=== PATIENT | male | born 1950 | race Caucasian/White ===

== ENCOUNTER 2019-04-13 06:04 | Inpatient (IN) ==
--- NOTE | 2019-04-12 18:59 | Anesthesia Evaluation PreOp ---
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: Other (depression, PTSD) Other Medical History: Other (RA) Anesthesia History: No Prior Anesthetic Complications, Past Anesthesia (nose surgery, stents in legs, cardiac stent) Alcohol Use: none Drug use: none Medications and Allergies Albuterol Sulfate [Proventil] 2 mg PO DAILY 04/08/19 [History] Allopurinol [Zyloprim 100 MG] 100 mg PO DAILY 04/08/19 [History] Aspirin [Ecotrin] 325 mg PO DAILY 04/08/19 [History] Budesonide/Formoterol 80/4.5 [Symbicort 80/4.5] 2 puff IH BID 04/08/19 [History] Cholecalciferol (D-3) [Vitamin D] 1,000 unit PO 2XW 04/08/19 [History] Docusate [Colace] 100 mg PO DAILY 04/08/19 [History] Ranitidine HCl [Acid [employer]] 150 mg PO DAILY 04/08/19 [History] Tiotropium [Spiriva] 18 mcg IH DAILY 04/08/19 [History] dilTIAZem HCl [Diltiazem HCl] 120 mg PO DAILY 04/08/19 [History] Allergy/AdvReac Type Severity Reaction Status Date / Time Sulfa (Sulfonamide Allergy Itching Verified 04/08/19 06:47 Antibiotics) - Meds/Allergy Pre-op Review Medications Reviewed: Yes Allergies Reviewed: Yes Beta Blockers on Current Med List: No (metoprolol ordered in pre op ) Anesthesia Results - Labs Laboratory Tests 04/02/19 04/02/19 04/02/19 14:34 14:34 14:34 WBC 8.3 Hgb 13.8 Hct 42.5 Plt Count 210 PT 11.8 INR 1.0 Sodium 143 Potassium 5.0 Chloride 106 Carbon Dioxide 26 BUN 27 H Creatinine 1.82 H Est GFR (Non-Af Amer) 37 L - Imaging EKG: report reviewed Additional studies: 04/08/2019 Transradial LEFT HEART CATH Indications: Pre-operative Evaluation Impressions: There is severe multivessel disease including mid distal left main Recommendations: Optimal medical therapy of patient's disease. Aggressive risk factor modification. Suggest patient have Elective coronary artery bypass surgery. Coronary Dominance: Left Lesion Findings/Interventions * Left Main Coronary Artery There is a 50% stenosis in the Mid LMCA. There is a 50% stenosis in the Distal LMCA. * Left Anterior Descending There is a 30% stenosis in the Proximal LAD. There is a 80% stenosis in the 1st Diagonal. * Circumflex There is a 70% stenosis in the Proximal Circumflex. There is a 60% stenosis in the Mid Circumflex. There is a 90% stenosis in the Left PDA. * Right Coronary Artery The RCA is small nondominant with severe disease 04/08/2019 echocardiogram Impressions: LVEF 60%. LV wall thickness measurements not optimally obtained. Grossly, there is mild to moderate concentric LVH. Mild left ventricular diastolic dysfunction. Normal right ventricular structure and function. Mild-moderate mitral regurgitation. Mild tricuspid regurgitation. Mild pulmonary hypertension. Left Ventricular Wall Motion: Rest Echo Findings All wall segments showed normal motion. Findings: Study Quality * Technically adequate exam. ECG Findings * Normal sinus rhythm. Left Ventricle * LVEF 60%. * LV wall thickness measurements not optimally obtained. Grossly, there is mild to moderate concentric LVH. * Mild left ventricular diastolic dysfunction. Right Ventricle * Normal right ventricular structure and function. Left Atrium * Mildly dilated left atrium. Right Atrium * Normal right atrial size. Aortic Valve * No aortic regurgitation. * No aortic stenosis. * Trileaflet aortic valve. Mitral Valve * Normal mitral valve structure. * No mitral stenosis. * Mild-moderate mitral regurgitation. Tricuspid Valve * Normal tricuspid valve structure. * Mild tricuspid regurgitation. * Estimated RA pressure is 3 mmHg. * Estimated RVSP is 42 mmHg. * Mild pulmonary hypertension. Pulmonic Valve * Pulmonic valve is not well visualized. * No pulmonic stenosis. * Trace pulmonic regurgitation. Pulmonary Artery * Pulmonary artery not well visualized. Aorta * Normally sized aortic root. Pericardium * There is no pericardial effusion present. Interatrial Septum * No evidence of PFO by color Doppler. IVC * Normal IVC dimensions and inspiratory collapse. Anesthesia Exam Vital Signs/O2 Sat/Glucose, Most Recent Temp Pulse Resp BP Pulse Ox 98.1 F 75 18 189/82 97 04/13/19 06:46 04/13/19 06:46 04/13/19 06:46 04/13/19 06:46 04/13/19 06:46 Blood Glucose* 88 Weight: 81 kg NPO (# of Hours): > 8 hr - HEENT Pupil (Motor): Pupils equal Mallampati: II Teeth: Edentulous Oral Opening: Greater than 3 - PROJECT DEVELOPMENT COORDINATOR LOC: Oriented PROJECT DEVELOPMENT COORDINATOR Motor: Normal RUE, Normal LUE, Normal RLE, Normal LLE, Normal Face PROJECT DEVELOPMENT COORDINATOR Sensory: Normal: RUE, LUE, RLE, LLE, Face - Cardiac Rhythm: Regular Murmur: None - Pulmonary Breath Sounds: bilateral Clear Respiratory Effort: Symmetrical Anesthesia Assess/Plan ASA Score: 4 Level of consciousness: Cooperative, Oriented Anesthetic Plan: General Monitoring Plan: Standard Monitors, A-Line, CVC, PAC, TRACEE Recovery Plan: ICU
[~2019-04-13 06:04] MED LIST: Aspirin 81 MG TAB.CHEW PO ONE
[2019-04-13] MEDS ORDERED: CeFAZolin Syr 2,000MG/20 ML 2,000 MG/20 ML SYRINGE IVPB ONE (06:50)
[2019-04-13] MEDS ORDERED: Albuterol 2.5 MG/3 ML NEBULIZER IH ONE (06:55)
[2019-04-13] MEDS ORDERED: Nitroglycerin 25 MG/250 ML INFUS..BTL IVC ONE (06:57)
[2019-04-13] MEDS ORDERED: *HR* FentaNYL (PF) 1,000 MCG/20 ML VIAL ONE (07:01)
[2019-04-13] MEDS ORDERED: *HR* Midazolam HCl 5 MG/5 ML VIAL IVP ONE (07:01)
[2019-04-13] MEDS ORDERED: *HR* Propofol 200 MG/20 ML VIAL IVP ONE (07:02)
[2019-04-13] MEDS ORDERED: Albuterol 2.5 MG/3 ML NEBULIZER ONE (07:02)
[2019-04-13] MEDS ORDERED: *HR* PHENYLEPHRINE 1,000 MCG/10 ML SYRINGE IVP ONE (07:03)
[2019-04-13] MEDS ORDERED: Dexamethasone 4 MG/ML VIAL ONE (07:03)
[2019-04-13] MEDS ORDERED: *HR* Rocuronium Bromide 50 MG/5 ML VIAL ONE ×2 (07:03→09:42)
[2019-04-13] MEDS ORDERED: Lidocaine 2% Syringe 100 MG/5 ML ONE (07:04)
[2019-04-13] MEDS ORDERED: *HR* Magnesium Sulfate 1 GM/2 ML VIAL ONE (07:04)
[2019-04-13] MEDS ORDERED: Famotidine 20 MG/2 ML VIAL ONE (07:04)
[2019-04-13] MEDS ORDERED: Verapamil 5 MG/2 ML VIAL ONE (07:17)
[2019-04-13] MEDS ORDERED: Tranexamic Acid 1,000 MG/10 ML VIAL ONE (07:31)
[2019-04-13] MEDS ORDERED: Heparin 15,000 UNIT in 0.9 % Sodium Chloride 500 ML IV ONE (07:45)
[2019-04-13] MEDS ORDERED: Dextrose 50 % in Water (Vial) 30 ML, Sodium Bicarbonate 20 MEQ, Potassium Chloride 15 M... TH ONE (07:45)
[2019-04-13] MEDS ORDERED: Insulin Human Regular 100 UNIT in 0.9 % Sodium Chloride 100 ML IV PRN (07:45)
[2019-04-13] MEDS ORDERED: Norepinephrine 4 MG in D5% in Water 250 ML IVC PRN (07:45)
[2019-04-13] MEDS ORDERED: Dextrose 50 % in Water (Vial) 30 ML, Sodium Bicarbonate 20 MEQ, Lidocaine 1% 5 ML, Insu... TH ONE ×3 (07:45)
--- NOTE | 2019-04-13 07:47 | History & Physical Report ---
Date of Encounter: 04/13/19 Time of Encounter: 07:46 24 Hour HP Update - Instructions Instructions: If the History and Physical is less than 30 days old and was completed prior to A.M. admission and or procedure and has NOT been updated on calendar day of procedure please complete this update prior to performing procedure. - Update Patient reports changes in Medical Condition: Yes Changes in examination, assessment, or condition: No Changes in Medication: No Preop tests/diagnostics Reviewed: Yes Pre-Op MRSA Screen: Negative Surgery Remains Indicated: Yes Consent for Planned Operative Procedure(s) Verified: Yes Review of Patient reveals the following changes:: The patient states that he had left precordial and chest pain at rest often during the weekend. - Pre-Operative Checklist Preoperative Checklist Indicated: Yes Prophylactic Antibiotic Ordered: Yes Home Medications Include Beta Aakash: Yes Beta Aakash Taken Today (Day of Surgery): Yes Beta Aakash Taken Yesterday (Day Prior to Surgery): Yes Is VTE Prophylaxis Indicated?: Yes
[2019-04-13 08:25] LABS: ABG Base Excess -6 mEq/L (-2 to 3); ABG Chloride 111 mEq/L (98-107); ABG Glucose 94 mg/dL (60-95); ABG HCO3 21 mEq/L (21-27); ABG Ionized Calcium 1.18 mmol/L (1.15-1.35); ABG Oxygen Saturation 100 % (95-98); ABG PCO2 45 mmHg (35-45); ABG PH 7.27 pH Units (7.32-7.45); ABG PO2 288 mmHg (85-104); ABG TCO2 22 mEq/L (20-26)
[2019-04-13] MEDS ORDERED: Chlorhexidine Rinse 15 ML MOUTHWASH MM SCH (09:00)
[2019-04-13] MEDS ORDERED: *HR* Phenylephrine 10 MG/ML VIAL IVC ONE (09:08)
[2019-04-13] MEDS ORDERED: Sodium Bicarbonate 50 MEQ/50 ML VIAL IVC ONE (09:08)
[2019-04-13] MEDS ORDERED: Mannitol 25% vial 12.5 GM/50 ML VIAL IVP ONE (09:08)
[2019-04-13] MEDS ORDERED: *HR* Magnesium Sulfate 2 GM/50 ML PIGGYBACK IVPB ONE (09:08)
[2019-04-13] MEDS ORDERED: *HR* Heparin 10,000 UNIT/10 ML VIAL IV ONE (09:08)
[2019-04-13] MEDS ORDERED: Lidocaine 2% Syringe 100 MG/5 ML IV ONE (09:08)
[2019-04-13] MEDS ORDERED: Albumin Human 25% 25 GM/100 ML IV.SOLN IV ONE (09:08)
[2019-04-13] MEDS ORDERED: Tranexamic Acid 1,000 MG/10 ML VIAL IVPB ONE (09:08)
[2019-04-13 09:41] LABS: ABG Base Excess -6 mEq/L (-2 to 3); ABG Chloride 112 mEq/L (98-107); ABG Glucose 94 mg/dL (60-95); ABG HCO3 21 mEq/L (21-27); ABG Ionized Calcium 1.18 mmol/L (1.15-1.35); ABG Oxygen Saturation 100 % (95-98); ABG PCO2 43 mmHg (35-45); ABG PH 7.29 pH Units (7.32-7.45); ABG PO2 261 mmHg (85-104); ABG TCO2 22 mEq/L (20-26)
[2019-04-13] MEDS ORDERED: Protamine Sulfate 250 MG/25 ML VIAL IVP ONE (09:41)
[2019-04-13] MEDS ORDERED: Calcium Gluconate 1,000 MG/10 ML VIAL ONE (09:41)
[2019-04-13 10:21] LABS: ABG Base Excess -4 mEq/L (-2 to 3); ABG Chloride 107 mEq/L (98-107); ABG Glucose 208 mg/dL (60-95); ABG HCO3 21 mEq/L (21-27); ABG Ionized Calcium 1.01 mmol/L (1.15-1.35); ABG PCO2 37 mmHg (35-45); ABG PH 7.37 pH Units (7.32-7.45); ABG PO2 > 630 mmHg (85-104); ABG TCO2 22 mEq/L (20-26)
--- NOTE | 2019-04-13 10:39 | Anesthesia Procedures ---
Date of Encounter: 04/13/19 Time of Encounter: 10:36 Procedures: Anesthesia - Arterial Line Consent obtained: written consent Time out performed: Yes Sedation: Versed (mg): 3 Sedation: Fentanyl (mcg): 100 Local Anesthetic: Lidocaine 1% Size (Gauge): 20 Length (inches): 1 3/4 Technique Used: direct puncture technique, other Post-Procedure: line taped into place, dry sterile dressing placed Patient tolerated procedure: well, no complications Complications: none Site: Radial R Vitals: see anesthesia record Comments: 2 attempts. Left side pressure dressing applied after hematoma formation. - Central Line Placement Right IJ Consent obtained: written consent Time out performed: Yes Patient placed on monitor/pulse ox: Yes MD prep: mask, gown, gloves Central line prep: Povidone-Iodine 1%, Chlorhexidine scrub Ultrasound used for placement: Yes Technique: Seldinger Lumen Inserted: single Size / Length: 9 Fr / 10 cm Post procedure: sutured in place, good blood return Patient tolerated procedure: well, no complications Complications: none Vitals: see anesthesia record Comments: PAC inserted using pressure waveform analysis secured at 49 cm
[2019-04-13 10:55] LABS: ABG Base Excess -1 mEq/L (-2 to 3); ABG Chloride 105 mEq/L (98-107); ABG Glucose 173 mg/dL (60-95); ABG HCO3 23 mEq/L (21-27); ABG Ionized Calcium 1.01 mmol/L (1.15-1.35); ABG Oxygen Saturation 100 % (95-98); ABG PCO2 33 mmHg (35-45); ABG PH 7.45 pH Units (7.32-7.45); ABG PO2 594 mmHg (85-104); ABG TCO2 24 mEq/L (20-26)
[2019-04-13 10:59] LABS: ABG Base Excess 1 mEq/L (-2 to 3); ABG Chloride 105 mEq/L (98-107); ABG Glucose 153 mg/dL (60-95); ABG HCO3 25 mEq/L (21-27); ABG Ionized Calcium 1.04 mmol/L (1.15-1.35); ABG Oxygen Saturation 100 % (95-98); ABG PCO2 38 mmHg (35-45); ABG PH 7.44 pH Units (7.32-7.45); ABG PO2 604 mmHg (85-104); ABG TCO2 26 mEq/L (20-26)
[2019-04-13 11:31] LABS: ABG Base Excess -4 mEq/L (-2 to 3); ABG Chloride 107 mEq/L (98-107); ABG Glucose 112 mg/dL (60-95); ABG HCO3 22 mEq/L (21-27); ABG Ionized Calcium 1.24 mmol/L (1.15-1.35); ABG Oxygen Saturation 100 % (95-98); ABG PCO2 42 mmHg (35-45); ABG PH 7.33 pH Units (7.32-7.45); ABG PO2 300 mmHg (85-104); ABG TCO2 23 mEq/L (20-26)
[2019-04-13] MEDS ORDERED: Potassium Chloride 40 MEQ/200 ML BAG IVPB PRN (12:00)
[2019-04-13] MEDS ORDERED: *HR* Promethazine 25 MG/ML VIAL IVP PRN (12:00)
[2019-04-13] MEDS ORDERED: Naloxone 0.4 MG/ML INJ IVP PRN (12:00)
[2019-04-13] MEDS ORDERED: Ondansetron 4 MG/2 ML VIAL IVP PRN (12:00)
[2019-04-13] MEDS ORDERED: Acetaminophen 325 MG TABLET PO PRN (12:00)
[2019-04-13] MEDS ORDERED: Insulin Regular, Human 100 UNIT/ML IV PRN (12:00)
[2019-04-13 12:37] LABS: ABG Base Excess -5 mEq/L (-2 to 3); ABG HCO3 22 mEq/L (21-27); ABG Oxygen Saturation 95 % (95-98); ABG PCO2 49 mmHg (35-45); ABG PH 7.27 pH Units (7.32-7.45); ABG PO2 89 mmHg (85-104); ABG TCO2 24 mEq/L (20-26); Blood Gas Modality VC; Blood Gas PEEP 5 cm H2O; Blood Gas VT 600 cc
--- NOTE | 2019-04-13 12:44 | Operative Note ---
Date of procedure: 04/13/19 Pre-op diagnosis: Coronary artery disease Post-op diagnosis: same Procedure: Coronary artery bypass grafting 2 with a left internal mammary artery to the LAD and a saphenous vein graft to the obtuse marginal branch #2 of the circumflex. Anesthesia: GETA Surgeon: Erasto Bright Was there an assignment desk assistant present: Yes Roll Filler: Dandy Vanessa Estimated blood loss (cc): 500 Specimen: none Condition: critical Disposition: ICU Procedure in Detail: The patient is a 68-year-old gentleman who continues to smoke 2-3 packs of cigarettes per day. He has significant COPD and uses oxygen at night. His preoperative creatinine was 1.8. He underwent preoperative cardiac clearance for a vascular procedure. He was found to have a significant, 70% left main lesion. He was referred for surgery. We did obtain a preoperative echocardi ogram and carotid duplex. He came in this morning and stated that he had chest pain at rest this weekend several times. He was brought to the operating room where he was prepped and draped in standard fashion. The left greater saphenous vein was harvested from the left knee to the left groin using 2 small incisions and a scope. These incisions were subsequently closed using a deep layer of 2-0 Vicryl and a 3-0 Vicryl subcuticular stitch. Standard median sternotomy was performed. The left internal mammary artery was harvested in standard fashion using the Bovie electrocoagulation. The standard sternal proprietary trader was inserted. Pericardium was opened in the midline and suspended with 2-0 silk stay sutures. A double pursestring of 200 Surg[place] was placed in the aorta for the aortic cannulation site. A pursestring of 20 Surgilon was placed in the right atrial appendage for the venous uptake. The patient was heparinized. The aorta was cannulated without difficulty. 2 stage venous uptake cannula was inserted through the right atrial appendage. A pursestring of 3-0 silk was placed in the aorta and the cardioplegia needle was inserted through here. This was also uses an active and passive aortic vent. The patient was placed on cardiopulmonary bypass and cooled to 34.5 degrees. The aorta was crossclamped and a liter of antegrade cardioplegia was given. Topical cooling with iced saline slush was also used. Attention was turned to the circumflex. Obtuse marginal branch #1 was dissected free with the [place] blade and opened with the [place] blade and the Irvin scissors. It had subacute clot and was 100% thrombosed. The clot was removed using coronary dilators. The artery was loosely closed using a 5-0 Prolene suture. Attention was next turned to the obtuse marginal branch #2. This was the distal circumflex. It was dissected free with the [place] blade and opened with the [place] blade and the Irvin scissors. This had a lumen of 1 mm and was relatively free of disease. A standard end-to-side anastomosis was constructed using the saphenous vein and a 7-0 Prolene. When this is completed, the patient received a last dose of antegrade cardioplegia. Attention was turned to the LAD. The LAD was opened with the [place] blade and the Irvin scissors. It had a lumen of 1-1/2 mm with moderate diffuse disease throughout. A standard end-to-side anastomosis was constructed using the mammary artery and a 7-0 Prolene. When this is completed, the previously placed old dog clamp was removed and the hemostasis was good. Pedicle was tacked to the surface of the heart using 2 interrupted 5-0 silk sutures. Cross-clamp was removed and rewarming was begun. A side-biting clamp was placed on the aorta. The cardioplegia needle was removed. A hole was made in the aorta using the [place] blade and the 4.4 mm aortic punch. There was some plaquing of the aorta at this site and this was debrided. A standard end-to-side anastomosis was constructed using the saphenous vein and a 5-0 Prolene. When this was completed, the side- biting clamp was removed. The graft was de-aired using a #25-gauge needle and the previously placed bulldog clamp was removed. Distal anastomoses were inspected and found to be hemostatic. The proximal anastomosis was marked with a marker from [email or web address]. A pair of atrial and ventricular pacing wires were left. A total of 4 chest tubes were left. A 32 angle chest tube to the left pleural space. A 32 right angle chest tube to the pericardial well. A 42 mediastinal chest tube. A 32 right angle chest tube to the right pleural space. The patient was weaned from bypass and decannulated. Protamine was given. Hemostasis was good and the hemodynamics were good. The cardiac index was improved from preoperatively. The TRACEE probe revealed improved ventricular function which appeared normal. The patient was paced AV sequentially. We did use fibrillar and hemoblast to the right atrial appendage and distal anastom oses. Pericardium was left open. We did use platelet rich and platelet poor plasma to the sternum and tissues above the sternum. Sternum was closed with #7 sternal wires in simple and [id number] fashion. Fascia was run with a #1 Vicryl. Subcutaneous tased tissues with a 2-0 Vicryl. Skin was closed with a 3-0 Vicryl subcuticular stitch. The patient tolerated the procedure well and was returned intensive care unit in satisfactory and stable condition. Total bypass time was 67 minutes. Total cross-clamp time was 40 minutes. He been cooled to 34.5 degrees.
[2019-04-13 12:45] LABS: Basophils % 0.1 %; Eosinophils # 0.1 K/mcL (0.0-0.6); Eosinophils % 0.9 %; Hematocrit 33.9 % (37.5-50.1); Hemoglobin 11.1 g/dL (12.9-16.9); Immature Granulocytes % 0.7 % (0-4); Lymphocytes # 0.9 K/mcL (0.6-4.6); Lymphocytes % 6.3 %; Mean Corpuscular HGB Conc 32.7 g/dL (31.6-35.5); Mean Corpuscular Hemoglobin 32.3 pg (28.0-33.3); Mean Corpuscular Volume 98.5 fL (83.0-100.0); Mean Platelet Volume 9.7 fL (9.4-12.4); Monocytes # 1.4 K/mcL (0.0-1.3); Monocytes % 9.6 %; Neutrophils # 11.6 K/mcL (1.6-8.9); Platelet Count 152 K/mcL (140-400); Red Blood Count 3.44 M/mcL (4.19-5.50); Red Cell Distribution Width 14.9 % (11.5-14.5); Segmented Neutrophils % 82.4 %
[2019-04-13 12:58] LABS: Activated Partial Thrombo Time 34.4 Seconds (26.0-36.0)
[2019-04-13 13:01] LABS: Prothrombin Time 11.9 Seconds (9.4-12.1)
[2019-04-13 13:18] LABS: Calcium 8.4 mg/dL (8.6-10.3); Magnesium 3.6 mg/dL (1.6-2.6); Potassium 4.4 mEq/L (3.5-5.1)
--- NOTE | 2019-04-13 13:28 | Anesthesia Evaluation Post Op ---
Date of Encounter: 04/13/19 Time of Encounter: 13:26 - Vital Signs Vital Signs: Vital Signs/O2 Sat/Glucose, Most Recent Temp Pulse Resp BP Pulse Ox 98.1 F 75 10 132/73 98 04/13/19 06:46 04/13/19 06:46 04/13/19 12:15 04/13/19 12:15 04/13/19 12:15 Blood Glucose* 88 - Lungs Lungs: Clear Ascult./Percussion - Airway Airway: Intubated - Cardiovascular New Rhythm (paced) - Mental Status Mental Status: Alert & Oriented, Answers Appropriately - Pain Pain Scale used: Unable to assess - Nausea Vomiting Nausea Vomiting: Not Present - Hydration Hydration: NPO - Discharge Attestation: Patient doing well POD#0 from CABG. Continue post op cardiac care
[2019-04-13] MEDS: Nitroglycerin 25 MG/250 ML INFUS..BTL IVC SCH ×2 (13:45→22:01)
--- NOTE | 2019-04-13 13:54 | Internal Med History&Physical ---
Date of Encounter: 04/13/19 Internal Medicine - H&P: HPI History of present illness: Mr. Lee is a 68 year old male Past Med Surg Social Fam HX - Past Medical History Medical history: arthritis, asthma, CHF, COPD, coronary artery disease, hyperlipidemia, hypertension, kidney stones, myocardial infarction, RA, renal disease Additional medical history: home o2 2l n/c qhs Psychiatric history: depression, PTSD - Past Surgical History Additional surgical history: nose surgery, stents in heart, stents in legs - Social History Smoking Status: Current every day smoker Smokeless Tobacco Status: No Alcohol use: none Drug use: none Internal Medicine - H&P: Meds Albuterol Sulfate [Proventil Hfa] 2 puff IH Q4-6H PRN 04/13/19 [History] Allopurinol [Zyloprim] 150 mg PO DAILY 04/13/19 [History] Aspirin 325 mg PO HS 04/13/19 [History] Budesonide/Formoterol 160/4.5 [Symbicort 160/4.5] 1 puff IH BIDR 04/13/19 [Hi story] Cholecalciferol (Vitamin D3) [Vitamin D] 50,000 unit PO MOLINA 04/13/19 [History] Cyanocobalamin (Vitamin B-12) [Vitamin B-12] 1,000 mcg PO DAILY 04/13/19 [History] Diltiazem CD (24hr) [Cardizem CD] 240 mg PO DAILY 04/13/19 [History] Lisinopril [Zestril] 40 mg PO DAILY 04/13/19 [History] Montelukast [Singulair] 10 mg PO HS 04/13/19 [History] raNITIdine HCl [Zantac] 150 mg PO BID 04/13/19 [History] Allergy/AdvReac Type Severity Reaction Status Date / Time Sulfa (Sulfonamide Allergy Itching Verified 04/08/19 06:47 Antibiotics) All Systems PM: A 10-system review of systems was performed and is negative for pertinent findings except as documented above in the HPI. - Constitutional Vitals: Temp Pulse Resp BP Pulse Ox 98.1 F 75 10 132/73 98 04/13/19 06:46 04/13/19 06:46 04/13/19 12:15 04/13/19 12:15 04/13/19 12:15 Exam: Gen.: Eyes: Almost maximumally constricted. Some possible very minor constriction to pen light bilaterally Skin: Good turgor of forehead. Extremities: Capillary refill less than 2 seconds upper extremities bilaterally. No bilateral lower extremity edema Cardiac: Regular rate and rhythm. No murmurs gallops rubs. No carotid bruit on the left. Doubt carotid bruit on the right but complicated by sterile film. Respiratory: Inspiratory grunts and expiratory wheezing. On the ventilator Abdomen: Soft. Obese. Normoactive bowel sounds : Brenner in place. MSK: [address] Sternotomy wrap in place. Neuro: [place] 6 Internal Med - H&P Results - Labs CBC & Chem 7: 04/13/19 12:32 04/13/19 12:32 Labs: Short CBC 04/13/19 Range/Units 12:32 WBC 14.0 H (4.3-11.1) K/mcL Hgb 11.1 L (12.9-16.9) g/dL Hct 33.9 L (37.5-50.1) % Plt Count 152 (140-400) K/mcL Neutrophils # 11.6 H (1.6-8.9) K/mcL BMP 04/13/19 12:32 Sodium 138 Potassium 4.4 Chloride 109 H Carbon Dioxide 25 BUN 18 Creatinine 1.70 H Glucose 83 Calcium 8.4 L - ABG Interpretation ABG results: 04/13/19 04/13/19 04/13/19 08:19 09:35 10:11 ABG pH 7.27 L 7.29 L 7.37 ABG pCO2 45 43 37 ABG pO2 288 H 261 H > 630 H D ABG HCO3 21 21 21 ABG Total CO2 22 22 22 ABG O2 Saturation 100 H 100 H TNP ABG Base Excess -6 L -6 L -4 L 04/13/19 04/13/19 04/13/19 10:37 10:55 11:26 ABG pH 7.45 7.44 7.33 ABG pCO2 33 L 38 42 ABG pO2 594 H 604 H 300 H D ABG HCO3 23 25 22 ABG Total CO2 24 26 23 ABG O2 Saturation 100 H 100 H 100 H ABG Base Excess -1 1 -4 L 04/13/19 12:34 ABG pH 7.27 L ABG pCO2 49 H ABG pO2 89 D ABG HCO3 22 ABG Total CO2 24 ABG O2 Saturation 95 ABG Base Excess -5 L - Impressions ITS Impressions Chest X-Ray 04/13/19 12:00 IMPRESSION: 1. Postsurgical changes from open heart surgery with lines and tubes as above. 2. Enteric tube tip within the stomach and the side port just distal to the GE junction. 3. Mild interstitial edema with bibasilar atelectasis with probable small left pleural effusion. D/ / Millie Calle MD / Millie Calle MD Interpreting Provider: Millie Calle MD X-Ray 04/13/19 12:00 IMPRESSION: 1. Postsurgical changes from open heart surgery with lines and tubes as above. 2. Enteric tube tip within the stomach and the side port just distal to the GE junction. 3. Mild interstitial edema with bibasilar atelectasis with probable small left pleural effusion. D/ / Millie Calle MD / Millie Calle MD Interpreting Provider: Millie Calle MD - Time Spent With Patient Total time spent is greater than 50% in coordination of care (as documented) at patient's floor/unit and/or counseling patient:
[2019-04-13] MEDS: 0.9 % Sodium Chloride 1,000 ML IVC SCH (14:17)
[2019-04-13] MEDS: Insulin Human Regular 100 UNIT in 0.9 % Sodium Chloride 100 ML IVC SCH (14:46)
[2019-04-13 15:02] LABS: ABG Base Excess -4 mEq/L (-2 to 3); ABG HCO3 22 mEq/L (21-27); ABG Oxygen Saturation 99 % (95-98); ABG PCO2 43 mmHg (35-45); ABG PH 7.32 pH Units (7.32-7.45); ABG PO2 125 mmHg (85-104); ABG TCO2 24 mEq/L (20-26); Blood Gas Modality VC; Blood Gas PEEP 5 cm H2O; Blood Gas VT 500 cc
--- NOTE | 2019-04-13 15:12 | Pulmonology History & Physical ---
<Shailesh Quinteros W - Last Filed: 04/13/19 17:00> Date of Encounter: 04/13/19 History of Present Illness HPI: Mr. Lee is a 68 year old male Medications and Allergies Albuterol Sulfate [Proventil Hfa] 2 puff IH Q4-6H PRN 04/13/19 [History] Allopurinol [Zyloprim] 150 mg PO DAILY 04/13/19 [History] Aspirin 325 mg PO HS 04/13/19 [History] Budesonide/Formoterol 160/4.5 [Symbicort 160/4.5] 1 puff IH BIDR 04/13/19 [History] Cholecalciferol (Vitamin D3) [Vitamin D] 50,000 unit PO MOLINA 04/13/19 [History] Cyanocobalamin (Vitamin B-12) [Vitamin B-12] 1,000 mcg PO DAILY 04/13/19 [History] Diltiazem CD (24hr) [Cardizem CD] 240 mg PO DAILY 04/13/19 [History] Lisinopril [Zestril] 40 mg PO DAILY 04/13/19 [History] Montelukast [Singulair] 10 mg PO HS 04/13/19 [History] raNITIdine HCl [Zantac] 150 mg PO BID 04/13/19 [History] Allergy/AdvReac Type Severity Reaction Status Date / Time Sulfa (Sulfonamide Allergy Itching Verified 04/08/19 06:47 Antibiotics) All Systems: The remainder of the systems were reviewed and are negative Physical Examination Vital Signs: Vital Signs, Last 4 Hours Resp BP Pulse Ox 04/13/19 15:10 16 130/66 97 Results - Laboratory Findings CBC and BMP: 04/13/19 12:32 04/13/19 12:32 ABG ABG pH 7.33 pH Units (7.32-7.45) 04/13/19 16:18 ABG pCO2 44 mmHg (35-45) 04/13/19 16:18 ABG pO2 91 mmHg (85-104) 04/13/19 16:18 ABG O2 Saturation 96 % (95-98) 04/13/19 16:18 PT/INR, D-dimer PT 11.9 Seconds (9.4-12.1) 04/13/19 12:32 Abnormal lab findings: Abnormal lab results WBC 14.0 K/mcL (4.3-11.1) H 04/13/19 12:32 RBC 3.44 M/mcL (4.19-5.50) L 04/13/19 12:32 Hgb 11.1 g/dL (12.9-16.9) L 04/13/19 12:32 Hct 33.9 % (37.5-50.1) L 04/13/19 12:32 RDW 14.9 % (11.5-14.5) H 04/13/19 12:32 Neutrophils # 11.6 K/mcL (1.6-8.9) H 04/13/19 12:32 Monocytes # 1.4 K/mcL (0.0-1.3) H 04/13/19 12:32 ABG pH 7.27 pH Units (7.32-7.45) L 04/13/19 12:34 ABG pCO2 49 mmHg (35-45) H 04/13/19 12:34 ABG pO2 125 mmHg (85-104) H 04/13/19 14:58 ABG O2 Saturation 99 % (95-98) H 04/13/19 14:58 ABG Base Excess -3 mEq/L (-2 to 3) L 04/13/19 16:18 ABG Hematocrit 27.0 % (37.5-50.1) L 04/13/19 11:26 ABG Chloride 112 mEq/L (98-107) H 04/13/19 09:35 Glucose 112 mg/dL (60-95) H 04/13/19 11:26 Chloride 109 mEq/L (98-107) H 04/13/19 12:32 Creatinine 1.70 mg/dL (0.70-1.30) H 04/13/19 12:32 Est GFR ( Amer) 49 (> 60) L 04/13/19 12:32 Est GFR (Non-Af Amer) 40 (> 60) L 04/13/19 12:32 Calcium 8.4 mg/dL (8.6-10.3) L 04/13/19 12:32 Magnesium 3.6 mg/dL (1.6-2.6) H 04/13/19 12:32 Arterial Blood Ionized Calcium 1.04 mmol/L (1.15-1.35) L 04/13/19 10:55 Crossmatch See Detail 04/08/19 16:04 - Attending Attestation I examined this patient and my medical decision-making was reviewed with the Resident Physician. I agree with the documented findings, disposition and treatment plan as described except to the extent set forth below. We independently had [id number] contact with the patient Patient seen and examined at bedside Labs, radiology, chart personally reviewed. Management was reviewed during multidisciplinary critical care rounds. 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 postoperative anesthesia will hold sedation for now likely will remain intubated overnight will need narcotic infusion for pain and Precedex for agitation Pulm: Acute hypoxic hypercapnic respiratory failure secondary to COPD exacerbation coupled with the postoperative anesthesia ABG is reassuring after vent management including decreasing tidal volume but increasing respiratory rate he now has a proper ID ratio and a peak and plateau pressures are acceptable we will treat for COPD exacerbation with IV steroids and scheduled bronchodilators Cards: He is postop day 0 status post CABG appreciate cardiothoracic surgery managing this and will be up to their discretion for removal of drains GI: GI prophylaxis given while on vent Nutrition: Nothing by mouth for now Renal: Chronic kidney disease noted UOP Monitored, Cont to Trend sCr and monitor Electrolytes. ID: Leukocytosis without evidence of infection continue to monitor Heme/Onc: Mechanical DVT prophylaxis he has mild postoperative anemia which we will continue to monitor Endo: Glucose Monitored her insulin infusion per protocol Integ/MSK: Skin Care per routine ICU Nursing Protocol to prevent ulcers. Lines: All lines examined without evidence of infection : Dispo: Monitor in ICU CODE:Full <Aaron West G - Last Filed: 04/13/19 19:28> Date of Encounter: 04/13/19 Time of Encounter: 15:20 Assessment and Plan (1) Acute on chronic respiratory failure with hypoxia and hypercapnia Current visit: Yes Status: Acute Background -Consider secondary to intraoperative sedation. -Patient currently on the ventilator. Rate 16, FiO2 50, PEEP 5, TV 500. Labs -ABG shows improvement of respiratory acidosis. Reports -Follow up chest x-ray read as mild interstitial edema with bibasilar atelectasis and probable small left pleural effusion. Plan: Ventilator bundle. Fentanyl and Precedex to be titrated to [place] 2. Follow ABGs. Morning CXR (2) COPD exacerbation Current visit: Yes Status: Acute -Likely secondary to intraoperative stress -2-3 pack per day active smoker. -ABG initially showing respiratory acidosis has improved. -CXR as above Plan: 60 mg IV Solu-Medrol every 8 hours scheduled. Duo nebs every 4 hours scheduled. Symbicort 160/4.52 puffs twice a day scheduled. Albuterol sulfate every 4 scheduled. Follow ABG's. Morning CXR. (3) S/P coronary artery bypass graft x 2 Current visit: Yes Status: Acute -Operation performed by Dr. Bright 04/13/19. Estimated blood loss 0.5 L. -Patient's initial presenting symptoms included unstable angina. -Left internal mammary artery was connected to the LAD and the left great s aphenous vein was connected to the obtuse marginal branch #2 of circumflex. 04/08/19 studies: -carotid Doppler ultrasound that showed nonstenotic plaque bilaterally. -Echo showed left ventricular ejection fraction of 60% with mild to moderate concentric left ventricular hypertrophy as well as left ventricular diastolic dysfunction, vjxf-jz-vswggevy mitral regurgitation, mild tricuspid regurgitat ion, mild pulmonary hypertension. -Nuclear stress test showed moderate anterior lateral ischemia on perfusion study. -Cardiac catheterization revealed severe multi-vessel disease in the LCA, LAD, circumflex, and RCA. -Vitals have been stable. -Cefazolin 2 g given. Plan: Postop day 0. Pain control with fentanyl and Precedex as needed. Percocet also available. Albumin per cardiology. Strict glucose management with insulin infusion. Remove chest tubes at cardiology's discretion. Cefazoli n per cardiology. Monitor for postop complications (4) Heart failure with preserved ejection fraction Current visit: Yes Status: Acute -Likely secondary to chronic hypertension and atherosclerosis as well as valvular disease and ischemia -Blood pressure has been adequate postop. -04/08/19 Echo showed left ventricular ejection fraction of 60% with mild to moderate concentric left ventricular hypertrophy as well as left ventricular diastolic dysfunction, xwco-[id number]-ftxpuyfs mitral regurgitation, mild tricuspid regurgitation, mild pulmonary hypertension. -CABG as above Plan: Holding aspirin secondary to risk of bleed. Statin, Monitor for postoperative complications. Qualifiers: Qualified Code(s): I50.32 - Chronic diastolic (congestive) heart failure (5) Coronary artery disease Current visit: No Status: Acute -Likely secondary to history of smoking and Western diet -Catheterization results as above Plan: Atorvastatin 80. Nitroglycerin. Calcium channel taryn Qualifiers: Coronary Disease-Associated Artery/Lesion type: telida artery [place] vs. transplanted heart: telida heart Associated angina: with stable angina Qu alified Code(s): I25.118 - Atherosclerotic heart disease of telida coronary artery with other forms of angina pectoris (6) CKD (chronic kidney disease) stage 3, GFR 30-59 ml/min Current visit: Yes Status: Acute -Chronic, stable -Presurgical creatinine 1.8. Postsurgical creatinine 1.7 Plan: Renal dosing of medications. Avoid nephrotoxins. Monitor urine output. (7) Leukocytosis Current visit: Yes Status: Acute -Likely stress reaction to operation Plan: Continue to monitor for signs of infection Qualifiers: Qualified Code(s): D72.829 - Elevated white blood cell count, unspecified (8) Postoperative anemia due to acute blood loss Current visit: Yes Status: Acute -Normocytic, stable -11.1-10.8 Plan: Continue to monitor for signs of bleed. Serial CBCs. (9) DVT prophylaxis Current visit: Yes Status: Acute scd History of Present Illness HPI: Mr. Lee is a 68 year old male with past medical history of chronic kidney dis ease stage III, 2-3 pack per day smoker, coronary artery disease status post stent placement in cardiac vessel and 2 stents in the lower extremities, heart failure with preserved ejection fraction, COPD, hypertension, hyperlipidemia, gout, peripheral artery disease, who presented to [facility] for coronary artery bypass graft performed by Dr. Bright. Patient is followed by the [facility] and reported symptoms of jaw, arm, chest, leg pain at rest per his partner. On 04/08/19 he received a carotid Doppler ultrasound that showed nonstenotic plaque bilaterally. Echo showed left ventricular ejection fraction of 60% with mild to moderate concentric left ventricular hypertrophy as well as left ventricular diastolic dysfunction, [id number]-[id number] mitral regurgitation, mild tricuspid regurgitation, mild pulmonary hypertension. Nuclear stress test showed moderate anterior lateral ischemia on perfusion study. Cardiac catheterization revealed severe multivessel disease in the LCA, LAD, circumflex, and RCA. Dr. Bright performed CABG on 04/13/19. Preoperative creatinine was 1.8. The left internal mammary artery was connected to the LAD and the left great saphenous vein was connected to the obtuse marginal branch #2 of circumflex. Blood loss estimated 0.5 L. Follow-up x-ray read as significant for mild interstitial edema with bibasilar atelectasis with probable small left pleural effusion. This showed the enteric tube tip within the stomach and distal to the GE junction. The patient has received 150 milligrams fentanyl, 2 milligrams midazolam and 11 mcg/kg/*couldn't read writing* of norepinephrine intraoperatively. He is now on normal saline maintenance fluids. He has received 1 dose of 2 g Ancef. He is also receiving insulin and albumin drips. Past Med Surg Social Fam HX - Past Medical History Medical history: arthritis, asthma, CHF, COPD, coronary artery disease, hyperlipidemia, hypertension, kidney stones, myocardial infarction, RA, renal disease Additional medical history: home o2 2l n/c qhs Psychiatric history: depression, PTSD - Past Surgical History Additional surgical history: nose surgery, stents in heart, stents in legs - Social History Smoking Status: Current every day smoker Smokeless Tobacco Status: No Alcohol use: none Drug use: none ROS unobtainable: due to endotracheal tube, due to mental status All Systems: The remainder of the systems were reviewed and are negative Physical Examination Vital Signs: Vital Signs, Last 4 Hours Resp BP Pulse Ox 04/13/19 12:15 10 132/73 98 Gen.: Elderly male. Sedated. Eyes: Almost maximally constricted. Some possible very minor constriction to pen light bilaterally Skin: Good turgor of forehead. Neck:No carotid bruit on the left. Doubt carotid bruit on the right but complicated by sterile film. [place] in right IJV. Extremities: Capillary refill less than 2 seconds upper extremities bilaterally. No bilateral lower extremity edema Cardiac: Regular rate and rhythm. No murmurs gallops rubs. Respiratory: Inspiratory grunts and expiratory wheezing. On the ventilator Abdomen: Soft. Obese. Normoactive bowel sounds. OG tube in place. : Brenner in place. MSK: [address] Sternotomy dressing in place. Neuro: Sohail 6 Lines: A line in radial artery and peripheral line of right upper extremity. [place]. Results - Laboratory Findings CBC and BMP: 04/13/19 16:15 04/13/19 16:15 ABG ABG pH 7.32 pH Units (7.32-7.45) 04/13/19 14:58 ABG pCO2 43 mmHg (35-45) 04/13/19 14:58 ABG pO2 125 mmHg (85-104) H 04/13/19 14:58 ABG O2 Saturation 99 % (95-98) H 04/13/19 14:58 PT/INR, D-dimer PT 11.9 Seconds (9.4-12.1) 04/13/19 12:32 Abnormal lab findings: Abnormal lab results WBC 14.0 K/mcL (4.3-11.1) H 04/13/19 12:32 RBC 3.44 M/mcL (4.19-5.50) L 04/13/19 12:32 Hgb 11.1 g/dL (12.9-16.9) L 04/13/19 12:32 Hct 33.9 % (37.5-50.1) L 04/13/19 12:32 RDW 14.9 % (11.5-14.5) H 04/13/19 12:32 Neutrophils # 11.6 K/mcL (1.6-8.9) H 04/13/19 12:32 Monocytes # 1.4 K/mcL (0.0-1.3) H 04/13/19 12:32 ABG pH 7.27 pH Units (7.32-7.45) L 04/13/19 12:34 ABG pCO2 49 mmHg (35-45) H 04/13/19 12:34 ABG pO2 125 mmHg (85-104) H 04/13/19 14:58 ABG O2 Saturation 99 % (95-98) H 04/13/19 14:58 ABG Base Excess -4 mEq/L (-2 to 3) L 04/13/19 14:58 ABG Hematocrit 27.0 % (37.5-50.1) L 04/13/19 11:26 ABG Chloride 112 mEq/L (98-107) H 04/13/19 09:35 Glucose 112 mg/dL (60-95) H 04/13/19 11:26 Chloride 109 mEq/L (98-107) H 04/13/19 12:32 Creatinine 1.70 mg/dL (0.70-1.30) H 04/13/19 12:32 Est GFR ( Amer) 49 (> 60) L 04/13/19 12:32 Est GFR (Non-Af Amer) 40 (> 60) L 04/13/19 12:32 Calcium 8.4 mg/dL (8.6-10.3) L 04/13/19 12:32 Magnesium 3.6 mg/dL (1.6-2.6) H 04/13/19 12:32 Arterial Blood Ionized Calcium 1.04 mmol/L (1.15-1.35) L 04/13/19 10:55 Crossmatch See Detail 04/08/19 16:04
--- NOTE | 2019-04-13 15:34 | Electrocardiograph Report ---
[address] [address] Test Date: 2019-04-13 Pat Name: Dandy Lee Department: 109 Room: [facility] Gender: M Incident Response Manager: : [id number] Requested By: Erasto Bright Order Number: [id number] Reading MD: Malinda Navas Measurements Intervals [place] Rate: 80 P: 209 NV: 167 QRS: 4 QRSD: 126 T: 95 QT: 447 QTc: 482 Interpretive Statements ELECTRONIC ATRIAL PACEMAKER ELECTRONIC VENTRICULAR PACEMAKER ABNORMAL RHYTHM ECG Electronically Signed On 04-13-2019 15:32:25 EDT by Malinda Navas
[2019-04-13] MEDS: methylPREDNISolone 125 MG/2 ML VIAL IVP SCH ×2 (15:45→23:17)
[2019-04-13 16:22] LABS: ABG Base Excess -3 mEq/L (-2 to 3); ABG HCO3 23 mEq/L (21-27); ABG Oxygen Saturation 96 % (95-98); ABG PCO2 44 mmHg (35-45); ABG PH 7.33 pH Units (7.32-7.45); ABG PO2 91 mmHg (85-104); ABG TCO2 24 mEq/L (20-26); Blood Gas Modality VC; Blood Gas PEEP 5 cm H2O; Blood Gas VT 500 cc
[2019-04-13] MEDS ORDERED: Artificial Tears SOLN 15 ML BOTTLE BOTH EYES PRN (16:51)
[2019-04-13] MEDS ORDERED: D5% in Water 1,000 ML IVC PRN (17:03)
[2019-04-13] MEDS ORDERED: Dextrose Gel 15 GM/37.5 ML TUBE PO PRN ×2 (17:03)
[2019-04-13] MEDS ORDERED: *HR* Dextrose 50 % in Water (Syg) 50 ML SYRINGE IVP PRN (17:03)
[2019-04-13 17:08] LABS: Basophils % 0.1 %; Eosinophils % 0.2 %; Hematocrit 32.9 % (37.5-50.1); Hemoglobin 10.8 g/dL (12.9-16.9); Immature Granulocytes % 0.5 % (0-4); Lymphocytes # 0.6 K/mcL (0.6-4.6); Lymphocytes % 5.7 %; Mean Corpuscular HGB Conc 32.8 g/dL (31.6-35.5); Mean Corpuscular Hemoglobin 32.6 pg (28.0-33.3); Mean Corpuscular Volume 99.4 fL (83.0-100.0); Mean Platelet Volume 10.1 fL (9.4-12.4); Monocytes # 0.8 K/mcL (0.0-1.3); Neutrophils # 9.5 K/mcL (1.6-8.9); Platelet Count 145 K/mcL (140-400); Red Blood Count 3.31 M/mcL (4.19-5.50); Red Cell Distribution Width 14.9 % (11.5-14.5); Segmented Neutrophils % 86.5 %; White Blood Count 10.9 K/mcL (4.3-11.1)
[2019-04-13 17:19] LABS: Calcium 8.4 mg/dL (8.6-10.3); Potassium 5.1 mEq/L (3.5-5.1)
[2019-04-13] MEDS: *HR* OxyCODONE/APAP 5/325 TABLET PO PRN (17:59)
[2019-04-13] MEDS ORDERED: Insulin LISPRO 300 UNITS/3 ML VIAL SQ SCH (18:00)
[2019-04-13] MEDS ORDERED: Ipratropium/Albuterol Neb 3 ML IH SCH (18:00)
[2019-04-13] MEDS: niCARdipine 20 MG/200 ML MLS IVC SCH ×4 (18:19→23:26)
[2019-04-13] MEDS: Ringers Solution, Lactated 1,000 ML IVC SCH (18:58)
[2019-04-13] MEDS ORDERED: Budesonide/Formoterol 160/4.5 1 PUFF INH IH ONE (19:34)
[2019-04-13] MEDS: Norepinephrine 4 MG in D5% in Water 250 ML IVC SCH (19:43)
[2019-04-13] MEDS: FentaNYL (PF) 1,000 MCG in 0.9 % Sodium Chloride 80 ML IVC SCH (19:44)
[2019-04-13] MEDS: Dexmedetomidine HCl 400 MCG/100 ML MLS IVC SCH (19:44)
[2019-04-13] MEDS: Budesonide/Formoterol 160/4.5 1 PUFF INH IH SCH (19:45)
[2019-04-13] MEDS: Ipratropium/Albuterol Neb 3 ML IH SCH ×2 (19:45→23:17)
[2019-04-13] MEDS: Artificial Tears SOLN 15 ML BOTTLE BOTH EYES SCH ×3 (19:46→23:19)
[2019-04-13] MEDS: Pantoprazole 40 MG VIAL IVP SCH (19:47)
[2019-04-13] MEDS: *HR* FentaNYL (PF) 100 MCG/2 ML VIAL IVP PRN ×3 (19:53→23:17)
[2019-04-13] MEDS: Chlorhexidine Rinse 15 ML MOUTHWASH MM SCH (19:53)
--- NOTE | 2019-04-13 19:55 | Internal Med History&Physical ---
Date of Encounter: 04/14/19 Internal Medicine - H&P: HPI History of present illness: Neuro (1) Encephalopathy Current Visit: Yes Status: Suspected -Consider secondary to uremia -CKD IV not on dialysis -Patient on sedation medications -BUN and creatinine continued to rise Plan: Will likely need dialysis. Await nephrology recommendations Pulmonology (2) Acute and chronic respiratory failure with hypoxia Current Visit: Yes Status: Acute -likely due to infectious pneumonia vs. heart failure with preserved ejection fraction -Will defer CTA at this point as disease process more likely explained by other etiology and risk/benefit correlation in the setting of YOLANDA on CKD. -Failed BiPAP therapy. Intubated 04/11/19. -ABG 04/13/19: Continued respiratory acidosis and metabolic alkalosis with concomitant metabolic acidosis. Plan: Sedation with Dexmedetomidine, fentanyl, propofol . Vent: Rate 24, FiO2 80, PEEP 15, TV 500. DuoNeb's. Symbicort. Solu-Medrol every 8 hours. Goal to decrease FiO2 as PaO2 markedly elevated on blood gas. (3) Respiratory acidosis Current Visit: Yes Status: Acute -ABG as above Plan: Continue optimization of ventilation settings. (4) Pleural effusion Current Visit: No Status: Suspected -Suspected bilateral -Somewhat blunted costophrenic angles on CXR 04/12/19 -Continue to stabilize patient's respiratory status (5) Hospital-acquired pneumonia Current Visit: Yes Status: Suspected Plan as below (6) COPD (chronic obstructive pulmonary disease) Current Visit: Yes Status: Acute -Medications for acute respiratory failure as above. Do not suspect over COPD exacerbation at this point as clinical picture points more towards heart failure. -Continue to monitor Qualifiers: COPD type: unspecified COPD Qualified Code(s): J44.9 - Chronic obstructive pulmonary disease, unspecified Cardiology (7) Acute on chronic diastolic (congestive) heart failure Current Visit: No Status: Suspected -Consider 2/2 infectious process -Patient admits baseline orthopnea, PND, leg swelling. Recent increased dyspnea -Troponin negative -BNP 611 -TSH WNL; A1c 05/25/18 7.6 -CXR 04/09/19 shows stable cardiomegaly -Echo 02/19/19: Suboptimal. LVEF 55%. Indeterminant diastolic function. Grossly mildly dilated right ventricle with normal function. Mild aortic stenosis. Mild pulmonary hypertension -Echo 7/29/19: Left ventricular ejection fraction 60%. Indeterminant diastolic function. Mild to moderate aortic stenosis, mild mitral regurg, mild tricuspid regurg. Borderline pulmonary hypertension. Plan: Metoprolol succinate, aspirin, isosorbide mononitrate, atorvastatin. No DESTINEY inhibitor secondary to CKD. increase diuresis with 2 mg Bumex IV. Hold home furosemide. (8) Atrial fibrillation Current Visit: No Status: Chronic -Chronic -Metoprolol rate control has been adequate (9) Hypertension Current Visit: No Status: Chronic -Chronic, stable -Continue to monitor GI Ppx given Nutrition Tube feeding Renal (10) High anion gap metabolic acidosis Current Visit: Yes Status: Acute Background -Consider 2/2 uremia -Lactic acid within normal limits. Lab -ABG: As above Plan: Repeat ABG. Nephrology following. (11) Metabolic alkalosis Current Visit: Yes Status: Acute Background -Consider due to initiation: diuresis, post-resp. acidosis // maintenance: Volume depletion. Also chronic compensation for COPD S/Sx -Good skin turgor over sternum, lower extremity edema as above Lab -ABG: As above Plan: Consider Urine Cl level. Continue to monitor (12) Hyponatremia Current Visit: No Status: Acute -Acute on chronic -Searching for cause. Consider secondary to fluid overload state from heart failure with preserved ejection fraction. - 112 at the lowest. Recently in the 120s. -Urine sodium 16.1, urine creatinine 33, urine osmolality low at 189. Will likely need repeat of these values after saline therapy. Consider some component of SIADH or glucocorticoid deficiency. -Nephrology is favoring component of polydipsia. Appreciate their recommendations Plan: PICC placed if needed. Improving. Salt tablets 1 g twice a day. (13) Hyperkalemia Current Visit: Yes Status: Resolved -Consider secondary to YOLANDA on CKD versus hypoaldosteronism -EKG 04/09/19: showed no peaked T waves. sinus rhythm. HR 70. no ST or T waves changes indicating ischemia. -Resolved after Kayexalate therapy. plan: Nephrology consulted. Continue to monitor (14) Acute kidney injury superimposed on CKD Current Visit: Yes Status: Acute -CKD stage IV -Consider secondary to cardiorenal syndrome -BUN/creatinine continued to worsen. Will likely need dialysis therapy. Plan: No DESTINEY inhibitor. Bumex as above. Nephrology consulted. ID (15) Sepsis Current Visit: No Status: Acute -Possibly secondary to hospital-acquired pneumonia versus chronic wound of right lower extremity -SIRS 2 out of 4: temp stable, pulse 105 on arrival, rr 20 on arrival, WBC within normal limits -lactic acid within normal limits -blood cultures 04/08/19 x2 NTD and pending. -Pro calcitonin within normal limits. Legionella and Streptococcus pneumonia antigens negative. -CXR 04/08/19: Read as likely multifocal pneumonia versus pulmonary edema -CXR 04/12/19: Read as showing worsening diffuse airspace disease. -Repeat pro calcitonin elevated. Plan: Continue vancomycin day 3, cefepime day 2. Await final results of blood culture. sputum culture pending. (16) Abscess of right foot Current Visit: No Status: Acute -Continue to monitor as concern for sepsis Heme/onc Subcutaneous heparin Endo (17) Diabetes mellitus Current Visit: No Status: Chronic -Recent glucose levels elevated Plan: Short acting insulin changed to every 6 hours. continue to monitor. Disposition: Critically ill Code: Full Neuro: Fentanyl and Precedex Pulmonology (1) Acute on chronic respiratory failure with hypoxia and hypercapnia Current visit: Yes Status: Acute Background -Consider secondary to intraoperative sedation. -Patient currently on the ventilator. Rate 16, FiO2 50, PEEP 5, TV 500. Labs -ABG shows improvement of respiratory acidosis. Reports -Follow up chest x-ray read as mild interstitial edema with bibasilar atelectasis and probable small left pleural effusion. Plan: Ventilator bundle. Fentanyl and Precedex to be titrated to [place] 2. Follow ABGs. Morning CXR (2) COPD exacerbation Current visit: Yes Status: Acute -Likely secondary to intraoperative stress -2-3 pack per day active smoker. -ABG initially showing respiratory acidosis has improved. -CXR as above Plan: 60 mg IV Solu-Medrol every 8 hours scheduled. Duo nebs every 4 hours scheduled. Symbicort 160/4.52 puffs twice a day scheduled. Albuterol sulfate every 4 scheduled. Follow ABG's. Morning CXR. Cardiology (3) S/P coronary artery bypass graft x 2 Current visit: Yes Status: Acute -Operation performed by Dr. Bright 04/13/19. Estimated blood loss 0.5 L. -Patient's initial presenting symptoms included unstable angina. -Left internal mammary artery was connected to the LAD and the left great saphenous vein was connected to the obtuse marginal branch #2 of circumflex. 04/08/19 studies: -carotid Doppler ultrasound that showed nonstenotic plaque bilaterally. -Echo showed left ventricular ejection fraction of 60% with mild to moderate concentric left ventricular hypertrophy as well as left ventricular diastolic dysfunction, [id number] mitral regurgitation, mild tricuspid regurgitation, mild pulmonary hypertension. -Nuclear stress test showed moderate anterior lateral ischemia on perfusion study. -Cardiac catheterization revealed severe multi-vessel disease in the LCA, LAD, circumflex, and RCA. -Vitals have been stable. -Cefazolin 2 g given. Plan: Postop day 0. Pain control with fentanyl and Precedex as needed. Percocet also available. Albumin per cardiology. Strict glucose management with insulin infusion. Remove chest tubes at cardiology's discretion. Cefazolin per cardiology. Monitor for postop complications (4) Heart failure with preserved ejection fraction Current visit: Yes Status: Acute -Likely secondary to chronic hypertension and atherosclerosis as well as mary vular disease and ischemia -Blood pressure has been adequate postop. -04/08/19 Echo showed left ventricular ejection fraction of 60% with mild to moderate concentric left ventricular hypertrophy as well as left ventricular diastolic dysfunction, [id number] mitral regurgitation, mild tricuspid r egurgitation, mild pulmonary hypertension. -CABG as above Plan: Holding aspirin secondary to risk of bleed. Statin, Monitor for postoperative complications. (5) Coronary artery disease Current visit: No Status: Acute -Likely secondary to history of smoking and Western diet -Catheterization results as above Plan: Atorvastatin 80. Nitroglycerin. Calcium channel taryn GI: Prophylaxis given Renal (6) CKD (chronic kidney disease) stage 3, GFR 30-59 ml/min Current visit: Yes Status: Acute -Chronic, stable -Presurgical creatinine 1.8. Postsurgical creatinine 1.7 Plan: Renal dosing of medications. Avoid nephrotoxins. Monitor urine output. ID (7) Leukocytosis Current visit: Yes Status: Acute -Likely stress reaction to operation Plan: Continue to monitor for signs of infection Hematology (8) Postoperative anemia due to acute blood loss Current visit: Yes Status: Acute -Normocytic, stable -11.1-10.8 Plan: Continue to monitor for signs of bleed. Serial CBCs. Endocrine Insulin drip (9) DVT prophylaxis Current visit: Yes Status: Acute scd Disposition: Monitor ICU Code: Full Past Med Surg Social Fam HX - Past Medical History Medical history: arthritis, asthma, CHF, COPD, coronary artery disease, hyperlipidemia, hypertension, kidney stones, myocardial infarction, RA, renal disease Additional medical history: home o2 2l n/c qhs Psychiatric history: depression, PTSD - Past Surgical History Additional surgical history: nose surgery, stents in heart, stents in legs - Social History Smoking Status: Current every day smoker Smokeless Tobacco Status: No Alcohol use: none Drug use: none Internal Medicine - H&P: Meds Albuterol Sulfate [Proventil Hfa] 2 puff IH Q4-6H PRN 04/13/19 [History] Allopurinol [Zyloprim] 150 mg PO DAILY 04/13/19 [History] Aspirin 325 mg PO HS 04/13/19 [History] Budesonide/Formoterol 160/4.5 [Symbicort 160/4.5] 1 puff IH BIDR 04/13/19 [History] Cholecalciferol (Vitamin D3) [Vitamin D] 50,000 unit PO MOLINA 04/13/19 [History] Cyanocobalamin (Vitamin B-12) [Vitamin B-12] 1,000 mcg PO DAILY 04/13/19 [History] Diltiazem CD (24hr) [Cardizem CD] 240 mg PO DAILY 04/13/19 [History] Lisinopril [Zestril] 40 mg PO DAILY 04/13/19 [History] Montelukast [Singulair] 10 mg PO HS 04/13/19 [History] raNITIdine HCl [Zantac] 150 mg PO BID 04/13/19 [History] Allergy/AdvReac Type Severity Reaction Status Date / Time Sulfa (Sulfonamide Allergy Itching Verified 04/08/19 06:47 Antibiotics) All Systems PM: A 10-system review of systems was performed and is negative for pertinent findings except as documented above in the HPI. - Constitutional Vitals: Temp Pulse Resp BP Pulse Ox 98.1 F 75 17 118/57 95 04/13/19 06:46 04/13/19 06:46 04/13/19 19:46 04/13/19 19:46 04/13/19 19:46 Internal Med - H&P Results - Labs CBC & Chem 7: 04/14/19 04:02 04/14/19 04:02 Labs: Short CBC 04/13/19 04/13/19 Range/Units 12:32 16:15 WBC 14.0 H 10.9 (4.3-11.1) K/mcL Hgb 11.1 L 10.8 L (12.9-16.9) g/dL Hct 33.9 L 32.9 L (37.5-50.1) % Plt Count 152 145 (140-400) K/mcL Neutrophils # 11.6 H 9.5 H (1.6-8.9) K/mcL BMP 04/13/19 04/13/19 12:32 16:15 Sodium 138 138 Potassium 4.4 5.1 Chloride 109 H 109 H Carbon Dioxide 25 25 BUN 18 21 Creatinine 1.70 H 1.82 H Glucose 83 138 H Calcium 8.4 L 8.4 L - ABG Interpretation ABG results: 04/13/19 04/13/19 04/13/19 08:19 09:35 10:11 ABG pH 7.27 L 7.29 L 7.37 ABG pCO2 45 43 37 ABG pO2 288 H 261 H > 630 H D ABG HCO3 21 21 21 ABG Total CO2 22 22 22 ABG O2 Saturation 100 H 100 H TNP ABG Base Excess -6 L -6 L -4 L 04/13/19 04/13/19 04/13/19 10:37 10:55 11:26 ABG pH 7.45 7.44 7.33 ABG pCO2 33 L 38 42 ABG pO2 594 H 604 H 300 H D ABG HCO3 23 25 22 ABG Total CO2 24 26 23 ABG O2 Saturation 100 H 100 H 100 H ABG Base Excess -1 1 -4 L 04/13/19 04/13/19 04/13/19 12:34 14:58 16:18 ABG pH 7.27 L 7.32 7.33 ABG pCO2 49 H 43 44 ABG pO2 89 D 125 H 91 ABG HCO3 22 22 23 ABG Total CO2 24 24 24 ABG O2 Saturation 95 99 H 96 ABG Base Excess -5 L -4 L -3 L - Impressions ITS Impressions Chest X-Ray 04/13/19 12:00 IMPRESSION: 1. Postsurgical changes from open heart surgery with lines and tubes as above. 2. Enteric tube tip within the stomach and the side port just distal to the GE junction. 3. Mild interstitial edema with bibasilar atelectasis with probable small left pleural effusion. D/ / Millie Calle MD / Millie Calle MD Interpreting Provider: Millie Calle MD X-Ray 04/13/19 12:00 IMPRESSION: 1. Postsurgical changes from open heart surgery with lines and tubes as above. 2. Enteric tube tip within the stomach and the side port just distal to the GE junction. 3. Mild interstitial edema with bibasilar atelectasis with probable small left pleural effusion. D/ / Millie Calle MD / Millie Calle MD Interpreting Provider: Millie Calle MD - Assessment and Plan (1) Acute on chronic respiratory failure with hypoxia and hypercapnia Current Visit: Yes Status: Acute (2) COPD exacerbation Current Visit: Yes Status: Acute (3) S/P coronary artery bypass graft x 2 Current Visit: Yes Status: Acute (4) Heart failure with preserved ejection fraction Current Visit: Yes Status: Acute Qualifiers: Qualified Code(s): I50.32 - Chronic diastolic (congestive) heart failure (5) Coronary artery disease Current Visit: No Status: Acute Qualifiers: Coronary Disease-Associated Artery/Lesion type: [place] artery [place] vs. transplanted heart: [place] heart Associated angina: with stable angina Qualified Code(s): I25.118 - Atherosclerotic heart disease of [place] coronary artery with other forms of angina pectoris (6) CKD (chronic kidney disease) stage 3, GFR 30-59 ml/min Current Visit: Yes Status: Acute (7) Leukocytosis Current Visit: Yes Status: Acute Qualifiers: Qualified Code(s): D72.829 - Elevated white blood cell count, unspecified (8) Postoperative anemia due to acute blood loss Current Visit: Yes Status: Acute (9) DVT prophylaxis Current Visit: Yes Status: Acute - Time Spent With Patient Total time spent is greater than 50% in coordination of care (as documented) at patient's floor/unit and/or counseling patient: - VTE Documentation of Mechanical Device: Graduated compression elastic hosiery
[2019-04-13 20:23] LABS: ABG Base Excess -4 mEq/L (-2 to 3); ABG HCO3 23 mEq/L (21-27); ABG Oxygen Saturation 94 % (95-98); ABG PCO2 48 mmHg (35-45); ABG PH 7.29 pH Units (7.32-7.45); ABG PO2 77 mmHg (85-104); ABG TCO2 25 mEq/L (20-26); Blood Gas Modality ASSIST CONTROL; Blood Gas PEEP 5 cm H2O; Blood Gas VT 500 cc
[2019-04-14 00:06] LABS: ABG Base Excess -4 mEq/L (-2 to 3); ABG HCO3 23 mEq/L (21-27); ABG Oxygen Saturation 94 % (95-98); ABG PCO2 47 mmHg (35-45); ABG PO2 77 mmHg (85-104); ABG TCO2 24 mEq/L (20-26); Blood Gas Modality ASSIST CONTROL; Blood Gas PEEP 5 cm H2O; Blood Gas VT 500 cc
[2019-04-14] MEDS: *HR* OxyCODONE/APAP 5/325 TABLET PO PRN (00:22)
[2019-04-14] MEDS: Nitroglycerin 25 MG/250 ML INFUS..BTL IVC SCH ×2 (00:22→18:34)
[2019-04-14] MEDS: *HR* FentaNYL (PF) 100 MCG/2 ML VIAL IVP PRN ×3 (03:20→09:15)
[2019-04-14] MEDS: Ipratropium/Albuterol Neb 3 ML IH SCH ×6 (03:27→23:52)
[2019-04-14] MEDS: 0.9 % Sodium Chloride 1,000 ML IVC SCH ×3 (03:44→17:00)
[2019-04-14 04:06] LABS: ABG Base Excess -6 mEq/L (-2 to 3); ABG HCO3 21 mEq/L (21-27); ABG Oxygen Saturation 89 % (95-98); ABG PCO2 44 mmHg (35-45); ABG PH 7.29 pH Units (7.32-7.45); ABG PO2 62 mmHg (85-104); ABG TCO2 22 mEq/L (20-26); Blood Gas Modality ASSIST CONTROL; Blood Gas PEEP 5 cm H2O; Blood Gas VT 500 cc
[2019-04-14 04:18] LABS: Basophils % 0.1 %; Hematocrit 34.2 % (37.5-50.1); Hemoglobin 11.1 g/dL (12.9-16.9); Immature Granulocytes % 0.5 % (0-4); Lymphocytes # 0.5 K/mcL (0.6-4.6); Lymphocytes % 2.9 %; Mean Corpuscular HGB Conc 32.5 g/dL (31.6-35.5); Mean Corpuscular Hemoglobin 32.3 pg (28.0-33.3); Mean Corpuscular Volume 99.4 fL (83.0-100.0); Mean Platelet Volume 10.2 fL (9.4-12.4); Monocytes # 1.1 K/mcL (0.0-1.3); Monocytes % 7.4 %; Neutrophils # 13.7 K/mcL (1.6-8.9); Platelet Count 148 K/mcL (140-400); Red Blood Count 3.44 M/mcL (4.19-5.50); Red Cell Distribution Width 15.4 % (11.5-14.5); Segmented Neutrophils % 89.1 %; White Blood Count 15.3 K/mcL (4.3-11.1)
[2019-04-14] MEDS: niCARdipine 20 MG/200 ML MLS IVC SCH ×6 (04:23→23:40)
[2019-04-14] MEDS: Ringers Solution, Lactated 1,000 ML IVC SCH (04:24)
[2019-04-14 04:37] LABS: Calcium 8.7 mg/dL (8.6-10.3); Potassium 5.4 mEq/L (3.5-5.1)
[2019-04-14] MEDS ORDERED: Amiodarone Premix 150 MG/100 ML BAG IVPB ONE (06:12)
[2019-04-14] MEDS ORDERED: Amiodarone Premix 360 MG/200 ML BAG IVC ONE (06:30)
--- NOTE | 2019-04-14 07:16 | Cardiothoracic Progress Note ---
Date of Encounter: 04/14/19 Time of Encounter: 07:13 - Assessment and plan (1) Coronary artery disease Current Visit: No Status: Acute The assessment and plan as outlined above was discussed with the patient and/or family members who expressed understanding and agreement. All questions were answered. The patient's creatinine has increased to 2.5. A renal is already consulted. Pulmonary is consulted to help with extubation and COPD. I will consult n eurology to assess the CT scan in neuro status. The patient is back in normal sinus rhythm on an amiodarone drip. TRACEE done in the OR after coming off bypass revealed normal ventricular function that was improved from preoperatively. Qualifiers: Coronary Disease-Associated Artery/Lesion type: [place] artery [place] vs. transplanted heart: [place] heart Associated angina: with stable angina Qualified Code(s): I25.118 - Atherosclerotic heart disease of [place] coronary artery with other forms of angina pectoris - Subjective Interval history: The patient is intubated and sedated. Earlier in the night he appeared to move all extremities well. He did have some blank stares and a CT scan of the head revealed a possible early small subarachnoid hemorrhage. Vital Signs, Last 4 Hours Temp Pulse Resp BP Pulse Ox 04/14/19 07:00 97.7 F 94 20 124/59 93 04/14/19 06:00 97.6 F 124 19 109/54 91 04/14/19 05:18 19 93 04/14/19 05:00 83 20 118/57 92 04/14/19 04:00 97 F L 80 22 131/62 96 04/14/19 03:28 18 112/49 92 Oxgyen Flow Rate Oxygen Flow Rate (LPM) 15 Clinical Data, last 8 Hours Output, Chest Tube Drainage 0 Amount [Mediastinal #4] Output, Chest Tube Drainage 5 Amount [Mediastinal #4] Output, Chest Tube Drainage 0 Amount [Mediastinal #4] Output, Chest Tube Drainage 5 Amount [Mediastinal #4] Output, Chest Tube Drainage 0 Amount [Mediastinal #4] Output, Chest Tube Drainage 5 Amount [Mediastinal #4] Output, Chest Tube Drainage 3 Amount [Mediastinal #4] Output, Chest Tube Drainage 0 Amount [Mediastinal #3] Output, Chest Tube Drainage 2 Amount [Mediastinal #3] Output, Chest Tube Drainage 3 Amount [Mediastinal #3] Output, Chest Tube Drainage 8 Amount [Mediastinal #3] Output, Chest Tube Drainage 2 Amount [Mediastinal #3] Output, Chest Tube Drainage 12 Amount [Mediastinal #3] Output, Chest Tube Drainage 5 Amount [Mediastinal #3] Output, Chest Tube Drainage 8 Amount [Mediastinal #2] Output, Chest Tube Drainage 10 Amount [Mediastinal #2] Output, Chest Tube Drainage 10 Amount [Mediastinal #2] Output, Chest Tube Drainage 26 Amount [Mediastinal #2] Output, Chest Tube Drainage 5 Amount [Mediastinal #2] Output, Chest Tube Drainage 5 Amount [Mediastinal #2] Output, Chest Tube Drainage 5 Amount [Mediastinal #2] Output, Chest Tube Drainage 0 Amount [Mediastinal #1] Output, Chest Tube Drainage 0 Amount [Mediastinal #1] Output, Chest Tube Drainage 5 Amount [Mediastinal #1] Output, Chest Tube Drainage 2 Amount [Mediastinal #1] Output, Chest Tube Drainage 0 Amount [Mediastinal #1] Output, Chest Tube Drainage 0 Amount [Mediastinal #1] Output, Chest Tube Drainage 3 Amount [Mediastinal #1] Weight 04/12/19 04/13/19 04/14/19 23:59 23:59 23:59 Weight 81.647 kg 82 kg Lungs are clear to percussion and auscultation. The patient went into atrial fibrillation early this morning and presently is paced on an amiodarone drip. With the pacemaker turned off, he is in normal sinus rhythm with a rate of 67. All incisions are healing well without signs of infection and the sternum is stable. Chest tube drainage is minimal and there is no air leak. - Labs 04/14/19 04:02 04/14/19 04:02 Lab Results, Last 24 hours 04/13/19 04/13/19 04/13/19 12:32 12:32 12:32 WBC 14.0 H Hgb 11.1 L Hct 33.9 L Plt Count 152 INR 1.0 APTT 34.4 Sodium 138 Potassium 4.4 Chloride 109 H Carbon Dioxide 25 BUN 18 Creatinine 1.70 H Glucose 83 Calcium 8.4 L Magnesium 3.6 H 04/13/19 04/13/19 04/14/19 16:15 16:15 04:02 WBC 10.9 15.3 H Hgb 10.8 L 11.1 L Hct 32.9 L 34.2 L Plt Count 145 148 INR APTT Sodium 138 Potassium 5.1 Chloride 109 H Carbon Dioxide 25 BUN 21 Creatinine 1.82 H Glucose 138 H Calcium 8.4 L Magnesium 04/14/19 04:02 WBC Hgb Hct Plt Count INR APTT Sodium 139 Potassium 5.4 H Chloride 108 H Carbon Dioxide 21 L BUN 29 H Creatinine 2.48 H Glucose 160 H Calcium 8.7 Magnesium - VTE Documentation of Mechanical Device: Graduated compression elastic hosiery Consult Discharge Plan - Plan Referrals: [facility] [Primary Care Provider[facility] -
[2019-04-14] MEDS: Budesonide/Formoterol 160/4.5 1 PUFF INH IH SCH ×2 (07:35→19:42)
[2019-04-14] MEDS: Chlorhexidine Rinse 15 ML MOUTHWASH MM SCH ×2 (07:58→20:21)
[2019-04-14] MEDS: Nicotine 21 MG PATCH.TD24 TD SCH (07:59)
[2019-04-14] MEDS: Pantoprazole 40 MG VIAL IVP SCH (07:59)
[2019-04-14] MEDS: methylPREDNISolone 125 MG/2 ML VIAL IVP SCH ×3 (07:59→23:48)
[2019-04-14] MEDS: Artificial Tears SOLN 15 ML BOTTLE BOTH EYES SCH ×5 (08:10→23:48)
--- NOTE | 2019-04-14 08:44 | Pulmonology Progress Note ---
<ClarencelindyShailesh W - Last Filed: 04/14/19 10:10> Date of Encounter: 04/14/19 Objective PUL Vital signs: Last Vital Signs Temp 97.7 F 04/14/19 07:49 Pulse 94 04/14/19 09:00 Resp 20 04/14/19 09:00 BP 124/58 04/14/19 09:00 Pulse Ox 93 04/14/19 09:00 Ventilator Settings Ventilator Settings: Ventilator Settings, Last 8 Hours Ventilator Tidal Volume 500 Setting Ventilator Tidal Volume 500 Setting Ventilator Tidal Volume 500 Setting Ventilator Tidal Volume 500 Setting Ventilator Tidal Volume 500 Setting Ventilator Tidal Volume 500 Setting Ventilator Tidal Volume 500 Setting Ventilator Tidal Volume 500 Setting Ventilator Tidal Volume 500 Setting Ventilator Tidal Volume 500 Setting Ventilator Respiratory Rate 16 Setting Ventilator Respiratory Rate 16 Setting Ventilator Respiratory Rate 16 Setting Ventilator Respiratory Rate 16 Setting Ventilator Respiratory Rate 16 Setting Ventilator Respiratory Rate 16 Setting Ventilator Respiratory Rate 16 Setting Ventilator Respiratory Rate 16 Setting Ventilator Respiratory Rate 16 Setting Ventilator Respiratory Rate 16 Setting Actual Respiratory Rate 20 Actual Respiratory Rate 20 Actual Respiratory Rate 20 Actual Respiratory Rate 19 Actual Respiratory Rate 18 Actual Respiratory Rate 20 Actual Respiratory Rate 22 Actual Respiratory Rate 18 Actual Respiratory Rate 20 Positive End Expiratory 5 Pressure Positive End Expiratory 5 Pressure Positive End Expiratory 5 Pressure Positive End Expiratory 5 Pressure Positive End Expiratory 5 Pressure Positive End Expiratory 5 Pressure Positive End Expiratory 5 Pressure Positive End Expiratory 5 Pressure Positive End Expiratory 5 Pressure Positive End Expiratory 5 Pressure Peak Inspiratory Airway 19 Pressure Peak Inspiratory Airway 18 Pressure Peak Inspiratory Airway 13 Pressure Peak Inspiratory Airway 7 Pressure Peak Inspiratory Airway 15 Pressure Peak Inspiratory Airway 20 Pressure Peak Inspiratory Airway 17 Pressure Peak Inspiratory Airway 21 Pressure Peak Inspiratory Airway 19 Pressure Results - Laboratory Findings CBC and BMP: 04/14/19 04:02 04/14/19 04:02 ABG ABG pH 7.29 pH Units (7.32-7.45) L 04/14/19 04:01 ABG pCO2 44 mmHg (35-45) 04/14/19 04:01 ABG pO2 62 mmHg (85-104) L 04/14/19 04:01 ABG O2 Saturation 89 % (95-98) L 04/14/19 04:01 PT/INR, D-dimer PT 11.9 Seconds (9.4-12.1) 04/13/19 12:32 Abnormal lab findings: Abnormal lab results WBC 15.3 K/mcL (4.3-11.1) H 04/14/19 04:02 RBC 3.44 M/mcL (4.19-5.50) L 04/14/19 04:02 Hgb 11.1 g/dL (12.9-16.9) L 04/14/19 04:02 Hct 34.2 % (37.5-50.1) L 04/14/19 04:02 RDW 15.4 % (11.5-14.5) H 04/14/19 04:02 Neutrophils # 13.7 K/mcL (1.6-8.9) H 04/14/19 04:02 Lymphocytes # 0.5 K/mcL (0.6-4.6) L 04/14/19 04:02 Monocytes # 1.4 K/mcL (0.0-1.3) H 04/13/19 12:32 ABG pH 7.29 pH Units (7.32-7.45) L 04/14/19 04:01 ABG pCO2 47 mmHg (35-45) H 04/14/19 00:03 ABG pO2 62 mmHg (85-104) L 04/14/19 04:01 ABG O2 Saturation 89 % (95-98) L 04/14/19 04:01 ABG Base Excess -6 mEq/L (-2 to 3) L 04/14/19 04:01 ABG Hematocrit 27.0 % (37.5-50.1) L 04/13/19 11:26 ABG Chloride 112 mEq/L (98-107) H 04/13/19 09:35 Glucose 112 mg/dL (60-95) H 04/13/19 11:26 Potassium 5.4 mEq/L (3.5-5.1) H 04/14/19 04:02 Chloride 108 mEq/L (98-107) H 04/14/19 04:02 Carbon Dioxide 21 mEq/L (23-29) L 04/14/19 04:02 BUN 29 mg/dL (8-23) H 04/14/19 04:02 Creatinine 2.48 mg/dL (0.70-1.30) H 04/14/19 04:02 Est GFR ( Amer) 31 (> 60) L 04/14/19 04:02 Est GFR (Non-Af Amer) 26 (> 60) L 04/14/19 04:02 Glucose 160 mg/dL (70-105) H 04/14/19 04:02 POC Glucose 131 mg/dL (70-99) H 04/14/19 00:03 Calcium 8.4 mg/dL (8.6-10.3) L 04/13/19 16:15 Magnesium 3.6 mg/dL (1.6-2.6) H 04/13/19 12:32 Arterial Blood Ionized Calcium 1.04 mmol/L (1.15-1.35) L 04/13/19 10:55 Crossmatch See Detail 04/08/19 16:04 - Clinical Findings Intake & Output: Intake & Output 04/13/19 04/14/19 04/14/19 23:59 07:59 15:59 Intake Total 364.5 / 636.6 1679.0 / 1679.0 Output Total 645 / 1326 321 / 486 165 / 486 Balance -280.5 / -689.4 1358.0 / 1193.0 -165 / 1193.0 Weight 82 kg Consult Discharge Plan - Plan Referrals: [facility] [Primary Care Provider[facility] - - Attending Attestation I examined this patient and my medical decision-making was reviewed with the Resident Physician. I agree with the documented findings, disposition and treatment plan as described except to the extent set forth below. We independ ently had [id number] contact with the patient I spent 40min of Critical Care time with this patient. It involved decision making of high complexity to assess, manipulate, and support vital organ system failure and/or to prevent further life threatening deterioration of the patient's condition. The time involved in the performance of separately reportable procedures was not counted toward critical care time. Patient seen and examined at bedside Labs, radiology, chart personally reviewed. Management was reviewed during multidisciplinary critical care rounds. TREE CUTTER: agitation on vent likely pain /mild delirium on sedatives precedex and fentanyl. Possible Sub arach hemorrage vs much more likely artifact. Neuro ocntulsted repeat Head Ordered. MRI when safe. Pulm: Acute hypoxic hypercapnic respiratory failure on vent. acceptable gas exchange today mild acidosis cont Tx for COPD exacerabation Cards: POD #1 s/p CABG CTS following. Afib with rvr on amio GI: PPI given Nutrition:NPO for now Renal: YOLANDA/CKD. UOP Monitored, Cont to Trend sCr and monitor Electrolytes. ID: WBC wlevated likely stress cont to monitor Heme/Onc: H/H/ plts stable. Endo: Glucose Monitored on insulin gtt Integ/MSK: Skin Care per routine ICU Nursing Protocol to prevent ulcers. Lines: All lines examined without evidence of infection : Dispo: monitor in ICU CODE: Full <Aaron West - Last Filed: 04/14/19 15:13> Date of Encounter: 04/14/19 Time of Encounter: 10:20 Assessment and Plan (1) Encephalopathy Current Visit: Yes Status: Acute -consider secondary to embolic stroke in setting of CABG 2 post op day 1 with significant vascular atherosclerosis vs. infectious vs. delerium vs. uremia vs. medication effect -afebrile -lactic acid WNL. -blood cultures X2 04/14/19 pending -EEG 04/14/19 : abnormal awake drowsy with nonspecific generalized slowing that could correlate with metabolic toxic encephalopathy - 04/14/19: 1st CT head showed possible subarachnoid hemorrhage versus artifact. A repeat head CT read as no definite acute intracranial hemorrhage and likely hyperdensity representing artifact. Plan: permissive HTN 220/120 would be favorable but will correlate to recent surgery. Neurology consulted and considering MRI once pacer wire removed. Appreciate their recs. Monitor blood cultures. (2) Acute on chronic respiratory failure with hypoxia and hypercapnia Current Visit: Yes Status: Acute Background -Consider secondary to intraoperative sedation. -Patient currently on the ventilator. Rate 16, FiO2 40, PEEP 5, TV 500. Labs -ABG shows hypercapnia improving. possible mixed acidosis. Reports -Morning CXR shows possible worsening of right-sided atelectasis with overall improvement of scattered opacities. Official read showing left base probable atelectasis and pleural effusion with trace right pleural effusion. Plan: Fentanyl and Precedex to be titrated to Laura 2. Follow ABGs while on vent. Morning CXR (3) COPD exacerbation Current Visit: Yes Status: Acute -Likely secondary to intraoperative stress -2-3 pack per day active smoker. -ABG as above -CXR as above Plan: 60 mg IV Solu-Medrol every 8 hours scheduled. Duo nebs every 4 hours scheduled. Symbicort 160/4.52 puffs twice a day scheduled. Albuterol sulfate every 4 scheduled. Follow ABG's. Morning CXR. (4) S/P coronary artery bypass graft x 2 Current Visit: Yes Status: Acute -Operation performed by Dr. Bright 04/13/19. Estimated blood loss 0.5 L. -Patient's initial presenting symptoms included unstable angina. -Left internal mammary artery was connected to the LAD and the left great saphenous vein was connected to the obtuse marginal branch #2 of circumflex. 04/08/19 studies: -carotid Doppler ultrasound that showed nonstenotic plaque bilaterally. -Echo showed left ventricular ejection fraction of 60% with mild to moderate concentric left ventricular hypertrophy as well as left ventricular diastolic dysfunction, [id number] mitral regurgitation, mild tricuspid regurgitation, mild pulmonary hypertension. -Nuclear stress test showed moderate anterior lateral ischemia on perfusion study. -Cardiac catheterization revealed severe multi-vessel disease in the LCA, LAD, circumflex, and RCA. -Cefazolin 2 g given. -Norman-Earlene to be removed. -albumin 12.5 grams given per cardiology. Plan: Postop day 1. Pain control with fentanyl and Precedex as needed. Percocet also available. Strict glucose management with insulin infusion. Remove chest tubes at cardiology's discretion. Cefazolin day 2 per cardiology. Monitor for postop complications. (5) Atrial fibrillation Current Visit: Yes Status: Acute Background -with rapid ventricular rate -consider 2/2 ischemia, structural changes of the heart, pulmonary disease, hypoxia, CVA -Search of records and interview with patient's significant other has not shown prior history although patient was on home calcium channel taryn. -[id number] 4.8% stroke risk per year. HAS-BLED shows moderate risk of major bleeding with aspirin use and age greater than 65. No recent INR on record. Lab -A1c 5.8; potassium 5.4; magnesium 3.6 -Echo and CXR as above -TSH, free T3/T4 unremarkable Plan: Rate control with nicardipine drip. rhythm control with amiodarone. Qualifiers: Qualified Code(s): I48.91 - Unspecified atrial fibrillation (6) Heart failure with preserved ejection fraction Current Visit: Yes Status: Acute -Likely secondary to chronic hypertension and atherosclerosis as well as valvular disease and ischemia. -04/08/19 Echo showed left ventricular ejection fraction of 60% with mild to moderate concentric left ventricular hypertrophy as well as left ventricular diastolic dysfunction, [id number] mitral regurgitation, mild tricuspid regurgitation, mild pulmonary hypertension. -CABG as above. -recent blood pressures adequate Plan: ASA. Statin. Would consider future beta taryn therapy for cardioprotection pending hospital course. Monitor for postoperative compli cations. Qualifiers: Qualified Code(s): I50.32 - Chronic diastolic (congestive) heart failure (7) Coronary artery disease Current Visit: No Status: Acute -Likely secondary to history of smoking and Western diet -Catheterization results as above Plan: Atorvastatin 80. Nitroglycerin. Calcium channel taryn Qualifiers: Coronary Disease-Associated Artery/Lesion type: [place] artery [place] vs. transplanted heart: [place] heart Associated angina: with stable angina Qualified Code(s): I25.118 - Atherosclerotic heart disease of [place] coronary artery with other forms of angina pectoris (8) Acute kidney injury Current Visit: Yes Status: Acute Background -Consider secondary to poor perfusion in the setting of post-CABG and soft blood pressures. -on CKD IV -KDIGO: Cr 2.48 from 1.82. S/Sx -Relatively euvolemic on exam Lab -calculated osmolality WNL -BUN/Cr ratio not elevated Plan: Albumin bolus. Will consider urine studies pending results of albumin bolus. Monitor urine output. (9) CKD (chronic kidney disease) stage 3, GFR 30-59 ml/min Current Visit: Yes Status: Acute -Chronic -Presurgical creatinine 1.8. Plan: YOLANDA as above. Renal dosing of medications. Avoid nephrotoxins. Monitor urine output. (10) Hyperkalemia Current Visit: Yes Status: Acute -consider 2/2 acute kidney injury in setting of CKD IV vs. LR therapy vs. acidosis Plan: Correct YOLANDA - currently attempting albumin bolus to increase perfusion. Stop LR. Telemetry. (11) Leukocytosis Current Visit: Yes Status: Acute -Likely stress reaction to operation as well as steroid therapy -afebrile Plan: Continue to monitor for signs of infection Qualifiers: Qualified Code(s): D72.829 - Elevated white blood cell count, unspecified (12) Postoperative anemia due to acute blood loss Current Visit: Yes Status: Acute -Normocytic, stable -11.1>10.8>11.1 Plan: Continue to monitor for signs of bleed. Serial CBCs. (13) DVT prophylaxis Current Visit: Yes Status: Acute compression stockings Subjective Interval history: Overnight and this morning the patient was found to have altered mental status while not on sedation. CT head was ordered and showed possible subarachnoid hemorrhage versus artifact. A repeat head CT read as no definite acute intracranial hemorrhage and likely hyperdensity representing artifact. However neurology is consulted and there is some suspicion for embolic stroke versus seizure activity versus metabolic encephalopathy. Objective PUL Vital signs: Last Vital Signs Temp 97.7 F 04/14/19 07:49 Pulse 90 04/14/19 07:49 Resp 20 04/14/19 07:49 BP 115/56 04/14/19 07:49 Pulse Ox 95 04/14/19 07:49 PHYSICAL EXAM Gen.: Elderly male. Sedated Skin: Good turgor. Bilateral subdermal ecchymosis of forearms. Eyes: Moist. Anicteric. Cannot elicit pupillary constriction as pupils are nearly maximally constricted upon opening eyes. Neck: No carotid bruit on the left. Exam on the right complicated by Norman-Earlene dressing. Cardiac: Irregular rate and rhythm. No murmurs gallops rubs Respiratory: Base of right lung crackles. Some scattered expiratory grunting throughout. GI: Obese. Somewhat distended. Extremities: Capillary refill less than 2 seconds T 20s bilaterally. No bilateral lower extremity edema. Neuro: Sohail 6. No blink response. Will open eyes spontaneously and mostly coincidentally. Babinski's positive bilaterally. #TREE CUTTER# (1) Encephalopathy Current Visit: Yes Status: Acute -consider secondary to embolic stroke in setting of CABG 2 post op day 1 with significant vascular atherosclerosis vs. infectious vs. delerium vs. uremia vs. medication effect -afebrile -lactic acid WNL. -blood cultures X2 04/14/19 pending -EEG 04/14/19 : abnormal awake drowsy with nonspecific generalized slowing that could correlate with metabolic toxic encephalopathy - 04/14/19: 1st CT head showed possible subarachnoid hemorrhage versus artifact. A repeat head CT read as no definite acute intracranial hemorrhage and likely hyperdensity representing artifact. Plan: permissive HTN 220/120 would be favorable but will correlate to recent surgery. Neurology consulted and considering MRI once pacer wire removed. Appreciate their recs. Monitor blood cultures. #RESP# (2) Acute on chronic respiratory failure with hypoxia and hypercapnia Current Visit: Yes Status: Acute Background -Consider secondary to intraoperative sedation. -Patient currently on the ventilator. Rate 16, FiO2 40, PEEP 5, TV 500. Labs -ABG shows hypercapnia improving. possible mixed acidosis. Reports -Morning CXR shows possible worsening of right-sided atelectasis with overall improvement of scattered opacities. Official read showing left base probable atelectasis and pleural effusion with trace right pleural effusion. Plan: Fentanyl and Precedex to be titrated to Sohail 2. Follow ABGs while on vent. Morning CXR (3) COPD exacerbation Current Visit: Yes Status: Acute -Likely secondary to intraoperative stress -2-3 pack per day active smoker. -ABG as above -CXR as above Plan: 60 mg IV Solu-Medrol every 8 hours scheduled. Duo nebs every 4 hours scheduled. Symbicort 160/4.52 puffs twice a day scheduled. Albuterol sulfate every 4 scheduled. Follow ABG's. Morning CXR. #CARDS# (4) S/P coronary artery bypass graft x 2 Current Visit: Yes Status: Acute -Operation performed by Dr. Bright 04/13/19. Estimated blood loss 0.5 L. -Patient's initial presenting symptoms included unstable angina. -Left internal mammary artery was connected to the LAD and the left great saphenous vein was connected to the obtuse marginal branch #2 of circumflex. 04/08/19 studies: -carotid Doppler ultrasound that showed nonstenotic plaque bilaterally. -Echo showed left ventricular ejection fraction of 60% with mild to moderate concentric left ventricular hypertrophy as well as left ventricular diastolic dysfunction, [id number] mitral regurgitation, mild tricuspid regurgitation, mild pulmonary hypertension. -Nuclear stress test showed moderate anterior lateral ischemia on perfusion study. -Cardiac catheterization revealed severe multi-vessel disease in the LCA, LAD, circumflex, and RCA. -Cefazolin 2 g given. -Norman-Earlene to be removed. -albumin 12.5 grams given per cardiology. Plan: Postop day 1. Pain control with fentanyl and Precedex as needed. Percocet also available. Strict glucose management with insulin infusion. Remove chest tubes at cardiology's discretion. Cefazolin day 2 per cardiology. Monitor for postop complications. (5) Atrial fibrillation Current Visit: Yes Status: Acute Background -with rapid ventricular rate -consider 2/2 ischemia, structural changes of the heart, pulmonary disease, hypoxia, CVA -Search of records and interview with patient's significant other has not shown prior history although patient was on home calcium channel taryn. -[id number] 4.8% stroke risk per year. HAS-BLED shows moderate risk of major bleeding with aspirin use and age greater than 65. No recent INR on record. Lab -A1c 5.8; potassium 5.4; magnesium 3.6 -Echo and CXR as above -TSH, free T3/T4 unremarkable Plan: Rate control with nicardipine drip. rhythm control with amiodarone. (6) Heart failure with preserved ejection fraction Current Visit: Yes Status: Acute -Likely secondary to chronic hypertension and atherosclerosis as well as valvular disease and ischemia. -04/08/19 Echo showed left ventricular ejection fraction of 60% with mild to moderate concentric left ventricular hypertrophy as well as left ventricular diastolic dysfunction, [id number] mitral regurgitation, mild tricuspid regurgitation, mild pulmonary hypertension. -CABG as above. -recent blood pressures adequate Plan: ASA. Statin. Would consider future beta taryn therapy for cardioprotection pending hospital course. Monitor for postoperative complications. Qualifiers: Qualified Code(s): I50.32 - Chronic diastolic (congestive) heart failure (7) Coronary artery disease Current Visit: No Status: Acute -Likely secondary to history of smoking and Western diet -Catheterization results as above Plan: Atorvastatin 80. Nitroglycerin. Calcium channel taryn #GI# -Pantoprazole #RENAL# (8) Acute kidney injury Current Visit: Yes Status: Acute Background -Consider secondary to poor perfusion in the setting of post-CABG and soft blood pressures. -on CKD IV -KDIGO: Cr 2.48 from 1.82. S/Sx -Relatively euvolemic on exam Lab -calculated osmolality WNL -BUN/Cr ratio not elevated Plan: Albumin bolus. Will consider urine studies pending results of albumin bolus. Monitor urine output. (9) CKD (chronic kidney disease) stage 3, GFR 30-59 ml/min Current Visit: Yes Status: Acute -Chronic -Presurgical creatinine 1.8. Plan: YOLANDA as above. Renal dosing of medications. Avoid nephrotoxins. Monitor urine output. (10) Hyperkalemia Current Visit: Yes Status: Acute -consider 2/2 acute kidney injury in setting of CKD IV vs. LR therapy vs. acidosis Plan: Correct YOLANDA - currently attempting albumin bolus to increase perfusion. Stop LR. Telemetry. #ID# (11) Leukocytosis Current Visit: Yes Status: Acute -Likely stress reaction to operation as well as steroid therapy -afebrile #HEME/ONC (12) Postoperative anemia due to acute blood loss Current Visit: Yes Status: Acute -Normocytic, stable -11.1>10.8>11.1 Plan: Continue to monitor for signs of bleed. Serial CBCs. #ENDO# -insulin drip #DISPO# monitor in ICU #CODE# Full (13) DVT prophylaxis Current Visit: Yes Status: Acute compression stockings Ventilator Settings Ventilator Settings: Ventilator Settings, Last 8 Hours Ventilator Tidal Volume 500 Setting Ventilator Tidal Volume 500 Setting Ventilator Tidal Volume 500 Setting Ventilator Tidal Volume 500 Setting Ventilator Tidal Volume 500 Setting Ventilator Tidal Volume 500 Setting Ventilator Tidal Volume 500 Setting Ventilator Tidal Volume 500 Setting Ventilator Tidal Volume 500 Setting Ventilator Tidal Volume 500 Setting Ventilator Tidal Volume 500 Setting Ventilator Respiratory Rate 16 Setting Ventilator Respiratory Rate 16 Setting Ventilator Respiratory Rate 16 Setting Ventilator Respiratory Rate 16 Setting Ventilator Respiratory Rate 16 Setting Ventilator Respiratory Rate 16 Setting Ventilator Respiratory Rate 16 Setting Ventilator Respiratory Rate 16 Setting Ventilator Respiratory Rate 16 Setting Ventilator Respiratory Rate 16 Setting Ventilator Respiratory Rate 16 Setting Actual Respiratory Rate 20 Actual Respiratory Rate 20 Actual Respiratory Rate 19 Actual Respiratory Rate 18 Actual Respiratory Rate 20 Actual Respiratory Rate 22 Actual Respiratory Rate 18 Actual Respiratory Rate 20 Actual Respiratory Rate 17 Actual Respiratory Rate 18 Positive End Expiratory 5 Pressure Positive End Expiratory 5 Pressure Positive End Expiratory 5 Pressure Positive End Expiratory 5 Pressure Positive End Expiratory 5 Pressure Positive End Expiratory 5 Pressure Positive End Expiratory 5 Pressure Positive End Expiratory 5 Pressure Positive End Expiratory 5 Pressure Positive End Expiratory 5 Pressure Positive End Expiratory 5 Pressure Peak Inspiratory Airway 18 Pressure Peak Inspiratory Airway 13 Pressure Peak Inspiratory Airway 7 Pressure Peak Inspiratory Airway 15 Pressure Peak Inspiratory Airway 20 Pressure Peak Inspiratory Airway 17 Pressure Peak Inspiratory Airway 21 Pressure Peak Inspiratory Airway 19 Pressure Peak Inspiratory Airway 20 Pressure Peak Inspiratory Airway 15 Pressure Results - Laboratory Findings CBC and BMP: 04/14/19 12:15 04/14/19 12:15 ABG ABG pH 7.29 pH Units (7.32-7.45) L 04/14/19 04:01 ABG pCO2 44 mmHg (35-45) 04/14/19 04:01 ABG pO2 62 mmHg (85-104) L 04/14/19 04:01 ABG O2 Saturation 89 % (95-98) L 04/14/19 04:01 PT/INR, D-dimer PT 11.9 Seconds (9.4-12.1) 04/13/19 12:32 Abnormal lab findings: Abnormal lab results WBC 15.3 K/mcL (4.3-11.1) H 04/14/19 04:02 RBC 3.44 M/mcL (4.19-5.50) L 04/14/19 04:02 Hgb 11.1 g/dL (12.9-16.9) L 04/14/19 04:02 Hct 34.2 % (37.5-50.1) L 04/14/19 04:02 RDW 15.4 % (11.5-14.5) H 04/14/19 04:02 Neutrophils # 13.7 K/mcL (1.6-8.9) H 04/14/19 04:02 Lymphocytes # 0.5 K/mcL (0.6-4.6) L 04/14/19 04:02 Monocytes # 1.4 K/mcL (0.0-1.3) H 04/13/19 12:32 ABG pH 7.29 pH Units (7.32-7.45) L 04/14/19 04:01 ABG pCO2 47 mmHg (35-45) H 04/14/19 00:03 ABG pO2 62 mmHg (85-104) L 04/14/19 04:01 ABG O2 Saturation 89 % (95-98) L 04/14/19 04:01 ABG Base Excess -6 mEq/L (-2 to 3) L 04/14/19 04:01 ABG Hematocrit 27.0 % (37.5-50.1) L 04/13/19 11:26 ABG Chloride 112 mEq/L (98-107) H 04/13/19 09:35 Glucose 112 mg/dL (60-95) H 04/13/19 11:26 Potassium 5.4 mEq/L (3.5-5.1) H 04/14/19 04:02 Chloride 108 mEq/L (98-107) H 04/14/19 04:02 Carbon Dioxide 21 mEq/L (23-29) L 04/14/19 04:02 BUN 29 mg/dL (8-23) H 04/14/19 04:02 Creatinine 2.48 mg/dL (0.70-1.30) H 04/14/19 04:02 Est GFR ( Amer) 31 (> 60) L 04/14/19 04:02 Est GFR (Non-Af Amer) 26 (> 60) L 04/14/19 04:02 Glucose 160 mg/dL (70-105) H 04/14/19 04:02 POC Glucose 131 mg/dL (70-99) H 04/14/19 00:03 Calcium 8.4 mg/dL (8.6-10.3) L 04/13/19 16:15 Magnesium 3.6 mg/dL (1.6-2.6) H 04/13/19 12:32 Arterial Blood Ionized Calcium 1.04 mmol/L (1.15-1.35) L 04/13/19 10:55 Crossmatch See Detail 04/08/19 16:04 - Clinical Findings Intake & Output: Intake & Output 04/13/19 04/14/19 04/14/19 23:59 07:59 15:59 Intake Total 364.5 / 636.6 1679.0 / 1679.0 Output Total 645 / 1326 321 / 321 Balance -280.5 / -689.4 1358.0 / 1358.0 Weight 82 kg - VTE Documentation of Mechanical Device: Graduated compression elastic hosiery
[2019-04-14] MEDS ORDERED: Pantoprazole 40 MG VIAL IVP SCH (09:00)
[2019-04-14] MEDS: FentaNYL (PF) 1,000 MCG in 0.9 % Sodium Chloride 80 ML IVC SCH ×2 (09:31→23:47)
[2019-04-14] MEDS: Dexmedetomidine HCl 400 MCG/100 ML MLS IVC SCH (09:36)
--- NOTE | 2019-04-14 10:05 | Neurology - Consult Note ---
<Jasson Boudreaux - Last Filed: 04/14/19 10:01> Date of Encounter: 04/14/19 Time of Encounter: 09:45 Assessment and Plan (1) CKD (chronic kidney disease) stage 3, GFR 30-59 ml/min Current Visit: Yes Status: Acute Stat EEG ordered to rule out seizure activity causing minimally responsive state. Continue metabolic workup to rule out encephalopathy. CT scan showed no evidence of infarct or hemorrhage at this time. MRI a consideration once pacing wires have been removed. Continue Aspirin. Will discuss case with Dr. Aguilar for further recommendations. History of Present Illness HPI: Mr. Lee is a 68 year old minimally responsive male with past medical history of CKD stage 3, CHF, CABGx2, and COPD who was seen in ICU s/p CABG. Patient appears to be only minimally responsive to external stimuli. CT scan performed this AM was read as having "Subtle area of hyperattenuation in the right frontal lobe subarachnoid spaces may represent small subarachnoid hemorrhage," but repeat CT this afternoon did not show this hyperattenuation, making artifact a likely explanation. Patient was unable to follow commands. Past Med Surg Social Fam HX - Past Medical History Medical history: arthritis, asthma, CHF, COPD, coronary artery disease, hyperlipidemia, hypertension, kidney stones, myocardial infarction, RA, renal disease Additional medical history: home o2 2l n/c qhs Psychiatric history: depression, PTSD - Past Surgical History Additional surgical history: nose surgery, stents in heart, stents in legs - Social History Smoking Status: Current every day smoker Smokeless Tobacco Status: No Alcohol use: none Drug use: none Medications and Allergies Albuterol Sulfate [Proventil Hfa] 2 puff IH Q4-6H PRN 04/13/19 [History] Allopurinol [Zyloprim] 150 mg PO DAILY 04/13/19 [History] Aspirin 325 mg PO HS 04/13/19 [History] Budesonide/Formoterol 160/4.5 [Symbicort 160/4.5] 1 puff IH BIDR 04/13/19 [History] Cholecalciferol (Vitamin D3) [Vitamin D] 50,000 unit PO MOLINA 04/13/19 [History] Cyanocobalamin (Vitamin B-12) [Vitamin B-12] 1,000 mcg PO DAILY 04/13/19 [History] Diltiazem CD (24hr) [Cardizem CD] 240 mg PO DAILY 04/13/19 [History] Lisinopril [Zestril] 40 mg PO DAILY 04/13/19 [History] Montelukast [Singulair] 10 mg PO HS 04/13/19 [History] raNITIdine HCl [Zantac] 150 mg PO BID 04/13/19 [History] Allergy/AdvReac Type Severity Reaction Status Date / Time Sulfa (Sulfonamide Allergy Itching Verified 04/08/19 06:47 Antibiotics) ROS unobtainable: due to endotracheal tube All Systems: The remainder of the systems were reviewed and are negative Physical Examination - Vital Signs Vital Signs: Initial Vital Signs Temp Pulse Resp BP Pulse Ox 98.1 F 75 18 189/82 97 04/13/19 06:46 04/13/19 06:46 04/13/19 06:46 04/13/19 06:46 04/13/19 06:46 - Exam Exam: Patient is sedated and intubated at time of evaluation. He was seen this morning with Dr. Aguilar while not under sedation and was minimally responsive at that t [place]. His pupillary response was sluggish with a left surgical pupil noted. He was unable to follow commands. Unable to assess Motor reflexes due to sedation at time of exam. Positive Babinskis - Neurologic Detailed sensory examination: pain (grimacing to painful stimuli but does not withdrawal from pain) Mental Status Examination: does not follow commands, opens eyes to noxious stimulation, grimmacing Results - Laboratory Findings CBC and BMP: 04/14/19 04:02 04/14/19 04:02 Abnormal lab findings: Abnormal lab results WBC 15.3 K/mcL (4.3-11.1) H 04/14/19 04:02 RBC 3.44 M/mcL (4.19-5.50) L 04/14/19 04:02 Hgb 11.1 g/dL (12.9-16.9) L 04/14/19 04:02 Hct 34.2 % (37.5-50.1) L 04/14/19 04:02 RDW 15.4 % (11.5-14.5) H 04/14/19 04:02 Neutrophils # 13.7 K/mcL (1.6-8.9) H 04/14/19 04:02 Lymphocytes # 0.5 K/mcL (0.6-4.6) L 04/14/19 04:02 Monocytes # 1.4 K/mcL (0.0-1.3) H 04/13/19 12:32 ABG pH 7.29 pH Units (7.32-7.45) L 04/14/19 04:01 ABG pCO2 47 mmHg (35-45) H 04/14/19 00:03 ABG pO2 62 mmHg (85-104) L 04/14/19 04:01 ABG O2 Saturation 89 % (95-98) L 04/14/19 04:01 ABG Base Excess -6 mEq/L (-2 to 3) L 04/14/19 04:01 ABG Hematocrit 27.0 % (37.5-50.1) L 04/13/19 11:26 ABG Chloride 112 mEq/L (98-107) H 04/13/19 09:35 Glucose 112 mg/dL (60-95) H 04/13/19 11:26 Potassium 5.4 mEq/L (3.5-5.1) H 04/14/19 04:02 Chloride 108 mEq/L (98-107) H 04/14/19 04:02 Carbon Dioxide 21 mEq/L (23-29) L 04/14/19 04:02 BUN 29 mg/dL (8-23) H 04/14/19 04:02 Creatinine 2.48 mg/dL (0.70-1.30) H 04/14/19 04:02 Est GFR ( Amer) 31 (> 60) L 04/14/19 04:02 Est GFR (Non-Af Amer) 26 (> 60) L 04/14/19 04:02 Glucose 160 mg/dL (70-105) H 04/14/19 04:02 POC Glucose 131 mg/dL (70-99) H 04/14/19 00:03 Calcium 8.4 mg/dL (8.6-10.3) L 04/13/19 16:15 Magnesium 3.6 mg/dL (1.6-2.6) H 04/13/19 12:32 Arterial Blood Ionized Calcium 1.04 mmol/L (1.15-1.35) L 04/13/19 10:55 Crossmatch See Detail 04/08/19 16:04 Consult Discharge Plan - Plan [facility]errals: [facility] Care Provider[facility] - <Lakshmi Aguilar I - Last Filed: 04/14/19 15:35> Date of Encounter: 04/14/19 Assessment and Plan (1) Encephalopathy Current Visit: Yes Status: Acute This patient who apparently has multiple other medical conditions and had CABG yesterday remain intubated earlier CT scan shows a concern off subarachnoid hemorrhage, he was also noted to have some staring spells as per history but no apparently seizure activity. Limited neurological examination patient has received some sedation earlier and at the same time he is intubated now Considering overall with limited examination certainly that is a possibility off CVA, especially in the context of CABG could have any embolic phenomena. CT scan did not show any evidence of acute ischemia but certainly it may be limited as to take several hours to see any changes on CT scan. As far as concern off subarachnoid I suspect that was likely of a artifact as be very unusual to have a spontaneous subarachnoid hemorrhage though technically is possible but seems to be less likely. Other possibility be off for complex partial seizures that quite possible and for that reason we will get a stat EEG to exclude that possibility. His considering overall I suspect it is mostly metabolic toxic encephalopathy likely the reason for this patient condition now but certainly we need to exclude other etiologies as well We will repeat CT scan of the head today Would need MRI of the brain when he is more stable We will reevaluate the patient when he is off sedation to get a better idea about any significant focal neurological deficit on examination in the meantime continue current treatment Discussed with the ICU team We will follow the patient with you History of Present Illness HPI: Mr. Lee is a 68 year old male All Systems: The remainder of the systems were reviewed and are negative Physical Examination - Vital Signs Vital Signs: Initial Vital Signs Temp Pulse Resp BP Pulse Ox 98.1 F 75 18 189/82 97 04/13/19 06:46 04/13/19 06:46 04/13/19 06:46 04/13/19 06:46 04/13/19 06:46 - Exam Exam: On neurological examination GENERAL: Intubated HEENT: Normal LUNGS: CTA HEART: RRR, S1 S2 Audible, no murmur EXTREMITIES: Pedal edema. DETAILED NEUROLOGICAL EXAMINATION: MENTAL STATUS: Unable to assess due to intubation and sedation Cranial Nerve Examination: CN - II: Pupils are sluggish but reactive Does not respond to visual threat No spontaneous blinking of the eyes No obvious facial asymmetry noted Motor examination: No spontaneous movement noted but he does grimace to the deep pain, bilaterally Not able to do any since the evaluation though patient does seem to grimace to the deep pain Deep tendon reflexes. Symmetrical bilateral, No evidence of Babinski. Results - Laboratory Findings CBC and BMP: 04/14/19 12:15 04/14/19 12:15 Abnormal lab findings: Abnormal lab results WBC 12.4 K/mcL (4.3-11.1) H 04/14/19 12:15 RBC 3.26 M/mcL (4.19-5.50) L 04/14/19 12:15 Hgb 10.6 g/dL (12.9-16.9) L 04/14/19 12:15 Hct 32.7 % (37.5-50.1) L 04/14/19 12:15 MCV 100.3 fL (83.0-100.0) H 04/14/19 12:15 RDW 15.5 % (11.5-14.5) H 04/14/19 12:15 Plt Count 110 K/mcL (140-400) L 04/14/19 12:15 Neutrophils # 11.1 K/mcL (1.6-8.9) H 04/14/19 12:15 Lymphocytes # 0.4 K/mcL (0.6-4.6) L 04/14/19 12:15 Monocytes # 1.4 K/mcL (0.0-1.3) H 04/13/19 12:32 ABG pH 7.28 pH Units (7.32-7.45) L 04/14/19 10:51 ABG pCO2 47 mmHg (35-45) H 04/14/19 00:03 ABG pO2 75 mmHg (85-104) L 04/14/19 10:51 ABG O2 Saturation 93 % (95-98) L 04/14/19 10:51 ABG Base Excess -6 mEq/L (-2 to 3) L 04/14/19 10:51 ABG Hematocrit 27.0 % (37.5-50.1) L 04/13/19 11:26 ABG Chloride 112 mEq/L (98-107) H 04/13/19 09:35 Glucose 112 mg/dL (60-95) H 04/13/19 11:26 Potassium 5.3 mEq/L (3.5-5.1) H 04/14/19 12:15 Chloride 111 mEq/L (98-107) H 04/14/19 12:15 Carbon Dioxide 20 mEq/L (23-29) L 04/14/19 12:15 BUN 33 mg/dL (8-23) H 04/14/19 12:15 Creatinine 2.55 mg/dL (0.70-1.30) H 04/14/19 12:15 Est GFR ( Amer) 30 (> 60) L 04/14/19 12:15 Est GFR (Non-Af Amer) 25 (> 60) L 04/14/19 12:15 Glucose 166 mg/dL (70-105) H 04/14/19 12:15 POC Glucose 131 mg/dL (70-99) H 04/14/19 00:03 Calcium 8.1 mg/dL (8.6-10.3) L 04/14/19 12:15 Magnesium 3.6 mg/dL (1.6-2.6) H 04/13/19 12:32 Free T3 1.98 pg/mL (2.50-3.90) L 04/14/19 04:02 Arterial Blood Ionized Calcium 1.04 mmol/L (1.15-1.35) L 04/13/19 10:55 Crossmatch See Detail 04/08/19 16:04
--- NOTE | 2019-04-14 10:38 | EEG/EMG/Oth Biometrics Report ---
EEG Procedure Report EEG Procedure: Routine EEG Procedure Note: EEG This is a routine 21 channel digital EEG performed utilizing 10- 20 international electrode placement system. FINDINGS: Patient has a predominant waking background frequency that is low voltage 4-6 Hertz Delta activity in the posterior region, low amplitude symmetrical over the both hemispheres reactive to eyes opening and closing record continued to show delta activity intermixed with some theta off and on, no abnormal activity recorded, predominantly no evidence of any spike wave discharges or any lateralizing abnormalities, Photic stimulation did not produce any convulsive response. Stage II sleep was not achieved. Impression: AbNormal awake drowsy electroencephalogram. Generalized slowing is a nonspecific pattern mostly seen in patient with metabolic toxic encephalopathy, consistent with diffuse cerebral dysfunction, the same time could be due to the medication side effects in particular with high doses of benzodiazepines and barbiturates, No epileptiform discharges or any other paroxysmal activities noted. Clinical correlation is suggested
[2019-04-14 10:54] LABS: ABG Base Excess -6 mEq/L (-2 to 3); ABG HCO3 21 mEq/L (21-27); ABG Oxygen Saturation 93 % (95-98); ABG PCO2 44 mmHg (35-45); ABG PH 7.28 pH Units (7.32-7.45); ABG PO2 75 mmHg (85-104); ABG TCO2 22 mEq/L (20-26); Blood Gas Modality VC; Blood Gas PEEP 5 cm H2O; Blood Gas VT 500 cc
[2019-04-14] MEDS: Aspirin 81 MG TAB.CHEW PO SCH (11:58)
[2019-04-14] MEDS ORDERED: Amiodarone Premix 360 MG/200 ML BAG IVC SCH (12:00)
[2019-04-14 12:12] LABS: Thyroid Stimulating Hormone 4.053 mcIU/mL (0.340-5.600)
[2019-04-14 12:14] LABS: Triiodothyronine (T3) Free 1.98 pg/mL (2.50-3.90)
[2019-04-14] MEDS: Amiodarone Premix 360 MG/200 ML BAG IVC SCH ×2 (12:17→23:48)
[2019-04-14 12:38] LABS: Hematocrit 32.7 % (37.5-50.1); Hemoglobin 10.6 g/dL (12.9-16.9); Immature Granulocytes % 0.4 % (0-4); Lymphocytes # 0.4 K/mcL (0.6-4.6); Lymphocytes % 2.8 %; Mean Corpuscular HGB Conc 32.4 g/dL (31.6-35.5); Mean Corpuscular Hemoglobin 32.5 pg (28.0-33.3); Mean Corpuscular Volume 100.3 fL (83.0-100.0); Mean Platelet Volume 10.6 fL (9.4-12.4); Monocytes # 0.9 K/mcL (0.0-1.3); Monocytes % 6.9 %; Neutrophils # 11.1 K/mcL (1.6-8.9); Platelet Count 110 K/mcL (140-400); Red Blood Count 3.26 M/mcL (4.19-5.50); Red Cell Distribution Width 15.5 % (11.5-14.5); Segmented Neutrophils % 89.9 %; White Blood Count 12.4 K/mcL (4.3-11.1)
[2019-04-14 12:49] LABS: Calcium 8.1 mg/dL (8.6-10.3); Potassium 5.3 mEq/L (3.5-5.1)
[2019-04-14] MEDS: Norepinephrine 4 MG in D5% in Water 250 ML IVC SCH (13:42)
[2019-04-14] MEDS: Insulin Human Regular 100 UNIT in 0.9 % Sodium Chloride 100 ML IVC SCH (15:22)
--- NOTE | 2019-04-14 17:29 | Nephrology Consult Note ---
Date of Encounter: 04/14/19 Time of Encounter: 12:00 Assessment and Plan (1) Acute kidney injury Current Visit: Yes Status: Acute Elevated SCr in the setting of postop CABG day #1 Agree with IVF; NS at 75cc/hr Will monitor hemodynamics Avoid nephrotoxins if possible No acute indication for F[employer] (2) Acute on chronic respiratory failure with hypoxia and hypercapnia Current Visit: Yes Status: Acute Per pulm (3) CKD (chronic kidney disease) stage 3, GFR 30-59 ml/min Current Visit: Yes Status: Acute Baseline SCr around 1.8 (4) Coronary artery disease of bypass graft of [place] heart with stable angina pectoris Current Visit: Yes Status: Acute POD #1, per CT surgery History of Present Illness - Reason for Consult Consult date: 04/14/19 Acute Kidney Injury, Chronic Kidney Disease Requesting physician: Erasto Bright - History of Present Illness 68 year old male with past medical history of CKD stage 3, CAD s/p stent and PVD with 2 stents LE, CHF with preserved ejection fraction, COPD, hypertension, hyperlipidemia and gout who [facility] [place] [facility] by [facility] Bright [facility]/13/19. Renal consulted for management of renal fxn post CABG with baseline SCr noted at 1.8. Pt seen and examined still inutbated and sedated with 4 chest tubes noted on IVF, NS at 75cc/hr. Neurology also following for possible CVA Past Med Surg Social Fam HX - Past Medical History Medical history: arthritis, asthma, CHF, COPD, coronary artery disease, hype rlipidemia, hypertension, kidney stones, myocardial infarction, RA, renal disease Additional medical history: home o2 2l n/c qhs Psychiatric history: depression, PTSD - Past Surgical History Additional surgical history: nose surgery, stents in heart, stents in legs - Social History Smoking Status: Current every day smoker Smokeless Tobacco Status: No Alcohol use: none Drug use: none Medications and Allergies Albuterol Sulfate [Proventil Hfa] 2 puff IH Q4-6H PRN 04/13/19 [History] Allopurinol [Zyloprim] 150 mg PO DAILY 04/13/19 [History] Aspirin 325 mg PO HS 04/13/19 [History] Budesonide/Formoterol 160/4.5 [Symbicort 160/4.5] 1 puff IH BIDR 04/13/19 [History] Cholecalciferol (Vitamin D3) [Vitamin D] 50,000 unit PO MOLINA 04/13/19 [History] Cyanocobalamin (Vitamin B-12) [Vitamin B-12] 1,000 mcg PO DAILY 04/13/19 [History] Diltiazem CD (24hr) [Cardizem CD] 240 mg PO DAILY 04/13/19 [History] Lisinopril [Zestril] 40 mg PO DAILY 04/13/19 [History] Montelukast [Singulair] 10 mg PO HS 04/13/19 [History] raNITIdine HCl [Zantac] 150 mg PO BID 04/13/19 [History] Allergy/AdvReac Type Severity Reaction Status Date / Time Sulfa (Sulfonamide Allergy Itching Verified 04/08/19 06:47 Antibiotics) Review of Systems ROS unobtainable: due to endotracheal tube Exam - Vital Signs Vital signs: Initial Vital Signs Temp Pulse Resp BP Pulse Ox 98.1 F 75 18 189/82 97 04/13/19 06:46 04/13/19 06:46 04/13/19 06:46 04/13/19 06:46 04/13/19 06:46 Vital Signs - Last 8 Hours Temp Pulse Resp BP Pulse Ox 04/14/19 17:00 80 20 130/57 98 04/14/19 16:00 94 20 138/57 97 04/14/19 15:00 99 F 89 19 139/58 98 04/14/19 14:00 96 20 123/53 96 04/14/19 13:35 19 125/51 96 04/14/19 13:00 86 16 133/54 94 04/14/19 12:00 84 20 127/54 96 04/14/19 11:04 18 123/58 96 04/14/19 11:00 98 F 92 18 114/56 96 04/14/19 10:00 97.9 F 89 20 123/58 94 04/14/19 09:55 21 130/58 96 Intake and Output 04/14/19 04/14/19 04/14/19 07:59 15:59 23:59 Intake Total 1679.0 / 2919.7 235.4 / 2919.7 1005.3 / 2919.7 Output Total 321 / 631 310 / 631 Balance 1358.0 / 2288.7 -74.6 / 2288.7 1005.3 / 2288.7 Intake: IV Fluids 1679.0 / 2919.7 235.4 / 2919.7 1005.3 / 2919.7 0.9 % Sodium Chloride 1,000 ML 1000 / 2000 1000 / 2000 @ 75 mls/hr IVC .[id number] [facility] Rx #:[id number] Amiodarone Drip Premix 360mg/ 200 / 200 200mL 360 mg In 200 ml @ 1 MG/ MIN 33.333 mls/hr IVC ONCE ONE Rx#:[id number] FentaNYL (PF) 1,000 MCG In 0.9 10 / 10 % Sodium Chloride 80 ML @ 50 MCG/HR 5 mls/hr IVC CONT [facility] Rx #:[id number] HumuLIN R 100 UNIT In 0.9 % 25.8 / 56.5 25.4 / 56.5 5.3 / 56.5 Sodium Chloride 100 ML @ As Directed IVC CONT [facility] Rx#: [id number] Nitroglycerin Premix 25 MG/250 233 / 233 ML 25 mg In 250 ml @ 0.5 MCG/KG /MIN 24.494 mls/hr IVC .[id number] [facility] Rx#:[id number] Cardene Premix 20mg/200ml 20 mg 220.2 / 220.2 In 200 ml @ 5 MG/HR 50 mls/hr IVC .Q4H [facility] Rx#:[id number] Amiodarone Premix 150mg/100mL 100 / 100 150 mg In 100 ml @ 300 mls/hr IVPB ONCE ONE Rx#:[id number] Ancef 2,000 MG In 0.9 % Sodium 100 / 100 Chloride 100 ML @ 200 mls/hr IVPB Q8HR [facility] Rx#:[id number] Output: Catheter 187 / 407 220 / 407 Chest Tube Drainage 134 / 224 90 / 224 Mediastinal #1 35 / 45 Mediastinal #2 74 / 114 40 / 114 Mediastinal #3 32 Mediastinal #4 Other: Weight 82 kg Blood Glucose* 127 155 143 Patient Weight 04/14/19 23:59 Weight 82 kg - General Appearance General appearance: sedated on ventilator, intubated EENT: ATNC, mucous membranes moist Neck: no JVD, supple Additional Comments: good areation ant bilat, midlind surgical dressing in place and chest tubes Cardiology: no edema, normal S1, normal S2 Gastrointestinal: no tenderness, no guarding Integumentary: warm and dry Additional Comments: sedated Musculoskeletal: no deformities Additional Comments: sedated Results - Lab Results 04/16/19 03:47 04/16/19 03:47 Most recent lab results 04/14/19 04/14/19 04/14/19 04:02 10:51 12:15 ABG pH 7.28 L ABG pCO2 44 ABG pO2 75 L ABG HCO3 21 ABG O2 Saturation 93 L Calcium 8.7 8.1 L Consult Discharge Plan - Plan [facility]errals: [facility] [Primary Care Provider[facility] -
[2019-04-14] MEDS ORDERED: D5% in Water 1,000 ML IVC PRN (22:22)
[2019-04-14] MEDS: Insulin LISPRO 300 UNITS/3 ML VIAL SQ SCH (23:50)
[2019-04-15] MEDS: Ipratropium/Albuterol Neb 3 ML IH SCH ×6 (03:33→23:07)
[2019-04-15] MEDS: Dexmedetomidine HCl 400 MCG/100 ML MLS IVC SCH ×3 (03:52→22:02)
[2019-04-15] MEDS: niCARdipine 20 MG/200 ML MLS IVC SCH ×6 (03:53→23:37)
[2019-04-15] MEDS: Nitroglycerin 25 MG/250 ML INFUS..BTL IVC SCH ×3 (03:53→13:56)
[2019-04-15] MEDS: Artificial Tears SOLN 15 ML BOTTLE BOTH EYES SCH ×6 (03:57→23:46)
[2019-04-15] MEDS: Insulin LISPRO 300 UNITS/3 ML VIAL SQ SCH ×6 (03:59→23:46)
[2019-04-15 04:15] LABS: Basophils % 0.1 %; Hematocrit 32.3 % (37.5-50.1); Mean Platelet Volume 10.7 fL (9.4-12.4); Segmented Neutrophils % 89.8 %
[2019-04-15 04:17] LABS: Hemoglobin 10.3 g/dL (12.9-16.9); Immature Granulocytes % 0.9 % (0-4); Immature Platelets 5.1 % (1.1-6.1); Lymphocytes # 0.3 K/mcL (0.6-4.6); Lymphocytes % 2.8 %; Mean Corpuscular HGB Conc 31.9 g/dL (31.6-35.5); Mean Corpuscular Hemoglobin 32.4 pg (28.0-33.3); Mean Corpuscular Volume 101.6 fL (83.0-100.0); Monocytes % 6.4 %; Platelet Count 102 K/mcL (140-400); Red Blood Count 3.18 M/mcL (4.19-5.50); Red Cell Distribution Width 15.7 % (11.5-14.5); White Blood Count 11.6 K/mcL (4.3-11.1)
[2019-04-15 04:18] LABS: Monocytes # 0.7 K/mcL (0.0-1.3); Neutrophils # 10.4 K/mcL (1.6-8.9)
[2019-04-15 04:25] LABS: Calcium 8.3 mg/dL (8.6-10.3)
[2019-04-15 04:48] LABS: ABG Base Excess -7 mEq/L (-2 to 3); ABG HCO3 20 mEq/L (21-27); ABG Oxygen Saturation 97 % (95-98); ABG PCO2 45 mmHg (35-45); ABG PH 7.25 pH Units (7.32-7.45); ABG PO2 107 mmHg (85-104); ABG TCO2 21 mEq/L (20-26); Blood Gas Modality ASSIST CONTROL; Blood Gas PEEP 5 cm H2O; Blood Gas VT 500 cc
[2019-04-15] MEDS: 0.9 % Sodium Chloride 1,000 ML IVC SCH ×2 (06:17→20:47)
--- NOTE | 2019-04-15 06:57 | Pulmonology Progress Note ---
<AngelinemoiseShailesh simms W - Last Filed: 04/15/19 09:26> Date of Encounter: 04/15/19 Objective PUL Vital signs: Last Vital Signs Temp 97.4 F L 04/15/19 07:51 Pulse 92 04/15/19 06:00 Resp 18 04/15/19 07:24 BP 102/73 04/15/19 07:24 Pulse Ox 100 04/15/19 07:24 Ventilator Settings Ventilator Settings: Ventilator Settings, Last 8 Hours Ventilator Tidal Volume 500 Setting Ventilator Tidal Volume 500 Setting Ventilator Tidal Volume 500 Setting Ventilator Tidal Volume 500 Setting Ventilator Tidal Volume 500 Setting Ventilator Tidal Volume 500 Setting Ventilator Tidal Volume 500 Setting Ventilator Tidal Volume 500 Setting Ventilator Tidal Volume 500 Setting Ventilator Tidal Volume 500 Setting Ventilator Respiratory Rate 16 Setting Ventilator Respiratory Rate 16 Setting Ventilator Respiratory Rate 16 Setting Ventilator Respiratory Rate 16 Setting Ventilator Respiratory Rate 16 Setting Ventilator Respiratory Rate 16 Setting Ventilator Respiratory Rate 16 Setting Ventilator Respiratory Rate 16 Setting Ventilator Respiratory Rate 16 Setting Ventilator Respiratory Rate 16 Setting Actual Respiratory Rate 18 Actual Respiratory Rate 20 Actual Respiratory Rate 16 Actual Respiratory Rate 16 Actual Respiratory Rate 16 Actual Respiratory Rate 20 Actual Respiratory Rate 20 Actual Respiratory Rate 22 Actual Respiratory Rate 19 Positive End Expiratory 5 Pressure Positive End Expiratory 5 Pressure Positive End Expiratory 5 Pressure Positive End Expiratory 5 Pressure Positive End Expiratory 5 Pressure Positive End Expiratory 5 Pressure Positive End Expiratory 5 Pressure Positive End Expiratory 5 Pressure Positive End Expiratory 5 Pressure Positive End Expiratory 5 Pressure Peak Inspiratory Airway 18 Pressure Peak Inspiratory Airway 7.9 Pressure Peak Inspiratory Airway 20 Pressure Peak Inspiratory Airway 20 Pressure Peak Inspiratory Airway 20 Pressure Peak Inspiratory Airway 20 Pressure Peak Inspiratory Airway 19 Pressure Peak Inspiratory Airway 13 Pressure Peak Inspiratory Airway 22 Pressure Results - Laboratory Findings CBC and BMP: 04/15/19 03:56 04/15/19 03:56 ABG ABG pH 7.25 pH Units (7.32-7.45) L 04/15/19 04:44 ABG pCO2 45 mmHg (35-45) 04/15/19 04:44 ABG pO2 107 mmHg (85-104) H 04/15/19 04:44 ABG O2 Saturation 97 % (95-98) 04/15/19 04:44 PT/INR, D-dimer PT 11.9 Seconds (9.4-12.1) 04/13/19 12:32 Abnormal lab findings: Abnormal lab results WBC 11.6 K/mcL (4.3-11.1) H 04/15/19 03:56 RBC 3.18 M/mcL (4.19-5.50) L 04/15/19 03:56 Hgb 10.3 g/dL (12.9-16.9) L 04/15/19 03:56 Hct 32.3 % (37.5-50.1) L 04/15/19 03:56 MCV 101.6 fL (83.0-100.0) H 04/15/19 03:56 RDW 15.7 % (11.5-14.5) H 04/15/19 03:56 Plt Count 102 K/mcL (140-400) L 04/15/19 03:56 Neutrophils # 10.4 K/mcL (1.6-8.9) H 04/15/19 03:56 Lymphocytes # 0.3 K/mcL (0.6-4.6) L 04/15/19 03:56 Monocytes # 1.4 K/mcL (0.0-1.3) H 04/13/19 12:32 ABG pH 7.25 pH Units (7.32-7.45) L 04/15/19 04:44 ABG pCO2 47 mmHg (35-45) H 04/14/19 00:03 ABG pO2 107 mmHg (85-104) H 04/15/19 04:44 ABG HCO3 20 mEq/L (21-27) L 04/15/19 04:44 ABG O2 Saturation 93 % (95-98) L 04/14/19 10:51 ABG Base Excess -7 mEq/L (-2 to 3) L 04/15/19 04:44 ABG Hematocrit 27.0 % (37.5-50.1) L 04/13/19 11:26 ABG Chloride 112 mEq/L (98-107) H 04/13/19 09:35 Glucose 112 mg/dL (60-95) H 04/13/19 11:26 Potassium 5.3 mEq/L (3.5-5.1) H 04/14/19 12:15 Chloride 112 mEq/L (98-107) H 04/15/19 03:56 Carbon Dioxide 18 mEq/L (23-29) L 04/15/19 03:56 BUN 40 mg/dL (8-23) H 04/15/19 03:56 Creatinine 2.63 mg/dL (0.70-1.30) H 04/15/19 03:56 Est GFR ( Amer) 29 (> 60) L 04/15/19 03:56 Est GFR (Non-Af Amer) 24 (> 60) L 04/15/19 03:56 Glucose 213 mg/dL (70-105) H 04/15/19 03:56 POC Glucose 134 mg/dL (70-99) H 04/14/19 23:49 Calculated Osmolality 302 (280-300) H 04/15/19 03:56 Calcium 8.3 mg/dL (8.6-10.3) L 04/15/19 03:56 Magnesium 2.8 mg/dL (1.6-2.6) H 04/15/19 03:56 Free T3 1.98 pg/mL (2.50-3.90) L 04/14/19 04:02 Arterial Blood Ionized Calcium 1.04 mmol/L (1.15-1.35) L 04/13/19 10:55 Crossmatch See Detail 04/08/19 16:04 - Microbiology Findings Microbiology Findings: Microbiology, Last 48 Hours 04/14/19 13:20 Urine Culture - Preliminary Urine,[place] Culture is incubating. 04/14/19 13:20 Sputum Culture - Preliminary Sputum 04/14/19 10:57 Blood Culture - Preliminary Peripheral Venipuncture Culture is incubating and being continuously monitored for growth. Final report to follow. 04/14/19 10:57 Blood Culture - Preliminary Peripheral Venipuncture Culture is incubating and being continuously monitored for growth. Final report to follow. - Clinical Findings Intake & Output: Intake & Output 04/14/19 04/15/19 04/15/19 23:59 07:59 15:59 Intake Total 1861.3 / 3775.7 1100 / 1100 Output Total 160 / 1225 668 / 668 Balance 1701.3 / 2550.7 432 / 432 Weight 86.9 kg Consult Discharge Plan - Plan Referrals: [facility] [Primary Care Provider[facility] - - Attending Attestation I examined this patient and my medical decision-making was reviewed with the Resident Physician. I agree with the documented findings, disposition and treat ment plan as described except to the extent set forth below. We independently had [id number] contact with the patient I spent 38 min of Critical Care time with this patient. It involved decision m aking of high complexity to assess, manipulate, and support vital organ system failure and/or to prevent further life threatening deterioration of the patient's condition. The time involved in the performance of separately reportable procedures was not counted toward critical care time. Patient seen and examined at bedside Labs, radiology, chart personally reviewed. Management was reviewed during multidisciplinary critical care rounds. 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 We will allow for higher blood pressure during this time for concern of stroke balancing the needs of postoperative CABG management Pulm: Acute hypoxic hypercapnic respiratory failure complicated by pneumonia and COPD exacerbation respiratory mechanics remain acceptable he has acidosis from metabolic process given underlying COPD with exacerbation will not push too hard on his minute ventilation to accommodate for this recognizes could have deleterious consequences will continue steroids and bronchodilators Cards: Postop day 2 status post CABG postoperative management of this per CT surgery. Remains in A. fib and on amiodarone rate is controlled he has an internal pacing wires placed as well and periodically has atrial paced. GI: GI prophylaxis given while on vent Nutrition: Start enteral nutrition per dietary recommendations Renal: Acute on chronic kidney injury likely a combination of factors including fluid shifts and potential hypotension perioperatively with kidney Center at risk for failure. Urine output remains acceptable he is getting a small infusion of crystalloid would have avoid any aggressive diuresis now because of concern for acute stroke UOP Monitored, Cont to Trend sCr and monitor Electrolytes. ID: Suspected acute pneumonia radiographically has opacity with persistent leukocytosis although cultures negative recommend empiric antimicrobial coverage now can de-escalate/stop over the next 24-48 hours if cultures remain negative clinical course improved Heme/Onc: Mechanical DVT prophylaxis at this time blood counts are stable Endo: Glucose Monitored - we will augment basal bolus dosing of insulin today Integ/MSK: Skin Care per routine ICU Nursing Protocol to prevent ulcers. Lines: All lines examined without evidence of infection : Dispo: Monitor in ICU for critical illness CODE: Full <Monk,Aaron G - Last Filed: 04/15/19 16:22> Date of Encounter: 04/15/19 Time of Encounter: 08:00 Assessment and Plan (1) Encephalopathy Current Visit: Yes Status: Acute -consider secondary to embolic stroke in setting of CABG 2 post op day 1 with significant vascular atherosclerosis vs. infectious vs. delerium vs. uremia vs. medication effect -afebrile -lactic acid WNL. -blood cultures X2 04/14/19 pending -EEG 04/14/19 : abnormal awake drowsy with nonspecific generalized slowing that could correlate with metabolic toxic encephalopathy - 04/14/19: 1st CT head showed possible subarachnoid hemorrhage versus artifact. A repeat head CT read as no definite acute intracranial hemorrhage and likely hyperdensity representing artifact. Plan: permissive HTN 220/120 would be favorable but will correlate to recent surgery. Neurology consulted and considering MRI once pacer wire removed. Appreciate their recs. Monitor blood cultures. (2) Acute on chronic respiratory failure with hypoxia and hypercapnia Current Visit: Yes Status: Acute Background -Consider secondary to intraoperative sedation. -Patient currently on the ventilator. Rate 16, FiO2 40, PEEP 5, TV 500. Labs -ABG shows hypercapnia improving. possible mixed acidosis. Reports -Morning CXR shows possible worsening of right-sided atelectasis with overall improvement of scattered opacities. Official read showing left base probable atelectasis and pleural effusion with trace right pleural effusion. Plan: Fentanyl and Precedex to be titrated to [place] 2. Follow ABGs while on vent. Morning CXR (3) COPD exacerbation Current Visit: Yes Status: Acute -Likely secondary to intraoperative stress -2-3 pack per day active smoker. -ABG as above -CXR as above Plan: 60 mg IV Solu-Medrol every 8 hours scheduled. Duo nebs every 4 hours scheduled. Symbicort 160/4.52 puffs twice a day scheduled. Albuterol sulfate every 4 scheduled. Follow ABG's. Morning CXR. (4) S/P coronary artery bypass graft x 2 Current Visit: Yes Status: Acute -Operation performed by Dr. Bright 04/13/19. Estimated blood loss 0.5 L. -Patient's initial presenting symptoms included unstable angina. -Left internal mammary artery was connected to the LAD and the left great saphenous vein was connected to the obtuse marginal branch #2 of circumflex. 04/08/19 studies: -carotid Doppler ultrasound that showed nonstenotic plaque bilaterally. -Echo showed left ventricular ejection fraction of 60% with mild to moderate concentric left ventricular hypertrophy as well as left ventricular diastolic dysfunction, [id number] mitral regurgitation, mild tricuspid regurgitation, mild pulmonary hypertension. -Nuclear stress test showed moderate anterior lateral ischemia on perfusion study. -Cardiac catheterization revealed severe multi-vessel disease in the LCA, LAD, circumflex, and RCA. -Cefazolin 2 g given. -Benson-Earlene to be removed. -albumin 12.5 grams given per cardiology. Plan: Postop day 1. Pain control with fentanyl and Precedex as needed. Percocet also available. Strict glucose management with insulin infusion. Remove chest tubes at cardiology's discretion. Cefazolin day 2 per cardiology. Monitor for postop complications. (5) Atrial fibrillation Current Visit: Yes Status: Acute Background -with rapid ventricular rate -consider 2/2 ischemia, structural changes of the heart, pulmonary disease, hypoxia, CVA -Search of records and interview with patient's significant other has not shown prior history although patient was on home calcium channel taryn. -[id number] 4.8% stroke risk per year. HAS-BLED shows moderate risk of major bleeding with aspirin use and age greater than 65. No recent INR on record. Lab -A1c 5.8; potassium 5.4; magnesium 3.6 -Echo and CXR as above -TSH, free T3/T4 unremarkable Plan: Rate control with nicardipine drip. rhythm control with amiodarone. Qualifiers: Qualified Code(s): I48.91 - Unspecified atrial fibrillation (6) Heart failure with preserved ejection fraction Current Visit: Yes Status: Acute -Likely secondary to chronic hypertension and atherosclerosis as well as valvular disease and ischemia. -04/08/19 Echo showed left ventricular ejection fraction of 60% with mild to moderate concentric left ventricular hypertrophy as well as left ventricular diastolic dysfunction, [id number] mitral regurgitation, mild tricuspid regurgitation, mild pulmonary hypertension. -CABG as above. -recent blood pressures adequate Plan: ASA. Statin. Would consider future beta taryn therapy for cardioprotection pending hospital course. Monitor for postoperative complications. Qualifiers: Qualified Code(s): I50.32 - Chronic diastolic (congestive) heart failure (7) Coronary artery disease Current Visit: No Status: Acute -Likely secondary to history of smoking and Western diet -Catheterization results as above Plan: Atorvastatin 80. Nitroglycerin. Calcium channel taryn Qualifiers: Coronary Disease-Associated Artery/Lesion type: [place] artery [place] vs. transplanted heart: [place] heart Associated angina: with stable angina Qualified Code(s): I25.118 - Atherosclerotic heart disease of [place] coronary artery with other forms of angina pectoris (8) Acute kidney injury Current Visit: Yes Status: Acute Background -Consider secondary to poor perfusion in the setting of post-CABG and soft blood pressures. -on CKD IV -KDIGO: Cr 2.48 from 1.82. S/Sx -Relatively euvolemic on exam Lab -calculated osmolality WNL -BUN/Cr ratio not elevated Plan: Albumin bolus. Will consider urine studies pending results of albumin bolus. Monitor urine output. (9) CKD (chronic kidney disease) stage 3, GFR 30-59 ml/min Current Visit: Yes Status: Acute -Chronic -Presurgical creatinine 1.8. Plan: YOLANDA as above. Renal dosing of medications. Avoid nephrotoxins. Monitor urine output. (10) Hyperkalemia Current Visit: Yes Status: Acute -consider 2/2 acute kidney injury in setting of CKD IV vs. LR therapy vs. acidosis Plan: Correct YOLANDA - currently attempting albumin bolus to increase perfusion. Stop LR. Telemetry. (11) Leukocytosis Current Visit: Yes Status: Acute -Likely stress reaction to operation as well as steroid therapy -afebrile Plan: Continue to monitor for signs of infection Qualifiers: Qualified Code(s): D72.829 - Elevated white blood cell count, unspecified (12) Postoperative anemia due to acute blood loss Current Visit: Yes Status: Acute -Normocytic, stable -11.1>10.8>11.1 Plan: Continue to monitor for signs of bleed. Serial CBCs. (13) DVT prophylaxis Current Visit: Yes Status: Acute compression stockings Subjective Interval history: Nursing reports no acute events overnight. Patient intubated and sedated Objective PUL Vital signs: Last Vital Signs Temp 97.5 F L 04/15/19 04:00 Pulse 92 04/15/19 06:00 Resp 20 04/15/19 06:00 BP 119/62 04/15/19 06:00 Pulse Ox 99 04/15/19 06:00 Neck: No carotid bruits or JVD. Skin: Poor turgor of the forehead. Bilateral ecchymosis of the forearms. Eyes: Moist. Nonicteric. Reactive to light. Cardiac: Irregular rhythm. Likely nontachycardic. No murmurs gallops rubs but complicated by gurgling likely from OG tube. Respiratory: Distant lung sounds at bases anteriorly with some slight rhonchorous sounds mostly on the right. Upper anterior airways without significant rhonchi. Abdomen: Chest tubes overlying. Obese Neuro: Babinskis elicited on the right once but not on repeated tries. No Babinski on the left. Opens eyes slightly to voice initially and could point when asked initially. He was not consistent with this. [place] 5-6 A/P #ELECTRICAL CONTINUITY TESTER# Encephalopathy -consider secondary to embolic stroke in setting of CABG 2 post op day 1 with significant vascular atherosclerosis vs. infectious vs. delerium vs. uremia vs. medication effect -afebrile -lactic acid WNL. -blood cultures X2 04/14/19 pending -EEG 04/14/19 : abnormal awake drowsy with nonspecific generalized slowing that could correlate with metabolic toxic encephalopathy - 04/14/19: 1st CT head showed possible subarachnoid hemorrhage versus artifact. A repeat head CT read as no definite acute intracranial hemorrhage and likely hyperdensity representing artifact. Plan: Permissive HTN 220/120 would be favorable but will correlate to recent surgery. Neurology consulted and plan to MRI once stable. Appreciate their recs. Start enteral feeds per cardiology. Monitor blood cultures. #RESP# Acute on chronic respiratory failure with hypoxia and hypercapnia Background -Consider secondary to intraoperative sedation vs. possible pneumonia -Patient currently on the ventilator. Labs -ABG shows hypercapnia improving. Possible mixed acidosis. Reports -Morning CXR shows possible worsening of right-sided opacities. Official read showing increasing opacity of the right lung base possibly pneumonia. Plan: Fentanyl and Precedex to be titrated to [place] 2. Follow ABGs while on vent. Morning CXR. Cefepime day 1 renal dosed -to be continued pending MRSA swab and sputum and blood cultures. Hospital-acquired pneumonia -As seen on CXR 04/15/19 Plan: Sputum culture pending. Cefepime day 1 of 10 renally dosed. We will escalate pending cultures. Pro-calcitonin pending. COPD exacerbation -Likely secondary to intraoperative stress -2-3 pack per day active smoker. -ABG as above -CXR as above Plan: 40 mg IV Solu-Medrol every 12 hours scheduled. Duo nebs every 4 hours scheduled. Symbicort 160/4.52 puffs twice a day scheduled. Albuterol sulfate every 4 scheduled. Follow ABG's. Morning CXR. #CARDS# S/P coronary artery bypass graft x 2 -Operation performed by Dr. Bright 04/13/19. Estimated blood loss 0.5 L. -Patient's initial presenting symptoms included unstable angina. -Left internal mammary artery was connected to the LAD and the left great saphenous vein was connected to the obtuse marginal branch #2 of circumflex. 04/08/19 studies: -carotid Doppler ultrasound that showed nonstenotic plaque bilaterally. -Echo showed left ventricular ejection fraction of 60% with mild to moderate con centric left ventricular hypertrophy as well as left ventricular diastolic dysfunction, [id number] mitral regurgitation, mild tricuspid regurgitation, mild pulmonary hypertension. -Nuclear stress test showed moderate anterior lateral ischemia on perfusion study. -Cardiac catheterization revealed severe multi-vessel disease in the LCA, LAD, circumflex, and RCA. -Cefazolin 6g given -albumin 37.5 g given. Plan: Postop day 2. Pain control with fentanyl and Precedex as needed. Percocet also available. Strict glucose management on sliding scale. Remove chest tubes at cardiology's discretion. Monitor for postop complications. Atrial fibrillation Background -with rapid ventricular rate -consider 2/2 ischemia, structural changes of the heart, pulmonary disease, hypoxia, CVA -Search of records and interview with patient's significant other has not shown prior history although patient was on home calcium channel taryn. -[id number] 4.8% stroke risk per year. HAS-BLED shows moderate risk of major bleeding with aspirin use and age greater than 65. No recent INR on record. Lab -A1c 5.8 -Echo and CXR as above -TSH, free T3/T4 unremarkable Plan: Continue to monitor potassium and magnesium. rhythm control with amiodarone drip. Pacer wire in place Heart failure with preserved ejection fraction -Likely secondary to chronic hypertension and atherosclerosis as well as valvular disease and ischemia. -04/08/19 Echo showed left ventricular ejection fraction of 60% with mild to moderate concentric left ventricular hypertrophy as well as left ventricular diastolic dysfunction, [id number] mitral regurgitation, mild tricuspid regurgitation, mild pulmonary hypertension. -CABG as above. -recent blood pressures adequate Plan: ASA. Statin. Would consider future beta taryn therapy for cardioprotection pending hospital course. Monitor for postoperative complications. Coronary artery disease -Likely secondary to history of smoking and Western diet -Catheterization results as above Plan: Atorvastatin 80. Nitroglycerin. Calcium channel taryn #GI# -Pantoprazole -Enteral feeds to begin 04/15/19 #RENAL# Acute kidney injury Background -Consider secondary to poor perfusion in the setting of post-CABG and soft blood pressures. -on CKD IV -KDIGO: 04/14/19 Cr 2.48 from 1.82. Lab -calculated osmolality WNL -BUN/Cr ratio not elevated Plan: Albumin given. Will consider urine studies pending clinical course. Monitor urine output. CKD (chronic kidney disease) stage 3, GFR 30-59 ml/min -Chronic -Presurgical creatinine 1.8. Plan: YOLANDA as above. Renal dosing of medications. Avoid nephrotoxins. Monitor urine output. Hyperkalemia -Resolved -consider 2/2 acute kidney injury in setting of CKD IV vs. LR therapy vs. acidosis Plan: Correct YOLANDA. Telemetry. #ID# Leukocytosis -Likely stress reaction to operation as well as steroid therapy -afebrile #HEME/ONC Postoperative anemia due to acute blood loss -Normocytic, stable Plan: Continue to monitor for signs of bleed. Serial CBCs. DVT prophylaxis with stockings. #ENDO# -insulin drip #DISPO# monitor in ICU for critical illness #CODE# Full Ventilator Settings Ventilator Settings: Ventilator Settings, Last 8 Hours Ventilator Tidal Volume 500 Setting Ventilator Tidal Volume 500 Setting Ventilator Tidal Volume 500 Setting Ventilator Tidal Volume 500 Setting Ventilator Tidal Volume 500 Setting Ventilator Tidal Volume 500 Setting Ventilator Tidal Volume 500 Setting Ventilator Tidal Volume 500 Setting Ventilator Tidal Volume 500 Setting Ventilator Tidal Volume 500 Setting Ventilator Tidal Volume 500 Setting Ventilator Tidal Volume 500 Setting Ventilator Tidal Volume 500 Setting Ventilator Respiratory Rate 16 Setting Ventilator Respiratory Rate 16 Setting Ventilator Respiratory Rate 16 Setting Ventilator Respiratory Rate 16 Setting Ventilator Respiratory Rate 16 Setting Ventilator Respiratory Rate 16 Setting Ventilator Respiratory Rate 16 Setting Ventilator Respiratory Rate 16 Setting Ventilator Respiratory Rate 16 Setting Ventilator Respiratory Rate 16 Setting Ventilator Respiratory Rate 16 Setting Ventilator Respiratory Rate 16 Setting Ventilator Respiratory Rate 16 Setting Actual Respiratory Rate 20 Actual Respiratory Rate 16 Actual Respiratory Rate 16 Actual Respiratory Rate 16 Actual Respiratory Rate 20 Actual Respiratory Rate 20 Actual Respiratory Rate 22 Actual Respiratory Rate 19 Actual Respiratory Rate 18 Actual Respiratory Rate 18 Actual Respiratory Rate 17 Actual Respiratory Rate 17 Positive End Expiratory 5 Pressure Positive End Expiratory 5 Pressure Positive End Expiratory 5 Pressure Positive End Expiratory 5 Pressure Positive End Expiratory 5 Pressure Positive End Expiratory 5 Pressure Positive End Expiratory 5 Pressure Positive End Expiratory 5 Pressure Positive End Expiratory 5 Pressure Positive End Expiratory 5 Pressure Positive End Expiratory 5 Pressure Positive End Expiratory 5 Pressure Positive End Expiratory 5 Pressure Peak Inspiratory Airway 7.9 Pressure Peak Inspiratory Airway 20 Pressure Peak Inspiratory Airway 20 Pressure Peak Inspiratory Airway 20 Pressure Peak Inspiratory Airway 20 Pressure Peak Inspiratory Airway 19 Pressure Peak Inspiratory Airway 13 Pressure Peak Inspiratory Airway 22 Pressure Peak Inspiratory Airway 22 Pressure Peak Inspiratory Airway 22 Pressure Peak Inspiratory Airway 20 Pressure Peak Inspiratory Airway 20 Pressure Results - Laboratory Findings CBC and BMP: 04/15/19 03:56 04/15/19 03:56 ABG ABG pH 7.25 pH Units (7.32-7.45) L 04/15/19 04:44 ABG pCO2 45 mmHg (35-45) 04/15/19 04:44 ABG pO2 107 mmHg (85-104) H 04/15/19 04:44 ABG O2 Saturation 97 % (95-98) 04/15/19 04:44 PT/INR, D-dimer PT 11.9 Seconds (9.4-12.1) 04/13/19 12:32 Abnormal lab findings: Abnormal lab results WBC 11.6 K/mcL (4.3-11.1) H 04/15/19 03:56 RBC 3.18 M/mcL (4.19-5.50) L 04/15/19 03:56 Hgb 10.3 g/dL (12.9-16.9) L 04/15/19 03:56 Hct 32.3 % (37.5-50.1) L 04/15/19 03:56 MCV 101.6 fL (83.0-100.0) H 04/15/19 03:56 RDW 15.7 % (11.5-14.5) H 04/15/19 03:56 Plt Count 102 K/mcL (140-400) L 04/15/19 03:56 Neutrophils # 10.4 K/mcL (1.6-8.9) H 04/15/19 03:56 Lymphocytes # 0.3 K/mcL (0.6-4.6) L 04/15/19 03:56 Monocytes # 1.4 K/mcL (0.0-1.3) H 04/13/19 12:32 ABG pH 7.25 pH Units (7.32-7.45) L 04/15/19 04:44 ABG pCO2 47 mmHg (35-45) H 04/14/19 00:03 ABG pO2 107 mmHg (85-104) H 04/15/19 04:44 ABG HCO3 20 mEq/L (21-27) L 04/15/19 04:44 ABG O2 Saturation 93 % (95-98) L 04/14/19 10:51 ABG Base Excess -7 mEq/L (-2 to 3) L 04/15/19 04:44 ABG Hematocrit 27.0 % (37.5-50.1) L 04/13/19 11:26 ABG Chloride 112 mEq/L (98-107) H 04/13/19 09:35 Glucose 112 mg/dL (60-95) H 04/13/19 11:26 Potassium 5.3 mEq/L (3.5-5.1) H 04/14/19 12:15 Chloride 112 mEq/L (98-107) H 04/15/19 03:56 Carbon Dioxide 18 mEq/L (23-29) L 04/15/19 03:56 BUN 40 mg/dL (8-23) H 04/15/19 03:56 Creatinine 2.63 mg/dL (0.70-1.30) H 04/15/19 03:56 Est GFR ( Amer) 29 (> 60) L 04/15/19 03:56 Est GFR (Non-Af Amer) 24 (> 60) L 04/15/19 03:56 Glucose 213 mg/dL (70-105) H 04/15/19 03:56 POC Glucose 134 mg/dL (70-99) H 04/14/19 23:49 Calculated Osmolality 302 (280-300) H 04/15/19 03:56 Calcium 8.3 mg/dL (8.6-10.3) L 04/15/19 03:56 Magnesium 3.6 mg/dL (1.6-2.6) H 04/13/19 12:32 Free T3 1.98 pg/mL (2.50-3.90) L 04/14/19 04:02 Arterial Blood Ionized Calcium 1.04 mmol/L (1.15-1.35) L 04/13/19 10:55 Crossmatch See Detail 04/08/19 16:04 - Microbiology Findings Microbiology Findings: Microbiology, Last 48 Hours 04/14/19 13:20 Urine Culture - Preliminary Urine,[place] Culture is incubating. 04/14/19 13:20 Sputum Culture - Preliminary Sputum 04/14/19 10:57 Blood Culture - Preliminary Peripheral Venipuncture Culture is incubating and being continuously monitored for growth. Final report to follow. 04/14/19 10:57 Blood Culture - Preliminary Peripheral Venipuncture Culture is incubating and being continuously monitored for growth. Final report to follow. - Clinical Findings Intake & Output: Intake & Output 04/14/19 04/14/19 04/15/19 15:59 23:59 07:59 Intake Total 235.4 / 3775.7 1861.3 / 3775.7 1100 / 1100 Output Total 310 / 1225 160 / 1225 568 / 568 Balance -74.6 / 2550.7 1701.3 / 2550.7 532 / 532 Weight 86.9 kg - VTE Documentation of Mechanical Device: Graduated compression elastic hosiery
[2019-04-15 07:20] LABS: Magnesium 2.8 mg/dL (1.6-2.6)
[2019-04-15] MEDS: Budesonide/Formoterol 160/4.5 1 PUFF INH IH SCH ×2 (07:23→19:53)
--- NOTE | 2019-04-15 07:37 | Cardiothoracic Progress Note ---
Date of Encounter: 04/15/19 Time of Encounter: 07:35 - Assessment and plan (1) Coronary artery disease Current Visit: No Status: Acute The patient remained hemodynamic stable overnight, although he remains intubated and unresponsive. Neurology is evaluating the patient and head CT shows no acute injury at this point. An EEG was performed and we are awaiting neurology evaluation and input. The patient should be started on enteral nutrition today. The assessment and plan as outlined above was discussed with the patient and/or family members who expressed understanding and agreement. All questions were answered. Qualifiers: Coronary Disease-Associated Artery/Lesion type: [place] artery [place] vs. transplanted heart: [place] heart Associated angina: with stable angina Qualified Code(s): I25.118 - Atherosclerotic heart disease of [place] coronary artery with other forms of angina pectoris - Subjective Procedure(s) Performed: POD#2 S/P CABG2 Interval history: The patient remained hemodynamically stable last night. He remains intubated and unresponsive. Vital Signs, Last 4 Hours Temp Pulse Resp BP Pulse Ox 04/15/19 07:24 18 102/73 100 04/15/19 06:00 92 20 119/62 99 04/15/19 05:24 16 100 04/15/19 05:00 99 19 122/61 100 04/15/19 04:00 97.5 F L 99 16 112/57 99 Oxgyen Flow Rate Oxygen Flow Rate (LPM) 15 Clinical Data, last 8 Hours Output, Chest Tube Drainage 0 Amount [Mediastinal #4] Output, Chest Tube Drainage 10 Amount [Mediastinal #4] Output, Chest Tube Drainage 8 Amount [Mediastinal #3] Output, Chest Tube Drainage 10 Amount [Mediastinal #3] Output, Chest Tube Drainage 20 Amount [Mediastinal #2] Output, Chest Tube Drainage 30 Amount [Mediastinal #2] Output, Chest Tube Drainage 6 Amount [Mediastinal #1] Output, Chest Tube Drainage 84 Amount [Mediastinal #1] Weight 04/13/19 04/14/19 04/15/19 23:59 23:59 23:59 Weight 81.647 kg 82 kg 86.9 kg - Physical Examination General: Other (Intubated and unresponsive) Neck: No JVD, Normal carotid pulses Cardiac: Normal S1 and S2, No Murmur, Other (Irregular rate and rhythm (atrial fibrillation)) Incision: No signs of infection, Dry/intact dressing Sternum: Stable Chest tubes: Minimal drainage, Other (No air leak) Lungs: Normal Breath Sounds, No Wheeze, Rales, Rhonchi Neuro: Other (No purposeful movement or response to verbal stimuli) Vascular: Normal capillary refill Extremities: No Clubbing, No Cyanosis, No Edema - Labs 04/15/19 03:56 04/15/19 03:56 Lab Results, Last 24 hours 04/14/19 04/14/19 04/14/19 04:02 12:15 12:15 WBC 12.4 H Hgb 10.6 L Hct 32.7 L Plt Count 110 L Sodium 139 139 Potassium 5.4 H 5.3 H Chloride 108 H 111 H Carbon Dioxide 21 L 20 L BUN 29 H 33 H Creatinine 2.48 H 2.55 H Glucose 160 H 166 H Calcium 8.7 8.1 L Magnesium TSH 4.053 04/15/19 04/15/19 03:56 03:56 WBC 11.6 H Hgb 10.3 L Hct 32.3 L Plt Count 102 L Sodium 138 Potassium 5.0 Chloride 112 H Carbon Dioxide 18 L BUN 40 H Creatinine 2.63 H Glucose 213 H Calcium 8.3 L Magnesium 2.8 H TSH - Imaging Chest Xray: image reviewed (No pneumothorax. Left basilar atelectasis.) - VTE Documentation of Mechanical Device: Graduated compression elastic hosiery Consult Discharge Plan - Plan [facility]errals: [facility] [Primary Care Provider] -
[2019-04-15] MEDS: methylPREDNISolone 125 MG/2 ML VIAL IVP SCH (08:54)
[2019-04-15] MEDS: Chlorhexidine Rinse 15 ML MOUTHWASH MM SCH ×2 (08:54→20:46)
[2019-04-15] MEDS: Pantoprazole 40 MG VIAL IVP SCH (08:54)
[2019-04-15] MEDS: Aspirin 81 MG TAB.CHEW PO SCH (08:55)
[2019-04-15] MEDS: Nicotine 21 MG PATCH.TD24 TD SCH (08:55)
[2019-04-15] MEDS ORDERED: Insulin LISPRO 300 UNITS/3 ML VIAL SQ SCH (09:18)
--- NOTE | 2019-04-15 09:26 | Neurology Progress Note ---
<Houston Cross J - Last Filed: 04/15/19 09:21> Date of Encounter: 04/15/19 Time of Encounter: 09:21 Assessment and Plan (1) Encephalopathy Current Visit: Yes Status: Acute He is s/p CABG and has been unresponsive since No improvement in condition overnight, neuro exam is limited d/t unresponsive state EEG showed slowing but did not find any epileptiform activity CT and repeat CT did not reveal an evidence of infarct however this is still a possibility We are recommending an MRI of the brain when the patient is able to tolerate We will reevaluate in the a.m. Continue medical and supportive care otherwise Subjective Principal diagnosis: Seen in f/u for unresponsive state s/p CABG; r/o CVA Interval history: The patient was seen in f/u today for an unresponsive state s/p CABG. Today on exam he continues to be unresponsive to external stimulus and he does not displa y any purposeful movements. EEG completed yesterday shows slowing which can be seen with TME, and diffuse cerebral dysfunction as well as medication side effects. Repeat CT head yesterday shows no acute intracranial abnormality and the area of hyperattenuation seen in initial CT was not seen on repeat. Given his ongoing unresponsive state I am concerned about the possibility of an infarct. No family present at the bedside today to discuss findings or POC. Objective - Constitutional Vitals: Temp Pulse Resp BP Pulse Ox 97.4 F L 92 18 102/73 100 04/15/19 07:51 04/15/19 06:00 04/15/19 07:24 04/15/19 07:24 04/15/19 07:24 Exam: Examination: The neurological exam is limited by the patients unresponsive state General Examination: *CONSTITUTIONAL: unresponsive *GENERAL APPEARANCE OF PATIENT ill appearing elderly male *EYES: pupils equal, round, reactive to light and accommodation *CARDIOVASCULAR: no peripheral edema, distal temperature normal, dorsalis pedis pulses normal. Refer to vital signs * MUSCULOSKELETAL: *CN III,IV, PERRLA, no dolls eyes *SENSORY EXAMINATION no response to painful stimulus *REFLEXES: positive babinski's reflex - Neurological Exam Sensation intact: Present: pain (grimacing to painful stimuli but does not withdrawal from pain) Mental Status Examination: Present: does not follow commands, opens eyes to noxious stimulation, grimmacing - VTE Documentation of Mechanical Device: Graduated compression elastic hosiery Results - Laboratory Findings CBC and BMP: 04/15/19 03:56 04/15/19 03:56 Abnormal lab findings: Abnormal lab results WBC 11.6 K/mcL (4.3-11.1) H 04/15/19 03:56 RBC 3.18 M/mcL (4.19-5.50) L 04/15/19 03:56 Hgb 10.3 g/dL (12.9-16.9) L 04/15/19 03:56 Hct 32.3 % (37.5-50.1) L 04/15/19 03:56 MCV 101.6 fL (83.0-100.0) H 04/15/19 03:56 RDW 15.7 % (11.5-14.5) H 04/15/19 03:56 Plt Count 102 K/mcL (140-400) L 04/15/19 03:56 Neutrophils # 10.4 K/mcL (1.6-8.9) H 04/15/19 03:56 Lymphocytes # 0.3 K/mcL (0.6-4.6) L 04/15/19 03:56 Monocytes # 1.4 K/mcL (0.0-1.3) H 04/13/19 12:32 ABG pH 7.25 pH Units (7.32-7.45) L 04/15/19 04:44 ABG pCO2 47 mmHg (35-45) H 04/14/19 00:03 ABG pO2 107 mmHg (85-104) H 04/15/19 04:44 ABG HCO3 20 mEq/L (21-27) L 04/15/19 04:44 ABG O2 Saturation 93 % (95-98) L 04/14/19 10:51 ABG Base Excess -7 mEq/L (-2 to 3) L 04/15/19 04:44 ABG Hematocrit 27.0 % (37.5-50.1) L 04/13/19 11:26 ABG Chloride 112 mEq/L (98-107) H 04/13/19 09:35 Glucose 112 mg/dL (60-95) H 04/13/19 11:26 Potassium 5.3 mEq/L (3.5-5.1) H 04/14/19 12:15 Chloride 112 mEq/L (98-107) H 04/15/19 03:56 Carbon Dioxide 18 mEq/L (23-29) L 04/15/19 03:56 BUN 40 mg/dL (8-23) H 04/15/19 03:56 Creatinine 2.63 mg/dL (0.70-1.30) H 04/15/19 03:56 Est GFR ( Amer) 29 (> 60) L 04/15/19 03:56 Est GFR (Non-Af Amer) 24 (> 60) L 04/15/19 03:56 Glucose 213 mg/dL (70-105) H 04/15/19 03:56 POC Glucose 134 mg/dL (70-99) H 04/14/19 23:49 Calculated Osmolality 302 (280-300) H 04/15/19 03:56 Calcium 8.3 mg/dL (8.6-10.3) L 04/15/19 03:56 Magnesium 2.8 mg/dL (1.6-2.6) H 04/15/19 03:56 Free T3 1.98 pg/mL (2.50-3.90) L 04/14/19 04:02 Arterial Blood Ionized Calcium 1.04 mmol/L (1.15-1.35) L 04/13/19 10:55 Crossmatch See Detail 04/08/19 16:04 Consult Discharge Plan - Plan Referrals: [facility] [Primary Care Provider] - <Lakshmi Aguilar I - Last Filed: 04/15/19 12:09> Date of Encounter: 04/15/19 Assessment and Plan (1) Encephalopathy Current Visit: Yes Status: Acute I have personally performed a face to face diagnostic evaluation, including HPI, EXAM, which is included in the Assesment and plan, which was discussed with Houston Cross CNP, I agree with the above outlined documentation. Patient remain unresponsive He did have brainstem reflexes but at the same time no significant response to any painful stimuli Repeat CT did not show any evidence of bleed EEG did not show any nonconvulsive seizures consistent with encephalopathy At this time I recommend continue to treat underlying conditions Suggest MRI of the brain when he is more stable Prognosis remains guarded Lakshmi Aguilar MD. Neurology Objective - Constitutional Vitals: Temp Pulse Resp BP Pulse Ox 97.5 F L 110 25 120/95 100 04/15/19 11:31 04/15/19 10:00 04/15/19 11:15 04/15/19 11:15 04/15/19 11:15 Results - Laboratory Findings CBC and BMP: 04/15/19 03:56 04/15/19 03:56 Abnormal lab findings: Abnormal lab results WBC 11.6 K/mcL (4.3-11.1) H 04/15/19 03:56 RBC 3.18 M/mcL (4.19-5.50) L 04/15/19 03:56 Hgb 10.3 g/dL (12.9-16.9) L 04/15/19 03:56 Hct 32.3 % (37.5-50.1) L 04/15/19 03:56 MCV 101.6 fL (83.0-100.0) H 04/15/19 03:56 RDW 15.7 % (11.5-14.5) H 04/15/19 03:56 Plt Count 102 K/mcL (140-400) L 04/15/19 03:56 Neutrophils # 10.4 K/mcL (1.6-8.9) H 04/15/19 03:56 Lymphocytes # 0.3 K/mcL (0.6-4.6) L 04/15/19 03:56 Monocytes # 1.4 K/mcL (0.0-1.3) H 04/13/19 12:32 ABG pH 7.25 pH Units (7.32-7.45) L 04/15/19 04:44 ABG pCO2 47 mmHg (35-45) H 04/14/19 00:03 ABG pO2 107 mmHg (85-104) H 04/15/19 04:44 ABG HCO3 20 mEq/L (21-27) L 04/15/19 04:44 ABG O2 Saturation 93 % (95-98) L 04/14/19 10:51 ABG Base Excess -7 mEq/L (-2 to 3) L 04/15/19 04:44 ABG Hematocrit 27.0 % (37.5-50.1) L 04/13/19 11:26 ABG Chloride 112 mEq/L (98-107) H 04/13/19 09:35 Glucose 112 mg/dL (60-95) H 04/13/19 11:26 Potassium 5.3 mEq/L (3.5-5.1) H 04/14/19 12:15 Chloride 112 mEq/L (98-107) H 04/15/19 03:56 Carbon Dioxide 18 mEq/L (23-29) L 04/15/19 03:56 BUN 40 mg/dL (8-23) H 04/15/19 03:56 Creatinine 2.63 mg/dL (0.70-1.30) H 04/15/19 03:56 Est GFR ( Amer) 29 (> 60) L 04/15/19 03:56 Est GFR (Non-Af Amer) 24 (> 60) L 04/15/19 03:56 Glucose 213 mg/dL (70-105) H 04/15/19 03:56 POC Glucose 134 mg/dL (70-99) H 04/14/19 23:49 Calculated Osmolality 302 (280-300) H 04/15/19 03:56 Calcium 8.3 mg/dL (8.6-10.3) L 04/15/19 03:56 Magnesium 2.8 mg/dL (1.6-2.6) H 04/15/19 03:56 Creatine Kinase 1048 Units/L (30-223) H 04/15/19 03:56 Free T3 1.98 pg/mL (2.50-3.90) L 04/14/19 04:02 Arterial Blood Ionized Calcium 1.04 mmol/L (1.15-1.35) L 04/13/19 10:55 Crossmatch See Detail 04/08/19 16:04
[2019-04-15 10:24] LABS: Uric Acid 5.4 mg/dL (2.3-7.6)
[2019-04-15] MEDS: Norepinephrine 4 MG in D5% in Water 250 ML IVC SCH (11:59)
[2019-04-15] MEDS: Amiodarone Premix 360 MG/200 ML BAG IVC SCH (12:00)
[2019-04-15 12:53] LABS: Bilirubin,Urine Negative (Negative); Blood,Urine Large (Negative); Clarity,Urine Cloudy (Clear); Color,Urine Yellow (Yellow); Glucose,Urine (UA) Normal (Normal); Ketones,Urine Negative (Negative); Leukocyte Esterase,Urine Negative (Negative); Nitrite,Urine Negative (Negative); Protein,Urine 100 mg/dL (Neg-Trace); Specific Gravity,Urine 1.023 (1.010-1.025); Urobilinogen,Urine Normal (Normal)
[2019-04-15 12:55] LABS: Bacteria,Urine None Seen per hpf (None-Few); Squamous Epithelial Cell,Urine Many per lpf (None-Few); WBC,Urine 30-50 per hpf (0-3)
[2019-04-15 13:03] LABS: Sodium, Urine 27.9 mEq/L
[2019-04-15 13:26] LABS: Mucus,Urine Few (Few)
[2019-04-15 13:27] LABS: Hyaline Casts,Urine Few per lpf (None-Few)
[2019-04-15 13:28] LABS: Granular Casts,Urine Few per lpf (None Seen)
[2019-04-15] MEDS: FentaNYL (PF) 1,000 MCG in 0.9 % Sodium Chloride 80 ML IVC SCH (17:06)
--- NOTE | 2019-04-15 18:14 | Electrocardiograph Report ---
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
[2019-04-15] MEDS: Cefepime HCl 2,000 MG in Water for inj. (sterile) 20 ML IVP SCH (18:33)
[2019-04-15] MEDS: MethylPREDNISolone 40 MG/ML VIAL IVP SCH (18:34)
[2019-04-16] MEDS: Amiodarone Premix 360 MG/200 ML BAG IVC SCH ×2 (01:27→15:04)
[2019-04-16] MEDS: Ipratropium/Albuterol Neb 3 ML IH SCH ×6 (03:27→23:23)
[2019-04-16] MEDS: niCARdipine 20 MG/200 ML MLS IVC SCH ×5 (03:41→20:10)
[2019-04-16] MEDS: Insulin LISPRO 300 UNITS/3 ML VIAL SQ SCH ×5 (03:53→20:09)
[2019-04-16] MEDS: Artificial Tears SOLN 15 ML BOTTLE BOTH EYES SCH ×5 (03:53→20:09)
[2019-04-16 04:04] LABS: Basophils % 0.1 %; Hematocrit 30.2 % (37.5-50.1); Hemoglobin 9.8 g/dL (12.9-16.9); Immature Granulocytes % 1.2 % (0-4); Lymphocytes # 0.3 K/mcL (0.6-4.6); Lymphocytes % 2.7 %; Mean Corpuscular HGB Conc 32.5 g/dL (31.6-35.5); Mean Corpuscular Hemoglobin 32.7 pg (28.0-33.3); Mean Corpuscular Volume 100.7 fL (83.0-100.0); Mean Platelet Volume 10.5 fL (9.4-12.4); Monocytes # 0.6 K/mcL (0.0-1.3); Monocytes % 6.3 %; Neutrophils # 8.8 K/mcL (1.6-8.9); Platelet Count 100 K/mcL (140-400); Red Cell Distribution Width 15.4 % (11.5-14.5); Segmented Neutrophils % 89.7 %; White Blood Count 9.8 K/mcL (4.3-11.1)
[2019-04-16 04:22] LABS: Calcium 8.2 mg/dL (8.6-10.3); Potassium 4.2 mEq/L (3.5-5.1)
[2019-04-16 05:00] LABS: ABG Base Excess -7 mEq/L (-2 to 3); ABG HCO3 19 mEq/L (21-27); ABG Oxygen Saturation 98 % (95-98); ABG PCO2 42 mmHg (35-45); ABG PH 7.28 pH Units (7.32-7.45); ABG PO2 117 mmHg (85-104); ABG TCO2 21 mEq/L (20-26); Blood Gas Modality ASSIST CONTROL; Blood Gas PEEP 5 cm H2O; Blood Gas VT 500 cc
[2019-04-16] MEDS: Nitroglycerin 25 MG/250 ML INFUS..BTL IVC SCH ×2 (05:14→22:17)
[2019-04-16] MEDS: MethylPREDNISolone 40 MG/ML VIAL IVP SCH ×2 (05:14→18:25)
[2019-04-16] MEDS: Cefepime HCl 2,000 MG in Water for inj. (sterile) 20 ML IVP SCH ×2 (05:16→18:25)
[2019-04-16] MEDS: FentaNYL (PF) 1,000 MCG in 0.9 % Sodium Chloride 80 ML IVC SCH (06:08)
[2019-04-16] MEDS: Dexmedetomidine HCl 400 MCG/100 ML MLS IVC SCH ×3 (06:09→20:08)
--- NOTE | 2019-04-16 06:40 | Cardiothoracic Progress Note ---
Date of Encounter: 04/16/19 Time of Encounter: 06:38 - Assessment and plan (1) Coronary artery disease Current Visit: No Status: Acute The patient remained hemodynamically stable overnight, although he remains intubated and relatively unresponsive. No significant change in his neuro status. The assessment and plan as outlined above was discussed with the patient and/or family members who expressed understanding and agreement. All questions were answered. Qualifiers: Coronary Disease-Associated Artery/Lesion type: [place] artery [place] vs. transplanted heart: [place] heart Associated angina: with stable angina Qualified Code(s): I25.118 - Atherosclerotic heart disease of [place] coronary artery with other forms of angina pectoris - Subjective Procedure(s) Performed: POD#3 S/P CABG2 Interval history: The patient remained hemodynamically stable last night. He remains intubated. This morning his eyes were open and he would close them if he a hand was moved towards his face. Otherwise he was unresponsive without purposeful movement. Vital Signs, Last 4 Hours Temp Pulse Resp BP Pulse Ox 04/16/19 06:00 94 16 145/65 100 04/16/19 05:14 19 152/64 100 04/16/19 05:00 97 16 144/68 100 04/16/19 04:00 97.8 F 108 16 159/74 100 04/16/19 03:27 17 144/63 100 04/16/19 03:00 95 16 160/72 100 Oxgyen Flow Rate Oxygen Flow Rate (LPM) 15 Clinical Data, last 8 Hours Output, Chest Tube Drainage 0 Amount [Mediastinal #4] Output, Chest Tube Drainage 3 Amount [Mediastinal #4] Output, Chest Tube Drainage 8 Amount [Mediastinal #3] Output, Chest Tube Drainage 0 Amount [Mediastinal #3] Output, Chest Tube Drainage 0 Amount [Mediastinal #2] Output, Chest Tube Drainage 30 Amount [Mediastinal #2] Output, Chest Tube Drainage 0 Amount [Mediastinal #1] Output, Chest Tube Drainage 10 Amount [Mediastinal #1] Weight 04/14/19 04/15/19 04/16/19 23:59 23:59 23:59 Weight 82 kg 86.9 kg 91.2 kg - Physical Examination General: Other (Unresponsive except eye-opening area did) Neck: No JVD, Normal carotid pulses Cardiac: Normal S1 and S2, No Murmur, Other (Irregular rate and rhythm (atrial fibrillation)) Incision: No signs of infection, Dry/intact dressing Sternum: Stable Chest tubes: Minimal drainage, Other (No air leak) Lungs: Normal Breath Sounds, No Wheeze, Rales, Rhonchi Neuro: Other (Unresponsive other than spontaneous eye-opening. He does not respond to verbal commands. No purposeful movement.) Vascular: Normal capillary refill Extremities: No Clubbing, No Cyanosis, No Edema - Labs 04/16/19 03:47 04/16/19 03:47 Lab Results, Last 24 hours 04/15/19 04/16/19 04/16/19 03:56 03:47 03:47 WBC 9.8 Hgb 9.8 L Hct 30.2 L Plt Count 100 L Sodium 138 138 Potassium 5.0 4.2 Chloride 112 H 112 H Carbon Dioxide 18 L 20 L BUN 40 H 44 H Creatinine 2.63 H 2.22 H Glucose 213 H 179 H Calcium 8.3 L 8.2 L Magnesium 2.8 H - Imaging Chest Xray: image reviewed (No pneumothorax. Increased bibasilar atelectasis.) - VTE Documentation of Mechanical Device: Graduated compression elastic hosiery Consult Discharge Plan - Plan [facility]errals: [facility] [Primary Care Provider] -
--- NOTE | 2019-04-16 07:30 | Pulmonology Progress Note ---
<ClarencelindyShailesh W - Last Filed: 04/16/19 09:24> Date of Encounter: 04/16/19 Objective PUL Vital signs: Last Vital Signs Temp 97.3 F L 04/16/19 07:19 Pulse 94 04/16/19 06:00 Resp 16 04/16/19 07:40 BP 135/64 04/16/19 07:40 Pulse Ox 100 04/16/19 07:40 Ventilator Settings Ventilator Settings: Ventilator Settings, Last 8 Hours Ventilator Tidal Volume 500 Setting Ventilator Tidal Volume 500 Setting Ventilator Tidal Volume 500 Setting Ventilator Tidal Volume 500 Setting Ventilator Tidal Volume 500 Setting Ventilator Tidal Volume 500 Setting Ventilator Tidal Volume 500 Setting Ventilator Tidal Volume 500 Setting Ventilator Tidal Volume 500 Setting Ventilator Respiratory Rate 16 Setting Ventilator Respiratory Rate 16 Setting Ventilator Respiratory Rate 16 Setting Ventilator Respiratory Rate 16 Setting Ventilator Respiratory Rate 16 Setting Ventilator Respiratory Rate 16 Setting Ventilator Respiratory Rate 16 Setting Ventilator Respiratory Rate 16 Setting Ventilator Respiratory Rate 16 Setting Actual Respiratory Rate 18 Actual Respiratory Rate 16 Actual Respiratory Rate 16 Actual Respiratory Rate 16 Actual Respiratory Rate 16 Actual Respiratory Rate 16 Actual Respiratory Rate 16 Actual Respiratory Rate 18 Positive End Expiratory 5 Pressure Positive End Expiratory 5 Pressure Positive End Expiratory 5 Pressure Positive End Expiratory 5 Pressure Positive End Expiratory 5 Pressure Positive End Expiratory 5 Pressure Positive End Expiratory 5 Pressure Positive End Expiratory 5 Pressure Positive End Expiratory 5 Pressure Peak Inspiratory Airway 20 Pressure Peak Inspiratory Airway 20 Pressure Peak Inspiratory Airway 22 Pressure Peak Inspiratory Airway 21 Pressure Peak Inspiratory Airway 21 Pressure Peak Inspiratory Airway 22 Pressure Peak Inspiratory Airway 21 Pressure Peak Inspiratory Airway 23 Pressure Results - Laboratory Findings CBC and BMP: 04/16/19 03:47 04/16/19 03:47 ABG ABG pH 7.28 pH Units (7.32-7.45) L 04/16/19 04:57 ABG pCO2 42 mmHg (35-45) 04/16/19 04:57 ABG pO2 117 mmHg (85-104) H 04/16/19 04:57 ABG O2 Saturation 98 % (95-98) 04/16/19 04:57 PT/INR, D-dimer PT 11.9 Seconds (9.4-12.1) 04/13/19 12:32 Abnormal lab findings: Abnormal lab results WBC 11.6 K/mcL (4.3-11.1) H 04/15/19 03:56 RBC 3.00 M/mcL (4.19-5.50) L 04/16/19 03:47 Hgb 9.8 g/dL (12.9-16.9) L 04/16/19 03:47 Hct 30.2 % (37.5-50.1) L 04/16/19 03:47 MCV 100.7 fL (83.0-100.0) H 04/16/19 03:47 RDW 15.4 % (11.5-14.5) H 04/16/19 03:47 Plt Count 100 K/mcL (140-400) L 04/16/19 03:47 Neutrophils # 10.4 K/mcL (1.6-8.9) H 04/15/19 03:56 Lymphocytes # 0.3 K/mcL (0.6-4.6) L 04/16/19 03:47 Monocytes # 1.4 K/mcL (0.0-1.3) H 04/13/19 12:32 ABG pH 7.28 pH Units (7.32-7.45) L 04/16/19 04:57 ABG pCO2 47 mmHg (35-45) H 04/14/19 00:03 ABG pO2 117 mmHg (85-104) H 04/16/19 04:57 ABG HCO3 19 mEq/L (21-27) L 04/16/19 04:57 ABG O2 Saturation 93 % (95-98) L 04/14/19 10:51 ABG Base Excess -7 mEq/L (-2 to 3) L 04/16/19 04:57 ABG Hematocrit 27.0 % (37.5-50.1) L 04/13/19 11:26 ABG Chloride 112 mEq/L (98-107) H 04/13/19 09:35 Glucose 112 mg/dL (60-95) H 04/13/19 11:26 Potassium 5.3 mEq/L (3.5-5.1) H 04/14/19 12:15 Chloride 112 mEq/L (98-107) H 04/16/19 03:47 Carbon Dioxide 20 mEq/L (23-29) L 04/16/19 03:47 BUN 44 mg/dL (8-23) H 04/16/19 03:47 Creatinine 2.22 mg/dL (0.70-1.30) H 04/16/19 03:47 Est GFR ( Amer) 36 (> 60) L 04/16/19 03:47 Est GFR (Non-Af Amer) 29 (> 60) L 04/16/19 03:47 Glucose 179 mg/dL (70-105) H 04/16/19 03:47 POC Glucose 173 mg/dL (70-99) H 04/15/19 23:34 Calculated Osmolality 302 (280-300) H 04/16/19 03:47 Calcium 8.2 mg/dL (8.6-10.3) L 04/16/19 03:47 Magnesium 2.8 mg/dL (1.6-2.6) H 04/15/19 03:56 Creatine Kinase 1048 Units/L (30-223) H 04/15/19 03:56 Procalcitonin 0.90 ng/mL (0.00-0.15) H 04/15/19 16:30 Free T3 1.98 pg/mL (2.50-3.90) L 04/14/19 04:02 Arterial Blood Ionized Calcium 1.04 mmol/L (1.15-1.35) L 04/13/19 10:55 Urine Clarity Cloudy (Clear) A 04/15/19 10:04 Urine Protein 100 mg/dL (Neg-Trace) H 04/15/19 10:04 Urine Blood Large (Negative) H 04/15/19 10:04 Urine Microscopic RBC 3-5 per hpf (0-3) H 04/15/19 10:04 Urine Microscopic WBC 30-50 per hpf (0-3) H 04/15/19 10:04 Ur Squamous Epith Cells Many per lpf (None-Few) H 04/15/19 10:04 Granular Casts Few per lpf (None Seen) H 04/15/19 10:04 Ur Culture Indicated? YES (NO) A 04/15/19 10:04 Crossmatch See Detail 04/08/19 16:04 - Microbiology Findings Microbiology Findings: Microbiology, Last 48 Hours 04/15/19 10:04 Urine Culture - Preliminary Urine,Clean Catch Culture is incubating. 04/14/19 13:20 Urine Culture - Final Urine,[place] No growth. 04/14/19 13:20 Sputum Culture - Preliminary Sputum 04/14/19 10:57 Blood Culture - Preliminary Peripheral Venipuncture Culture is incubating and being continuously monitored for growth. Final report to follow. 04/14/19 10:57 Blood Culture - Preliminary Peripheral Venipuncture Culture is incubating and being continuously monitored for growth. Final report to follow. - Clinical Findings Intake & Output: Intake & Output 04/15/19 04/16/19 04/16/19 23:59 07:59 15:59 Intake Total 1972 / 3523 1299.3 / 1299.3 Output Total 374 / 1323 361 / 361 Balance 1598 / 2200 938.3 / 938.3 Weight 91.2 kg Consult Discharge Plan - Plan Referrals: [facility] [Primary Care Provider[facility] - - Attending Attestation I examined this patient and my medical decision-making was reviewed with the Resident Physician. I agree with the documented findings, disposition and treatment plan as described except to the extent set forth below. We independently had [id number] contact with the patient I spent 36min of Critical Care time with this patient. It involved decision making of high complexity to assess, manipulate, and support vital organ system failure and/or to prevent further life threatening deterioration of the patient's condition. The time involved in the performance of separately reportable procedures was not counted toward critical care time. Patient seen and examined at bedside Labs, radiology, chart personally reviewed. Management was reviewed during multidisciplinary critical care rounds. [employer]: Remains encephalopathic unable to follow commands or really move his extremities to any remarkable degree. This concern for preoperative cerebrovascular accident I will continue to discuss the case with neurology. Recommend a repeat CT scan to evaluate for evolving subacute stroke. He is not a candidate for MRI because of temp indwelling hardware Pulm: Acute hypoxic respiratory failure secondary to hydrostatic edema in COPD exacerbation acceptable gas exchange today on vent not a candidate for spontaneous breathing trial because of her neuro status but we will continue to monitor this daily he will benefit from diuresis once he is able to follow the weight this from a hemodynamic/renal standpoint Cards: Postop day 3 status post CABG cardiothoracic surgery following remains in A. fib but rate is controlled. Would pressure is not optimally controlled but in the context of likely acute CVA will need to balance the risk of bleeding postoperatively from CABG as well as cerebral perfusion. GI: GI prophylaxis given continue bowel regimen Nutrition: Continue enteral nutrition per dietary recommendations Renal: Acute kidney injury with metabolic acidosis urine output is improving as well as his BUN/creatinine ratio which is encouraging I suspect he will benefit from some diuresis over the next 12-24 hours we will discuss with nephrology who is also been consulted on the case. UOP Monitored, Cont to Trend sCr and monitor Electrolytes. ID: He is on broad-spectrum antibiotics for pneumonia white count is normalized today we will plan to de-escalate based upon cultures and clinical course Heme/Onc: Mechanical DVT prophylaxis. Blood counts are relatively stable Endo: Glucose Monitored continue basal bolus insulin dosing Integ/MSK: Skin Care per routine ICU Nursing Protocol to prevent ulcers. Lines: All lines examined without evidence of infection : Dispo: Monitor in ICU for critical illness CODE: Full code <Aaron West - Last Filed: 04/16/19 15:45> Date of Encounter: 04/16/19 Time of Encounter: 06:45 Assessment and Plan (1) Encephalopathy Current Visit: Yes Status: Acute (2) Acute on chronic respiratory failure with hypoxia and hypercapnia Current Visit: Yes Status: Acute (3) COPD exacerbation Current Visit: Yes Status: Acute (4) S/P coronary artery bypass graft x 2 Current Visit: Yes Status: Acute (5) Atrial fibrillation Current Visit: Yes Status: Acute Qualifiers: Qualified Code(s): I48.91 - Unspecified atrial fibrillation (6) Heart failure with preserved ejection fraction Current Visit: Yes Status: Acute Qualifiers: Qualified Code(s): I50.32 - Chronic diastolic (congestive) heart failure (7) Coronary artery disease Current Visit: No Status: Acute Qualifiers: Coronary Disease-Associated Artery/Lesion type: [place] artery [place] vs. transplanted heart: [place] heart Associated angina: with stable angina Qualified Code(s): I25.118 - Atherosclerotic heart disease of [place] coronary artery with other forms of angina pectoris (8) Acute kidney injury Current Visit: Yes Status: Acute (9) CKD (chronic kidney disease) stage 3, GFR 30-59 ml/min Current Visit: Yes Status: Acute (10) Hyperkalemia Current Visit: Yes Status: Acute (11) Leukocytosis Current Visit: Yes Status: Acute Qualifiers: Qualified Code(s): D72.829 - Elevated white blood cell count, unspecified (12) Postoperative anemia due to acute blood loss Current Visit: Yes Status: Acute (13) DVT prophylaxis Current Visit: Yes Status: Acute (14) Hospital acquired PNA Current Visit: Yes Status: Acute Subjective Principal diagnosis: Seen in f/u for unresponsive state s/p CABG; r/o CVA Interval history: Nursing reports no acute events overnight. Patient intubated and sedated Objective PUL Vital signs: Last Vital Signs Temp 97.8 F 04/16/19 04:00 Pulse 94 04/16/19 06:00 Resp 16 04/16/19 06:00 BP 145/65 04/16/19 06:00 Pulse Ox 100 04/16/19 06:00 Gen.: Elderly male. Intubated and sedated Skin: Good turgor. Scattered ecchymosis of the forearms. Eyes: Some decreased response to light of left pupil compared to the right. Moist. Nonicteric. Neck: No appreciable JVD or carotid bruits Cardiac: Irregular rhythm. No murmurs gallops rubs appreciated Respiratory: Crackles in the middle elizondo and lower lung bases. Low grunting with inspiration. GI: Somewhat distended. Obese. Chest tubes overlying Extremities: Capillary refill less than 2 seconds bilaterally upper extremities. Trace pitting edema to mid shine worse on the right Neuro: Will open eyes to voice. Blink response intact. Cannot follow commands. Babinski sign negative bilaterally. Sohail 5. A/P #[employer]# Encephalopathy -consider secondary to embolic stroke in setting of CABG 2 post op day 1 with significant vascular atherosclerosis vs. infectious vs. delerium vs. uremia vs. medication effect -afebrile -lactic acid WNL. -blood cultures X2 04/14/19 pending -EEG 04/14/19 : abnormal awake drowsy with nonspecific generalized slowing that could correlate with metabolic toxic encephalopathy - 04/14/19: 1st CT head showed possible subarachnoid hemorrhage versus artifact. A repeat head CT read as no definite acute intracranial hemorrhage and likely hyperdensity representing artifact. -Enteral feeds. Plan: Neurology consulted and plan to MRI once stable. Appreciate their recs. Monitor blood and urine cultures. Repeat CT head for subacute stroke. #RESP# Acute on chronic respiratory failure with hypoxia and hypercapnia Background -Consider secondary to intraoperative sedation vs. possible pneumonia vs. pulmonary edema -Patient currently on the ventilator. Labs -ABG shows hypercapnia improving. Non-anion gap Metabolic acidosis related to poor kidney function. Concomitant respiratory acidosis. Reports -Morning CXR shows continued worsening of right-sided opacities. Radiology reading correlates this. Official read 8/1/19 says increasing opacity of the right lung base possibly pneumonia. -MRSA swab negative Plan: Fentanyl and Precedex to be titrated to [place] 2 pending course of encephalopathy. Follow ABGs while on vent. Morning CXR. Cefepime day 2 renal dosed -to be continued pending sputum and blood cultures. Hospital-acquired pneumonia -As seen on CXR 04/15/19 -Pro-calcitonin elevated. Plan: Sputum culture pending and preliminary shows gram-negative rods. Cefepime day 2 of 10 renally dosed. We will de-escalate pending cultures. COPD exacerbation -Likely secondary to intraoperative stress -2-3 pack per day active smoker. -ABG as above -CXR as above Plan: 40 mg IV Solu-Medrol every 12 hours scheduled. Duo nebs every 4 hours scheduled. Symbicort 160/4.52 puffs twice a day scheduled. Albuterol sulfate every 4 scheduled. Follow ABG's. Morning CXR. #CARDS# S/P coronary artery bypass graft x 2 -Operation performed by Dr. Bright 04/13/19. Estimated blood loss 0.5 L. -Patient's initial presenting symptoms included unstable angina. -Left internal mammary artery was connected to the LAD and the left great saphenous vein was connected to the obtuse marginal branch #2 of circumflex. 04/08/19 studies: -carotid Doppler ultrasound that showed nonstenotic plaque bilaterally. -Echo showed left ventricular ejection fraction of 60% with mild to moderate concentric left ventricular hypertrophy as well as left ventricular diastolic dysfunction, [id number] mitral regurgitation, mild tricuspid regurgitation, mild pulmonary hypertension. -Nuclear stress test showed moderate anterior lateral ischemia on perfusion study. -Cardiac catheterization revealed severe multi-vessel disease in the LCA, LAD, circumflex, and RCA. -Cefazolin 6g given -albumin 37.5 g given. Plan: Postop day 3. Pain control with fentanyl and Precedex as needed. Pe rcocet also available. Strict glucose management on high-dose sliding scale. Remove chest tubes at cardiology's discretion. Monitor for postop complications. Continue some degree of permissive hypertension. Atrial fibrillation Background -with rapid ventricular rate -consider 2/2 ischemia, structural changes of the heart, pulmonary disease, hypoxia, CVA -Search of records and interview with patient's significant other has not shown prior history although patient was on home calcium channel taryn. -[id number] 4.8% stroke risk per year. HAS-BLED shows moderate risk of major bleeding with aspirin use and age greater than 65. No recent INR on record. Lab -A1c 5.8 -Echo and CXR as above -TSH, free T3/T4 unremarkable Plan: Continue to monitor potassium and magnesium. rhythm control with amiodarone drip. Pacer wire in place Heart failure with preserved ejection fraction -Likely secondary to chronic hypertension and atherosclerosis as well as valvular disease and ischemia. -04/08/19 Echo showed left ventricular ejection fraction of 60% with mild to moderate concentric left ventricular hypertrophy as well as left ventricular di astolic dysfunction, [id number] mitral regurgitation, mild tricuspid regurgitation, mild pulmonary hypertension. -CABG as above. -recent blood pressures adequate Plan: ASA. Statin. Would consider future beta taryn therapy for cardioprotection pending hospital course. Monitor for postoperative complications. increase blood pressure control. Coronary artery disease -Likely secondary to history of smoking and Western diet -Catheterization results as above Plan: Atorvastatin 80. Nitroglycerin drip. Calcium channel taryn #GI# -Pantoprazole -Enteral feeds began 04/15/19 #RENAL# Acute kidney injury Background -Consider secondary to poor perfusion in the setting of post-CABG and soft blood pressures. -on CKD IV -KDIGO: 04/14/19 Cr 2.48 from 1.82. Lab -calculated osmolality slightly elevated -BUN/Cr ratio not elevated Plan: Albumin given. Will consider urine studies pending clinical course. Monitor urine output. Discontinue maintenance fluids. Nephrology consulted and suspects return to baseline and recommends outpatient follow-up. CKD (chronic kidney disease) stage 3, GFR 30-59 ml/min -Chronic -Presurgical creatinine 1.8. Plan: YOLANDA as above. Renal dosing of medications. Avoid nephrotoxins. Monitor urine output. Follow-up with nephrology outpatient. Hyperkalemia -Resolved -consider 2/2 acute kidney injury in setting of CKD IV vs. LR therapy vs. acidosis Plan: Correct YOLANDA. Telemetry. #ID# Leukocytosis -Likely stress reaction to operation as well as steroid therapy -afebrile #HEME/ONC Postoperative anemia due to acute blood loss -Normocytic, stable Plan: Continue to monitor for signs of bleed. Serial CBCs. DVT prophylaxis with stockings. #ENDO# -insulin high-dose sliding scale and added 10 units basal at night. #DISPO# monitor in ICU for critical illness #CODE# Full Ventilator Settings Ventilator Settings: Ventilator Settings, Last 8 Hours Ventilator Tidal Volume 500 Setting Ventilator Tidal Volume 500 Setting Ventilator Tidal Volume 500 Setting Ventilator Tidal Volume 500 Setting Ventilator Tidal Volume 500 Setting Ventilator Tidal Volume 500 Setting Ventilator Tidal Volume 500 Setting Ventilator Tidal Volume 500 Setting Ventilator Tidal Volume 500 Setting Ventilator Tidal Volume 500 Setting Ventilator Tidal Volume 500 Setting Ventilator Respiratory Rate 16 Setting Ventilator Respiratory Rate 16 Setting Ventilator Respiratory Rate 16 Setting Ventilator Respiratory Rate 16 Setting Ventilator Respiratory Rate 16 Setting Ventilator Respiratory Rate 16 Setting Ventilator Respiratory Rate 16 Setting Ventilator Respiratory Rate 16 Setting Ventilator Respiratory Rate 16 Setting Ventilator Respiratory Rate 16 Setting Ventilator Respiratory Rate 16 Setting Actual Respiratory Rate 16 Actual Respiratory Rate 16 Actual Respiratory Rate 16 Actual Respiratory Rate 16 Actual Respiratory Rate 16 Actual Respiratory Rate 16 Actual Respiratory Rate 18 Actual Respiratory Rate 16 Actual Respiratory Rate 16 Actual Respiratory Rate 19 Positive End Expiratory 5 Pressure Positive End Expiratory 5 Pressure Positive End Expiratory 5 Pressure Positive End Expiratory 5 Pressure Positive End Expiratory 5 Pressure Positive End Expiratory 5 Pressure Positive End Expiratory 5 Pressure Positive End Expiratory 5 Pressure Positive End Expiratory 5 Pressure Positive End Expiratory 5 Pressure Positive End Expiratory 5 Pressure Peak Inspiratory Airway 20 Pressure Peak Inspiratory Airway 22 Pressure Peak Inspiratory Airway 21 Pressure Peak Inspiratory Airway 21 Pressure Peak Inspiratory Airway 22 Pressure Peak Inspiratory Airway 21 Pressure Peak Inspiratory Airway 23 Pressure Peak Inspiratory Airway 22 Pressure Peak Inspiratory Airway 22 Pressure Peak Inspiratory Airway 21 Pressure Results - Laboratory Findings CBC and BMP: 04/16/19 03:47 04/16/19 03:47 ABG ABG pH 7.28 pH Units (7.32-7.45) L 04/16/19 04:57 ABG pCO2 42 mmHg (35-45) 04/16/19 04:57 ABG pO2 117 mmHg (85-104) H 04/16/19 04:57 ABG O2 Saturation 98 % (95-98) 04/16/19 04:57 PT/INR, D-dimer PT 11.9 Seconds (9.4-12.1) 04/13/19 12:32 Abnormal lab findings: Abnormal lab results WBC 11.6 K/mcL (4.3-11.1) H 04/15/19 03:56 RBC 3.00 M/mcL (4.19-5.50) L 04/16/19 03:47 Hgb 9.8 g/dL (12.9-16.9) L 04/16/19 03:47 Hct 30.2 % (37.5-50.1) L 04/16/19 03:47 MCV 100.7 fL (83.0-100.0) H 04/16/19 03:47 RDW 15.4 % (11.5-14.5) H 04/16/19 03:47 Plt Count 100 K/mcL (140-400) L 04/16/19 03:47 Neutrophils # 10.4 K/mcL (1.6-8.9) H 04/15/19 03:56 Lymphocytes # 0.3 K/mcL (0.6-4.6) L 04/16/19 03:47 Monocytes # 1.4 K/mcL (0.0-1.3) H 04/13/19 12:32 ABG pH 7.28 pH Units (7.32-7.45) L 04/16/19 04:57 ABG pCO2 47 mmHg (35-45) H 04/14/19 00:03 ABG pO2 117 mmHg (85-104) H 04/16/19 04:57 ABG HCO3 19 mEq/L (21-27) L 04/16/19 04:57 ABG O2 Saturation 93 % (95-98) L 04/14/19 10:51 ABG Base Excess -7 mEq/L (-2 to 3) L 04/16/19 04:57 ABG Hematocrit 27.0 % (37.5-50.1) L 04/13/19 11:26 ABG Chloride 112 mEq/L (98-107) H 04/13/19 09:35 Glucose 112 mg/dL (60-95) H 04/13/19 11:26 Potassium 5.3 mEq/L (3.5-5.1) H 04/14/19 12:15 Chloride 112 mEq/L (98-107) H 04/16/19 03:47 Carbon Dioxide 20 mEq/L (23-29) L 04/16/19 03:47 BUN 44 mg/dL (8-23) H 04/16/19 03:47 Creatinine 2.22 mg/dL (0.70-1.30) H 04/16/19 03:47 Est GFR ( Amer) 36 (> 60) L 04/16/19 03:47 Est GFR (Non-Af Amer) 29 (> 60) L 04/16/19 03:47 Glucose 179 mg/dL (70-105) H 04/16/19 03:47 POC Glucose 173 mg/dL (70-99) H 04/15/19 23:34 Calculated Osmolality 302 (280-300) H 04/16/19 03:47 Calcium 8.2 mg/dL (8.6-10.3) L 04/16/19 03:47 Magnesium 2.8 mg/dL (1.6-2.6) H 04/15/19 03:56 Creatine Kinase 1048 Units/L (30-223) H 04/15/19 03:56 Procalcitonin 0.90 ng/mL (0.00-0.15) H 04/15/19 16:30 Free T3 1.98 pg/mL (2.50-3.90) L 04/14/19 04:02 Arterial Blood Ionized Calcium 1.04 mmol/L (1.15-1.35) L 04/13/19 10:55 Urine Clarity Cloudy (Clear) A 04/15/19 10:04 Urine Protein 100 mg/dL (Neg-Trace) H 04/15/19 10:04 Urine Blood Large (Negative) H 04/15/19 10:04 Urine Microscopic RBC 3-5 per hpf (0-3) H 04/15/19 10:04 Urine Microscopic WBC 30-50 per hpf (0-3) H 04/15/19 10:04 Ur Squamous Epith Cells Many per lpf (None-Few) H 04/15/19 10:04 Granular Casts Few per lpf (None Seen) H 04/15/19 10:04 Ur Culture Indicated? YES (NO) A 04/15/19 10:04 Crossmatch See Detail 04/08/19 16:04 - Microbiology Findings Microbiology Findings: Microbiology, Last 48 Hours 04/15/19 10:04 Urine Culture - Preliminary Urine,Clean Catch Culture is incubating. 04/14/19 13:20 Urine Culture - Final Urine,[place] No growth. 04/14/19 13:20 Sputum Culture - Preliminary Sputum 04/14/19 10:57 Blood Culture - Preliminary Peripheral Venipuncture Culture is incubating and being continuously monitored for growth. Final report to follow. 04/14/19 10:57 Blood Culture - Preliminary Peripheral Venipuncture Culture is incubating and being continuously monitored for growth. Final report to follow. - Clinical Findings Intake & Output: Intake & Output 04/15/19 04/15/19 04/16/19 15:59 23:59 07:59 Intake Total 396 / 3523 1972 / 3523 1299.3 / 1299.3 Output Total 138 / 1323 374 / 1323 301 / 301 Balance 258 / 2200 1598 / 2200 998.3 / 998.3 Weight 91.2 kg - VTE Documentation of Mechanical Device: Graduated compression elastic hosiery
[2019-04-16] MEDS: Budesonide/Formoterol 160/4.5 1 PUFF INH IH SCH ×2 (07:37→19:35)
[2019-04-16] MEDS: Chlorhexidine Rinse 15 ML MOUTHWASH MM SCH ×2 (07:53→20:07)
[2019-04-16] MEDS: amLODIPine 5 MG TABLET GTUBE SCH (07:53)
[2019-04-16] MEDS: Aspirin 81 MG TAB.CHEW PO SCH (07:53)
[2019-04-16] MEDS: Nicotine 21 MG PATCH.TD24 TD SCH (07:53)
[2019-04-16] MEDS: Pantoprazole 40 MG VIAL IVP SCH (07:54)
--- NOTE | 2019-04-16 07:56 | Nephrology Progress Note ---
Date of Encounter: 04/15/19 Time of Encounter: 12:00 - Assessment and Plan (1) Acute kidney injury Current Visit: Yes Status: Acute SCr worse today at 2.63 postop CABG day #2 likely due to hemodynamics instability periop Continue IVF; NS at 75cc/hr, albumin bolus as well today as was gievn yesterday as well Will continue to monitor hemodynamics, amlodipine added to stabilze BP readings with gaol of staying under 150s systolic for CABG while keeping not too low for the possibility of CVA Continue to avoid nephrotoxins if possible No acute indication for [employer] (2) Acute on chronic respiratory failure with hypoxia and hypercapnia Current Visit: Yes Status: Acute Per pulm (3) CKD (chronic kidney disease) stage 3, GFR 30-59 ml/min Current Visit: Yes Status: Acute Baseline SCr around 1.8 (4) Coronary artery disease of bypass graft of [place] heart with stable angina pectoris Current Visit: Yes Status: Acute POD #2, per CT surgery (5) Encephalopathy Current Visit: Yes Status: Acute Per neurology Subjective Principal diagnosis: Seen in f/u for unresponsive state s/p CABG; r/o CVA Interval history: Pt seen and examined remains intubated and sedated. Nurse concerned about elevated BP readings post CABG though CVA also a concern. s/p EEG, neurology following Objective - Vital Signs Vital signs: Vital Signs Temp Pulse Resp BP Pulse Ox 04/16/19 07:40 16 135/64 100 04/16/19 07:19 97.3 F L 04/16/19 06:00 94 16 145/65 100 04/16/19 05:14 19 152/64 100 04/16/19 05:00 97 16 144/68 100 04/16/19 04:00 97.8 F 108 16 159/74 100 04/16/19 03:27 17 144/63 100 04/16/19 03:00 95 16 160/72 100 04/16/19 02:00 101 18 156/73 100 04/16/19 01:08 16 100 04/16/19 01:00 104 16 137/69 100 04/16/19 00:00 97.4 F L 115 19 159/82 100 04/15/19 23:08 17 136/67 100 04/15/19 23:00 103 17 141/71 100 04/15/19 22:00 100 16 132/64 100 04/15/19 21:07 20 132/70 100 04/15/19 21:00 109 19 146/72 100 04/15/19 20:00 97.5 F L 129 19 188/97 100 04/15/19 19:41 19 180/87 100 04/15/19 19:00 111 19 129/72 99 04/15/19 18:00 126 16 181/88 100 04/15/19 17:20 16 158/84 100 04/15/19 17:00 113 18 147/80 100 04/15/19 16:00 97.5 F L 106 19 147/68 99 04/15/19 15:26 21 140/71 99 04/15/19 15:00 105 17 139/64 99 04/15/19 14:00 96 19 181/89 100 04/15/19 13:40 20 140/71 100 04/15/19 13:00 108 20 162/70 100 04/15/19 12:00 93 19 164/72 100 04/15/19 11:31 97.5 F L 04/15/19 11:15 25 120/95 100 04/15/19 11:00 113 20 144/69 100 04/15/19 10:00 110 21 151/70 100 04/15/19 09:25 19 114/81 100 04/15/19 09:00 106 17 131/67 100 04/15/19 08:00 112 18 149/75 100 Intake and Output 04/15/19 04/15/19 04/16/19 15:59 23:59 07:59 Intake Total 396 / 3523 1972 / 3523 1299.3 / 1299.3 Output Total 138 / 1323 374 / 1323 361 / 361 Balance 258 / 2200 1598 / 2200 938.3 / 938.3 Intake: IV Fluids 396 / 3190 1694 / 3190 1164.3 / 1164.3 0.9 % Sodium Chloride 1,000 ML 1000 / 2000 522 / 522 @ 75 mls/hr IVC .[id number] [facility] Rx #:[id number] ALBURX 5% 12.5 gm In 250 ml @ 500 / 500 60 mls/hr IVC .Q4H10M [facility] Rx#: [id number] Amiodarone Drip Premix 360mg/ 200 / 200 242.3 / 242.3 200mL 360 mg In 200 ml @ 0.5 MG /MIN 16.667 mls/hr IVC [facility] Rx#:[id number] Precedex Premix 400 mcg In 100 100 / 300 100 / 300 100.0 / 100.0 ml @ 0.2 MCG/KG/HR 4.082 mls/hr IVC .Q24H [facility] Rx#:[id number] FentaNYL (PF) 1,000 MCG In 0.9 76 / 100 24 / 100 100 / 100 % Sodium Chloride 80 ML @ 50 MCG/HR 5 mls/hr IVC CONT [facility] Rx #:[id number] Nitroglycerin Premix 25 MG/250 20 / 70 50 / 70 180 / 180 ML 25 mg In 250 ml @ 0.5 MCG/KG /MIN 24.494 mls/hr IVC .[id number] [facility] Rx#:[id number] Cardene Premix 20mg/200ml 20 mg 0 / 0 In 200 ml @ 5 MG/HR 50 mls/hr IVC .Q4H [facility] Rx#:[id number] Maxipime 2,000 MG In Water for 20 / 20 20 / 20 inj. (sterile) 20 ML @ 300 mls/ hr IVP Q12HR [facility] Rx#:[id number] Tube Feeding 48 / 103 135 / 135 Free Water 230 / 230 Output: Catheter 50 / 725 175 / 725 310 / 310 Gastric Drainage 100 / 200 0 / 0 Chest Tube Drainage 88 / 398 99 / 398 51 / 51 Mediastinal #1 30 / 170 40 / 170 10 / 10 Mediastinal #2 18 / 138 40 / 138 30 / 30 Mediastinal #3 35 / 65 12 / 65 8 / 8 Mediastinal #4 3 / Other: Weight 91.2 kg Blood Glucose* 191 151 178 Patient Weight 04/16/19 23:59 Weight 91.2 kg - General Appearance General appearance: Present: sedated on ventilator, intubated EENT: Present: ATNC, mucous membranes moist Neck: Present: no JVD, supple Additional Comments: good areation ant bilat, chest tubes in place Cardiology: Present: no edema, normal S1, normal S2 Gastrointestinal: Present: no tenderness, no guarding Integumentary: Present: warm and dry Additional Comments: nonresponsive Musculoskeletal: Present: no deformities Additional Comments: sedated - Lab 04/16/19 03:47 04/16/19 03:47 Most recent lab results 04/16/19 04/16/19 03:47 04:57 ABG pH 7.28 L ABG pCO2 42 ABG pO2 117 H ABG HCO3 19 L ABG O2 Saturation 98 Calcium 8.2 L - VTE Documentation of Mechanical Device: Graduated compression elastic hosiery Consult Discharge Plan - Plan [facility]: [facility] [Primary Care Provider] -
--- NOTE | 2019-04-16 11:05 | Nephrology Progress Note ---
Date of Encounter: 04/16/19 Time of Encounter: 11:03 - Assessment and Plan (1) Coronary artery disease of bypass graft of [place] heart with stable angina pectoris Current Visit: Yes Status: Acute (2) CKD (chronic kidney disease) stage 3, GFR 30-59 ml/min Current Visit: Yes Status: Acute (3) Acute on chronic respiratory failure with hypoxia and hypercapnia Current Visit: Yes Status: Acute (4) Acute kidney injury Current Visit: Yes Status: Acute The patient with acute kidney injury on chronic kidney disease. His renal function is improving with good urine output that is rising. His electrolytes are stable. I anticipate that he will return to his baseline creatinine which is around 1.7. At this time we will sign off. Please call with any questions or concerns. The patient should follow-up with nephrology 810 weeks after discharge with renal function panel obtained one week prior to the clinic visit. I recommend adjusting medications for renal function and avoiding unnecessary nephrotoxic agents. Thank you for this interesting consult. (5) Encephalopathy Current Visit: Yes Status: Acute Subjective Principal diagnosis: Seen in f/u for unresponsive state s/p CABG; r/o CVA Interval history: Patient seen and evaluated. He remains intubated and sedated. His review of systems is unobtainable. Objective - Vital Signs Vital signs: Vital Signs Temp Pulse Resp BP Pulse Ox 04/16/19 10:00 90 18 128/63 100 04/16/19 09:42 17 125/64 100 04/16/19 09:00 90 16 122/63 100 04/16/19 08:00 108 17 143/69 100 04/16/19 07:40 16 135/64 100 04/16/19 07:19 97.3 F L 04/16/19 07:00 90 16 137/62 100 04/16/19 06:00 94 16 145/65 100 04/16/19 05:14 19 152/64 100 04/16/19 05:00 97 16 144/68 100 04/16/19 04:00 97.8 F 108 16 159/74 100 04/16/19 03:27 17 144/63 100 04/16/19 03:00 95 16 160/72 100 04/16/19 02:00 101 18 156/73 100 04/16/19 01:08 16 100 04/16/19 01:00 104 16 137/69 100 04/16/19 00:00 97.4 F L 115 19 159/82 100 04/15/19 23:08 17 136/67 100 04/15/19 23:00 103 17 141/71 100 04/15/19 22:00 100 16 132/64 100 04/15/19 21:07 20 132/70 100 04/15/19 21:00 109 19 146/72 100 04/15/19 20:00 97.5 F L 129 19 188/97 100 04/15/19 19:41 19 180/87 100 04/15/19 19:00 111 19 129/72 99 04/15/19 18:00 126 16 181/88 100 04/15/19 17:20 16 158/84 100 04/15/19 17:00 113 18 147/80 100 04/15/19 16:00 97.5 F L 106 19 147/68 99 04/15/19 15:26 21 140/71 99 04/15/19 15:00 105 17 139/64 99 04/15/19 14:00 96 19 181/89 100 04/15/19 13:40 20 140/71 100 04/15/19 13:00 108 20 162/70 100 04/15/19 12:00 93 19 164/72 100 04/15/19 11:31 97.5 F L 04/15/19 11:15 25 120/95 100 Intake and Output 04/15/19 04/16/19 04/16/19 23:59 07:59 15:59 Intake Total 1972 / 3523 1627.3 / 1627.3 Output Total 374 / 1323 361 / 361 Balance 1598 / 2200 1266.3 / 1266.3 Intake: IV Fluids 1694 / 3190 1492.3 / 1492.3 0.9 % Sodium Chloride 1,000 ML 1000 / 2000 850 / 850 @ 75 mls/hr IVC .[id number] [facility] Rx #:[id number] ALBURX 5% 12.5 gm In 250 ml @ 500 / 500 60 mls/hr IVC .Q4H10M [facility] Rx#: [id number] Amiodarone Drip Premix 360mg/ 242.3 / 242.3 200mL 360 mg In 200 ml @ 0.5 MG /MIN 16.667 mls/hr IVC [facility] Rx#:[id number] Precedex Premix 400 mcg In 100 100 / 300 100.0 / 100.0 ml @ 0.2 MCG/KG/HR 4.082 mls/hr IVC .Q24H [facility] Rx#:[id number] FentaNYL (PF) 1,000 MCG In 0.9 24 / 100 100 / 100 % Sodium Chloride 80 ML @ 50 MCG/HR 5 mls/hr IVC [facility] Rx #:[id number] Nitroglycerin Premix 25 MG/250 50 / 70 180 / 180 ML 25 mg In 250 ml @ 0.5 MCG/KG /MIN 24.494 mls/hr IVC .[id number] [facility] Rx#:[id number] Maxipime 2,000 MG In Water for 20 / 20 20 / 20 inj. (sterile) 20 ML @ 300 mls/ hr IVP Q12HR [facility] Rx#:[id number] Tube Feeding 48 / 103 135 / 135 Free Water 230 / 230 Output: Catheter 175 / 725 310 / 310 Gastric Drainage 100 / 200 0 / 0 Chest Tube Drainage 99 / 398 51 / 51 Mediastinal #1 40 / 170 10 / 10 Mediastinal #2 40 / 138 30 / 30 Mediastinal #3 8 / 8 Mediastinal #4 3 Other: Weight 91.2 kg Blood Glucose* 151 178 Patient Weight 04/16/19 23:59 Weight 91.2 kg - General Appearance General appearance: Present: well-developed, well-nourished, obese, sedated on ventilator, intubated EENT: Present: ATNC Neck: Present: supple Respiratory: Present: course breath sounds Cardiology: Present: no edema Additional Comments: Tachycardic Gastrointestinal: Present: no tenderness, obese Integumentary: Present: warm and dry Additional Comments: Patient intubated this is unobtainable. Musculoskeletal: Present: no cyanosis Additional Comments: Patient is intubated this is unobtainable. - Lab 04/16/19 03:47 04/16/19 03:47 Most recent lab results 04/16/19 04/16/19 03:47 04:57 ABG pH 7.28 L ABG pCO2 42 ABG pO2 117 H ABG HCO3 19 L ABG O2 Saturation 98 Calcium 8.2 L - VTE Documentation of Mechanical Device: Graduated compression elastic hosiery Consult Discharge Plan - Plan [facility]errals: [facility] [Primary Care Provider] -
--- NOTE | 2019-04-16 11:29 | Neurology - Consult Note ---
Date of Encounter: 04/16/19 Time of Encounter: 09:00 Assessment and Plan (1) CKD (chronic kidney disease) stage 3, GFR 30-59 ml/min Current Visit: Yes Status: Acute History of Present Illness Chief complaint: unresponsive to interview HPI: Mr. Lee is a 68 year old male nonresponsive patient. During evaluation yesterday he did open his eyes when addressed and seemed to respond minimally to painful stimuli. Today on examination patient fails to respond to painful stimuli. Nursing report indicates patient minimally responded to being repositioned earlier by raising his arm which appeared to be purposeful. Past Med Surg Social Fam HX - Past Medical History Medical history: arthritis, asthma, CHF, COPD, coronary artery disease, hyperlipidemia, hypertension, kidney stones, myocardial infarction, RA, renal disease Additional medical history: home o2 2l n/c qhs Psychiatric history: depression, PTSD - Past Surgical History Additional surgical history: nose surgery, stents in heart, stents in legs - Social History Smoking Status: Current every day smoker Smokeless Tobacco Status: No Alcohol use: none Drug use: none Medications and Allergies Albuterol Sulfate [Proventil Hfa] 2 puff IH Q4-6H PRN 04/13/19 [History] Allopurinol [Zyloprim] 150 mg PO DAILY 04/13/19 [History] Aspirin 325 mg PO HS 04/13/19 [History] Budesonide/Formoterol 160/4.5 [Symbicort 160/4.5] 1 puff IH BIDR 04/13/19 [History] Cholecalciferol (Vitamin D3) [Vitamin D] 50,000 unit PO MOLINA 04/13/19 [History] Cyanocobalamin (Vitamin B-12) [Vitamin B-12] 1,000 mcg PO DAILY 04/13/19 [History] Diltiazem CD (24hr) [Cardizem CD] 240 mg PO DAILY 04/13/19 [History] Lisinopril [Zestril] 40 mg PO DAILY 04/13/19 [History] Montelukast [Singulair] 10 mg PO HS 04/13/19 [History] raNITIdine HCl [Zantac] 150 mg PO BID 04/13/19 [History] Allergy/AdvReac Type Severity Reaction Status Date / Time Sulfa (Sulfonamide Allergy Itching Verified 04/08/19 06:47 Antibiotics) All Systems: The remainder of the systems were reviewed and are negative Physical Examination - Vital Signs Vital Signs: Initial Vital Signs Temp Pulse Resp BP Pulse Ox 98.1 F 75 18 189/82 97 04/13/19 06:46 04/13/19 06:46 04/13/19 06:46 04/13/19 06:46 04/13/19 06:46 Results - Laboratory Findings CBC and BMP: 04/16/19 03:47 04/16/19 03:47 Abnormal lab findings: Abnormal lab results WBC 11.6 K/mcL (4.3-11.1) H 04/15/19 03:56 RBC 3.00 M/mcL (4.19-5.50) L 04/16/19 03:47 Hgb 9.8 g/dL (12.9-16.9) L 04/16/19 03:47 Hct 30.2 % (37.5-50.1) L 04/16/19 03:47 MCV 100.7 fL (83.0-100.0) H 04/16/19 03:47 RDW 15.4 % (11.5-14.5) H 04/16/19 03:47 Plt Count 100 K/mcL (140-400) L 04/16/19 03:47 Neutrophils # 10.4 K/mcL (1.6-8.9) H 04/15/19 03:56 Lymphocytes # 0.3 K/mcL (0.6-4.6) L 04/16/19 03:47 Monocytes # 1.4 K/mcL (0.0-1.3) H 04/13/19 12:32 ABG pH 7.28 pH Units (7.32-7.45) L 04/16/19 04:57 ABG pCO2 47 mmHg (35-45) H 04/14/19 00:03 ABG pO2 117 mmHg (85-104) H 04/16/19 04:57 ABG HCO3 19 mEq/L (21-27) L 04/16/19 04:57 ABG O2 Saturation 93 % (95-98) L 04/14/19 10:51 ABG Base Excess -7 mEq/L (-2 to 3) L 04/16/19 04:57 ABG Hematocrit 27.0 % (37.5-50.1) L 04/13/19 11:26 ABG Chloride 112 mEq/L (98-107) H 04/13/19 09:35 Glucose 112 mg/dL (60-95) H 04/13/19 11:26 Potassium 5.3 mEq/L (3.5-5.1) H 04/14/19 12:15 Chloride 112 mEq/L (98-107) H 04/16/19 03:47 Carbon Dioxide 20 mEq/L (23-29) L 04/16/19 03:47 BUN 44 mg/dL (8-23) H 04/16/19 03:47 Creatinine 2.22 mg/dL (0.70-1.30) H 04/16/19 03:47 Est GFR ( Amer) 36 (> 60) L 04/16/19 03:47 Est GFR (Non-Af Amer) 29 (> 60) L 04/16/19 03:47 Glucose 179 mg/dL (70-105) H 04/16/19 03:47 POC Glucose 173 mg/dL (70-99) H 04/15/19 23:34 Calculated Osmolality 302 (280-300) H 04/16/19 03:47 Calcium 8.2 mg/dL (8.6-10.3) L 04/16/19 03:47 Magnesium 2.8 mg/dL (1.6-2.6) H 04/15/19 03:56 Creatine Kinase 432 Units/L (30-223) H 04/16/19 03:47 Procalcitonin 0.90 ng/mL (0.00-0.15) H 04/15/19 16:30 Free T3 1.98 pg/mL (2.50-3.90) L 04/14/19 04:02 Arterial Blood Ionized Calcium 1.04 mmol/L (1.15-1.35) L 04/13/19 10:55 Urine Clarity Cloudy (Clear) A 04/15/19 10:04 Urine Protein 100 mg/dL (Neg-Trace) H 04/15/19 10:04 Urine Blood Large (Negative) H 04/15/19 10:04 Urine Microscopic RBC 3-5 per hpf (0-3) H 04/15/19 10:04 Urine Microscopic WBC 30-50 per hpf (0-3) H 04/15/19 10:04 Ur Squamous Epith Cells Many per lpf (None-Few) H 04/15/19 10:04 Granular Casts Few per lpf (None Seen) H 04/15/19 10:04 Ur Culture Indicated? YES (NO) A 04/15/19 10:04 Crossmatch See Detail 04/08/19 16:04 Consult Discharge Plan - Plan [facility]errals: [facility] [Primary Care Provider] -
--- NOTE | 2019-04-16 11:34 | Neurology Progress Note ---
<Jasson Boudreaux - Last Filed: 04/16/19 11:31> Date of Encounter: 04/16/19 Time of Encounter: 09:00 Assessment and Plan (1) CKD (chronic kidney disease) stage 3, GFR 30-59 ml/min Current Visit: Yes Status: Acute CT scan today to rule out brain stem infarct. Anoxic brain injury is also on the differential. Repeat EEG to evaluate for signs of seizure and level of neuronal activity. Subjective Principal diagnosis: Seen in f/u for unresponsive state s/p CABG; r/o CVA Interval history: Patient was unsresponsive today during interview. He did not respond to painful stimuli. He had no purposeful or spontaenous movement. Nurse reports he did raise his arm this morning when being rotated in what appeared to be purposeful movement. His pupils were minimally responsive. Objective - Constitutional Vitals: Temp Pulse Resp BP Pulse Ox 97.3 F L 90 18 128/63 100 04/16/19 07:19 04/16/19 10:00 04/16/19 10:00 04/16/19 10:00 04/16/19 10:00 - Neurological Exam Sensorimotor examination: Present: flaccid paralysis, other (Unable to assess du e to patients unresponsive state) Motor Examination: Present: other (Unable to assess) Sensation intact: Present: other (patient unresponsive to painful stimuli at time of examination) Mental Status Examination: Present: does not follow commands, no spontaneous eye opening to voice or tactile stimulation Cranial nerve examination: Present: no facial asymmetry is present, no atrophy or facial fasiculations present Cranial Nerve Exam: pupil sluggish to react to light: Right - VTE Documentation of Mechanical Device: Graduated compression elastic hosiery Results - Laboratory Findings CBC and BMP: 04/16/19 03:47 04/16/19 03:47 Abnormal lab findings: Abnormal lab results WBC 11.6 K/mcL (4.3-11.1) H 04/15/19 03:56 RBC 3.00 M/mcL (4.19-5.50) L 04/16/19 03:47 Hgb 9.8 g/dL (12.9-16.9) L 04/16/19 03:47 Hct 30.2 % (37.5-50.1) L 04/16/19 03:47 MCV 100.7 fL (83.0-100.0) H 04/16/19 03:47 RDW 15.4 % (11.5-14.5) H 04/16/19 03:47 Plt Count 100 K/mcL (140-400) L 04/16/19 03:47 Neutrophils # 10.4 K/mcL (1.6-8.9) H 04/15/19 03:56 Lymphocytes # 0.3 K/mcL (0.6-4.6) L 04/16/19 03:47 Monocytes # 1.4 K/mcL (0.0-1.3) H 04/13/19 12:32 ABG pH 7.28 pH Units (7.32-7.45) L 04/16/19 04:57 ABG pCO2 47 mmHg (35-45) H 04/14/19 00:03 ABG pO2 117 mmHg (85-104) H 04/16/19 04:57 ABG HCO3 19 mEq/L (21-27) L 04/16/19 04:57 ABG O2 Saturation 93 % (95-98) L 04/14/19 10:51 ABG Base Excess -7 mEq/L (-2 to 3) L 04/16/19 04:57 ABG Hematocrit 27.0 % (37.5-50.1) L 04/13/19 11:26 ABG Chloride 112 mEq/L (98-107) H 04/13/19 09:35 Glucose 112 mg/dL (60-95) H 04/13/19 11:26 Potassium 5.3 mEq/L (3.5-5.1) H 04/14/19 12:15 Chloride 112 mEq/L (98-107) H 04/16/19 03:47 Carbon Dioxide 20 mEq/L (23-29) L 04/16/19 03:47 BUN 44 mg/dL (8-23) H 04/16/19 03:47 Creatinine 2.22 mg/dL (0.70-1.30) H 04/16/19 03:47 Est GFR ( Amer) 36 (> 60) L 04/16/19 03:47 Est GFR (Non-Af Amer) 29 (> 60) L 04/16/19 03:47 Glucose 179 mg/dL (70-105) H 04/16/19 03:47 POC Glucose 173 mg/dL (70-99) H 04/15/19 23:34 Calculated Osmolality 302 (280-300) H 04/16/19 03:47 Calcium 8.2 mg/dL (8.6-10.3) L 04/16/19 03:47 Magnesium 2.8 mg/dL (1.6-2.6) H 04/15/19 03:56 Creatine Kinase 432 Units/L (30-223) H 04/16/19 03:47 Procalcitonin 0.90 ng/mL (0.00-0.15) H 04/15/19 16:30 Free T3 1.98 pg/mL (2.50-3.90) L 04/14/19 04:02 Arterial Blood Ionized Calcium 1.04 mmol/L (1.15-1.35) L 04/13/19 10:55 Urine Clarity Cloudy (Clear) A 04/15/19 10:04 Urine Protein 100 mg/dL (Neg-Trace) H 04/15/19 10:04 Urine Blood Large (Negative) H 04/15/19 10:04 Urine Microscopic RBC 3-5 per hpf (0-3) H 04/15/19 10:04 Urine Microscopic WBC 30-50 per hpf (0-3) H 04/15/19 10:04 Ur Squamous Epith Cells Many per lpf (None-Few) H 04/15/19 10:04 Granular Casts Few per lpf (None Seen) H 04/15/19 10:04 Ur Culture Indicated? 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 Suggest repeating a CT scan as not able to get an MRI though may not give us an answer especially if there is an infarct in his brain this time usually is not evident on a CT scan At the same time suggest repeating an EEG as well to make sure that he is not in nonconvulsive status Overall prognosis remains guarded Discussed with his primary team Objective - Constitutional Vitals: Temp Pulse Resp BP Pulse Ox 97.3 F L 90 18 128/63 100 04/16/19 07:19 04/16/19 10:00 04/16/19 11:28 04/16/19 10:00 04/16/19 11:28 Results - Laboratory Findings CBC and BMP: 04/16/19 03:47 04/16/19 03:47 Abnormal lab findings: Abnormal lab results WBC 11.6 K/mcL (4.3-11.1) H 04/15/19 03:56 RBC 3.00 M/mcL (4.19-5.50) L 04/16/19 03:47 Hgb 9.8 g/dL (12.9-16.9) L 04/16/19 03:47 Hct 30.2 % (37.5-50.1) L 04/16/19 03:47 MCV 100.7 fL (83.0-100.0) H 04/16/19 03:47 RDW 15.4 % (11.5-14.5) H 04/16/19 03:47 Plt Count 100 K/mcL (140-400) L 04/16/19 03:47 Neutrophils # 10.4 K/mcL (1.6-8.9) H 04/15/19 03:56 Lymphocytes # 0.3 K/mcL (0.6-4.6) L 04/16/19 03:47 Monocytes # 1.4 K/mcL (0.0-1.3) H 04/13/19 12:32 ABG pH 7.28 pH Units (7.32-7.45) L 04/16/19 04:57 ABG pCO2 47 mmHg (35-45) H 04/14/19 00:03 ABG pO2 117 mmHg (85-104) H 04/16/19 04:57 ABG HCO3 19 mEq/L (21-27) L 04/16/19 04:57 ABG O2 Saturation 93 % (95-98) L 04/14/19 10:51 ABG Base Excess -7 mEq/L (-2 to 3) L 04/16/19 04:57 ABG Hematocrit 27.0 % (37.5-50.1) L 04/13/19 11:26 ABG Chloride 112 mEq/L (98-107) H 04/13/19 09:35 Glucose 112 mg/dL (60-95) H 04/13/19 11:26 Potassium 5.3 mEq/L (3.5-5.1) H 04/14/19 12:15 Chloride 112 mEq/L (98-107) H 04/16/19 03:47 Carbon Dioxide 20 mEq/L (23-29) L 04/16/19 03:47 BUN 44 mg/dL (8-23) H 04/16/19 03:47 Creatinine 2.22 mg/dL (0.70-1.30) H 04/16/19 03:47 Est GFR ( Amer) 36 (> 60) L 04/16/19 03:47 Est GFR (Non-Af Amer) 29 (> 60) L 04/16/19 03:47 Glucose 179 mg/dL (70-105) H 04/16/19 03:47 POC Glucose 173 mg/dL (70-99) H 04/15/19 23:34 Calculated Osmolality 302 (280-300) H 04/16/19 03:47 Calcium 8.2 mg/dL (8.6-10.3) L 04/16/19 03:47 Magnesium 2.8 mg/dL (1.6-2.6) H 04/15/19 03:56 Creatine Kinase 432 Units/L (30-223) H 04/16/19 03:47 Procalcitonin 0.90 ng/mL (0.00-0.15) H 04/15/19 16:30 Free T3 1.98 pg/mL (2.50-3.90) L 04/14/19 04:02 Arterial Blood Ionized Calcium 1.04 mmol/L (1.15-1.35) L 04/13/19 10:55 Urine Clarity Cloudy (Clear) A 04/15/19 10:04 Urine Protein 100 mg/dL (Neg-Trace) H 04/15/19 10:04 Urine Blood Large (Negative) H 04/15/19 10:04 Urine Microscopic RBC 3-5 per hpf (0-3) H 04/15/19 10:04 Urine Microscopic WBC 30-50 per hpf (0-3) H 04/15/19 10:04 Ur Squamous Epith Cells Many per lpf (None-Few) H 04/15/19 10:04 Granular Casts Few per lpf (None Seen) H 04/15/19 10:04 Ur Culture Indicated? YES (NO) A 04/15/19 10:04 Crossmatch See Detail 04/08/19 16:04
[2019-04-16] MEDS: Norepinephrine 4 MG in D5% in Water 250 ML IVC SCH (12:18)
[2019-04-16] MEDS: Docusate Oral Soln 100 MG/10 ML UDC GTUBE SCH ×2 (12:21→20:07)
--- NOTE | 2019-04-16 18:30 | EEG/EMG/Oth Biometrics Report ---
EEG Procedure Report Date of procedure: 04/16/19 EEG Procedure: Routine EEG Procedure Note: Report: This EEG was acquired with standard international 10-20 electrode placement system with EKG recording. The background activity during this EEG was replaced by a mixture of mostly delta and theta activity with best frequency up to 6Hz. The background activity was reactive. Sleep stages were not definitively identified except rather persistent delta slowing. There are no electrographic seizures identified during this tracing. There are no epileptiform discharges and focal slowing noted during this recording. Photic stimulation produced no abnormalities. HV not performed during this stud y. EKG tracing showed atrial fibrillation rhythm. Impression: This is an abnormal EEG due to presence of moderate to severe diffuse background slowing. Clinical Correlation: This EEG is consistent with moderate to severe diffuse cerebral dysfunction that can be seen in patients with encephalopathy, metabolic/toxic, electrolyte derangement, or anoxic/ischemic. Clinical correlation suggested.
[2019-04-16] MEDS: Insulin DETEMIR 100 UNIT/ML X5UNITS SQ SCH (20:07)
[2019-04-17] MEDS: Artificial Tears SOLN 15 ML BOTTLE BOTH EYES SCH ×6 (00:20→21:34)
[2019-04-17] MEDS: Insulin LISPRO 300 UNITS/3 ML VIAL SQ SCH ×6 (00:21→21:34)
[2019-04-17] MEDS: niCARdipine 20 MG/200 ML MLS IVC SCH ×6 (00:21→23:28)
[2019-04-17] MEDS: Amiodarone Premix 360 MG/200 ML BAG IVC SCH ×2 (01:28→14:43)
[2019-04-17] MEDS: FentaNYL (PF) 1,000 MCG in 0.9 % Sodium Chloride 80 ML IVC SCH ×2 (02:40→18:54)
[2019-04-17] MEDS: Ipratropium/Albuterol Neb 3 ML IH SCH ×6 (03:27→23:15)
[2019-04-17 05:02] LABS: Calcium 8.2 mg/dL (8.6-10.3); Potassium 4.9 mEq/L (3.5-5.1)
[2019-04-17 05:29] LABS: Basophils % 0.1 %; Hematocrit 32.4 % (37.5-50.1); Hemoglobin 10.5 g/dL (12.9-16.9); Immature Granulocytes % 1.6 % (0-4); Lymphocytes # 0.2 K/mcL (0.6-4.6); Lymphocytes % 1.3 %; Mean Corpuscular HGB Conc 32.4 g/dL (31.6-35.5); Mean Corpuscular Hemoglobin 32.7 pg (28.0-33.3); Mean Corpuscular Volume 100.9 fL (83.0-100.0); Mean Platelet Volume 11.4 fL (9.4-12.4); Monocytes # 0.9 K/mcL (0.0-1.3); Monocytes % 5.2 %; Neutrophils # 15.7 K/mcL (1.6-8.9); Nucleated Red Blood Cells 0.2 /100 WBC (0); Platelet Count 140 K/mcL (140-400); Red Blood Count 3.21 M/mcL (4.19-5.50); Red Cell Distribution Width 15.8 % (11.5-14.5); Segmented Neutrophils % 91.8 %; White Blood Count 17.1 K/mcL (4.3-11.1)
[2019-04-17] MEDS: Cefepime HCl 2,000 MG in Water for inj. (sterile) 20 ML IVP SCH (05:58)
[2019-04-17] MEDS: MethylPREDNISolone 40 MG/ML VIAL IVP SCH ×2 (05:58→17:17)
[2019-04-17] MEDS: Dexmedetomidine HCl 400 MCG/100 ML MLS IVC SCH ×2 (06:35→16:28)
--- NOTE | 2019-04-17 06:50 | Pulmonology Progress Note ---
Date of Encounter: 04/17/19 Time of Encounter: 06:49 Assessment and Plan (1) Acute on chronic respiratory failure with hypoxia and hypercapnia Current Visit: Yes Status: Acute I spent 34min of Critical Care time with this patient. It involved decision making of high complexity to assess, manipulate, and support vital organ system failure and/or to prevent further life threatening deterioration of the patient's condition. The time involved in the performance of separately reportable procedures was not counted toward critical care time. Patient seen and examined at bedside Labs, radiology, chart personally reviewed. Management was reviewed during multidisciplinary critical care rounds. 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 Neurology following neurological prognosis guarded likely poor. There is been no meaningful improvement in his neurological state. Pulm: Acute hypoxic hypercapnic respiratory failure remains on vent with acceptable gas exchange not a candidate for CPAP trial because of neurological status. It is very possible patient would need tracheostomy placement. Continue treatment for COPD exacerbation. Continue bronchodilators Cards: He is postop day 4 status post CABG appreciate the cardiothoracic surgery following and managing chest tubes blood pressure is elevated today and he is at risk for graft hemorrhage this is a very difficult balance between need for triple perfusion and cardiac status. We will add a low-dose beta taryn and restart him nitroglycerin infusion GI: Continue enteral nutrition and GI prophylaxis Cont bowel regimen Renal: YOLANDA on CKD slightly worse today add albumin. Nephrology following a ppreciate recs. UOP Monitored, Cont to Trend sCr and monitor Electrolytes. ID: Has being treated for pneumonia with cefepime and we will de-escalate based upon cultures white count elevated today but remains afebrile possible stress response we will follow this closely low threshold for reculture and broadening out antibiotics Heme/Onc: Hemoglobin and platelets stable Endo: Glucose Monitored continue basal bolus dosing of insulin Integ/MSK: Skin Care per routine ICU Nursing Protocol to prevent ulcers. Lines: All lines examined without evidence of infection : Dispo: Monitor in ICU for critical illness CODE: Full code I had an extensive conversation with the patient's girlfriend Yovana who has been together for over 40 years I also updated his next of kin which is his brother on the phone explaining that he has suffered a CVA and the prognosis neurologically is guarded at best. All QUESTIONS answered (2) Acute CVA (cerebrovascular accident) Current Visit: Yes Status: Acute (3) Acute kidney injury superimposed on CKD Current Visit: Yes Status: Acute (4) S/P CABG (coronary artery bypass graft) Current Visit: Yes Status: Acute (5) COPD exacerbation Current Visit: Yes Status: Acute (6) Heart failure with preserved ejection fraction Current Visit: Yes Status: Acute Qualifiers: Qualified Code(s): I50.32 - Chronic diastolic (congestive) heart failure (7) Encephalopathy Current Visit: Yes Status: Acute (8) Hospital acquired PNA Current Visit: Yes Status: Acute Subjective Principal diagnosis: Seen in f/u for unresponsive state s/p CABG; r/o CVA Interval history: Mr. Lee clinically appears about the same. Still no significant movement in his extremities he is able to open his eyes and of track to some degree today. CT head demonstrated several areas of what appears to be acute hypodensities suggestive of infarct unfortunately this is in the bilateral hemispheres including frontal parietal and occipital lobes. Blood pressure is stable Objective PUL Vital signs: Last Vital Signs Temp 98.3 F 04/17/19 04:00 Pulse 89 04/17/19 06:00 Resp 18 04/17/19 06:00 BP 110/68 04/17/19 06:00 Pulse Ox 97 04/17/19 06:00 GEN: Patient appears comfortable in bed. HEENT: Endotracheal tube noted in satisfactory position neck is supple Resp: Bilateral air entry scattered rhonchi without overt wheezing trace crackles in the lung bases; chest tube noted Cardio: Regular rhythm no audible murmur GI: Abdomen is soft and nondistended. Active bowel sounds Ext: Pitting edema noted pulses are easily palpable and extremities are well perfused Skin: No evidence of mottling or rash no petechiae or purpura noted Neuro: Patient is able to open his eyes and blink to command he is able to make eye contact his pupils are equal and reactive to light bilaterally. There is no spontaneous movement of the extremities and they appear flaccid when moved. Positive Babinski bilaterally. Psych: No evidence of agitated delirium. Ventilator Settings Ventilator Settings: Ventilator Settings, Last 8 Hours Ventilator Tidal Volume 500 Setting Ventilator Tidal Volume 500 Setting Ventilator Tidal Volume 500 Setting Ventilator Tidal Volume 500 Setting Ventilator Tidal Volume 500 Setting Ventilator Tidal Volume 500 Setting Ventilator Tidal Volume 500 Setting Ventilator Tidal Volume 500 Setting Ventilator Tidal Volume 500 Setting Ventilator Tidal Volume 500 Setting Ventilator Tidal Volume 500 Setting Ventilator Tidal Volume 500 Setting Ventilator Respiratory Rate 16 Setting Ventilator Respiratory Rate 16 Setting Ventilator Respiratory Rate 16 Setting Ventilator Respiratory Rate 16 Setting Ventilator Respiratory Rate 16 Setting Ventilator Respiratory Rate 16 Setting Ventilator Respiratory Rate 16 Setting Ventilator Respiratory Rate 16 Setting Ventilator Respiratory Rate 16 Setting Ventilator Respiratory Rate 16 Setting Ventilator Respiratory Rate 16 Setting Ventilator Respiratory Rate 16 Setting Actual Respiratory Rate 18 Actual Respiratory Rate 21 Actual Respiratory Rate 21 Actual Respiratory Rate 18 Positive End Expiratory 5 Pressure Positive End Expiratory 5 Pressure Positive End Expiratory 5 Pressure Positive End Expiratory 5 Pressure Positive End Expiratory 5 Pressure Positive End Expiratory 5 Pressure Positive End Expiratory 5 Pressure Positive End Expiratory 5 Pressure Positive End Expiratory 5 Pressure Positive End Expiratory 5 Pressure Positive End Expiratory 5 Pressure Positive End Expiratory 5 Pressure Peak Inspiratory Airway 27 Pressure Peak Inspiratory Airway 16 Pressure Peak Inspiratory Airway 15 Pressure Peak Inspiratory Airway 15 Pressure Results - Laboratory Findings CBC and BMP: 04/17/19 05:15 04/17/19 04:20 ABG ABG pH 7.28 pH Units (7.32-7.45) L 04/16/19 04:57 ABG pCO2 42 mmHg (35-45) 04/16/19 04:57 ABG pO2 117 mmHg (85-104) H 04/16/19 04:57 ABG O2 Saturation 98 % (95-98) 04/16/19 04:57 PT/INR, D-dimer PT 11.9 Seconds (9.4-12.1) 04/13/19 12:32 Abnormal lab findings: Abnormal lab results WBC 17.1 K/mcL (4.3-11.1) H D 04/17/19 05:15 RBC 3.21 M/mcL (4.19-5.50) L 04/17/19 05:15 Hgb 10.5 g/dL (12.9-16.9) L 04/17/19 05:15 Hct 32.4 % (37.5-50.1) L 04/17/19 05:15 MCV 100.9 fL (83.0-100.0) H 04/17/19 05:15 RDW 15.8 % (11.5-14.5) H 04/17/19 05:15 Plt Count 100 K/mcL (140-400) L 04/16/19 03:47 Neutrophils # 15.7 K/mcL (1.6-8.9) H 04/17/19 05:15 Lymphocytes # 0.2 K/mcL (0.6-4.6) L 04/17/19 05:15 Monocytes # 1.4 K/mcL (0.0-1.3) H 04/13/19 12:32 Nucleated RBCs/100 WBC 0.2 /100 WBC (0) H 04/17/19 05:15 ABG pH 7.28 pH Units (7.32-7.45) L 04/16/19 04:57 ABG pCO2 47 mmHg (35-45) H 04/14/19 00:03 ABG pO2 117 mmHg (85-104) H 04/16/19 04:57 ABG HCO3 19 mEq/L (21-27) L 04/16/19 04:57 ABG O2 Saturation 93 % (95-98) L 04/14/19 10:51 ABG Base Excess -7 mEq/L (-2 to 3) L 04/16/19 04:57 ABG Hematocrit 27.0 % (37.5-50.1) L 04/13/19 11:26 ABG Chloride 112 mEq/L (98-107) H 04/13/19 09:35 Glucose 112 mg/dL (60-95) H 04/13/19 11:26 Potassium 5.3 mEq/L (3.5-5.1) H 04/14/19 12:15 Chloride 108 mEq/L (98-107) H 04/17/19 04:20 Carbon Dioxide 21 mEq/L (23-29) L 04/17/19 04:20 BUN 62 mg/dL (8-23) H 04/17/19 04:20 Creatinine 2.62 mg/dL (0.70-1.30) H 04/17/19 04:20 Est GFR ( Amer) 29 (> 60) L 04/17/19 04:20 Est GFR (Non-Af Amer) 24 (> 60) L 04/17/19 04:20 Glucose 161 mg/dL (70-105) H 04/17/19 04:20 POC Glucose 151 mg/dL (70-99) H 04/16/19 23:37 Calculated Osmolality 305 (280-300) H 04/17/19 04:20 Calcium 8.2 mg/dL (8.6-10.3) L 04/17/19 04:20 Magnesium 2.8 mg/dL (1.6-2.6) H 04/15/19 03:56 Creatine Kinase 432 Units/L (30-223) H 04/16/19 03:47 Procalcitonin 0.90 ng/mL (0.00-0.15) H 04/15/19 16:30 Free T3 1.98 pg/mL (2.50-3.90) L 04/14/19 04:02 Arterial Blood Ionized Calcium 1.04 mmol/L (1.15-1.35) L 04/13/19 10:55 Urine Clarity Cloudy (Clear) A 04/15/19 10:04 Urine Protein 100 mg/dL (Neg-Trace) H 04/15/19 10:04 Urine Blood Large (Negative) H 04/15/19 10:04 Urine Microscopic RBC 3-5 per hpf (0-3) H 04/15/19 10:04 Urine Microscopic WBC 30-50 per hpf (0-3) H 04/15/19 10:04 Ur Squamous Epith Cells Many per lpf (None-Few) H 04/15/19 10:04 Granular Casts Few per lpf (None Seen) H 04/15/19 10:04 Ur Culture Indicated? YES (NO) A 04/15/19 10:04 Crossmatch See Detail 04/08/19 16:04 - Microbiology Findings Microbiology Findings: Microbiology, Last 48 Hours 04/14/19 13:20 Sputum Culture - Preliminary Sputum 04/15/19 10:04 Urine Culture - Final Urine,Clean Catch No growth. 04/14/19 13:20 Urine Culture - Final Urine,[place] No growth. - Diagnostic Findings Additional studies: Head CT reviewed/Report - Clinical Findings Intake & Output: Intake & Output 04/16/19 04/16/19 04/17/19 15:59 23:59 07:59 Intake Total 542.7 / 3028.6 460 / 3028.6 767 / 767 Output Total 288 / 852 203 / 852 508 / 508 Balance 254.7 / 2176.6 257 / 2176.6 259 / 259 Weight 92.6 kg - VTE Documentation of Mechanical Device: Graduated compression elastic hosiery Consult Discharge Plan - Plan [facility]errals: [facility] [Primary Care Provider] -
[2019-04-17] MEDS: Budesonide/Formoterol 160/4.5 1 PUFF INH IH SCH ×2 (07:47→19:32)
[2019-04-17] MEDS: amLODIPine 5 MG TABLET GTUBE SCH (08:55)
[2019-04-17] MEDS: Aspirin 81 MG TAB.CHEW PO SCH (08:55)
[2019-04-17] MEDS: Nicotine 21 MG PATCH.TD24 TD SCH (08:56)
[2019-04-17] MEDS: Pantoprazole 40 MG VIAL IVP SCH (08:56)
[2019-04-17] MEDS: Docusate Oral Soln 100 MG/10 ML UDC GTUBE SCH ×2 (08:56→21:28)
[2019-04-17] MEDS: Chlorhexidine Rinse 15 ML MOUTHWASH MM SCH ×2 (08:56→21:28)
--- NOTE | 2019-04-17 11:14 | Cardiothoracic Progress Note ---
Date of Encounter: 04/17/19 Time of Encounter: 11:12 Discussion with patient/family: no changes in neuologic event. continue supportive care. Vital Signs, Last 4 Hours Temp Pulse Resp BP Pulse Ox 04/17/19 11:00 98 16 143/77 100 04/17/19 10:00 102 16 129/90 100 04/17/19 09:00 96 16 130/87 100 04/17/19 08:00 96 04/17/19 07:55 90 16 105/67 100 04/17/19 07:48 16 99 04/17/19 07:23 98.2 F Oxgyen Flow Rate Oxygen Flow Rate (LPM) 15 Clinical Data, last 8 Hours Output, Chest Tube Drainage 0 Amount [Mediastinal #4] Output, Chest Tube Drainage 13 Amount [Mediastinal #4] Output, Chest Tube Drainage 20 Amount [Mediastinal #3] Output, Chest Tube Drainage 12 Amount [Mediastinal #3] Output, Chest Tube Drainage 0 Amount [Mediastinal #2] Output, Chest Tube Drainage 40 Amount [Mediastinal #2] Output, Chest Tube Drainage 0 Amount [Mediastinal #1] Output, Chest Tube Drainage 100 Amount [Mediastinal #1] Weight 04/15/19 04/16/19 04/17/19 23:59 23:59 23:59 Weight 86.9 kg 91.2 kg 92.6 kg - Physical Examination General: Other (intubated. not following commands) HEENT: Atraumatic, Normocephaly Neck: No JVD Cardiac: Reg Rate and Rhythm, Normal S1 and S2 Incision: No signs of infection, Dry/intact dressing Chest tubes: Minimal drainage Lungs: Decreased breath sounds Neuro: Other (does not respond to voice or stimuli. spontaneously blinks ) Vascular: Normal capillary refill Abdomen: Soft, Non-tender, Other (bs hypoactive. ) Extremities: Other (1+ edema ) - Labs 04/17/19 05:15 04/17/19 04:20 Lab Results, Last 24 hours 04/17/19 04/17/19 04:20 05:15 WBC 17.1 H D Hgb 10.5 L Hct 32.4 L Plt Count 140 Sodium 137 Potassium 4.9 Chloride 108 H Carbon Dioxide 21 L BUN 62 H Creatinine 2.62 H Glucose 161 H Calcium 8.2 L - Imaging Chest Xray: image reviewed - VTE Documentation of Mechanical Device: Graduated compression elastic hosiery Consult Discharge Plan - Plan [facility]errals: [facility] [Primary Care Provider] -
--- NOTE | 2019-04-17 11:21 | Neurology Progress Note ---
Date of Encounter: 04/17/19 Time of Encounter: 11:13 Assessment and Plan (1) Encephalopathy Current Visit: Yes Status: Acute Repeat CT of the head did show multiple focal new development of hypo-intensity involving both hemisphere, supratentorial and infratentorially which indicate a significant embolic phenomenon. This likely is secondary to recent CABG surgery performed a few days ago. However, the pattern of watershed infarct on the right hemisphere also may indicate contribution of cerebral hypoperfusion in case a right internal carotid artery stenosis is present. This instance of multiple infarct likely is the major reason the patient still remains unresponsive. However, currently there is no evidence of midline shift no evidence of impending brain herniation, no significant edema. And brainstem is likely not involved. It is likely that patient would have rather significant neurological deficits due to the extent of multiple cerebral infarct. However, in this case, survival is likely dependent on medical conditions and complications occurring during acute phase of CVA. Would recommend a carotid artery Doppler study to evaluate possible critical ICA stenosis. Otherwise please continue medical and supportive care. I spent 25 minutes face to face with the patient, of which more than 50% of the time was spent in counseling and coordination of care Subjective Principal diagnosis: Unresponsiveness, CVA Interval history: Patient is seen seen first time as follow up. Patient is a 68 year old man s/p CABG post op day #5 has not been responsiv Patient has been followed by neurology and he has had serial CT of head initially reported no acute intracranial abnormality. However, repeat CT of the head yesterday demonstrated presence of multiple hypo-intensity involving bilateral frontal lobe, left parietal lobe as well as cerebellum indicating likely be embolic event secondary to the cardiac procedure. The pattern to the right hemisphere of few focal hy pointensity also raises possibility of watershed infarct that could happen in the setting of cerebral hypoperfusion on top of the critical ICA stenosis. Repeat routine EEG demonstrated diffuse slowing without any evidence of electrographic seizures or epileptiform discharges. This pattern is consistent with diffuse encephalopathy that is medically related. Patient is seen at the bedside, patient is not on any type of sedation except the fentanyl. Patient does not follow commands but has his eyes wide open. He does occasionally blink to visual threat Objective - Constitutional Vitals: Temp Pulse Resp BP Pulse Ox 98.2 F 98 16 143/77 100 04/17/19 07:23 04/17/19 11:00 04/17/19 11:00 04/17/19 11:00 04/17/19 11:00 - Neurological Exam Sensorimotor examination: Present: flaccid paralysis, other (Unable to assess due to patients unresponsive state) Motor Examination: Present: other (No spontaneous movements noted, Flaccid paralysed. ) Sensation intact: Present: other (patient unresponsive to painful stimuli at time of examination) Reflexes: Biceps: 2+, Triceps: 2+, Brachioradialis: 2+, Patella: 2+, Achilles: 2+ Mental Status Examination: Present: does not follow commands, no spontaneous eye opening to voice or tactile stimulation Cranial nerve examination: Present: PERRL (eyes wide open and occasionally respond to visual threat, Reactive to light stimulation), visual elizondo intact (Unable to assess), no facial asymmetry is present, no atrophy or facial fasiculations present Cranial Nerve Exam: pupil sluggish to react to light: Right, nystagmus: Left - VTE Documentation of Mechanical Device: Graduated compression elastic hosiery Results - Laboratory Findings CBC and BMP: 04/17/19 05:15 04/17/19 04:20 Abnormal lab findings: Abnormal lab results WBC 17.1 K/mcL (4.3-11.1) H D 04/17/19 05:15 RBC 3.21 M/mcL (4.19-5.50) L 04/17/19 05:15 Hgb 10.5 g/dL (12.9-16.9) L 04/17/19 05:15 Hct 32.4 % (37.5-50.1) L 04/17/19 05:15 MCV 100.9 fL (83.0-100.0) H 04/17/19 05:15 RDW 15.8 % (11.5-14.5) H 04/17/19 05:15 Plt Count 100 K/mcL (140-400) L 04/16/19 03:47 Neutrophils # 15.7 K/mcL (1.6-8.9) H 04/17/19 05:15 Lymphocytes # 0.2 K/mcL (0.6-4.6) L 04/17/19 05:15 Monocytes # 1.4 K/mcL (0.0-1.3) H 04/13/19 12:32 Nucleated RBCs/100 WBC 0.2 /100 WBC (0) H 04/17/19 05:15 ABG pH 7.28 pH Units (7.32-7.45) L 04/16/19 04:57 ABG pCO2 47 mmHg (35-45) H 04/14/19 00:03 ABG pO2 117 mmHg (85-104) H 04/16/19 04:57 ABG HCO3 19 mEq/L (21-27) L 04/16/19 04:57 ABG O2 Saturation 93 % (95-98) L 04/14/19 10:51 ABG Base Excess -7 mEq/L (-2 to 3) L 04/16/19 04:57 ABG Hematocrit 27.0 % (37.5-50.1) L 04/13/19 11:26 ABG Chloride 112 mEq/L (98-107) H 04/13/19 09:35 Glucose 112 mg/dL (60-95) H 04/13/19 11:26 Potassium 5.3 mEq/L (3.5-5.1) H 04/14/19 12:15 Chloride 108 mEq/L (98-107) H 04/17/19 04:20 Carbon Dioxide 21 mEq/L (23-29) L 04/17/19 04:20 BUN 62 mg/dL (8-23) H 04/17/19 04:20 Creatinine 2.62 mg/dL (0.70-1.30) H 04/17/19 04:20 Est GFR ( Amer) 29 (> 60) L 04/17/19 04:20 Est GFR (Non-Af Amer) 24 (> 60) L 04/17/19 04:20 Glucose 161 mg/dL (70-105) H 04/17/19 04:20 POC Glucose 151 mg/dL (70-99) H 04/16/19 23:37 Calculated Osmolality 305 (280-300) H 04/17/19 04:20 Calcium 8.2 mg/dL (8.6-10.3) L 04/17/19 04:20 Magnesium 2.8 mg/dL (1.6-2.6) H 04/15/19 03:56 Creatine Kinase 432 Units/L (30-223) H 04/16/19 03:47 Procalcitonin 0.90 ng/mL (0.00-0.15) H 04/15/19 16:30 Free T3 1.98 pg/mL (2.50-3.90) L 04/14/19 04:02 Arterial Blood Ionized Calcium 1.04 mmol/L (1.15-1.35) L 04/13/19 10:55 Urine Clarity Cloudy (Clear) A 04/15/19 10:04 Urine Protein 100 mg/dL (Neg-Trace) H 04/15/19 10:04 Urine Blood Large (Negative) H 04/15/19 10:04 Urine Microscopic RBC 3-5 per hpf (0-3) H 04/15/19 10:04 Urine Microscopic WBC 30-50 per hpf (0-3) H 04/15/19 10:04 Ur Squamous Epith Cells Many per lpf (None-Few) H 04/15/19 10:04 Granular Casts Few per lpf (None Seen) H 04/15/19 10:04 Ur Culture Indicated? YES (NO) A 04/15/19 10:04 Crossmatch See Detail 04/08/19 16:04 Consult Discharge Plan - Plan [facility]errals: [facility] [Primary Care Provider] -
[2019-04-17] MEDS ORDERED: Albumin 25% 25gram/100mL 25 GM/100 ML IV.SOLN ONE (13:10)
[2019-04-17] MEDS: Albumin 25% 25gram/100mL 25 GM/100 ML IV.SOLN IVPB SCH ×2 (13:30→21:31)
[2019-04-17] MEDS ORDERED: Albumin 25% 25gram/100mL 25 GM/100 ML IV.SOLN IVPB SCH (16:00)
[2019-04-17] MEDS: Nitroglycerin 25 MG/250 ML INFUS..BTL IVC SCH ×2 (21:30→23:26)
[2019-04-17] MEDS: Norepinephrine 4 MG in D5% in Water 250 ML IVC SCH (21:30)
[2019-04-18] MEDS: Insulin DETEMIR 100 UNIT/ML X5UNITS SQ SCH ×2 (00:29→20:44)
[2019-04-18] MEDS: Insulin LISPRO 300 UNITS/3 ML VIAL SQ SCH ×6 (00:30→20:44)
[2019-04-18] MEDS: Artificial Tears SOLN 15 ML BOTTLE BOTH EYES SCH ×6 (00:31→21:14)
[2019-04-18] MEDS: niCARdipine 20 MG/200 ML MLS IVC SCH ×6 (00:31→20:43)
[2019-04-18] MEDS: Ipratropium/Albuterol Neb 3 ML IH SCH ×6 (03:09→23:19)
[2019-04-18] MEDS: Amiodarone Premix 360 MG/200 ML BAG IVC SCH ×2 (03:29→15:07)
[2019-04-18] MEDS: Dexmedetomidine HCl 400 MCG/100 ML MLS IVC SCH (03:30)
[2019-04-18] MEDS: Nitroglycerin 25 MG/250 ML INFUS..BTL IVC SCH ×2 (04:37→14:36)
[2019-04-18 04:43] LABS: Basophils % 0.1 %; Hematocrit 28.9 % (37.5-50.1); Hemoglobin 9.1 g/dL (12.9-16.9); Immature Granulocytes % 1.6 % (0-4); Lymphocytes # 0.3 K/mcL (0.6-4.6); Lymphocytes % 2.3 %; Mean Corpuscular HGB Conc 31.5 g/dL (31.6-35.5); Mean Corpuscular Hemoglobin 32.4 pg (28.0-33.3); Mean Corpuscular Volume 102.8 fL (83.0-100.0); Mean Platelet Volume 11.7 fL (9.4-12.4); Monocytes # 0.7 K/mcL (0.0-1.3); Monocytes % 5.7 %; Neutrophils # 10.3 K/mcL (1.6-8.9); Nucleated Red Blood Cells 0.3 /100 WBC (0); Platelet Count 119 K/mcL (140-400); Red Blood Count 2.81 M/mcL (4.19-5.50); Red Cell Distribution Width 15.9 % (11.5-14.5); Segmented Neutrophils % 90.3 %; White Blood Count 11.4 K/mcL (4.3-11.1)
[2019-04-18 04:57] LABS: Calcium 8.5 mg/dL (8.6-10.3)
[2019-04-18] MEDS: Cefepime HCl 2,000 MG in Water for inj. (sterile) 20 ML IVP SCH (05:48)
[2019-04-18] MEDS: MethylPREDNISolone 40 MG/ML VIAL IVP SCH ×2 (05:48→17:41)
[2019-04-18] MEDS: Albumin 25% 25gram/100mL 25 GM/100 ML IV.SOLN IVPB SCH ×3 (05:49→20:59)
[2019-04-18] MEDS: FentaNYL (PF) 1,000 MCG in 0.9 % Sodium Chloride 80 ML IVC SCH ×2 (05:53→16:31)
--- NOTE | 2019-04-18 06:51 | Pulmonology Progress Note ---
Date of Encounter: 04/18/19 Time of Encounter: 06:50 Assessment and Plan (1) Acute on chronic respiratory failure with hypoxia and hypercapnia Current Visit: Yes Status: Acute I spent 32min of Critical Care time with this patient. It involved decision making of high complexity to assess, manipulate, and support vital organ system failure and/or to prevent further life threatening deterioration of the patient's condition. The time involved in the performance of separately reportable procedures was not counted toward critical care time. Patient seen and examined at bedside Labs, radiology, chart personally reviewed. Management was reviewed during multidisciplinary critical care rounds. Below reflects my systems based assessment and plan for this critically ill patient FISH INSPECTOR: Acut billobar CVA likely secondary to CABG and possibly combination of tissue hypoperfusion and embolic phenomenon. Neurology following neurological prognosis guarded likely poor. There has been no meaningful improvement in his neurological state. Pulm: Acute hypoxic hypercapnic respiratory failure remains on vent with mild acidosis. More air hungry today requiring deeper sedation I did try to adjust his vent by decreasing inspiratory time because of her hunger and this had modest benefit and this may be more of a central process. In any event he saw a candidate for spontaneous breathing trial today and I suspect he would need tracheostomy placement as above neurological status. Continue treatment for COPD exacerbation including steroids and bronchodilators. Cont to treat for PNA. Suspected worsening hydrostatic edema will give a trial of loop diuretic Cards: He is postop day 4 status post CABG appreciate the cardiothoracic surgery following and managing chest tubes. BP currently controlled. Cont BB and Amiodarone for Afib. Diuretic today. Renal: YOLANDA on CKD slightly worse today ?Vascular congestion. UOP Monitored and currently acceptable, Cont to Trend sCr and monitor Electrolytes. ID: He being treated for pneumonia with cefepime and we will de-escalate based upon cultures white count elevated but down over last 24 hours and remains afebrile. Goal duration of Tx around 7 days. Heme/Onc: Hemoglobin and platelets stable. Endo: Glucose Monitored continue basal bolus dosing of insulin Integ/MSK: Skin Care per routine ICU Nursing Protocol to prevent ulcers. Lines: All lines examined without evidence of infection : Dispo: Monitor in ICU for critical illness CODE: Full code. Recommend Palliative Consult in AM. (2) Acute CVA (cerebrovascular accident) Current Visit: Yes Status: Acute (3) Acute kidney injury superimposed on CKD Current Visit: Yes Status: Acute (4) S/P CABG (coronary artery bypass graft) Current Visit: Yes Status: Acute (5) COPD exacerbation Current Visit: Yes Status: Acute (6) Heart failure with preserved ejection fraction Current Visit: Yes Status: Acute Qualifiers: Qualified Code(s): I50.32 - Chronic diastolic (congestive) heart failure (7) Encephalopathy Current Visit: Yes Status: Acute (8) Hospital acquired PNA Current Visit: Yes Status: Acute Subjective Principal diagnosis: Unresponsiveness, CVA Interval history: Per nursing staff increased work of breathing overnight still unable to move his extremities with fluctuating blood pressure. Objective PUL Vital signs: Last Vital Signs Temp 99.0 F 04/18/19 04:00 Pulse 88 04/18/19 06:00 Resp 20 04/18/19 06:00 BP 126/74 04/18/19 06:00 Pulse Ox 97 04/18/19 06:00 GEN: Intubated and noted to have increased air hunger when now off sedation HEENT: Endotracheal tube noted satisfactory positions his pupils are equal and round reactive to light bilaterally. Neck is supple there is evidence of JVD Resp: Air entry bilaterally coarse breath sounds faint expiratory wheeze/multiple chest tube noted in the subxiphoid region Cardio: Irregularly irregular rhythm no audible GI: Abdomen modestly distended bowel sounds positive Ext: Distal pulses palpable extremities warm Skin: No evolving rash or areas of purpura Neuro: Unable to move extremities to command he can blink his eyes to voice command however brainstem reflexes intact Psych: Anxious appearing Ventilator Settings Ventilator Settings: Ventilator Settings, Last 8 Hours Ventilator Tidal Volume 500 Setting Ventilator Tidal Volume 500 Setting Ventilator Tidal Volume 500 Setting Ventilator Tidal Volume 500 Setting Ventilator Tidal Volume 500 Setting Ventilator Tidal Volume 500 Setting Ventilator Tidal Volume 500 Setting Ventilator Tidal Volume 500 Setting Ventilator Tidal Volume 500 Setting Ventilator Tidal Volume 500 Setting Ventilator Tidal Volume 500 Setting Ventilator Tidal Volume 500 Setting Ventilator Respiratory Rate 14 Setting Ventilator Respiratory Rate 14 Setting Ventilator Respiratory Rate 14 Setting Ventilator Respiratory Rate 14 Setting Ventilator Respiratory Rate 14 Setting Ventilator Respiratory Rate 14 Setting Ventilator Respiratory Rate 14 Setting Ventilator Respiratory Rate 14 Setting Ventilator Respiratory Rate 14 Setting Ventilator Respiratory Rate 14 Setting Ventilator Respiratory Rate 14 Setting Ventilator Respiratory Rate 14 Setting Actual Respiratory Rate 22 Actual Respiratory Rate 20 Actual Respiratory Rate 22 Actual Respiratory Rate 17 Positive End Expiratory 5 Pressure Positive End Expiratory 5 Pressure Positive End Expiratory 5 Pressure Positive End Expiratory 5 Pressure Positive End Expiratory 5 Pressure Positive End Expiratory 5 Pressure Positive End Expiratory 5 Pressure Positive End Expiratory 5 Pressure Positive End Expiratory 5 Pressure Positive End Expiratory 5 Pressure Positive End Expiratory 5 Pressure Positive End Expiratory 5 Pressure Peak Inspiratory Airway 13 Pressure Peak Inspiratory Airway 12 Pressure Peak Inspiratory Airway 18 Pressure Peak Inspiratory Airway 26 Pressure Results - Laboratory Findings CBC and BMP: 04/18/19 04:15 04/18/19 04:15 ABG ABG pH 7.28 pH Units (7.32-7.45) L 04/16/19 04:57 ABG pCO2 42 mmHg (35-45) 04/16/19 04:57 ABG pO2 117 mmHg (85-104) H 04/16/19 04:57 ABG O2 Saturation 98 % (95-98) 04/16/19 04:57 PT/INR, D-dimer PT 11.9 Seconds (9.4-12.1) 04/13/19 12:32 Abnormal lab findings: Abnormal lab results WBC 11.4 K/mcL (4.3-11.1) H 04/18/19 04:15 RBC 2.81 M/mcL (4.19-5.50) L 04/18/19 04:15 Hgb 9.1 g/dL (12.9-16.9) L 04/18/19 04:15 Hct 28.9 % (37.5-50.1) L 04/18/19 04:15 MCV 102.8 fL (83.0-100.0) H 04/18/19 04:15 MCHC 31.5 g/dL (31.6-35.5) L 04/18/19 04:15 RDW 15.9 % (11.5-14.5) H 04/18/19 04:15 Plt Count 119 K/mcL (140-400) L 04/18/19 04:15 Neutrophils # 10.3 K/mcL (1.6-8.9) H 04/18/19 04:15 Lymphocytes # 0.3 K/mcL (0.6-4.6) L 04/18/19 04:15 Monocytes # 1.4 K/mcL (0.0-1.3) H 04/13/19 12:32 Nucleated RBCs/100 WBC 0.3 /100 WBC (0) H 04/18/19 04:15 ABG pH 7.28 pH Units (7.32-7.45) L 04/16/19 04:57 ABG pCO2 47 mmHg (35-45) H 04/14/19 00:03 ABG pO2 117 mmHg (85-104) H 04/16/19 04:57 ABG HCO3 19 mEq/L (21-27) L 04/16/19 04:57 ABG O2 Saturation 93 % (95-98) L 04/14/19 10:51 ABG Base Excess -7 mEq/L (-2 to 3) L 04/16/19 04:57 ABG Hematocrit 27.0 % (37.5-50.1) L 04/13/19 11:26 ABG Chloride 112 mEq/L (98-107) H 04/13/19 09:35 Glucose 112 mg/dL (60-95) H 04/13/19 11:26 Potassium 5.3 mEq/L (3.5-5.1) H 04/14/19 12:15 Chloride 108 mEq/L (98-107) H 04/18/19 04:15 Carbon Dioxide 21 mEq/L (23-29) L 04/18/19 04:15 BUN 75 mg/dL (8-23) H 04/18/19 04:15 Creatinine 2.71 mg/dL (0.70-1.30) H 04/18/19 04:15 Est GFR ( Amer) 28 (> 60) L 04/18/19 04:15 Est GFR (Non-Af Amer) 23 (> 60) L 04/18/19 04:15 BUN/Creatinine Ratio 28 (6-26) H 04/18/19 04:15 Glucose 197 mg/dL (70-105) H 04/18/19 04:15 POC Glucose 261 mg/dL (70-99) H 04/18/19 00:28 Calculated Osmolality 312 (280-300) H 04/18/19 04:15 Calcium 8.5 mg/dL (8.6-10.3) L 04/18/19 04:15 Magnesium 2.8 mg/dL (1.6-2.6) H 04/15/19 03:56 Creatine Kinase 432 Units/L (30-223) H 04/16/19 03:47 Procalcitonin 0.90 ng/mL (0.00-0.15) H 04/15/19 16:30 Free T3 1.98 pg/mL (2.50-3.90) L 04/14/19 04:02 Arterial Blood Ionized Calcium 1.04 mmol/L (1.15-1.35) L 04/13/19 10:55 Urine Clarity Cloudy (Clear) A 04/15/19 10:04 Urine Protein 100 mg/dL (Neg-Trace) H 04/15/19 10:04 Urine Blood Large (Negative) H 04/15/19 10:04 Urine Microscopic RBC 3-5 per hpf (0-3) H 04/15/19 10:04 Urine Microscopic WBC 30-50 per hpf (0-3) H 04/15/19 10:04 Ur Squamous Epith Cells Many per lpf (None-Few) H 04/15/19 10:04 Granular Casts Few per lpf (None Seen) H 04/15/19 10:04 Ur Culture Indicated? YES (NO) A 04/15/19 10:04 Crossmatch See Detail 04/08/19 16:04 - Microbiology Findings Microbiology Findings: Microbiology, Last 48 Hours 04/14/19 13:20 Sputum Culture - Final Sputum 04/15/19 10:04 Urine Culture - Final Urine,Clean Catch No growth. - Clinical Findings Intake & Output: Intake & Output 04/17/19 04/17/19 04/18/19 15:59 23:59 07:59 Intake Total 312 / 2300 1221 / 2300 1244 / 1244 Output Total 100 / 1213 570 / 1213 388 / 388 Balance 212 / 1087 651 / 1087 856 / 856 - VTE Documentation of Mechanical Device: Graduated compression elastic hosiery Consult Discharge Plan - Plan [facility]errals: [facility] [Primary Care Provider] -
[2019-04-18] MEDS: Budesonide/Formoterol 160/4.5 1 PUFF INH IH SCH ×2 (07:38→19:47)
[2019-04-18] MEDS: Docusate Oral Soln 100 MG/10 ML UDC GTUBE SCH ×2 (08:46→20:58)
[2019-04-18] MEDS: Nicotine 21 MG PATCH.TD24 TD SCH (08:46)
[2019-04-18] MEDS: Pantoprazole 40 MG VIAL IVP SCH (08:46)
[2019-04-18] MEDS: Chlorhexidine Rinse 15 ML MOUTHWASH MM SCH ×2 (08:46→20:58)
[2019-04-18] MEDS: Aspirin 81 MG TAB.CHEW PO SCH (08:47)
[2019-04-18] MEDS: amLODIPine 5 MG TABLET GTUBE SCH (08:47)
[2019-04-18] MEDS ORDERED: Bisacodyl 10 MG RECTAL SUPPOSITORY RC PRN (10:24)
--- NOTE | 2019-04-18 10:25 | Cardiothoracic Progress Note ---
Date of Encounter: 04/18/19 Time of Encounter: 10:25 - Assessment and plan (1) Acute kidney injury Current Visit: Yes Status: Acute The assessment and plan as outlined above was discussed with the patient and/or family members who expressed understanding and agreement. All questions were answered. (2) Acute kidney injury superimposed on CKD Current Visit: Yes Status: Acute The assessment and plan as outlined above was discussed with the patient and/or family members who expressed understanding and agreement. All questions were answered. (3) Atrial fibrillation Current Visit: Yes Status: Acute The assessment and plan as outlined above was discussed with the patient and/or family members who expressed understanding and agreement. All questions were answered. Qualifiers: Qualified Code(s): I48.91 - Unspecified atrial fibrillation (4) CKD (chronic kidney disease) stage 3, GFR 30-59 ml/min Current Visit: Yes Status: Acute The assessment and plan as outlined above was discussed with the patient and/or family members who expressed understanding and agreement. All questions were answered. (5) Coronary artery disease of bypass graft of [place] heart with stable angina pectoris Current Visit: Yes Status: Acute The assessment and plan as outlined above was discussed with the patient and/or family members who expressed understanding and agreement. All questions were answered. (6) Encephalopathy Current Visit: Yes Status: Acute The assessment and plan as outlined above was discussed with the patient and/or family members who expressed understanding and agreement. All questions were answered. (7) Leukocytosis Current Visit: Yes Status: Acute The assessment and plan as outlined above was discussed with the patient and/or family members who expressed understanding and agreement. All questions were answered. Qualifiers: Qualified Code(s): D72.829 - Elevated white blood cell count, unspecified (8) S/P CABG (coronary artery bypass graft) Current Visit: Yes Status: Acute The assessment and plan as outlined above was discussed with the patient and/or family members who expressed understanding and agreement. All questions were answered. (9) S/P coronary artery bypass graft x 2 Current Visit: Yes Status: Acute The assessment and plan as outlined above was discussed with the patient and/or family members who expressed understanding and agreement. All questions were answered. (10) Coronary artery disease Current Visit: No Status: Acute The assessment and plan as outlined above was discussed with the patient and/or family members who expressed understanding and agreement. All questions were answered. Qualifiers: Coronary Disease-Associated Artery/Lesion type: [place] artery [place] vs. transplanted heart: [place] heart Associated angina: with stable angina Qualified Code(s): I25.118 - Atherosclerotic heart disease of [place] coronary artery with other forms of angina pectoris Discussion with patient/family: Assessment and plan Mr. Dandy Lee is postoperative day 5 from CABG 2 YANG to LAD and saphenous vein graft to the obtuse marginal [address] Bright on 03 17 2019 Plan by systems From a neurologic standpoint his propofol Precedex and fentanyl will be serially held in order to get a neurologic status. I and neurology the will be present to assess any neurologic function. He is also progressively uremic today with a BUNs of 75 contributing to his blunted mental status. Will return to sedation once able to establish a neuro holiday and if any improvement. From a cardiovascular standpoint, he remains stable in normal sinus rhythm, 80s, with blood pressures 130s over 70s. He is on Lopressor 25 3 times a day as well as amiodarone drip 0.5. He has been intermittently been receiving albumin for intermittent low blood pressure 100s. We can also use ionized calcium if this is necessary later. Respiratory standpoint with persistent right-sided wheezing. Please continue DuoNeb scheduled every 4 hours. No chest x-ray today. Per report all chesttubes to remain although minimal drainage from the mediastinal tubes, also from chest tube minimal #1. No air leaks from any. All serosanguineous drainage. Will adjust ventilator to IMV mode of pressure support if or as he wakes up. From a GI standpoint, the abdomen is mildly distended. He has not had a bowel movement. We will give a suppository. Prior residual has been 350. Check residual in a couple of hours. He has been on 75 mL an hour of tube feeds. Restart and 50 an hour. Continue H2 blockade as on IV steroids. From a renal standpoint worsening uremia at 75 now creatinine up to 2.7. Total bowel body volume overload but no way to measure intravascular volume. No central pressure monitoring system, will send urine sodium, urinalysis and urine specific gravity, to decide if any further volume is necessary. From heme standpoint hematocrit is stable at 29. I do not see that he is on any subcutaneous heparin or Lovenox, and will add back his stockings and SCDs for DVT and PE prophylaxis. He has chronic bruising on both arms but has some acute and subacute significant ecchymoses over the left arm. Please move the cuff to another limb such as the leg for cuff measurements so there is no sloughing of the left arm skin. I doubt its related but I did not see him preop and with his persistently slightly decreased platelets will send PF4. - Subjective Interval history: Patient is intubated and sedated on 3 drips on propofol, Precedex, fentanyl and unable to communicate Vital Signs, Last 4 Hours Temp Pulse Resp BP Pulse Ox 04/18/19 09:00 90 19 118/58 97 04/18/19 08:00 98.8 F 88 21 120/71 98 04/18/19 07:20 20 118/65 96 04/18/19 07:00 84 Oxgyen Flow Rate Oxygen Flow Rate (LPM) 15 Clinical Data, last 8 Hours Output, Chest Tube Drainage 0 Amount [Mediastinal #4] Output, Chest Tube Drainage 8 Amount [Mediastinal #4] Output, Chest Tube Drainage 30 Amount [Mediastinal #3] Output, Chest Tube Drainage 10 Amount [Mediastinal #2] Output, Chest Tube Drainage 30 Amount [Mediastinal #2] Output, Chest Tube Drainage 50 Amount [Mediastinal #1] Output, Chest Tube Drainage 20 Amount [Mediastinal #1] Weight 04/16/19 04/17/19 04/18/19 23:59 23:59 23:59 Weight 91.2 kg 92.6 kg - Physical Examination General: No Apparent Distress HEENT: Atraumatic Neck: No JVD Cardiac: Reg Rate and Rhythm Incision: No signs of infection Sternum: Stable Chest tubes: Minimal drainage Pacing Wires: In place Lungs: Other Neuro: Other Vascular: Other (On exam the patient is sedated on fentanyl drip of 100 Precedex drip of 0.5 propofol drip of 10 and not following commands from a cardiovascular standpoint he has a regular rate and rhythm the sternum is covered by dressing but is stable to palpation.From a respiratory standpoint he has good breath sounds on the left side but on the right side has inspiratory wheezing.From a GI standpoint his abdomen is distended and the tube feeds are currently off. His extremities are warm and without any peripheral edema.) - Labs 04/18/19 04:15 04/18/19 04:15 Lab Results, Last 24 hours 04/18/19 04/18/19 04:15 04:15 WBC 11.4 H Hgb 9.1 L Hct 28.9 L Plt Count 119 L Sodium 137 Potassium 5.0 Chloride 108 H Carbon Dioxide 21 L BUN 75 H Creatinine 2.71 H Glucose 197 H Calcium 8.5 L - Imaging Chest Xray: other (No chest x-ray obtained today. No KUB today) - VTE Documentation of Mechanical Device: Graduated compression elastic hosiery Consult Discharge Plan - Plan [facility]errals: [facility] [Primary Care Provider] -
--- NOTE | 2019-04-18 10:44 | Neurology Progress Note ---
Date of Encounter: 04/18/19 Time of Encounter: 10:41 Assessment and Plan (1) Encephalopathy Current Visit: Yes Status: Acute Repeat CT of the head did show multiple focal new development of hypo-intensity involving both hemisphere, supratentorial and infratentorially which indicate a significant embolic phenomenon. This likely is secondary to recent CABG surgery performed a few days ago. However, the pattern of watershed infarct on the right hemisphere also may indicate contribution of cerebral hypoperfusion in case a right internal carotid artery stenosis is present. This instance of multiple infarct likely is the major reason the patient still remains unresponsive. However, currently there is no evidence of midline shift no evidence of impending brain herniation, no significant edema. Patient is still sedated so neurological evaluation not reliable. He has positive oculocephalic reflex and pupillary reflex and brain stem function is preserved. Again due to sedation cognitive function difficult to assess. Please continue medical and supportive care Subjective Principal diagnosis: Unresponsiveness, CVA Interval history: Patient is seen seen and examined at the bedtime. I was requested by Cardiothoracic surgery that the patient will be discontinued sedation so patient can be assessed neurologically. At the time of this interview, it was reported that the patient can not tolerate discontinuation due to breathing difficulty and he remains on propofol. No consciousness movement seen. No seizure like activity. No spontaneous movements reported. Objective - Constitutional Vitals: Temp Pulse Resp BP Pulse Ox 98.8 F 84 22 125/61 97 04/18/19 08:00 04/18/19 10:00 04/18/19 10:00 04/18/19 10:00 04/18/19 10:00 - Neurological Exam Sensorimotor examination: Present: flaccid paralysis, other (Unable to assess due to patients unresponsive state) Motor Examination: Present: other (No spontaneous movements noted, Flaccid paralysed. ) Sensation intact: Present: other (patient unresponsive to painful stimuli at time of examination) Reflex and gait examination: other (Not tested) Reflexes: Biceps: 2+, Triceps: 2+, Brachioradialis: 2+, Patella: 2+, Achilles: 2+ Mental Status Examination: Present: does not follow commands, no spontaneous eye opening to voice or tactile stimulation Cranial nerve examination: Present: PERRL (Pupiles are midline 3mm in sizes slowly reactive. Positive oculocephalic reflex noted), EOMI (Positive oculocephalic reflex), visual elizondo intact (Unable to assess), corneal reflexes brisk symmetrically (Not responding to visual threat today), no facial asymmetry is present, no atrophy or facial fasiculations present Cranial Nerve Exam: pupil sluggish to react to light: Right, nystagmus: Left - VTE Documentation of Mechanical Device: Graduated compression elastic hosiery Results - Laboratory Findings CBC and BMP: 04/18/19 04:15 04/18/19 04:15 Abnormal lab findings: Abnormal lab results WBC 11.4 K/mcL (4.3-11.1) H 04/18/19 04:15 RBC 2.81 M/mcL (4.19-5.50) L 04/18/19 04:15 Hgb 9.1 g/dL (12.9-16.9) L 04/18/19 04:15 Hct 28.9 % (37.5-50.1) L 04/18/19 04:15 MCV 102.8 fL (83.0-100.0) H 04/18/19 04:15 MCHC 31.5 g/dL (31.6-35.5) L 04/18/19 04:15 RDW 15.9 % (11.5-14.5) H 04/18/19 04:15 Plt Count 119 K/mcL (140-400) L 04/18/19 04:15 Neutrophils # 10.3 K/mcL (1.6-8.9) H 04/18/19 04:15 Lymphocytes # 0.3 K/mcL (0.6-4.6) L 04/18/19 04:15 Monocytes # 1.4 K/mcL (0.0-1.3) H 04/13/19 12:32 Nucleated RBCs/100 WBC 0.3 /100 WBC (0) H 04/18/19 04:15 ABG pH 7.28 pH Units (7.32-7.45) L 04/16/19 04:57 ABG pCO2 47 mmHg (35-45) H 04/14/19 00:03 ABG pO2 117 mmHg (85-104) H 04/16/19 04:57 ABG HCO3 19 mEq/L (21-27) L 04/16/19 04:57 ABG O2 Saturation 93 % (95-98) L 04/14/19 10:51 ABG Base Excess -7 mEq/L (-2 to 3) L 04/16/19 04:57 ABG Hematocrit 27.0 % (37.5-50.1) L 04/13/19 11:26 ABG Chloride 112 mEq/L (98-107) H 04/13/19 09:35 Glucose 112 mg/dL (60-95) H 04/13/19 11:26 Potassium 5.3 mEq/L (3.5-5.1) H 04/14/19 12:15 Chloride 108 mEq/L (98-107) H 04/18/19 04:15 Carbon Dioxide 21 mEq/L (23-29) L 04/18/19 04:15 BUN 75 mg/dL (8-23) H 04/18/19 04:15 Creatinine 2.71 mg/dL (0.70-1.30) H 04/18/19 04:15 Est GFR ( Amer) 28 (> 60) L 04/18/19 04:15 Est GFR (Non-Af Amer) 23 (> 60) L 04/18/19 04:15 BUN/Creatinine Ratio 28 (6-26) H 04/18/19 04:15 Glucose 197 mg/dL (70-105) H 04/18/19 04:15 POC Glucose 261 mg/dL (70-99) H 04/18/19 00:28 Calculated Osmolality 312 (280-300) H 04/18/19 04:15 Calcium 8.5 mg/dL (8.6-10.3) L 04/18/19 04:15 Magnesium 2.8 mg/dL (1.6-2.6) H 04/15/19 03:56 Creatine Kinase 432 Units/L (30-223) H 04/16/19 03:47 Procalcitonin 0.90 ng/mL (0.00-0.15) H 04/15/19 16:30 Free T3 1.98 pg/mL (2.50-3.90) L 04/14/19 04:02 Arterial Blood Ionized Calcium 1.04 mmol/L (1.15-1.35) L 04/13/19 10:55 Urine Clarity Cloudy (Clear) A 04/15/19 10:04 Urine Protein 100 mg/dL (Neg-Trace) H 04/15/19 10:04 Urine Blood Large (Negative) H 04/15/19 10:04 Urine Microscopic RBC 3-5 per hpf (0-3) H 04/15/19 10:04 Urine Microscopic WBC 30-50 per hpf (0-3) H 04/15/19 10:04 Ur Squamous Epith Cells Many per lpf (None-Few) H 04/15/19 10:04 Granular Casts Few per lpf (None Seen) H 04/15/19 10:04 Ur Culture Indicated? YES (NO) A 04/15/19 10:04 Crossmatch See Detail 04/08/19 16:04 Consult Discharge Plan - Plan [facility]errals: [facility] [Primary Care Provider] -
[2019-04-18] MEDS ORDERED: Calcium Gluconate 1gm/50mL 1 GM/50 ML BAG IVPB ONE (11:12)
[2019-04-18 11:30] LABS: Bilirubin,Urine Negative (Negative); Blood,Urine Large (Negative); Color,Urine Yellow (Yellow); Glucose,Urine (UA) Normal (Normal); Ketones,Urine Negative (Negative); Leukocyte Esterase,Urine Small (Negative); Nitrite,Urine Negative (Negative); PH,Urine 5.5 pH Units (5.0-8.0); Protein,Urine 100 mg/dL (Neg-Trace); Specific Gravity,Urine 1.017 (1.010-1.025); Urobilinogen,Urine Normal (Normal)
[2019-04-18 11:33] LABS: Clarity,Urine Slightly Hazy (Clear); RBC,Urine 15-30 per hpf (0-3); Squamous Epithelial Cell,Urine Many per lpf (None-Few); WBC,Urine 15-30 per hpf (0-3)
[2019-04-18 11:42] LABS: Bacteria,Urine Few per hpf (None-Few)
[2019-04-18 12:29] LABS: ABG Base Excess -6 mEq/L (-2 to 3); ABG HCO3 21 mEq/L (21-27); ABG Oxygen Saturation 95 % (95-98); ABG PCO2 47 mmHg (35-45); ABG PH 7.26 pH Units (7.32-7.45); ABG PO2 85 mmHg (85-104); ABG TCO2 23 mEq/L (20-26); Blood Gas Modality ASSIST CONTROL; Blood Gas VT 500 cc
[2019-04-18] MEDS: Norepinephrine 4 MG in D5% in Water 250 ML IVC SCH (13:30)
[2019-04-18] MEDS: Furosemide 20 MG/2 ML VIAL IVP SCH (16:35)
[2019-04-19] MEDS: niCARdipine 20 MG/200 ML MLS IVC SCH ×6 (01:05→17:16)
[2019-04-19] MEDS: Insulin LISPRO 300 UNITS/3 ML VIAL SQ SCH ×6 (01:05→20:10)
[2019-04-19] MEDS: Artificial Tears SOLN 15 ML BOTTLE BOTH EYES SCH ×6 (01:05→20:09)
[2019-04-19] MEDS: Nitroglycerin 25 MG/250 ML INFUS..BTL IVC SCH ×3 (01:06→20:15)
[2019-04-19] MEDS: FentaNYL (PF) 1,000 MCG in 0.9 % Sodium Chloride 80 ML IVC SCH ×3 (01:40→23:01)
[2019-04-19] MEDS: Amiodarone Premix 360 MG/200 ML BAG IVC SCH ×2 (03:41→17:15)
[2019-04-19] MEDS: Ipratropium/Albuterol Neb 3 ML IH SCH ×6 (03:46→23:12)
[2019-04-19 04:58] LABS: ABG Base Excess -8 mEq/L (-2 to 3); ABG HCO3 21 mEq/L (21-27); ABG Oxygen Saturation 84 % (95-98); ABG PCO2 59 mmHg (35-45); ABG PH 7.16 pH Units (7.32-7.45); ABG PO2 63 mmHg (85-104); ABG TCO2 23 mEq/L (20-26); Blood Gas Modality PRVC; Blood Gas PEEP 5 cm H2O; Blood Gas VT 500 cc
[2019-04-19 05:08] LABS: Basophils % 0.1 %; Hematocrit 30.4 % (37.5-50.1); Hemoglobin 9.4 g/dL (12.9-16.9); Immature Granulocytes % 2.1 % (0-4); Lymphocytes # 0.6 K/mcL (0.6-4.6); Lymphocytes % 2.7 %; Mean Corpuscular HGB Conc 30.9 g/dL (31.6-35.5); Mean Corpuscular Hemoglobin 32.2 pg (28.0-33.3); Mean Corpuscular Volume 104.1 fL (83.0-100.0); Mean Platelet Volume 11.9 fL (9.4-12.4); Monocytes # 1.4 K/mcL (0.0-1.3); Monocytes % 6.7 %; Nucleated Red Blood Cells 0.2 /100 WBC (0); Platelet Count 142 K/mcL (140-400); Red Blood Count 2.92 M/mcL (4.19-5.50); Red Cell Distribution Width 16.4 % (11.5-14.5); Segmented Neutrophils % 88.4 %
[2019-04-19 05:09] LABS: Neutrophils # 18.7 K/mcL (1.6-8.9); White Blood Count 21.1 K/mcL (4.3-11.1)
[2019-04-19] MEDS: MethylPREDNISolone 40 MG/ML VIAL IVP SCH (05:10)
[2019-04-19] MEDS: Cefepime HCl 2,000 MG in Water for inj. (sterile) 20 ML IVP SCH (05:11)
[2019-04-19] MEDS: Albumin 25% 25gram/100mL 25 GM/100 ML IV.SOLN IVPB SCH ×3 (05:12→20:36)
[2019-04-19 05:26] LABS: Potassium 6.2 mEq/L (3.5-5.1)
[2019-04-19 05:27] LABS: Calcium 9.2 mg/dL (8.6-10.3); Magnesium 3.1 mg/dL (1.6-2.6)
[2019-04-19] MEDS ORDERED: Albuterol 2.5 MG/3 ML NEBULIZER IH ONE (07:12)
--- NOTE | 2019-04-19 07:18 | Pulmonology Progress Note ---
Date of Encounter: 04/19/19 Time of Encounter: 09:40 Assessment and Plan (1) Acute on chronic respiratory failure with hypoxia and hypercapnia Current Visit: Yes Status: Acute Mr. Lee underwent CABG on 04/13/29 Has history of underlying COPD with 4 pack per day smoking history Could not be weaned off ventilator This morning pH 7.16 with a CO2 of 59 Received Solu-Medrol for total 6 days Continue to adjust ventilator setting Continue scheduled DuoNeb and Symbicort (2) Pneumonia Current Visit: Yes Status: Suspected Mr. Lee is recovering status post CABG on 04/13/19 Continues to have low aeration bilateral lower lung lobes Repeat chest x-ray this morning shows worsening interstitial pulmonary opacification On cefepime continue for total 7 day therapy a 5 of 7 Qualifiers: Pneumonia type: due to unspecified organism Laterality: bilateral Lung location: lower lobe of lung Qualified Code(s): J18.1 - Lobar pneumonia, unspecified organism (3) Acute CVA (cerebrovascular accident) Current Visit: Yes Status: Acute On 04/14/19 patient could not be weaned off ventilator and was unresponsive to co mmands Overnight on 04/14/[address] of the head which subtle area of hyperattenuation right frontal lobe Had repeat CT had on 03/16/19 which showed hypodensity in right and left frontal lobe as well as posterior right parietal and cerebral hemisphere Patient still not responsive to verbal and physical Neurology following Had a family meeting today and they would like to change CODE STATUS full code D NR CCA at this time (4) Acute kidney injury superimposed on CKD Current Visit: Yes Status: Acute Ongoing worsening renal function creatinine at presentation noted to be 1.70 this morning 3.19 Likely multifactorial secondary to decreased perfusion Nephrology consultation Nephrology consulted Continue to renally dose nephrotoxic agents IV bicarbonate ordered for metabolic acidosis (5) Atrial fibrillation Current Visit: Yes Status: Acute Was in A. fib with RVR on secondary to structural changes of the heart due to hypoxia and recent CVA Currently rate and rhythm controlled on amiodarone drip Qualifiers: Atrial fibrillation type: chronic Qualified Code(s): I48.2 - Chronic atrial fibrillation (6) COPD exacerbation Current Visit: Yes Status: Acute History of COPD patient is a 4 pack per day smoker Had worsening respiratory status status post CABG Received IV Solu-Medrol for 6 days Continue scheduled DuoNeb schedule Symbicort (7) S/P CABG (coronary artery bypass graft) Current Visit: Yes Status: Acute Underwent CABG on 04/13/19 due to unstable angina Chest tubes in place with no air leak Cardiothoracic surgery following Continue strict glucose management Continue pain control with fentanyl (8) Hyperkalemia Current Visit: Yes Status: Acute Potassium noted to be 6.2 today likely secondary to worsening renal function Albuterol nebs, insulin with dextrose as well as Kayexalate given Repeat potassium check pending (9) Heart failure with preserved ejection fraction Current Visit: Yes Status: Acute Echo on which showed EF of 60% and mild to moderate concentric LVH Underwent CABG on 04/13/19 Continue aspirin, statin and metoprolol Qualifiers: Heart failure chronicity: chronic Qualified Code(s): I50.32 - Chronic diastolic (congestive) heart failure (10) Goals of care, counseling/discussion Current Visit: Yes Status: Acute Had a family meeting was today discuss further goals of care. His girlfriend and brother or in the room and they discussed that he would not want to continue life with being dependent on machines. Additionally they reported that he would not want CPR and would like to change his CODE STATUS from full code to at this time DNR CCA and transition to DNR CC once they feel comfortable to make that decision today or tomorrow. (11) DVT prophylaxis Current Visit: Yes Status: Acute Heparin subcutaneous every 12 hours Subjective Principal diagnosis: Unresponsiveness, CVA Interval history: Mr. Lee was seen at bedside this morning. He was intubated and sedated. Was not responsive to any verbal or physical stimuli. Vitals were reviewed and he remained afebrile and normotensive overnight. Objective PUL Vital signs: Last Vital Signs Temp 98.5 F 04/19/19 04:50 Pulse 74 04/19/19 06:00 Resp 14 04/19/19 06:00 BP 133/65 04/19/19 06:00 Pulse Ox 93 04/19/19 06:00 General appearance: no acute distress Eyes: nonicteric ENT: oropharynx moist Neck: supple Effort: normal Auscultation: bilateral: diminished breath sounds, wheezes Cardiovascular: regular rate and rhythm, other (No murmurs) Gastrointestinal: soft, non-tender, non-distended Extremities: no cyanosis, no edema Musculoskeletal: no deformities other (Gooden scale 2, does not respond to verbal or physical stimuli, pupils pinpoint) Ventilator Settings Ventilator Settings: Ventilator Settings, Last 8 Hours Ventilator Tidal Volume 500 Setting Ventilator Tidal Volume 500 Setting Ventilator Tidal Volume 500 Setting Ventilator Tidal Volume 500 Setting Ventilator Tidal Volume 500 Setting Ventilator Tidal Volume 500 Setting Ventilator Tidal Volume 500 Setting Ventilator Tidal Volume 500 Setting Ventilator Tidal Volume 500 Setting Ventilator Tidal Volume 500 Setting Ventilator Tidal Volume 500 Setting Ventilator Respiratory Rate 14 Setting Ventilator Respiratory Rate 14 Setting Ventilator Respiratory Rate 14 Setting Ventilator Respiratory Rate 14 Setting Ventilator Respiratory Rate 14 Setting Ventilator Respiratory Rate 14 Setting Ventilator Respiratory Rate 14 Setting Ventilator Respiratory Rate 14 Setting Ventilator Respiratory Rate 14 Setting Ventilator Respiratory Rate 14 Setting Ventilator Respiratory Rate 14 Setting Actual Respiratory Rate 18 Actual Respiratory Rate 17 Actual Respiratory Rate 16 Actual Respiratory Rate 18 Positive End Expiratory 5 Pressure Positive End Expiratory 5 Pressure Positive End Expiratory 5 Pressure Positive End Expiratory 5 Pressure Positive End Expiratory 5 Pressure Positive End Expiratory 5 Pressure Positive End Expiratory 5 Pressure Positive End Expiratory 5 Pressure Positive End Expiratory 5 Pressure Positive End Expiratory 5 Pressure Positive End Expiratory 5 Pressure Peak Inspiratory Airway 31 Pressure Peak Inspiratory Airway 6.7 Pressure Peak Inspiratory Airway 9 Pressure Peak Inspiratory Airway 10 Pressure Results - Laboratory Findings CBC and BMP: 04/19/19 04:05 04/19/19 04:05 ABG ABG pH 7.16 pH Units (7.32-7.45) L* 04/19/19 04:50 ABG pCO2 59 mmHg (35-45) H 04/19/19 04:50 ABG pO2 63 mmHg (85-104) L 04/19/19 04:50 ABG O2 Saturation 84 % (95-98) L 04/19/19 04:50 PT/INR, D-dimer PT 11.9 Seconds (9.4-12.1) 04/13/19 12:32 Abnormal lab findings: Abnormal lab results WBC 21.1 K/mcL (4.3-11.1) H D 04/19/19 04:05 RBC 2.92 M/mcL (4.19-5.50) L 04/19/19 04:05 Hgb 9.4 g/dL (12.9-16.9) L 04/19/19 04:05 Hct 30.4 % (37.5-50.1) L 04/19/19 04:05 MCV 104.1 fL (83.0-100.0) H 04/19/19 04:05 MCHC 30.9 g/dL (31.6-35.5) L 04/19/19 04:05 RDW 16.4 % (11.5-14.5) H 04/19/19 04:05 Plt Count 119 K/mcL (140-400) L 04/18/19 04:15 Neutrophils # 18.7 K/mcL (1.6-8.9) H 04/19/19 04:05 Lymphocytes # 0.3 K/mcL (0.6-4.6) L 04/18/19 04:15 Monocytes # 1.4 K/mcL (0.0-1.3) H 04/19/19 04:05 Nucleated RBCs/100 WBC 0.2 /100 WBC (0) H 04/19/19 04:05 ABG pH 7.16 pH Units (7.32-7.45) L* 04/19/19 04:50 ABG pCO2 59 mmHg (35-45) H 04/19/19 04:50 ABG pO2 63 mmHg (85-104) L 04/19/19 04:50 ABG HCO3 19 mEq/L (21-27) L 04/16/19 04:57 ABG O2 Saturation 84 % (95-98) L 04/19/19 04:50 ABG Base Excess -8 mEq/L (-2 to 3) L 04/19/19 04:50 ABG Hematocrit 27.0 % (37.5-50.1) L 04/13/19 11:26 ABG Chloride 112 mEq/L (98-107) H 04/13/19 09:35 Glucose 112 mg/dL (60-95) H 04/13/19 11:26 Sodium 134 mEq/L (136-145) L 04/19/19 04:05 Potassium 6.2 mEq/L (3.5-5.1) H 04/19/19 04:05 Chloride 111 mEq/L (98-107) H 04/19/19 04:05 Carbon Dioxide 21 mEq/L (23-29) L 04/19/19 04:05 BUN 92 mg/dL (8-23) H 04/19/19 04:05 Creatinine 3.19 mg/dL (0.70-1.30) H 04/19/19 04:05 Est GFR ( Amer) 23 (> 60) L 04/19/19 04:05 Est GFR (Non-Af Amer) 19 (> 60) L 04/19/19 04:05 BUN/Creatinine Ratio 29 (6-26) H 04/19/19 04:05 Glucose 121 mg/dL (70-105) H 04/19/19 04:05 POC Glucose 105 mg/dL (70-99) H 04/19/19 00:02 Calculated Osmolality 308 (280-300) H 04/19/19 04:05 Calcium 8.5 mg/dL (8.6-10.3) L 04/18/19 04:15 Magnesium 3.1 mg/dL (1.6-2.6) H 04/19/19 04:05 Creatine Kinase 432 Units/L (30-223) H 04/16/19 03:47 Procalcitonin 0.90 ng/mL (0.00-0.15) H 04/15/19 16:30 Free T3 1.98 pg/mL (2.50-3.90) L 04/14/19 04:02 Arterial Blood Ionized Calcium 1.04 mmol/L (1.15-1.35) L 04/13/19 10:55 Urine Clarity Cloudy (Clear) A 04/15/19 10:04 Urine Protein 100 mg/dL (Neg-Trace) H 04/18/19 11:10 Urine Blood Large (Negative) H 04/18/19 11:10 Ur Leukocyte Esterase Small (Negative) H 04/18/19 11:10 Urine Microscopic RBC 15-30 per hpf (0-3) H 04/18/19 11:10 Urine Microscopic WBC 15-30 per hpf (0-3) H 04/18/19 11:10 Ur Squamous Epith Cells Many per lpf (None-Few) H 04/18/19 11:10 Granular Casts Few per lpf (None Seen) H 04/15/19 10:04 Ur Culture Indicated? YES (NO) A 04/18/19 11:10 Crossmatch See Detail 04/08/19 16:04 - Microbiology Findings Microbiology Findings: Microbiology, Last 48 Hours 04/18/19 11:10 Urine Culture - Preliminary Urine,[place] Culture is incubating. 07/31/19 13:20 Sputum Culture - Final Sputum - Clinical Findings Intake & Output: Intake & Output 04/18/19 04/18/19 04/19/19 15:59 23:59 07:59 Intake Total 974 / 2478 90 / 2478 500 / 500 Output Total 380 / 1590 762 / 1590 464 / 464 Balance 594 / 888 -672 / 888 36 / 36 Weight 92 kg - VTE Documentation of Mechanical Device: Graduated compression elastic hosiery Consult Discharge Plan - Plan [facility]errals: [facility] [Primary Care Provider] -
[2019-04-19] MEDS ORDERED: Insulin Human Regular 10 UNIT in 0.9 % Sodium Chloride 10 ML IV ONE (07:29)
[2019-04-19] MEDS ORDERED: *HR* Dextrose 50 % in Water (Syg) 50 ML SYRINGE IVP ONE (07:30)
[2019-04-19] MEDS: Budesonide/Formoterol 160/4.5 1 PUFF INH IH SCH ×2 (07:39→19:35)
[2019-04-19] MEDS: Aspirin 81 MG TAB.CHEW PO SCH (07:57)
[2019-04-19] MEDS: Furosemide 20 MG/2 ML VIAL IVP SCH (08:13)
[2019-04-19] MEDS: Docusate Oral Soln 100 MG/10 ML UDC GTUBE SCH ×2 (08:13→20:10)
[2019-04-19] MEDS: Chlorhexidine Rinse 15 ML MOUTHWASH MM SCH ×2 (08:13→20:10)
[2019-04-19] MEDS: Pantoprazole 40 MG VIAL IVP SCH (08:14)
[2019-04-19] MEDS: amLODIPine 5 MG TABLET GTUBE SCH (08:14)
[2019-04-19] MEDS: Nicotine 21 MG PATCH.TD24 TD SCH (08:14)
--- NOTE | 2019-04-19 10:08 | Cardiothoracic Progress Note ---
Date of Encounter: 04/19/19 Time of Encounter: 10:06 - Assessment and plan (1) Coronary artery disease Current Visit: No Status: Acute The patient remained hemodynamically stable overnight, although he remains intubated and relatively unresponsive. No significant change in his neurologic status. The assessment and plan as outlined above was discussed with the patient and/or family members who expressed understanding and agreement. All questions were answered. Qualifiers: Coronary Disease-Associated Artery/Lesion type: [place] artery [place] vs. transplanted heart: [place] heart Associated angina: with stable angina Qualified Code(s): I25.118 - Atherosclerotic heart disease of [place] coronary artery with other forms of angina pectoris - Subjective Procedure(s) Performed: POD#6 S/P CABG2 Interval history: The patient remained hemodynamically stable last night. He remains intubated. He is unresponsive without purposeful movement. Vital Signs, Last 4 Hours Temp Pulse Resp BP Pulse Ox 04/19/19 08:00 98.1 F 77 15 127/62 98 04/19/19 07:40 14 97 04/19/19 07:00 73 14 120/84 98 Oxgyen Flow Rate Oxygen Flow Rate (LPM) 15 Clinical Data, last 8 Hours Output, Chest Tube Drainage 0 Amount [Mediastinal #4] Output, Chest Tube Drainage 4 Amount [Mediastinal #4] Output, Chest Tube Drainage 0 Amount [Mediastinal #3] Output, Chest Tube Drainage 10 Amount [Mediastinal #3] Output, Chest Tube Drainage 0 Amount [Mediastinal #2] Output, Chest Tube Drainage 20 Amount [Mediastinal #2] Output, Chest Tube Drainage 10 Amount [Mediastinal #1] Output, Chest Tube Drainage 70 Amount [Mediastinal #1] Weight 04/17/19 04/18/19 04/19/19 23:59 23:59 23:59 Weight 92.6 kg 92 kg - Physical Examination General: Other (Intubated, sedated, unresponsive) Neck: No JVD, Normal carotid pulses Cardiac: Reg Rate and Rhythm, Normal S1 and S2, No Murmur Incision: No signs of infection, Dry/intact dressing Sternum: Stable Chest tubes: Minimal drainage, Other (No air leak) Pacing Wires: In place Lungs: Normal Breath Sounds, No Wheeze, Rales, Rhonchi Vascular: Normal capillary refill Extremities: No Clubbing, No Cyanosis, No Edema - Labs 04/19/19 04:05 04/19/19 04:05 Lab Results, Last 24 hours 04/18/19 04/19/19 04/19/19 04:15 04:05 04:05 WBC 21.1 H D Hgb 9.4 L Hct 30.4 L Plt Count 142 Sodium 137 134 L Potassium 5.0 6.2 H Chloride 108 H 111 H Carbon Dioxide 21 L 21 L BUN 75 H 92 H Creatinine 2.71 H 3.19 H Glucose 197 H 121 H Calcium 8.5 L 9.2 Magnesium 3.0 H 3.1 H - Imaging Chest Xray: image reviewed (Small left apical pneumothorax. Increased bilateral airspace opacities.) - VTE Documentation of Mechanical Device: Graduated compression elastic hosiery Consult Discharge Plan - Plan [facility]errals: [facility] [Primary Care Provider] -
--- NOTE | 2019-04-19 12:09 | Nephrology Progress Note ---
Date of Encounter: 04/19/19 Time of Encounter: 12:07 - Assessment and Plan (1) Acute kidney injury Current Visit: Yes Status: Acute The patient with acute kidney injury on chronic kidney disease. We were reconsulted for YOLANDA and hyperkalemia by Dr. Paris. Patient renal function went back to baseline, however, his renal function is now declining. He has developed significant hyperkalemia. He has been treated with medications. At the time of this dictation I am awaiting repeat labs. If he has not had significant improvement in his potassium level he may need urgent dialysis. His family was in the room so I discussed this with them. Will start supplemental intravenous bicarbonate for metabolic acidosis. Also discussed with Dr. Paris. I recommend adjusting medications for renal function and avoiding unnecessary nephrotoxic agents. The patient is critically ill and required 32 minutes of care. (2) Coronary artery disease of bypass graft of [place] heart with stable angina pectoris Current Visit: Yes Status: Acute per CT surgery (3) CKD (chronic kidney disease) stage 3, GFR 30-59 ml/min Current Visit: Yes Status: Acute (4) Acute on chronic respiratory failure with hypoxia and hypercapnia Current Visit: Yes Status: Acute (5) Encephalopathy Current Visit: Yes Status: Acute (6) Hyperkalemia Current Visit: Yes Status: Acute (7) Hypertension Current Visit: Yes Status: Acute Titrate blood pressure medications as needed Qualifiers: Qualified Code(s): I10 - Essential (primary) hypertension Subjective Principal diagnosis: Unresponsiveness, CVA Interval history: Patient seen and evaluated. He remains intubated and sedated. His review of systems is unobtainable. Family is at the bedside. Objective - Vital Signs Vital signs: Vital Signs Temp Pulse Resp BP Pulse Ox 04/19/19 11:00 77 14 141/67 99 04/19/19 10:00 77 14 141/64 99 04/19/19 09:55 14 100 04/19/19 09:00 78 14 131/57 97 04/19/19 08:00 98.1 F 77 15 127/62 98 04/19/19 07:40 14 97 04/19/19 07:00 73 14 120/84 98 04/19/19 06:00 74 14 133/65 93 04/19/19 05:10 72 04/19/19 05:08 18 128/72 95 04/19/19 05:00 75 16 128/72 92 04/19/19 04:50 98.5 F 04/19/19 04:00 80 14 147/85 91 04/19/19 03:46 17 90 04/19/19 03:00 74 21 148/58 93 04/19/19 02:00 75 21 151/66 94 04/19/19 01:21 16 136/64 95 04/19/19 01:00 71 21 126/61 93 04/19/19 00:48 98.1 F 04/19/19 00:40 73 04/19/19 00:00 71 17 136/64 93 04/18/19 23:19 17 125/58 94 04/18/19 23:00 70 14 125/58 93 04/18/19 22:00 73 16 151/65 94 04/18/19 21:41 18 162/77 94 04/18/19 21:00 80 22 147/63 96 04/18/19 20:59 98.5 F 04/18/19 20:40 71 04/18/19 20:00 74 16 150/62 95 04/18/19 19:48 21 141/65 95 04/18/19 19:00 75 16 145/68 94 04/18/19 18:00 78 19 153/70 94 04/18/19 17:00 81 20 169/66 94 04/18/19 16:00 88 18 101/76 95 04/18/19 15:55 19 94 04/18/19 15:54 19 102/81 94 04/18/19 15:00 98.7 F 81 19 83/68 94 04/18/19 14:00 81 20 81/71 96 04/18/19 13:00 87 19 77/48 94 Intake and Output 04/18/19 04/19/19 04/19/19 23:59 07:59 15:59 Intake Total 90 / 2478 640 / 650.1 10.1 / 650.1 Output Total 762 / 1590 464 / 574 110 / 574 Balance -672 / 888 176 / 76.1 -99.9 / 76.1 Intake: IV Fluids 90 / 1334 640 / 650.1 10.1 / 650.1 HumuLIN R 10 UNIT In 0.9 % 10.1 / 10.1 Sodium Chloride 10 ML @ 1212 mls/hr IV ONCE ONE Rx#: [id number] Amiodarone Drip Premix 360mg/ 200 / 200 200mL 360 mg In 200 ml @ 0.5 MG /MIN 16.667 mls/hr IVC [facility] Rx#:[id number] FentaNYL (PF) 1,000 MCG In 0.9 100 / 100 % Sodium Chloride 80 ML @ 50 MCG/HR 5 mls/hr IVC [facility] Rx #:[id number] Levophed 4 MG In Dextrose 5% 90 / 90 250 ML @ 8 MCG/MIN 30.48 mls/hr IVC [facility] Rx#:[id number] Diprivan 1,000 mg In 100 ml @ 100 / 100 20 MCG/KG/MIN 11.112 mls/hr IVC .Q9H [facility] Rx#:[id number] Maxipime 2,000 MG In Water for 40 / 40 inj. (sterile) 20 ML @ 300 mls/ hr IVP Q24H [facility] Rx#:[id number] Flexbumin 25 gm In 100 ml @ 60 200 / 200 mls/hr IVPB Q8H [facility] Rx#: [id number] Output: Catheter 690 / 1240 350 / 450 100 / 450 Chest Tube Drainage 72 / 350 114 / 124 10 / 124 Mediastinal #1 40 / 180 80 / 90 10 / 90 Mediastinal #2 20 / 90 20 / 20 0 / 20 Mediastinal #3 10 / 70 10 / 10 0 / 10 Mediastinal #4 2 / 10 4 / 4 0 / 4 Other: Weight 92 kg Blood Glucose* 102 116 121 Patient Weight 04/19/19 23:59 Weight 92 kg - General Appearance General appearance: Present: well-developed, well-nourished, sedated on ventilator, intubated EENT: Present: ATNC Neck: Present: supple Respiratory: Present: course breath sounds Cardiology: Present: regular rate Gastrointestinal: Present: no tenderness, obese Integumentary: Present: warm and dry Additional Comments: intubated Musculoskeletal: Present: no cyanosis Additional Comments: intubated - Lab 04/19/19 04:05 04/19/19 04:05 Most recent lab results 04/19/19 04/19/19 04:05 04:50 ABG pH 7.16 L* ABG pCO2 59 H ABG pO2 63 L ABG HCO3 21 ABG O2 Saturation 84 L Calcium 9.2 Magnesium 3.1 H - VTE Documentation of Mechanical Device: Graduated compression elastic hosiery Consult Discharge Plan - Plan [facility]errals: [facility] [Primary Care Provider] -
[2019-04-19] MEDS ORDERED: Sodium Bicarbonate 150 MEQ in D5% in Water 1,000 ML IVC SCH ×2 (12:15→16:15)
[2019-04-19] MEDS: Norepinephrine 4 MG in D5% in Water 250 ML IVC SCH (13:15)
--- NOTE | 2019-04-19 13:37 | Event Note ---
Date of Encounter: 04/19/19 Time of Encounter: 13:34 Critical care attending goals of care discussion: I discussed goals of care with the patient's brother/POA and the patient's significant other. The patient has had a devastating CVA with poor neurologic prognosis. They expressed understanding of this. I discussed that aggressive care would include tracheostomy tube and PEG tube placement with likely long-term ventilator support and nursing care. The patient's brother and the patient's partner were both in agreement that aggr essive care with trach and PEG were not in accordance with the patient's wishes. They requested that his CODE STATUS be changed to DNR CCA. They are going to further discuss with other family members, and then get back to us regarding compassionate extubation and change of CODE STATUS to DNR CC.
--- NOTE | 2019-04-19 13:56 | Neurology Progress Note ---
Date of Encounter: 04/19/19 Time of Encounter: 09:40 Assessment and Plan (1) Acute CVA (cerebrovascular accident) Current Visit: Yes Status: Acute Carotid Duplex showing right carotid stenosis which may explain patients watershed infarcts. Patient sedated at time of evaluation making neurological evaluation unreliable. Continue medical management and weaning from sedation as appropriate to allow further neurological assessment. Subjective Principal diagnosis: Unresponsiveness, CVA Interval history: Patient was unsresponsive today during interview.Staff reports weaning had been attempted from sedation but patient was unable to tolerate as he was gagging on his tube. He did not respond to painful stimuli. He had no purposeful or spontaenous movement. His gaze was fixed and left lateral. Objective - Constitutional Vitals: Temp Pulse Resp BP Pulse Ox 98.1 F 77 14 141/67 99 04/19/19 08:00 04/19/19 11:00 04/19/19 11:00 04/19/19 11:00 04/19/19 11:00 - Neurological Exam Sensorimotor examination: Present: flaccid paralysis, other (Unable to assess due to sedation) Motor Examination: Present: other (No spontaneous movements noted, Flaccid paralysed. ) Sensation intact: Present: other (patient unresponsive to painful stimuli at time of examination) Reflex and gait examination: other (Not tested) Mental Status Examination: Present: does not follow commands, no spontaneous eye opening to voice or tactile stimulation Cranial nerve examination: Present: PERRL (Pupiles are midline 3mm in sizes slowly reactive. Positive oculocephalic reflex noted), EOMI (Positive oculocephalic reflex), visual elizondo intact (Unable to assess), corneal reflexes brisk symmetrically (Not responding to visual threat today), no facial asymmetry is present, no atrophy or facial fasiculations present Cranial Nerve Exam: pupil sluggish to react to light: Right, nystagmus: Left - VTE Documentation of Mechanical Device: Graduated compression elastic hosiery Results - Laboratory Findings CBC and BMP: 04/19/19 04:05 04/19/19 13:53 Abnormal lab findings: Abnormal lab results WBC 21.1 K/mcL (4.3-11.1) H D 04/19/19 04:05 RBC 2.92 M/mcL (4.19-5.50) L 04/19/19 04:05 Hgb 9.4 g/dL (12.9-16.9) L 04/19/19 04:05 Hct 30.4 % (37.5-50.1) L 04/19/19 04:05 MCV 104.1 fL (83.0-100.0) H 04/19/19 04:05 MCHC 30.9 g/dL (31.6-35.5) L 04/19/19 04:05 RDW 16.4 % (11.5-14.5) H 04/19/19 04:05 Plt Count 119 K/mcL (140-400) L 04/18/19 04:15 Neutrophils # 18.7 K/mcL (1.6-8.9) H 04/19/19 04:05 Lymphocytes # 0.3 K/mcL (0.6-4.6) L 04/18/19 04:15 Monocytes # 1.4 K/mcL (0.0-1.3) H 04/19/19 04:05 Nucleated RBCs/100 WBC 0.2 /100 WBC (0) H 04/19/19 04:05 ABG pH 7.16 pH Units (7.32-7.45) L* 04/19/19 04:50 ABG pCO2 59 mmHg (35-45) H 04/19/19 04:50 ABG pO2 63 mmHg (85-104) L 04/19/19 04:50 ABG HCO3 19 mEq/L (21-27) L 04/16/19 04:57 ABG O2 Saturation 84 % (95-98) L 04/19/19 04:50 ABG Base Excess -8 mEq/L (-2 to 3) L 04/19/19 04:50 ABG Hematocrit 27.0 % (37.5-50.1) L 04/13/19 11:26 ABG Chloride 112 mEq/L (98-107) H 04/13/19 09:35 Glucose 112 mg/dL (60-95) H 04/13/19 11:26 Sodium 134 mEq/L (136-145) L 04/19/19 04:05 Potassium 6.2 mEq/L (3.5-5.1) H 04/19/19 04:05 Chloride 111 mEq/L (98-107) H 04/19/19 04:05 Carbon Dioxide 21 mEq/L (23-29) L 04/19/19 04:05 BUN 92 mg/dL (8-23) H 04/19/19 04:05 Creatinine 3.19 mg/dL (0.70-1.30) H 04/19/19 04:05 Est GFR ( Amer) 23 (> 60) L 04/19/19 04:05 Est GFR (Non-Af Amer) 19 (> 60) L 04/19/19 04:05 BUN/Creatinine Ratio 29 (6-26) H 04/19/19 04:05 Glucose 121 mg/dL (70-105) H 04/19/19 04:05 POC Glucose 105 mg/dL (70-99) H 04/19/19 00:02 Calculated Osmolality 308 (280-300) H 04/19/19 04:05 Calcium 8.5 mg/dL (8.6-10.3) L 04/18/19 04:15 Magnesium 3.1 mg/dL (1.6-2.6) H 04/19/19 04:05 Creatine Kinase 432 Units/L (30-223) H 04/16/19 03:47 Procalcitonin 0.90 ng/mL (0.00-0.15) H 04/15/19 16:30 Free T3 1.98 pg/mL (2.50-3.90) L 04/14/19 04:02 Arterial Blood Ionized Calcium 1.04 mmol/L (1.15-1.35) L 04/13/19 10:55 Urine Clarity Cloudy (Clear) A 04/15/19 10:04 Urine Protein 100 mg/dL (Neg-Trace) H 04/18/19 11:10 Urine Blood Large (Negative) H 04/18/19 11:10 Ur Leukocyte Esterase Small (Negative) H 04/18/19 11:10 Urine Microscopic RBC 15-30 per hpf (0-3) H 04/18/19 11:10 Urine Microscopic WBC 15-30 per hpf (0-3) H 04/18/19 11:10 Ur Squamous Epith Cells Many per lpf (None-Few) H 04/18/19 11:10 Granular Casts Few per lpf (None Seen) H 04/15/19 10:04 Ur Culture Indicated? YES (NO) A 04/18/19 11:10 Crossmatch See Detail 04/08/19 16:04 Consult Discharge Plan - Plan [facility]errals: [facility] [Primary Care Provider] -
[2019-04-19 14:42] LABS: Calcium 8.8 mg/dL (8.6-10.3); Potassium 5.5 mEq/L (3.5-5.1)
--- NOTE | 2019-04-19 15:03 | Electrocardiograph Report ---
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
[2019-04-19] MEDS: *HR* Heparin 5,000 UNIT/ML VIAL SQ SCH (17:16)
[2019-04-19] MEDS: Insulin DETEMIR 100 UNIT/ML X5UNITS SQ SCH (20:13)
[2019-04-20] MEDS: Insulin LISPRO 300 UNITS/3 ML VIAL SQ SCH ×7 (01:28→23:49)
[2019-04-20] MEDS: Artificial Tears SOLN 15 ML BOTTLE BOTH EYES SCH ×7 (01:28→23:49)
[2019-04-20] MEDS: niCARdipine 20 MG/200 ML MLS IVC SCH ×7 (01:29→23:49)
[2019-04-20] MEDS: Ipratropium/Albuterol Neb 3 ML IH SCH ×5 (03:52→19:54)
[2019-04-20] MEDS: Amiodarone Premix 360 MG/200 ML BAG IVC SCH ×2 (04:09→16:06)
[2019-04-20 04:33] LABS: ABG Base Excess -3 mEq/L (-2 to 3); ABG HCO3 24 mEq/L (21-27); ABG Oxygen Saturation 95 % (95-98); ABG PCO2 53 mmHg (35-45); ABG PH 7.27 pH Units (7.32-7.45); ABG PO2 87 mmHg (85-104); ABG TCO2 26 mEq/L (20-26); Blood Gas Modality ASSIST CONTROL; Blood Gas PEEP 5 cm H2O; Blood Gas VT 500 cc
[2019-04-20] MEDS: Cefepime HCl 2,000 MG in Water for inj. (sterile) 20 ML IVP SCH (06:17)
[2019-04-20] MEDS: Albumin 25% 25gram/100mL 25 GM/100 ML IV.SOLN IVPB SCH ×3 (06:18→20:26)
[2019-04-20] MEDS: *HR* Heparin 5,000 UNIT/ML VIAL SQ SCH ×2 (06:25→18:14)
[2019-04-20] MEDS: Budesonide/Formoterol 160/4.5 1 PUFF INH IH SCH ×2 (07:35→19:54)
[2019-04-20] MEDS: Nitroglycerin 25 MG/250 ML INFUS..BTL IVC SCH ×2 (08:15→16:04)
[2019-04-20] MEDS: Norepinephrine 4 MG in D5% in Water 250 ML IVC SCH (08:16)
[2019-04-20] MEDS: amLODIPine 5 MG TABLET GTUBE SCH (08:16)
[2019-04-20] MEDS: Nicotine 21 MG PATCH.TD24 TD SCH (08:43)
[2019-04-20] MEDS: Chlorhexidine Rinse 15 ML MOUTHWASH MM SCH ×2 (08:44→20:26)
[2019-04-20] MEDS: Pantoprazole 40 MG VIAL IVP SCH (08:44)
[2019-04-20] MEDS: Docusate Oral Soln 100 MG/10 ML UDC GTUBE SCH ×2 (08:44→20:26)
[2019-04-20] MEDS: Furosemide 20 MG/2 ML VIAL IVP SCH (08:44)
[2019-04-20] MEDS: Aspirin 81 MG TAB.CHEW PO SCH (08:44)
[2019-04-20 09:03] LABS: Basophils % 0.1 %; Hematocrit 29.2 % (37.5-50.1); Hemoglobin 8.9 g/dL (12.9-16.9); Immature Granulocytes % 2.2 % (0-4); Lymphocytes # 0.9 K/mcL (0.6-4.6); Lymphocytes % 6.3 %; Mean Corpuscular HGB Conc 30.5 g/dL (31.6-35.5); Mean Corpuscular Hemoglobin 32.2 pg (28.0-33.3); Mean Corpuscular Volume 105.8 fL (83.0-100.0); Mean Platelet Volume 11.6 fL (9.4-12.4); Monocytes % 13.3 %; Neutrophils # 11.6 K/mcL (1.6-8.9); Nucleated Red Blood Cells 0.1 /100 WBC (0); Red Blood Count 2.76 M/mcL (4.19-5.50); Red Cell Distribution Width 16.2 % (11.5-14.5); Segmented Neutrophils % 78.1 %; White Blood Count 14.9 K/mcL (4.3-11.1)
[2019-04-20] MEDS: FentaNYL (PF) 1,000 MCG in 0.9 % Sodium Chloride 80 ML IVC SCH ×2 (09:13→19:15)
[2019-04-20 09:21] LABS: Calcium 8.7 mg/dL (8.6-10.3); Potassium 4.9 mEq/L (3.5-5.1)
[2019-04-20 09:42] LABS: Platelet Count 99 K/mcL (140-400); Platelet Estimate Decreased (Normal)
--- NOTE | 2019-04-20 12:42 | Pulmonology Progress Note ---
Date of Encounter: 04/20/19 Time of Encounter: 12:47 Assessment and Plan (1) Acute on chronic respiratory failure with hypoxia and hypercapnia Current Visit: Yes Status: Acute Mr. Lee underwent CABG on 04/13/29 Has history of underlying COPD with 4 pack per day smoking history Could not be weaned off ventilator This morning pH 7.27 with a CO2 of 53 Received Solu-Medrol for total 6 days Continue to adjust ventilator setting Continue scheduled DuoNeb and Symbicort (2) Pneumonia Current Visit: Yes Status: Suspected Mr. Lee is recovering status post CABG on 04/13/19 Continues to have low aeration bilateral lower lung lobes Repeat chest x-ray this morning shows worsening interstitial pulmonary opacification On cefepime continue for total 7 day therapy a 6 of 7 Qualifiers: Pneumonia type: due to unspecified organism Laterality: bilateral Lung location: lower lobe of lung Qualified Code(s): J18.1 - Lobar pneumonia, unspecified organism (3) Acute CVA (cerebrovascular accident) Current Visit: Yes Status: Acute On 04/14/19 patient could not be weaned off ventilator and was unresponsive to co mmands Overnight on 04/14/[address] of the head which subtle area of hyperattenuation right frontal lobe Had repeat CT had on 03/16/19 which showed hypodensity in right and left frontal lobe as well as posterior right parietal and cerebral hemisphere Patient still not responsive to verbal and physical Neurology following Had a family meeting yesterday and they changed CODE STATUS full code DNR CCA at this time (4) Acute kidney injury superimposed on CKD Current Visit: Yes Status: Acute Ongoing worsening renal function creatinine at presentation noted to be 1.70 this morning 3.62 Likely multifactorial secondary to decreased perfusion Nephrology consultation Nephrology consulted Continue to renally dose nephrotoxic agents IV bicarbonate ordered for metabolic acidosis (5) Atrial fibrillation Current Visit: Yes Status: Acute Was in A. fib with RVR on secondary to structural changes of the heart due to hypoxia and recent CVA Currently rate and rhythm controlled on amiodarone drip Qualifiers: Atrial fibrillation type: chronic Qualified Code(s): I48.2 - Chronic atrial fibrillation (6) COPD exacerbation Current Visit: Yes Status: Acute History of COPD patient is a 4 pack per day smoker Had worsening respiratory status status post CABG Received IV Solu-Medrol for 6 days Continue scheduled DuoNeb schedule Symbicort (7) S/P CABG (coronary artery bypass graft) Current Visit: Yes Status: Acute Underwent CABG on 04/13/19 due to unstable angina Chest tubes in place with no air leak Cardiothoracic surgery following Continue strict glucose management Continue pain control with fentanyl (8) Hyperkalemia Current Visit: Yes Status: Resolved Resolved. Potassium noted to be 4.9 today likely secondary to worsening renal function Received albuterol nebs, insulin with dextrose as well as Kayexalate yesterday (9) Heart failure with preserved ejection fraction Current Visit: Yes Status: Acute Echo on which showed EF of 60% and mild to moderate concentric LVH Underwent CABG on 04/13/19 Continue aspirin, statin and metoprolol Qualifiers: Heart failure chronicity: chronic Qualified Code(s): I50.32 - Chronic diastolic (congestive) heart failure (10) Goals of care, counseling/discussion Current Visit: Yes Status: Acute Had a family meeting yesterday to discuss further goals of care. His girlfriend and brother were in the room and they discussed that he would not want to continue life with being dependent on machines. Additionally they reported that he would not want CPR and would like to change his CODE STATUS from full code to at this time DNR CCA and transition to DNR CC once they feel comfortable to make that decision soon. Currently they want to keep him intubated and in case of cardiac arrest they do not want further interventions. (11) DVT prophylaxis Current Visit: Yes Status: Acute Heparin subcutaneous every 12 hours Subjective Principal diagnosis: Unresponsiveness, CVA Interval history: Mr. Lee was seen at bedside this morning. He was intubated and sedated. Was not responsive to any verbal or physical stimuli. Vitals were reviewed and he remained afebrile and normotensive overnight. Objective PUL Vital signs: Last Vital Signs Temp 97.5 F L 04/20/19 12:14 Pulse 69 04/20/19 10:00 Resp 14 04/20/19 11:39 BP 113/77 04/20/19 11:39 Pulse Ox 100 04/20/19 11:39 General appearance: no acute distress Eyes: nonicteric ENT: oropharynx moist Neck: supple Effort: normal Auscultation: bilateral: diminished breath sounds (lower lung bases) Cardiovascular: irregular rhythm, other (regular rate) Gastrointestinal: soft, non-tender, non-distended Integumentary: normal Extremities: no cyanosis, no edema Musculoskeletal: no deformities pupils equal and round, other (Not responsive to commands) Ventilator Settings Ventilator Settings: Ventilator Settings, Last 8 Hours Ventilator Tidal Volume 500 Setting Ventilator Tidal Volume 500 Setting Ventilator Tidal Volume 500 Setting Ventilator Tidal Volume 500 Setting Ventilator Tidal Volume 500 Setting Ventilator Tidal Volume 500 Setting Ventilator Tidal Volume 500 Setting Ventilator Respiratory Rate 14 Setting Ventilator Respiratory Rate 14 Setting Ventilator Respiratory Rate 14 Setting Ventilator Respiratory Rate 14 Setting Ventilator Respiratory Rate 14 Setting Ventilator Respiratory Rate 14 Setting Ventilator Respiratory Rate 14 Setting Actual Respiratory Rate 14 Actual Respiratory Rate 14 Actual Respiratory Rate 14 Actual Respiratory Rate 14 Actual Respiratory Rate 14 Actual Respiratory Rate 14 Actual Respiratory Rate 14 Positive End Expiratory 5 Pressure Positive End Expiratory 5 Pressure Positive End Expiratory 5 Pressure Positive End Expiratory 5 Pressure Positive End Expiratory 5 Pressure Positive End Expiratory 5 Pressure Positive End Expiratory 5 Pressure Peak Inspiratory Airway 38 Pressure Peak Inspiratory Airway 42 Pressure Peak Inspiratory Airway 38 Pressure Peak Inspiratory Airway 39 Pressure Peak Inspiratory Airway 35 Pressure Peak Inspiratory Airway 36 Pressure Peak Inspiratory Airway 36 Pressure Results - Laboratory Findings CBC and BMP: 04/20/19 08:51 04/20/19 08:51 ABG ABG pH 7.27 pH Units (7.32-7.45) L 04/20/19 04:31 ABG pCO2 53 mmHg (35-45) H 04/20/19 04:31 ABG pO2 87 mmHg (85-104) 04/20/19 04:31 ABG O2 Saturation 95 % (95-98) 04/20/19 04:31 PT/INR, D-dimer PT 11.9 Seconds (9.4-12.1) 04/13/19 12:32 Abnormal lab findings: Abnormal lab results WBC 14.9 K/mcL (4.3-11.1) H 04/20/19 08:51 RBC 2.76 M/mcL (4.19-5.50) L 04/20/19 08:51 Hgb 8.9 g/dL (12.9-16.9) L 04/20/19 08:51 Hct 29.2 % (37.5-50.1) L 04/20/19 08:51 MCV 105.8 fL (83.0-100.0) H 04/20/19 08:51 MCHC 30.5 g/dL (31.6-35.5) L 04/20/19 08:51 RDW 16.2 % (11.5-14.5) H 04/20/19 08:51 Plt Count 99 K/mcL (140-400) L 04/20/19 08:51 Neutrophils # 11.6 K/mcL (1.6-8.9) H 04/20/19 08:51 Lymphocytes # 0.3 K/mcL (0.6-4.6) L 04/18/19 04:15 Monocytes # 2.0 K/mcL (0.0-1.3) H 04/20/19 08:51 Nucleated RBCs/100 WBC 0.1 /100 WBC (0) H 04/20/19 08:51 Platelet Estimate Decreased (Normal) L 04/20/19 08:51 ABG pH 7.27 pH Units (7.32-7.45) L 04/20/19 04:31 ABG pCO2 53 mmHg (35-45) H 04/20/19 04:31 ABG pO2 63 mmHg (85-104) L 04/19/19 04:50 ABG HCO3 19 mEq/L (21-27) L 04/16/19 04:57 ABG O2 Saturation 84 % (95-98) L 04/19/19 04:50 ABG Base Excess -3 mEq/L (-2 to 3) L 04/20/19 04:31 ABG Hematocrit 27.0 % (37.5-50.1) L 04/13/19 11:26 ABG Chloride 112 mEq/L (98-107) H 04/13/19 09:35 Glucose 112 mg/dL (60-95) H 04/13/19 11:26 Sodium 134 mEq/L (136-145) L 04/19/19 04:05 Potassium 5.5 mEq/L (3.5-5.1) H 04/19/19 13:53 Chloride 111 mEq/L (98-107) H 04/19/19 04:05 Carbon Dioxide 21 mEq/L (23-29) L 04/19/19 13:53 BUN 108 mg/dL (8-23) H 04/20/19 08:51 Creatinine 3.62 mg/dL (0.70-1.30) H 04/20/19 08:51 Est GFR ( Amer) 20 (> 60) L 04/20/19 08:51 Est GFR (Non-Af Amer) 17 (> 60) L 04/20/19 08:51 BUN/Creatinine Ratio 30 (6-26) H 04/20/19 08:51 Glucose 121 mg/dL (70-105) H 04/20/19 08:51 POC Glucose 151 mg/dL (70-99) H 04/19/19 23:28 Calculated Osmolality 323 (280-300) H 04/20/19 08:51 Calcium 8.5 mg/dL (8.6-10.3) L 04/18/19 04:15 Magnesium 3.1 mg/dL (1.6-2.6) H 04/19/19 04:05 Creatine Kinase 432 Units/L (30-223) H 04/16/19 03:47 Procalcitonin 0.90 ng/mL (0.00-0.15) H 04/15/19 16:30 Free T3 1.98 pg/mL (2.50-3.90) L 04/14/19 04:02 Arterial Blood Ionized Calcium 1.04 mmol/L (1.15-1.35) L 04/13/19 10:55 Urine Clarity Cloudy (Clear) A 04/15/19 10:04 Urine Protein 100 mg/dL (Neg-Trace) H 04/18/19 11:10 Urine Blood Large (Negative) H 04/18/19 11:10 Ur Leukocyte Esterase Small (Negative) H 04/18/19 11:10 Urine Microscopic RBC 15-30 per hpf (0-3) H 04/18/19 11:10 Urine Microscopic WBC 15-30 per hpf (0-3) H 04/18/19 11:10 Ur Squamous Epith Cells Many per lpf (None-Few) H 04/18/19 11:10 Granular Casts Few per lpf (None Seen) H 04/15/19 10:04 Ur Culture Indicated? YES (NO) A 04/18/19 11:10 Crossmatch See Detail 04/08/19 16:04 - Microbiology Findings Microbiology Findings: Microbiology, Last 48 Hours 04/18/19 11:10 Urine Culture - Final Urine,[place] No growth. 04/14/19 10:57 Blood Culture - Final Peripheral Venipuncture No growth. Final report. 04/14/19 10:57 Blood Culture - Final Peripheral Venipuncture No growth. Final report. - Clinical Findings Intake & Output: Intake & Output 04/19/19 04/20/19 04/20/19 23:59 07:59 15:59 Intake Total 423.6 / 1373.7 1736.4 / 2136.4 400 / 2136.4 Output Total 720 / 1774 970 / 1200 230 / 1200 Balance -296.4 / -400.3 766.4 / 936.4 170 / 936.4 Weight 91.7 kg - VTE Documentation of Mechanical Device: Graduated compression elastic hosiery Consult Discharge Plan - Plan [facility]errals: [facility] [Primary Care Provider] -
--- NOTE | 2019-04-20 14:14 | Palliative - Consult Note ---
Date of Encounter: 04/20/19 Time of Encounter: 14:00 - Assessment and Plan (1) Generalized pain Current Visit: Yes Status: Acute Assessment and plan: Has Fentanyl infusion per Icu protocol. continue and monitor. Currently at 50 mcg/hr (2) Encephalopathy Current Visit: Yes Status: Acute (3) Goals of care, counseling/discussion Current Visit: Yes Status: Acute Assessment and plan: Met with patient's brother Ze Donaldson as well as his terminal system operator significant other of 46 years, Yovana. Yovana's son was also present. Discussed goals of care briefly. Family has been updated by ICU team on his clinical condition. They are still trying to reach the patient's daughter in [place], that has been estranged from him. They also are leaving to go to home to make arrangements. They know that patient would not want terminal system operator life support, and likely will decide to transition DNRCC - and liberate him from life prolonging devices within the next 24-48 hours. Will 'Follow (4) Heart failure with preserved ejection fraction Current Visit: Yes Status: Acute Qualifiers: Heart failure chronicity: chronic Qualified Code(s): I50.32 - Chronic diastolic (congestive) heart failure (5) S/P CABG (coronary artery bypass graft) Current Visit: Yes Status: Acute (6) Acute CVA (cerebrovascular accident) Current Visit: Yes Status: Acute Palliative-CN HPI - Data of Consult Consult date: 04/20/19 Requesting Physician: Erasto Bright Primary Care Provider: [facility] - Consult Narrative History of present illness: Mr. Lee is a 68 year old male who presented at [facility] for coronary artery bypass graft per Dr. Bright. He had presented to the [place] with jaw, arm, chest pain. Cardiac catheterization demonstrated severe multivessel disease. He had CABG on 04/13. Postoperatively, patient had unresponsiveness. Initial cT head did not demonstrate any acute findings, however, neurology consult performed and repeat imaging did demonstrate multiple infarcts. Carotid imaging was completed and at 60% right carotid stenosis. After several days, patient remains on the ventilator unable to communicate or follow commands. Meetiings have been held with patient's brother, EZ, and his terminal system operator significant other Yovana, and they had transition to DNR-Arrest. Past medical history includes: arthritis, asthma, CHF, COPD, coronary artery disease, hyperlipidemia, hypertension, kidney stones, myocardial infarction, RA, renal disease, PTSD Upon my visit, patient with eyes open and remains unresponsive. No response to painful stimuli or visual threat. Remains on ventilator. Vitals stable. Brother and Girlfriend at bedside. CC: Erasto Bright - Time Spent with Patient Time: Total time spent is greater than 50% in coordination of care (as documented) at patient's floor/unit and/or counseling patient: Past Med Surg Social Fam HX - Past Medical History Medical history: arthritis, asthma, CHF, COPD, coronary artery disease, hyperlipidemia, hypertension, kidney stones, myocardial infarction, RA, renal disease Additional medical history: home o2 2l n/c qhs Psychiatric history: depression, PTSD - Past Surgical History Additional surgical history: nose surgery, stents in heart, stents in legs - Social History Smoking Status: Current every day smoker Smokeless Tobacco Status: No Alcohol use: none Drug use: none Medications and Allergies Albuterol Sulfate [Proventil Hfa] 2 puff IH Q4-6H PRN 04/13/19 [History] Allopurinol [Zyloprim] 150 mg PO DAILY 04/13/19 [History] Aspirin 325 mg PO HS 04/13/19 [History] Budesonide/Formoterol 160/4.5 [Symbicort 160/4.5] 1 puff IH BIDR 04/13/19 [History] Cholecalciferol (Vitamin D3) [Vitamin D] 50,000 unit PO MOLINA 04/13/19 [History] Cyanocobalamin (Vitamin B-12) [Vitamin B-12] 1,000 mcg PO DAILY 04/13/19 [History] Diltiazem CD (24hr) [Cardizem CD] 240 mg PO DAILY 04/13/19 [History] Lisinopril [Zestril] 40 mg PO DAILY 04/13/19 [History] Montelukast [Singulair] 10 mg PO HS 04/13/19 [History] raNITIdine HCl [Zantac] 150 mg PO BID 04/13/19 [History] Allergy/AdvReac Type Severity Reaction Status Date / Time Sulfa (Sulfonamide Allergy Itching Verified 04/08/19 06:47 Antibiotics) ROS unobtainable: due to mental status Palliative Care-Exam - Constitutional Vitals: Temp Pulse Resp BP Pulse Ox 97.5 F L 70 14 137/66 98 04/20/19 12:14 04/20/19 12:00 04/20/19 13:25 04/20/19 13:25 04/20/19 13:25 General appearance: Present: no acute distress - Head Head Exam: Present: normal inspection, normocephalic - Neck Neck exam: Present: normal inspection - Respiratory Additional comments: Scattered rhonchi throughout anterior chest. Chest tubes x4 intact - Cardiovascular Cardiovascular exam: Present: irregular rhythm - GI/Abdominal Exam GI/Abdominal exam: Present: distended, soft - Catheter Type: Urethral ([place]) - Extremities Exam Extremities exam: Present: normal capillary refill, normal inspection - Neurological Exam Additional comments: Unresponsive to verbal stimuli, appears restless at times with assessment - Skin Skin exam: Present: dry, pallor, warm Additional comments: Dressing to medsternal incision D/I Internal Medicine - CN: Reslt - Labs CBC & Chem 7: 04/20/19 08:51 04/20/19 08:51 Labs: Short CBC 04/20/19 Range/Units 08:51 WBC 14.9 H (4.3-11.1) K/mcL Hgb 8.9 L (12.9-16.9) g/dL Hct 29.2 L (37.5-50.1) % Plt Count 99 L (140-400) K/mcL Neutrophils # 11.6 H (1.6-8.9) K/mcL BMP 04/19/19 04/20/19 13:53 08:51 Sodium 141 139 Potassium 5.5 H 4.9 Chloride 107 107 Carbon Dioxide 21 L 23 BUN 97 H 108 H Creatinine 3.26 H 3.62 H Glucose 166 H 121 H Calcium 8.8 8.7 - ABG Interpretation ABG results: ABG ABG pH 7.27 pH Units (7.32-7.45) L 04/20/19 04:31 ABG pCO2 53 mmHg (35-45) H 04/20/19 04:31 ABG pO2 87 mmHg (85-104) 04/20/19 04:31 ABG O2 Saturation 95 % (95-98) 04/20/19 04:31 PT/INR, D-dimer PT 11.9 Seconds (9.4-12.1) 04/13/19 12:32 Consult Discharge Plan - Plan Referrals: [facility] [Primary Care Provider] - Palliative Quality Palliative Quality: Screen for Code Status: Yes, Screen for Goals of Care: Yes, Screen for Pain: Yes, If Pain Regimen Started, Initiate Bowel Regimen: NA, Screen for Nausea/Vomitting: Yes Code Status: 04/13/19 07:47 Resuscitation Status: Active [RES] Stat Comment: Resuscitation Status: Full Code 04/19/19 13:35 DNR [Resuscitation Status: Active] [RES] Routine Comment: Resuscitation Status: DNR-Comfort Care 04/19/19 13:42 DNR [Resuscitation Status: Active] [RES] Routine Comment: Resuscitation Status: DNR-Comfort Care-Arrest
[2019-04-20] MEDS: Dexmedetomidine HCl 400 MCG/100 ML MLS IVC SCH (16:04)
[2019-04-20] MEDS: Insulin DETEMIR 100 UNIT/ML X5UNITS SQ SCH (20:36)
[2019-04-21] MEDS: Ipratropium/Albuterol Neb 3 ML IH SCH ×7 (00:25→23:59)
[2019-04-21] MEDS: Artificial Tears SOLN 15 ML BOTTLE BOTH EYES SCH ×6 (03:09→23:14)
[2019-04-21] MEDS: Nitroglycerin 25 MG/250 ML INFUS..BTL IVC SCH ×2 (03:09→12:21)
[2019-04-21] MEDS: niCARdipine 20 MG/200 ML MLS IVC SCH ×4 (03:10→14:06)
[2019-04-21] MEDS: Amiodarone Premix 360 MG/200 ML BAG IVC SCH ×2 (04:29→14:19)
[2019-04-21] MEDS: Insulin LISPRO 300 UNITS/3 ML VIAL SQ SCH ×6 (04:30→23:29)
[2019-04-21 05:11] LABS: ABG Base Excess -6 mEq/L (-2 to 3); ABG HCO3 22 mEq/L (21-27); ABG Oxygen Saturation 93 % (95-98); ABG PCO2 51 mmHg (35-45); ABG PH 7.24 pH Units (7.32-7.45); ABG PO2 79 mmHg (85-104); ABG TCO2 23 mEq/L (20-26); Blood Gas Modality AF; Blood Gas PEEP 5 cm H2O; Blood Gas VT 500 cc
[2019-04-21 05:32] LABS: Basophils % 0.1 %; Eosinophils % 0.1 %; Hematocrit 28.9 % (37.5-50.1); Immature Granulocytes % 2.2 % (0-4); Lymphocytes # 0.8 K/mcL (0.6-4.6); Lymphocytes % 5.1 %; Mean Corpuscular HGB Conc 31.1 g/dL (31.6-35.5); Mean Corpuscular Hemoglobin 32.7 pg (28.0-33.3); Mean Corpuscular Volume 105.1 fL (83.0-100.0); Mean Platelet Volume 11.6 fL (9.4-12.4); Monocytes # 1.3 K/mcL (0.0-1.3); Monocytes % 8.5 %; Neutrophils # 12.4 K/mcL (1.6-8.9); Nucleated Red Blood Cells 0.1 /100 WBC (0); Platelet Count 107 K/mcL (140-400); Red Blood Count 2.75 M/mcL (4.19-5.50); Red Cell Distribution Width 16.2 % (11.5-14.5); White Blood Count 14.8 K/mcL (4.3-11.1)
[2019-04-21 05:50] LABS: Calcium 8.7 mg/dL (8.6-10.3)
[2019-04-21] MEDS: FentaNYL (PF) 1,000 MCG in 0.9 % Sodium Chloride 80 ML IVC SCH ×2 (06:30→14:24)
[2019-04-21] MEDS: Albumin 25% 25gram/100mL 25 GM/100 ML IV.SOLN IVPB SCH ×3 (06:31→21:19)
[2019-04-21] MEDS: Cefepime HCl 2,000 MG in Water for inj. (sterile) 20 ML IVP SCH (06:31)
[2019-04-21] MEDS: *HR* Heparin 5,000 UNIT/ML VIAL SQ SCH ×2 (06:32→16:53)
--- NOTE | 2019-04-21 07:18 | Cardiothoracic Progress Note ---
Date of Encounter: 04/21/19 Time of Encounter: 06:59 - Assessment and plan (1) Coronary artery disease Current Visit: No Status: Acute The patient remains intubated and unresponsive. No significant change in his neurologic status. His condition continues to deteriorate. He is currently a DNR CCA and the family is considering terminal extubation within the next 1-2 days. The assessment and plan as outlined above was discussed with the patient and/or family members who expressed understanding and agreement. All questions were answered. Qualifiers: Coronary Disease-Associated Artery/Lesion type: sax[place] artery [place] vs. transplanted heart: saxman heart Associated angina: with stable angina Qualified Code(s): I25.118 - Atherosclerotic heart disease of saxman coronary artery with other forms of angina pectoris - Subjective Procedure(s) Performed: POD#7 S/P CABG2 Interval history: The patient remains intubated. He is unresponsive without purposeful movement. Vital Signs, Last 4 Hours Temp Pulse Resp BP Pulse Ox 04/21/19 07:00 65 18 124/58 100 04/21/19 06:00 64 14 108/53 100 04/21/19 05:13 19 118/70 100 04/21/19 05:00 65 14 115/53 100 04/21/19 04:00 97.7 F 68 15 128/64 100 04/21/19 03:41 14 114/54 100 Oxgyen Flow Rate Oxygen Flow Rate (LPM) 15 Clinical Data, last 8 Hours Output, Chest Tube Drainage 0 Amount [Mediastinal #4] Output, Chest Tube Drainage 0 Amount [Mediastinal #4] Output, Chest Tube Drainage 0 Amount [Mediastinal #4] Output, Chest Tube Drainage 0 Amount [Mediastinal #4] Output, Chest Tube Drainage 0 Amount [Mediastinal #3] Output, Chest Tube Drainage 0 Amount [Mediastinal #3] Output, Chest Tube Drainage 0 Amount [Mediastinal #3] Output, Chest Tube Drainage 0 Amount [Mediastinal #3] Output, Chest Tube Drainage 0 Amount [Mediastinal #2] Output, Chest Tube Drainage 0 Amount [Mediastinal #2] Output, Chest Tube Drainage 0 Amount [Mediastinal #1] Output, Chest Tube Drainage 0 Amount [Mediastinal #1] Weight 04/19/19 04/20/19 04/21/19 23:59 23:59 23:59 Weight 92 kg 91.7 kg - Physical Examination General: Other (Intubated and unresponsive) Neck: No JVD, Normal carotid pulses Cardiac: Normal S1 and S2, No Murmur, Other (Irregular rate and rhythm (atrial f ibrillation)) Incision: No signs of infection, Dry/intact dressing Sternum: Stable Chest tubes: Minimal drainage, Other (No air leak) Lungs: Other (Course breath sounds bilaterally) Extremities: No Clubbing, No Cyanosis, No Edema - Labs 04/21/19 05:00 04/21/19 05:00 Lab Results, Last 24 hours 04/20/19 04/20/19 04/21/19 08:51 08:51 05:00 WBC 14.9 H 14.8 H Hgb 8.9 L 9.0 L Hct 29.2 L 28.9 L Plt Count 99 L 107 L Sodium 139 Potassium 4.9 Chloride 107 Carbon Dioxide 23 BUN 108 H Creatinine 3.62 H Glucose 121 H Calcium 8.7 04/21/19 05:00 WBC Hgb Hct Plt Count Sodium 138 Potassium 5.0 Chloride 105 Carbon Dioxide 23 BUN 122 H Creatinine 3.96 H Glucose 156 H Calcium 8.7 - VTE Documentation of Mechanical Device: Graduated compression elastic hosiery Consult Discharge Plan - Plan Referrals: [facility] [Primary Care Provider] -
[2019-04-21] MEDS: Aspirin 81 MG TAB.CHEW PO SCH (07:25)
[2019-04-21] MEDS: Docusate Oral Soln 100 MG/10 ML UDC GTUBE SCH ×2 (07:25→21:18)
[2019-04-21] MEDS: Furosemide 20 MG/2 ML VIAL IVP SCH (07:25)
[2019-04-21] MEDS: Pantoprazole 40 MG VIAL IVP SCH (07:25)
[2019-04-21] MEDS: Chlorhexidine Rinse 15 ML MOUTHWASH MM SCH ×2 (07:25→21:18)
[2019-04-21] MEDS: Nicotine 21 MG PATCH.TD24 TD SCH (07:26)
[2019-04-21] MEDS: amLODIPine 5 MG TABLET GTUBE SCH (07:26)
[2019-04-21] MEDS: Budesonide/Formoterol 160/4.5 1 PUFF INH IH SCH ×2 (07:38→19:43)
--- NOTE | 2019-04-21 08:57 | Pulmonology Progress Note ---
Date of Encounter: 04/21/19 Time of Encounter: 08:00 Assessment and Plan (1) Encephalopathy Current Visit: Yes Status: Acute -consider secondary to embolic stroke in setting of CABG 2 post op day 1 with significant vascular atherosclerosis vs. infectious vs. delerium vs. uremia vs. medication effect -afebrile -lactic acid WNL. -blood cultures X2 04/14/19 oh growth final -EEG 04/14/19 : abnormal awake drowsy with nonspecific generalized slowing that c ould correlate with metabolic toxic encephalopathy - 04/14/19: 1st CT head showed possible subarachnoid hemorrhage versus artifact. A repeat head CT read as no definite acute intracranial hemorrhage and likely hyperdensity representing artifact. -Enteral feeds. Plan: CT head 04/16/19 showed likely developing infarcts in right and left frontal lobe, posterior right parietal lobe, and cerebellar hemispheres. Neurology reports no regaining of consciousness even without sedation. Family desires palliative extubation Friday. (2) Acute CVA (cerebrovascular accident) Current Visit: Yes Status: Acute -CT 04/16/19 as above. -Neurology following as above Plan: No aggressive intervention as family desires palliative extubation Friday (3) Acute on chronic respiratory failure with hypoxia and hypercapnia Current Visit: Yes Status: Acute Background -Consider secondary to intraoperative sedation vs. possible pneumonia vs. pulmonary edema -Patient currently on the ventilator. Labs -ABG shows hypercapnia improving. Respiratory acidosis. Reports -Morning CXR read as small pleural effusions with interval improvement of mild pulmonary edema -MRSA swab negative Plan: Propofol and fentanyl. Morning CXR. Follow ABGs. Cefepime day 03/21 renal dosed. Family desires palliative extubation Friday. (4) Hospital acquired PNA Current Visit: Yes Status: Acute -As seen on chest x-ray 04/15/19 -Suspected -Antibiotics as above (5) COPD exacerbation Current Visit: Yes Status: Acute -Likely secondary to intraoperative stress -2-3 pack per day active smoker. -ABG as above -CXR as above Plan: Failure of liberation from ventilator. Received Solu-Medrol for total 6 days. Duo nebs every 4 hours scheduled. Symbicort 160/4.52 puffs twice a day scheduled. Albuterol sulfate every 4 when necessary. Follow ABG's. Morning CXR. (6) S/P coronary artery bypass graft x 2 Current Visit: Yes Status: Acute -Operation performed by Dr. Bright 04/13/19. Estimated blood loss 0.5 L. -Patient's initial presenting symptoms included unstable angina. -Left internal mammary artery was connected to the LAD and the left great saphenous vein was connected to the obtuse marginal branch #2 of circumflex. 04/08/19 studies: -carotid Doppler ultrasound that showed nonstenotic plaque bilaterally. -Echo showed left ventricular ejection fraction of 60% with mild to moderate concentric left ventricular hypertrophy as well as left ventricular diastolic dysfunction, [id number] mitral regurgitation, mild tricuspid regurgitation, mild pulmonary hypertension. -Nuclear stress test showed moderate anterior lateral ischemia on perfusion study. -Cardiac catheterization revealed severe multi-vessel disease in the LCA, LAD, circumflex, and RCA. -Cefazolin 6g given -albumin 37.5 g given. Plan: Postop day 8. Pain control with fentanyl and propofol. Percocet also available. Glucose management with high-dose sliding scale. Remove chest tubes at cardiology's discretion. Monitor for postop complications. Condition deteriorating. (7) Atrial fibrillation Current Visit: Yes Status: Acute Background -with rapid ventricular rate -consider 2/2 ischemia, structural changes of the heart, pulmonary disease, hypoxia, CVA -Search of records and interview with patient's significant other has not shown prior history although patient was on home calcium channel taryn. -[id number] 4.8% stroke risk per year. HAS-BLED shows moderate risk of major bleeding with aspirin use and age greater than 65. No recent INR on record. Lab -A1c 5.8 -Echo and CXR as above -TSH, free T3/T4 unremarkable Plan: Rhythm control with amiodarone drip. Pacer wire in place Qualifiers: Atrial fibrillation type: unspecified Qualified Code(s): I48.91 - Unspecified atrial fibrillation (8) Heart failure with preserved ejection fraction Current Visit: Yes Status: Acute -Likely secondary to chronic hypertension and atherosclerosis as well as valvular disease and ischemia. -04/08/19 Echo showed left ventricular ejection fraction of 60% with mild to mod erate concentric left ventricular hypertrophy as well as left ventricular diastolic dysfunction, [id number] mitral regurgitation, mild tricuspid regurgitation, mild pulmonary hypertension. -CABG as above. -recent blood pressures adequate Plan: ASA. Statin. Would consider future beta taryn therapy for cardioprotection pending hospital course. Qualifiers: Heart failure chronicity: chronic Qualified Code(s): I50.32 - Chronic diast olic (congestive) heart failure (9) Coronary artery disease Current Visit: No Status: Acute -Likely secondary to history of smoking and Western diet -Catheterization results as above Plan: Atorvastatin 80. Nitroglycerin. Calcium channel taryn Qualifiers: Coronary Disease-Associated Artery/Lesion type: platinum artery [place] vs. transplanted heart: platinum heart Associated angina: with stable angina Qualified Code(s): I25.118 - Atherosclerotic heart disease of platinum coronary artery with other forms of angina pectoris (10) Acute kidney injury Current Visit: Yes Status: Acute Background -Consider secondary to poor perfusion in the setting of post-CABG and soft blood pressures. -on CKD IV -KDIGO: 04/14/19 Cr 2.48 from 1.82. Plan: Albumin given. Will consider urine studies pending clinical course. Monitor urine output. Nephrology consulted and suspects return to baseline and recommends outpatient follow-up. IV bicarbonate ordered on 04/19/19 for metabolic acidosis. (11) CKD (chronic kidney disease) stage 3, GFR 30-59 ml/min Current Visit: Yes Status: Acute -Chronic -Presurgical creatinine 1.8. Plan: YOLANDA as above. Renal dosing of medications. Avoid nephrotoxins. Monitor urine output. Follow-up with nephrology outpatient. (12) Leukocytosis Current Visit: Yes Status: Acute -Likely infectious versus stress reaction to operation as well as steroid therapy -afebrile Qualifiers: Qualified Code(s): D72.829 - Elevated white blood cell count, unspecified (13) Postoperative anemia due to acute blood loss Current Visit: Yes Status: Acute -Normocytic, stable Plan: Continue to monitor for signs of bleed. Serial CBCs. (14) Goals of care, counseling/discussion Current Visit: Yes Status: Acute -Family has decided to palliative extubate on Friday afternoon. (15) DVT prophylaxis Current Visit: Yes Status: Acute Subcutaneous heparin Subjective Principal diagnosis: Unresponsiveness, CVA Interval history: No acute events overnight per nursing staff. Patient intubated and sedated Objective PUL Vital signs: Last Vital Signs Temp 97.8 F 04/21/19 07:20 Pulse 63 04/21/19 08:00 Resp 14 04/21/19 08:00 BP 121/59 04/21/19 08:00 Pulse Ox 100 04/21/19 08:00 Gen.: Elderly male. Intubated and sedated Skin: Good turgor. No obvious facial rash Eyes: Moist. Reactive to light Neck: No obvious JVD but complicated by obesity. No carotid bruits Cardiac: Regular rate and rhythm. No murmur gallop or rub Respiratory: Anterior crackles and right lower lobe. Coarse rhonchi/grunting and upper elizondo anteriorly. Distant left lower field lung sounds anteriorly. Abdominal: Distended. Hyperactive bowel sounds Extremities: Capillary refill less than 2 seconds bilateral upper shoulders. Bilateral pitting edema reaching to almost tibial tuberosity bilaterally. Neuro: Sohail 6. Ventilator Settings Ventilator Settings: Ventilator Settings, Last 8 Hours Ventilator Tidal Volume 500 Setting Ventilator Tidal Volume 500 Setting Ventilator Tidal Volume 500 Setting Ventilator Tidal Volume 500 Setting Ventilator Tidal Volume 500 Setting Ventilator Tidal Volume 500 Setting Ventilator Tidal Volume 500 Setting Ventilator Tidal Volume 500 Setting Ventilator Tidal Volume 500 Setting Ventilator Tidal Volume 500 Setting Ventilator Tidal Volume 500 Setting Ventilator Tidal Volume 500 Setting Ventilator Tidal Volume 500 Setting Ventilator Respiratory Rate 14 Setting Ventilator Respiratory Rate 14 Setting Ventilator Respiratory Rate 14 Setting Ventilator Respiratory Rate 14 Setting Ventilator Respiratory Rate 14 Setting Ventilator Respiratory Rate 14 Setting Ventilator Respiratory Rate 14 Setting Ventilator Respiratory Rate 14 Setting Ventilator Respiratory Rate 14 Setting Ventilator Respiratory Rate 14 Setting Ventilator Respiratory Rate 14 Setting Ventilator Respiratory Rate 14 Setting Ventilator Respiratory Rate 14 Setting Actual Respiratory Rate 14 Actual Respiratory Rate 15 Actual Respiratory Rate 18 Actual Respiratory Rate 16 Actual Respiratory Rate 19 Actual Respiratory Rate 14 Actual Respiratory Rate 14 Actual Respiratory Rate 14 Actual Respiratory Rate 14 Actual Respiratory Rate 14 Actual Respiratory Rate 14 Actual Respiratory Rate 16 Positive End Expiratory 5 Pressure Positive End Expiratory 5 Pressure Positive End Expiratory 5 Pressure Positive End Expiratory 5 Pressure Positive End Expiratory 5 Pressure Positive End Expiratory 5 Pressure Positive End Expiratory 5 Pressure Positive End Expiratory 5 Pressure Positive End Expiratory 5 Pressure Positive End Expiratory 5 Pressure Positive End Expiratory 5 Pressure Positive End Expiratory 5 Pressure Positive End Expiratory 5 Pressure Peak Inspiratory Airway 38 Pressure Peak Inspiratory Airway 34 Pressure Peak Inspiratory Airway 37 Pressure Peak Inspiratory Airway 40 Pressure Peak Inspiratory Airway 37 Pressure Peak Inspiratory Airway 35 Pressure Peak Inspiratory Airway 46 Pressure Peak Inspiratory Airway 40 Pressure Peak Inspiratory Airway 36 Pressure Peak Inspiratory Airway 42 Pressure Peak Inspiratory Airway 44 Pressure Peak Inspiratory Airway 43 Pressure Results - Laboratory Findings CBC and BMP: 04/21/19 05:00 04/21/19 05:00 ABG ABG pH 7.24 pH Units (7.32-7.45) L 04/21/19 05:07 ABG pCO2 51 mmHg (35-45) H 04/21/19 05:07 ABG pO2 79 mmHg (85-104) L 04/21/19 05:07 ABG O2 Saturation 93 % (95-98) L 04/21/19 05:07 PT/INR, D-dimer PT 11.9 Seconds (9.4-12.1) 04/13/19 12:32 Abnormal lab findings: Abnormal lab results WBC 14.8 K/mcL (4.3-11.1) H 04/21/19 05:00 RBC 2.75 M/mcL (4.19-5.50) L 04/21/19 05:00 Hgb 9.0 g/dL (12.9-16.9) L 04/21/19 05:00 Hct 28.9 % (37.5-50.1) L 04/21/19 05:00 MCV 105.1 fL (83.0-100.0) H 04/21/19 05:00 MCHC 31.1 g/dL (31.6-35.5) L 04/21/19 05:00 RDW 16.2 % (11.5-14.5) H 04/21/19 05:00 Plt Count 107 K/mcL (140-400) L 04/21/19 05:00 Neutrophils # 12.4 K/mcL (1.6-8.9) H 04/21/19 05:00 Lymphocytes # 0.3 K/mcL (0.6-4.6) L 04/18/19 04:15 Monocytes # 2.0 K/mcL (0.0-1.3) H 04/20/19 08:51 Nucleated RBCs/100 WBC 0.1 /100 WBC (0) H 04/21/19 05:00 Platelet Estimate Decreased (Normal) L 04/20/19 08:51 ABG pH 7.24 pH Units (7.32-7.45) L 04/21/19 05:07 ABG pCO2 51 mmHg (35-45) H 04/21/19 05:07 ABG pO2 79 mmHg (85-104) L 04/21/19 05:07 ABG HCO3 19 mEq/L (21-27) L 04/16/19 04:57 ABG O2 Saturation 93 % (95-98) L 04/21/19 05:07 ABG Base Excess -6 mEq/L (-2 to 3) L 04/21/19 05:07 ABG Hematocrit 27.0 % (37.5-50.1) L 04/13/19 11:26 ABG Chloride 112 mEq/L (98-107) H 04/13/19 09:35 Glucose 112 mg/dL (60-95) H 04/13/19 11:26 Sodium 134 mEq/L (136-145) L 04/19/19 04:05 Potassium 5.5 mEq/L (3.5-5.1) H 04/19/19 13:53 Chloride 111 mEq/L (98-107) H 04/19/19 04:05 Carbon Dioxide 21 mEq/L (23-29) L 04/19/19 13:53 BUN 122 mg/dL (8-23) H 04/21/19 05:00 Creatinine 3.96 mg/dL (0.70-1.30) H 04/21/19 05:00 Est GFR ( Amer) 18 (> 60) L 04/21/19 05:00 Est GFR (Non-Af Amer) 15 (> 60) L 04/21/19 05:00 BUN/Creatinine Ratio 31 (6-26) H 04/21/19 05:00 Glucose 156 mg/dL (70-105) H 04/21/19 05:00 POC Glucose 128 mg/dL (70-99) H 04/20/19 23:35 Calculated Osmolality 328 (280-300) H 04/21/19 05:00 Calcium 8.5 mg/dL (8.6-10.3) L 04/18/19 04:15 Magnesium 3.1 mg/dL (1.6-2.6) H 04/19/19 04:05 Creatine Kinase 432 Units/L (30-223) H 04/16/19 03:47 Procalcitonin 0.90 ng/mL (0.00-0.15) H 04/15/19 16:30 Free T3 1.98 pg/mL (2.50-3.90) L 04/14/19 04:02 Arterial Blood Ionized Calcium 1.04 mmol/L (1.15-1.35) L 04/13/19 10:55 Urine Clarity Cloudy (Clear) A 04/15/19 10:04 Urine Protein 100 mg/dL (Neg-Trace) H 04/18/19 11:10 Urine Blood Large (Negative) H 04/18/19 11:10 Ur Leukocyte Esterase Small (Negative) H 04/18/19 11:10 Urine Microscopic RBC 15-30 per hpf (0-3) H 04/18/19 11:10 Urine Microscopic WBC 15-30 per hpf (0-3) H 04/18/19 11:10 Ur Squamous Epith Cells Many per lpf (None-Few) H 04/18/19 11:10 Granular Casts Few per lpf (None Seen) H 04/15/19 10:04 Ur Culture Indicated? YES (NO) A 04/18/19 11:10 Crossmatch See Detail 04/08/19 16:04 - Microbiology Findings Microbiology Findings: Microbiology, Last 48 Hours 04/18/19 11:10 Urine Culture - Final Urine,[place] No growth. 04/14/19 10:57 Blood Culture - Final Peripheral Venipuncture No growth. Final report. 04/14/19 10:57 Blood Culture - Final Peripheral Venipuncture No growth. Final report. - Clinical Findings Intake & Output: Intake & Output 04/20/19 04/21/19 04/21/19 23:59 07:59 15:59 Intake Total 1141 / 3914.4 1218 / 1318 100 / 1318 Output Total 784 / 2159 360 / 360 Balance 357 / 1755.4 858 / 958 100 / 958 - VTE Documentation of Mechanical Device: Graduated compression elastic hosiery Consult Discharge Plan - Plan [facility]errals: [facility] [Primary Care Provider] -
[2019-04-21] MEDS: Norepinephrine 4 MG in D5% in Water 250 ML IVC SCH (10:24)
[2019-04-21] MEDS: Dexmedetomidine HCl 400 MCG/100 ML MLS IVC SCH (14:06)
--- NOTE | 2019-04-21 14:29 | Event Note ---
Date of Encounter: 04/21/19 Time of Encounter: 13:45 Met with patient brother, Mendoza, Power of crusher machine operator. He states that family desires compassionate extubation on Friday afternoon. Discussed current clinical status, no change in neurological status. D/W Dr. Joseph and primary nurse Casey. Patient's girlfriend, Yovana did arrive later and is in agreement for Friday afternoon.
[2019-04-21] MEDS: Insulin DETEMIR 100 UNIT/ML X5UNITS SQ SCH (21:18)
[2019-04-22] MEDS: FentaNYL (PF) 1,000 MCG in 0.9 % Sodium Chloride 80 ML IVC SCH ×3 (01:50→21:51)
[2019-04-22] MEDS: Amiodarone Premix 360 MG/200 ML BAG IVC SCH ×3 (02:26→21:54)
[2019-04-22] MEDS: Artificial Tears SOLN 15 ML BOTTLE BOTH EYES SCH ×6 (03:51→23:05)
[2019-04-22] MEDS: Insulin LISPRO 300 UNITS/3 ML VIAL SQ SCH ×6 (03:51→23:04)
[2019-04-22] MEDS: Ipratropium/Albuterol Neb 3 ML IH SCH ×7 (03:54→23:35)
[2019-04-22 04:50] LABS: ABG Base Excess -5 mEq/L (-2 to 3); ABG HCO3 22 mEq/L (21-27); ABG Oxygen Saturation 94 % (95-98); ABG PCO2 51 mmHg (35-45); ABG PH 7.25 pH Units (7.32-7.45); ABG PO2 84 mmHg (85-104); ABG TCO2 24 mEq/L (20-26); Blood Gas Modality PRVC; Blood Gas PEEP 5 cm H2O; Blood Gas VT 500 cc
[2019-04-22] MEDS: Albumin 25% 25gram/100mL 25 GM/100 ML IV.SOLN IVPB SCH ×3 (04:52→20:14)
[2019-04-22] MEDS: *HR* Heparin 5,000 UNIT/ML VIAL SQ SCH ×2 (05:03→16:29)
[2019-04-22 05:12] LABS: Basophils % 0.1 %; Eosinophils # 0.1 K/mcL (0.0-0.6); Hematocrit 26.7 % (37.5-50.1); Hemoglobin 8.5 g/dL (12.9-16.9); Immature Granulocytes % 1.6 % (0-4); Lymphocytes # 0.7 K/mcL (0.6-4.6); Lymphocytes % 5.7 %; Mean Corpuscular HGB Conc 31.8 g/dL (31.6-35.5); Mean Corpuscular Hemoglobin 32.9 pg (28.0-33.3); Mean Corpuscular Volume 103.5 fL (83.0-100.0); Mean Platelet Volume 11.9 fL (9.4-12.4); Monocytes # 1.1 K/mcL (0.0-1.3); Monocytes % 8.4 %; Neutrophils # 10.7 K/mcL (1.6-8.9); Nucleated Red Blood Cells 0.2 /100 WBC (0); Platelet Count 101 K/mcL (140-400); Red Blood Count 2.58 M/mcL (4.19-5.50); Red Cell Distribution Width 15.9 % (11.5-14.5); Segmented Neutrophils % 83.2 %; White Blood Count 12.8 K/mcL (4.3-11.1)
[2019-04-22 05:27] LABS: Calcium 8.1 mg/dL (8.6-10.3); Potassium 4.7 mEq/L (3.5-5.1)
--- NOTE | 2019-04-22 06:58 | Pulmonology Progress Note ---
Date of Encounter: 04/22/19 Time of Encounter: 06:49 Assessment and Plan (1) Encephalopathy Current Visit: Yes Status: Acute -consider secondary to embolic stroke in setting of CABG 2 post op day 1 with significant vascular atherosclerosis vs. infectious vs. delerium vs. uremia vs. medication effect -afebrile -lactic acid WNL. -blood cultures X2 04/14/19 oh growth final -EEG 04/14/19 : abnormal awake drowsy with nonspecific generalized slowing that c ould correlate with metabolic toxic encephalopathy - 04/14/19: 1st CT head showed possible subarachnoid hemorrhage versus artifact. A repeat head CT read as no definite acute intracranial hemorrhage and likely hyperdensity representing artifact. -Enteral feeds. -CT head 04/16/19 showed likely developing infarcts in right and left frontal lobe, posterior right parietal lobe, and cerebellar hemispheres. Plan: Neurology reports no regaining of consciousness even without sedation. Family desires palliative extubation Friday. (2) Acute CVA (cerebrovascular accident) Current Visit: Yes Status: Acute -CT 04/16/19 as above. -Neurology following as above Plan: No aggressive intervention at this time. family desires palliative extubation Friday (3) Acute on chronic respiratory failure with hypoxia and hypercapnia Current Visit: Yes Status: Acute Background -Consider secondary to intraoperative sedation vs. possible pneumonia vs. pulm onary edema -Patient currently on the ventilator. Reports -Morning CXR shows relative worsening of Right airspace opacities with probable b/l pleural effusions. -MRSA swab negative -Cefepime 7 days completed. Plan: ABG shows stable hypercapnia. Respiratory acidosis. Concomitant metabolic acidosis likely from kidney failure. Proper compensated bicarbonate should be around 28. Propofol and fentanyl. Family desires palliative extubation Friday. (4) Hospital acquired PNA Current Visit: Yes Status: Acute -As seen on chest x-ray 04/15/19 -Suspected -Antibiotics completed as above (5) COPD exacerbation Current Visit: Yes Status: Acute -Likely secondary to intraoperative stress -2-3 pack per day active smoker. -ABG as above -CXR as above -Received Solu-Medrol for total 6 days. Plan: Failure of liberation from ventilator. Duo nebs every 4 hours scheduled. Symbicort 160/4.5 2 puffs twice a day scheduled. Albuterol sulfate every 4 when necessary. (6) S/P coronary artery bypass graft x 2 Current Visit: Yes Status: Acute -Operation performed by Dr. Bright 04/13/19. Estimated blood loss 0.5 L. -Patient's initial presenting symptoms included unstable angina. -Left internal mammary artery was connected to the LAD and the left great saphenous vein was connected to the obtuse marginal branch #2 of circumflex. 04/08/19 studies: -carotid Doppler ultrasound that showed nonstenotic plaque bilaterally. -Echo showed left ventricular ejection fraction of 60% with mild to moderate concentric left ventricular hypertrophy as well as left ventricular diastolic dysfunction, [id number] mitral regurgitation, mild tricuspid regurgitation, mild pulmonary hypertension. -Nuclear stress test showed moderate anterior lateral ischemia on perfusion study. -Cardiac catheterization revealed severe multi-vessel disease in the LCA, LAD, circumflex, and RCA. -Cefazolin 6g given -albumin given. Plan: Postop day 9. Pain control with fentanyl and propofol. Percocet also available. Glucose management with high-dose sliding scale. Remove chest tubes at cardiology's discretion. Condition deteriorating. (7) Atrial fibrillation Current Visit: Yes Status: Acute Background -with rapid ventricular rate -consider 2/2 ischemia, structural changes of the heart, pulmonary disease, hypoxia, CVA -Search of records and interview with patient's significant other has not shown prior history although patient was on home calcium channel taryn. -[id number] 4.8% stroke risk per year. HAS-BLED shows moderate risk of major bleeding with aspirin use and age greater than 65. No recent INR on record. Lab -A1c 5.8 -Echo and CXR as above -TSH, free T3/T4 unremarkable Plan: Amiodarone drip. Pacer wire in place Qualifiers: Atrial fibrillation type: unspecified Qualified Code(s): I48.91 - Unspecified atrial fibrillation (8) Heart failure with preserved ejection fraction Current Visit: Yes Status: Acute -Likely secondary to chronic hypertension and atherosclerosis as well as valvular disease and ischemia. -04/08/19 Echo showed left ventricular ejection fraction of 60% with mild to moderate concentric left ventricular hypertrophy as well as left ventricular diastolic dysfunction, [id number] mitral regurgitation, mild tricuspid regurgitation, mild pulmonary hypertension. -CABG as above. -recent blood pressures adequate Plan: ASA. Statin. Would consider future beta taryn therapy for cardioprotection however patient's family desires palliative extubation tomorrow. Qualifiers: Heart failure chronicity: chronic Qualified Code(s): I50.32 - Chronic diastolic (congestive) heart failure (9) Coronary artery disease Current Visit: No Status: Acute -Likely secondary to history of smoking and Western diet -Catheterization results as above Plan: Atorvastatin 80. Calcium channel taryn Qualifiers: Coronary Disease-Associated Artery/Lesion type: [place] artery [place] vs. transplanted heart: [place] heart Associated angina: with stable angina Qualified Code(s): I25.118 - Atherosclerotic heart disease of [place] coronary artery with other forms of angina pectoris (10) Acute kidney injury Current Visit: Yes Status: Acute Background -Consider secondary to poor perfusion in the setting of post-CABG and soft blood pressures. -on CKD IV -KDIGO: 04/14/19 Cr 2.48 from 1.82. Plan: Albumin given. Will consider urine studies pending clinical course. Monitor urine output. Nephrology consulted. IV bicarbonate given on 04/20/19 for metabolic acidosis. Kidney function continues to worsen and urgent dialysis was considered however family desires palliative extubation on Friday. (11) CKD (chronic kidney disease) stage 3, GFR 30-59 ml/min Current Visit: Yes Status: Acute -Chronic -Presurgical creatinine 1.8. Plan: YOLANDA as above. Renal dosing of medications. Avoid nephrotoxins. (12) Leukocytosis Current Visit: Yes Status: Acute -Likely infectious versus stress reaction to operation as well as steroid therapy -afebrile Qualifiers: Qualified Code(s): D72.829 - Elevated white blood cell count, unspecified (13) Postoperative anemia due to acute blood loss Current Visit: Yes Status: Acute -Normocytic -Has been relatively stable although did drop from 9.0-8.5 on 04/22/19 Plan: Palliative extubation to be performed 04/23/19 (14) Goals of care, counseling/discussion Current Visit: Yes Status: Acute -Family has decided to palliative extubate on Friday afternoon. (15) DVT prophylaxis Current Visit: Yes Status: Acute Subcutaneous heparin Subjective Principal diagnosis: Unresponsiveness, CVA Interval history: Nursing staff reports no acute events overnight. Patient intubated and sedated Objective PUL Vital signs: Last Vital Signs Temp 97.5 F L 04/22/19 04:00 Pulse 66 04/22/19 06:00 Resp 14 04/22/19 06:00 BP 94/50 04/22/19 06:00 Pulse Ox 98 04/22/19 06:00 Gen.: Elderly male. Intubated and sedated Skin: Poor turgor forehead. Bilateral upper extremity ecchymosis. Eyes: Moist. Reactive to light. Neck: No carotid bruits appreciated. No JVD appreciated become complicated by neck obesity. Cardiac: Irregular rhythm. Likely Regular rate. No murmurs gallops rubs auscultated. Respiratory: Inspiratory and expiratory low rhonchi throughout anterior elizondo. Slightly diminished in bases. GI: Obese. Chest tubes overlying. Extremities: Capillary refill less than 2 seconds bilateral upper extremities. Pitting edema to knee on the left and to just above the knee on the right. Neuro: Blanch 6. No purposeful movements or tremors noted. Ventilator Settings Ventilator Settings: Ventilator Settings, Last 8 Hours Ventilator Tidal Volume 500 Setting Ventilator Tidal Volume 500 Setting Ventilator Tidal Volume 500 Setting Ventilator Tidal Volume 500 Setting Ventilator Tidal Volume 500 Setting Ventilator Tidal Volume 500 Setting Ventilator Tidal Volume 500 Setting Ventilator Tidal Volume 500 Setting Ventilator Tidal Volume 500 Setting Ventilator Tidal Volume 500 Setting Ventilator Tidal Volume 500 Setting Ventilator Tidal Volume 500 Setting Ventilator Respiratory Rate 14 Setting Ventilator Respiratory Rate 14 Setting Ventilator Respiratory Rate 14 Setting Ventilator Respiratory Rate 14 Setting Ventilator Respiratory Rate 14 Setting Ventilator Respiratory Rate 14 Setting Ventilator Respiratory Rate 14 Setting Ventilator Respiratory Rate 14 Setting Ventilator Respiratory Rate 14 Setting Ventilator Respiratory Rate 14 Setting Ventilator Respiratory Rate 14 Setting Ventilator Respiratory Rate 14 Setting Actual Respiratory Rate 14 Actual Respiratory Rate 15 Actual Respiratory Rate 14 Actual Respiratory Rate 14 Actual Respiratory Rate 17 Actual Respiratory Rate 14 Actual Respiratory Rate 14 Actual Respiratory Rate 14 Actual Respiratory Rate 14 Actual Respiratory Rate 16 Actual Respiratory Rate 16 Positive End Expiratory 5 Pressure Positive End Expiratory 5 Pressure Positive End Expiratory 5 Pressure Positive End Expiratory 5 Pressure Positive End Expiratory 5 Pressure Positive End Expiratory 5 Pressure Positive End Expiratory 5 Pressure Positive End Expiratory 5 Pressure Positive End Expiratory 5 Pressure Positive End Expiratory 5 Pressure Positive End Expiratory 5 Pressure Positive End Expiratory 5 Pressure Peak Inspiratory Airway 36 Pressure Peak Inspiratory Airway 37 Pressure Peak Inspiratory Airway 40 Pressure Peak Inspiratory Airway 41 Pressure Peak Inspiratory Airway 36 Pressure Peak Inspiratory Airway 43 Pressure Peak Inspiratory Airway 41 Pressure Peak Inspiratory Airway 41 Pressure Peak Inspiratory Airway 34 Pressure Peak Inspiratory Airway 39 Pressure Peak Inspiratory Airway 38 Pressure Results - Laboratory Findings CBC and BMP: 04/22/19 04:50 04/22/19 04:50 ABG ABG pH 7.25 pH Units (7.32-7.45) L 04/22/19 04:47 ABG pCO2 51 mmHg (35-45) H 04/22/19 04:47 ABG pO2 84 mmHg (85-104) L 04/22/19 04:47 ABG O2 Saturation 94 % (95-98) L 04/22/19 04:47 PT/INR, D-dimer PT 11.9 Seconds (9.4-12.1) 04/13/19 12:32 Abnormal lab findings: Abnormal lab results WBC 12.8 K/mcL (4.3-11.1) H 04/22/19 04:50 RBC 2.58 M/mcL (4.19-5.50) L 04/22/19 04:50 Hgb 8.5 g/dL (12.9-16.9) L 04/22/19 04:50 Hct 26.7 % (37.5-50.1) L 04/22/19 04:50 MCV 103.5 fL (83.0-100.0) H 04/22/19 04:50 MCHC 31.1 g/dL (31.6-35.5) L 04/21/19 05:00 RDW 15.9 % (11.5-14.5) H 04/22/19 04:50 Plt Count 101 K/mcL (140-400) L 04/22/19 04:50 Neutrophils # 10.7 K/mcL (1.6-8.9) H 04/22/19 04:50 Lymphocytes # 0.3 K/mcL (0.6-4.6) L 04/18/19 04:15 Monocytes # 2.0 K/mcL (0.0-1.3) H 04/20/19 08:51 Nucleated RBCs/100 WBC 0.2 /100 WBC (0) H 04/22/19 04:50 Platelet Estimate Decreased (Normal) L 04/20/19 08:51 ABG pH 7.25 pH Units (7.32-7.45) L 04/22/19 04:47 ABG pCO2 51 mmHg (35-45) H 04/22/19 04:47 ABG pO2 84 mmHg (85-104) L 04/22/19 04:47 ABG HCO3 19 mEq/L (21-27) L 04/16/19 04:57 ABG O2 Saturation 94 % (95-98) L 04/22/19 04:47 ABG Base Excess -5 mEq/L (-2 to 3) L 04/22/19 04:47 ABG Hematocrit 27.0 % (37.5-50.1) L 04/13/19 11:26 ABG Chloride 112 mEq/L (98-107) H 04/13/19 09:35 Glucose 112 mg/dL (60-95) H 04/13/19 11:26 Sodium 134 mEq/L (136-145) L 04/19/19 04:05 Potassium 5.5 mEq/L (3.5-5.1) H 04/19/19 13:53 Chloride 108 mEq/L (98-107) H 04/22/19 04:50 Carbon Dioxide 19 mEq/L (23-29) L 04/22/19 04:50 BUN 121 mg/dL (8-23) H 04/22/19 04:50 Creatinine 4.09 mg/dL (0.70-1.30) H 04/22/19 04:50 Est GFR ( Amer) 18 (> 60) L 04/22/19 04:50 Est GFR (Non-Af Amer) 15 (> 60) L 04/22/19 04:50 BUN/Creatinine Ratio 30 (6-26) H 04/22/19 04:50 Glucose 47 mg/dL (70-105) L 04/22/19 04:50 POC Glucose 27 mg/dL (70-99) L* 04/21/19 23:25 Calculated Osmolality 324 (280-300) H 04/22/19 04:50 Calcium 8.1 mg/dL (8.6-10.3) L 04/22/19 04:50 Magnesium 3.1 mg/dL (1.6-2.6) H 04/19/19 04:05 Creatine Kinase 432 Units/L (30-223) H 04/16/19 03:47 Procalcitonin 0.90 ng/mL (0.00-0.15) H 04/15/19 16:30 Free T3 1.98 pg/mL (2.50-3.90) L 04/14/19 04:02 Arterial Blood Ionized Calcium 1.04 mmol/L (1.15-1.35) L 04/13/19 10:55 Urine Clarity Cloudy (Clear) A 04/15/19 10:04 Urine Protein 100 mg/dL (Neg-Trace) H 04/18/19 11:10 Urine Blood Large (Negative) H 04/18/19 11:10 Ur Leukocyte Esterase Small (Negative) H 04/18/19 11:10 Urine Microscopic RBC 15-30 per hpf (0-3) H 04/18/19 11:10 Urine Microscopic WBC 15-30 per hpf (0-3) H 04/18/19 11:10 Ur Squamous Epith Cells Many per lpf (None-Few) H 04/18/19 11:10 Granular Casts Few per lpf (None Seen) H 04/15/19 10:04 Ur Culture Indicated? YES (NO) A 04/18/19 11:10 Crossmatch See Detail 04/08/19 16:04 - Clinical Findings Intake & Output: Intake & Output 04/21/19 04/21/19 04/22/19 15:59 23:59 07:59 Intake Total 600 / 2017 200 / 2018 400 / 400 Output Total 255 / 891 276 / 891 226 / 226 Balance 345 / 1127 -76 / 1127 174 / 174 - VTE Documentation of Mechanical Device: Graduated compression elastic hosiery Consult Discharge Plan - Plan Referrals: [facility] [Primary Care Provider] -
[2019-04-22] MEDS: Budesonide/Formoterol 160/4.5 1 PUFF INH IH SCH ×2 (07:09→19:37)
[2019-04-22] MEDS: *HR* Dextrose 50 % in Water (Syg) 50 ML SYRINGE IVP PRN ×3 (07:11→23:14)
--- NOTE | 2019-04-22 07:11 | Cardiothoracic Progress Note ---
Date of Encounter: 04/22/19 Time of Encounter: 07:10 - Assessment and plan (1) Coronary artery disease Current Visit: No Status: Acute The patient remains intubated and unresponsive. No significant change in his neurologic status. His condition continues to deteriorate. He is currently a DNR CCA and the family is proceeding with compassionate extubation on 04/23/2019 at 1300 hrs. The assessment and plan as outlined above was discussed with the patient and/or family members who expressed understanding and agreement. All questions were answered. Qualifiers: Qualified Code(s): I25.118 - Atherosclerotic heart disease of [place] coronary artery with other forms of angina pectoris - Subjective Procedure(s) Performed: POD#8 S/P CABG2 Interval history: The patient remains intubated. He is unresponsive without purposeful movement. Vital Signs, Last 4 Hours Temp Pulse Resp BP Pulse Ox 04/22/19 06:00 66 14 94/50 98 04/22/19 05:53 14 90/49 99 04/22/19 05:00 66 14 92/51 98 04/22/19 04:00 97.5 F L 66 14 119/61 98 04/22/19 03:54 15 92/47 97 04/22/19 03:34 64 Oxgyen Flow Rate Oxygen Flow Rate (LPM) 15 Clinical Data, last 8 Hours Output, Chest Tube Drainage 0 Amount [Mediastinal #4] Output, Chest Tube Drainage 0 Amount [Mediastinal #4] Output, Chest Tube Drainage 6 Amount [Mediastinal #4] Output, Chest Tube Drainage 6 Amount [Mediastinal #4] Output, Chest Tube Drainage 0 Amount [Mediastinal #3] Output, Chest Tube Drainage 0 Amount [Mediastinal #3] Output, Chest Tube Drainage 10 Amount [Mediastinal #3] Output, Chest Tube Drainage 10 Amount [Mediastinal #3] Output, Chest Tube Drainage 0 Amount [Mediastinal #2] Output, Chest Tube Drainage 0 Amount [Mediastinal #2] Output, Chest Tube Drainage 20 Amount [Mediastinal #2] Output, Chest Tube Drainage 20 Amount [Mediastinal #2] Output, Chest Tube Drainage 0 Amount [Mediastinal #1] Output, Chest Tube Drainage 0 Amount [Mediastinal #1] Output, Chest Tube Drainage 90 Amount [Mediastinal #1] Output, Chest Tube Drainage 90 Amount [Mediastinal #1] Weight 04/20/19 04/21/19 04/22/19 23:59 23:59 23:59 Weight 91.7 kg - Physical Examination General: Other (Intubated, sedated, unresponsive) Neck: No JVD, Normal carotid pulses Cardiac: Reg Rate and Rhythm, Normal S1 and S2 Incision: No signs of infection, Dry/intact dressing Sternum: Stable Pacing Wires: In place Lungs: Other (Coarse rhonchi bilaterally) Vascular: Normal capillary refill Extremities: No Clubbing, No Cyanosis, No Edema - Labs 04/22/19 04:50 04/22/19 04:50 Lab Results, Last 24 hours 04/22/19 04/22/19 04:50 04:50 WBC 12.8 H Hgb 8.5 L Hct 26.7 L Plt Count 101 L Sodium 139 Potassium 4.7 Chloride 108 H Carbon Dioxide 19 L BUN 121 H Creatinine 4.09 H Glucose 47 L Calcium 8.1 L - VTE Documentation of Mechanical Device: Graduated compression elastic hosiery Consult Discharge Plan - Plan Referrals: [facility] [Primary Care Provider] -
[2019-04-22] MEDS: Chlorhexidine Rinse 15 ML MOUTHWASH MM SCH ×2 (07:53→20:18)
[2019-04-22] MEDS: Nicotine 21 MG PATCH.TD24 TD SCH (07:54)
[2019-04-22] MEDS: Aspirin 81 MG TAB.CHEW PO SCH (07:54)
[2019-04-22] MEDS: amLODIPine 5 MG TABLET GTUBE SCH (07:54)
[2019-04-22] MEDS: Furosemide 20 MG/2 ML VIAL IVP SCH (07:54)
[2019-04-22] MEDS: Pantoprazole 40 MG VIAL IVP SCH (07:54)
[2019-04-22] MEDS: Docusate Oral Soln 100 MG/10 ML UDC GTUBE SCH ×2 (07:54→20:19)
[2019-04-23] MEDS: Ipratropium/Albuterol Neb 3 ML IH SCH ×5 (03:25→20:25)
[2019-04-23] MEDS: Artificial Tears SOLN 15 ML BOTTLE BOTH EYES SCH ×3 (04:01→12:08)
[2019-04-23] MEDS: Insulin LISPRO 300 UNITS/3 ML VIAL SQ SCH ×3 (04:02→12:29)
[2019-04-23] MEDS: Albumin 25% 25gram/100mL 25 GM/100 ML IV.SOLN IVPB SCH ×2 (04:45→13:30)
[2019-04-23] MEDS: *HR* Heparin 5,000 UNIT/ML VIAL SQ SCH (04:54)
--- NOTE | 2019-04-23 05:58 | Pulmonology Progress Note ---
Date of Encounter: 04/23/19 Time of Encounter: 06:15 Assessment and Plan (1) Encephalopathy Current Visit: Yes Status: Acute -consider secondary to embolic stroke in setting of CABG 2 post op day 1 with significant vascular atherosclerosis vs. infectious vs. delerium vs. uremia vs. medication effect -afebrile -lactic acid WNL. -blood cultures X2 04/14/19 oh growth final -EEG 04/14/19 : abnormal awake drowsy with nonspecific generalized slowing that c ould correlate with metabolic toxic encephalopathy - 04/14/19: 1st CT head showed possible subarachnoid hemorrhage versus artifact. A repeat head CT read as no definite acute intracranial hemorrhage and likely hyperdensity representing artifact. -CT head 04/16/19 showed likely developing infarcts in right and left frontal lobe, posterior right parietal lobe, and cerebellar hemispheres. Plan: Neurology reports no regaining of consciousness even without sedation. Family desires palliative extubation afternoon of 04/23/19. (2) Acute CVA (cerebrovascular accident) Current Visit: Yes Status: Acute -CT 04/16/19 as above. -Neurology following as above Plan: No aggressive intervention at this time. family desires palliative ext ubation 04/23/19 (3) Acute on chronic respiratory failure with hypoxia and hypercapnia Current Visit: Yes Status: Acute Background -Consider secondary to intraoperative sedation vs. possible pneumonia vs. pulmonary edema -Patient currently on the ventilator. Reports -MRSA swab negative -Cefepime 7 days completed. Plan: Propofol and fentanyl. Family desires palliative extubation 04/23/19. (4) Hospital acquired PNA Current Visit: Yes Status: Acute -As seen on chest x-ray 04/15/19 -Suspected -Antibiotics completed as above (5) COPD exacerbation Current Visit: Yes Status: Acute -Likely secondary to intraoperative stress -2-3 pack per day active smoker. -ABG as above -CXR as above -Received Solu-Medrol for total 6 days. Plan: Failure of liberation from ventilator. Duo nebs every 4 hours scheduled. Symbicort 160/4.5 2 puffs twice a day scheduled. Albuterol sulfate every 4 when necessary. (6) S/P coronary artery bypass graft x 2 Current Visit: Yes Status: Acute -Operation performed by Dr. Bright 04/13/19. Estimated blood loss 0.5 L. -Patient's initial presenting symptoms included unstable angina. -Left internal mammary artery was connected to the LAD and the left great saphenous vein was connected to the obtuse marginal branch #2 of circumflex. 04/08/19 studies: -carotid Doppler ultrasound that showed nonstenotic plaque bilaterally. -Echo showed left ventricular ejection fraction of 60% with mild to moderate concentric left ventricular hypertrophy as well as left ventricular diastolic dysfunction, [id number] mitral regurgitation, mild tricuspid regurgitation, mild pulmonary hypertension. -Nuclear stress test showed moderate anterior lateral ischemia on perfusion study. -Cardiac catheterization revealed severe multi-vessel disease in the LCA, LAD, circumflex, and RCA. -Cefazolin 6g given -albumin given. Plan: Postop day 9. Pain control with fentanyl and propofol. Percocet also available. Glucose management with high-dose sliding scale. Remove chest tubes at cardiology's discretion. Condition deteriorating. (7) Atrial fibrillation Current Visit: Yes Status: Acute Background -with rapid ventricular rate -consider 2/2 ischemia, structural changes of the heart, pulmonary disease, hypoxia, CVA -Search of records and interview with patient's significant other has not shown prior history although patient was on home calcium channel taryn. -[id number] 4.8% stroke risk per year. HAS-BLED shows moderate risk of major bleeding with aspirin use and age greater than 65. No recent INR on record. Lab -A1c 5.8 -Echo as above -TSH, free T3/T4 unremarkable Plan: Amiodarone drip. Pacer wire in place Qualifiers: Atrial fibrillation type: unspecified Qualified Code(s): I48.91 - Unspecified atrial fibrillation (8) Heart failure with preserved ejection fraction Current Visit: Yes Status: Acute -Likely secondary to chronic hypertension and atherosclerosis as well as valv ular disease and ischemia. -04/08/19 Echo showed left ventricular ejection fraction of 60% with mild to moderate concentric left ventricular hypertrophy as well as left ventricular diastolic dysfunction, [id number] mitral regurgitation, mild tricuspid regurgitation, mild pulmonary hypertension. -CABG as above. Plan: ASA. Statin. Would consider future beta taryn therapy for cardioprotection however patient's family desires palliative extubation 04/23/19. Qualifiers: Heart failure chronicity: chronic Qualified Code(s): I50.32 - Chronic diastolic (congestive) heart failure (9) Coronary artery disease Current Visit: No Status: Acute -Likely secondary to history of smoking and Western diet -Catheterization results as above Plan: Atorvastatin 80. Calcium channel taryn Qualifiers: Coronary Disease-Associated Artery/Lesion type: [place] artery [place] vs. transplanted heart: [place] heart Associated angina: with stable angina Qualified Code(s): I25.118 - Atherosclerotic heart disease of [place] coronary artery with other forms of angina pectoris (10) Acute kidney injury Current Visit: Yes Status: Acute Background -Consider secondary to poor perfusion in the setting of post-CABG and soft blood pressures. -on CKD IV -KDIGO: 04/14/19 Cr 2.48 from 1.82. Plan: Albumin given. Will consider urine studies pending clinical course. Monitor urine output. Nephrology consulted. IV bicarbonate given on 04/20/19 for metabolic acidosis. Kidney function continues to worsen and urgent dialysis was considered however family desires palliative extubation on 04/23/19 (11) CKD (chronic kidney disease) stage 3, GFR 30-59 ml/min Current Visit: Yes Status: Acute -Chronic -Presurgical creatinine 1.8. Plan: YOLANDA as above. Renal dosing of medications. Avoid nephrotoxins. (12) Leukocytosis Current Visit: Yes Status: Acute -Likely infectious versus stress reaction to operation as well as steroid therapy -afebrile Qualifiers: Qualified Code(s): D72.829 - Elevated white blood cell count, unspecified (13) Postoperative anemia due to acute blood loss Current Visit: Yes Status: Acute -Normocytic -Has been relatively stable although did drop from 9.0-8.5 on 04/22/19 Plan: Palliative extubation to be performed 04/23/19 (14) Goals of care, counseling/discussion Current Visit: Yes Status: Acute -Family has decided to palliative extubate on 04/23/19. (15) DVT prophylaxis Current Visit: Yes Status: Acute Subcutaneous heparin Subjective Principal diagnosis: Unresponsiveness, CVA Interval history: Nursing reports no acute events overnight. Patient intubated and sedated Objective PUL Vital signs: Last Vital Signs Temp 97.4 F L 04/23/19 04:02 Pulse 79 04/23/19 05:00 Resp 16 04/23/19 05:56 BP 107/49 04/23/19 05:56 Pulse Ox 98 04/23/19 05:56 Gen.: Elderly male. Intubated and sedated Skin: Poor turgor. Bilateral ecchymosis of forearms Eyes: Reactive to light. Moist. Anicteric Neck: No carotid bruits heard. IV Introducer on the right. Cardiac: Regular rhythm. Tachycardic. Respiratory: Coarse low rhonchi throughout. Somewhat distant sounds in lung bases anteriorly. Posterior bases are well auscultated secondary to patient positioning. Slight wheezing upper anterior lung elizondo. Extremities: Capillary refill less than 2 seconds upper extremities bilaterally. Bilateral lower extremity pitting edema. Nonpitting edema of feet and knee joint capsules. Beginnings of livedo reticularis on feet. Neuro: Possible blink on one attempt at eyelid palpation. Repeated attempts did not produce blink response. Sohail 6 Ventilator Settings Ventilator Settings: Ventilator Settings, Last 8 Hours Ventilator Tidal Volume 500 Setting Ventilator Tidal Volume 500 Setting Ventilator Tidal Volume 500 Setting Ventilator Tidal Volume 500 Setting Ventilator Tidal Volume 500 Setting Ventilator Tidal Volume 500 Setting Ventilator Tidal Volume 500 Setting Ventilator Tidal Volume 500 Setting Ventilator Tidal Volume 500 Setting Ventilator Tidal Volume 500 Setting Ventilator Tidal Volume 500 Setting Ventilator Tidal Volume 500 Setting Ventilator Tidal Volume 500 Setting Ventilator Respiratory Rate 14 Setting Ventilator Respiratory Rate 14 Setting Ventilator Respiratory Rate 14 Setting Ventilator Respiratory Rate 14 Setting Ventilator Respiratory Rate 14 Setting Ventilator Respiratory Rate 14 Setting Ventilator Respiratory Rate 14 Setting Ventilator Respiratory Rate 14 Setting Ventilator Respiratory Rate 14 Setting Ventilator Respiratory Rate 14 Setting Ventilator Respiratory Rate 14 Setting Ventilator Respiratory Rate 14 Setting Ventilator Respiratory Rate 14 Setting Actual Respiratory Rate 18 Actual Respiratory Rate 16 Actual Respiratory Rate 16 Actual Respiratory Rate 17 Actual Respiratory Rate 17 Actual Respiratory Rate 16 Actual Respiratory Rate 17 Actual Respiratory Rate 15 Actual Respiratory Rate 14 Actual Respiratory Rate 18 Actual Respiratory Rate 16 Actual Respiratory Rate 16 Actual Respiratory Rate 18 Positive End Expiratory 5 Pressure Positive End Expiratory 5 Pressure Positive End Expiratory 5 Pressure Positive End Expiratory 5 Pressure Positive End Expiratory 5 Pressure Positive End Expiratory 5 Pressure Positive End Expiratory 5 Pressure Positive End Expiratory 5 Pressure Positive End Expiratory 5 Pressure Positive End Expiratory 5 Pressure Positive End Expiratory 5 Pressure Positive End Expiratory 5 Pressure Positive End Expiratory 5 Pressure Peak Inspiratory Airway 41 Pressure Peak Inspiratory Airway 40 Pressure Peak Inspiratory Airway 42 Pressure Peak Inspiratory Airway 39 Pressure Peak Inspiratory Airway 40 Pressure Peak Inspiratory Airway 42 Pressure Peak Inspiratory Airway 44 Pressure Peak Inspiratory Airway 42 Pressure Peak Inspiratory Airway 40 Pressure Peak Inspiratory Airway 43 Pressure Peak Inspiratory Airway 36 Pressure Peak Inspiratory Airway 37 Pressure Peak Inspiratory Airway 40 Pressure Results - Laboratory Findings CBC and BMP: 04/22/19 04:50 04/22/19 04:50 ABG ABG pH 7.25 pH Units (7.32-7.45) L 04/22/19 04:47 ABG pCO2 51 mmHg (35-45) H 04/22/19 04:47 ABG pO2 84 mmHg (85-104) L 04/22/19 04:47 ABG O2 Saturation 94 % (95-98) L 04/22/19 04:47 PT/INR, D-dimer PT 11.9 Seconds (9.4-12.1) 04/13/19 12:32 Abnormal lab findings: Abnormal lab results WBC 12.8 K/mcL (4.3-11.1) H 04/22/19 04:50 RBC 2.58 M/mcL (4.19-5.50) L 04/22/19 04:50 Hgb 8.5 g/dL (12.9-16.9) L 04/22/19 04:50 Hct 26.7 % (37.5-50.1) L 04/22/19 04:50 MCV 103.5 fL (83.0-100.0) H 04/22/19 04:50 MCHC 31.1 g/dL (31.6-35.5) L 04/21/19 05:00 RDW 15.9 % (11.5-14.5) H 04/22/19 04:50 Plt Count 101 K/mcL (140-400) L 04/22/19 04:50 Neutrophils # 10.7 K/mcL (1.6-8.9) H 04/22/19 04:50 Lymphocytes # 0.3 K/mcL (0.6-4.6) L 04/18/19 04:15 Monocytes # 2.0 K/mcL (0.0-1.3) H 04/20/19 08:51 Nucleated RBCs/100 WBC 0.2 /100 WBC (0) H 04/22/19 04:50 Platelet Estimate Decreased (Normal) L 04/20/19 08:51 ABG pH 7.25 pH Units (7.32-7.45) L 04/22/19 04:47 ABG pCO2 51 mmHg (35-45) H 04/22/19 04:47 ABG pO2 84 mmHg (85-104) L 04/22/19 04:47 ABG HCO3 19 mEq/L (21-27) L 04/16/19 04:57 ABG O2 Saturation 94 % (95-98) L 04/22/19 04:47 ABG Base Excess -5 mEq/L (-2 to 3) L 04/22/19 04:47 ABG Hematocrit 27.0 % (37.5-50.1) L 04/13/19 11:26 ABG Chloride 112 mEq/L (98-107) H 04/13/19 09:35 Glucose 112 mg/dL (60-95) H 04/13/19 11:26 Sodium 134 mEq/L (136-145) L 04/19/19 04:05 Potassium 5.5 mEq/L (3.5-5.1) H 04/19/19 13:53 Chloride 108 mEq/L (98-107) H 04/22/19 04:50 Carbon Dioxide 19 mEq/L (23-29) L 04/22/19 04:50 BUN 121 mg/dL (8-23) H 04/22/19 04:50 Creatinine 4.09 mg/dL (0.70-1.30) H 04/22/19 04:50 Est GFR ( Amer) 18 (> 60) L 04/22/19 04:50 Est GFR (Non-Af Amer) 15 (> 60) L 04/22/19 04:50 BUN/Creatinine Ratio 30 (6-26) H 04/22/19 04:50 Glucose 47 mg/dL (70-105) L 04/22/19 04:50 POC Glucose 123 mg/dL (70-99) H 04/22/19 23:35 Calculated Osmolality 324 (280-300) H 04/22/19 04:50 Calcium 8.1 mg/dL (8.6-10.3) L 04/22/19 04:50 Magnesium 3.1 mg/dL (1.6-2.6) H 04/19/19 04:05 Creatine Kinase 432 Units/L (30-223) H 04/16/19 03:47 Procalcitonin 0.90 ng/mL (0.00-0.15) H 04/15/19 16:30 Free T3 1.98 pg/mL (2.50-3.90) L 04/14/19 04:02 Arterial Blood Ionized Calcium 1.04 mmol/L (1.15-1.35) L 04/13/19 10:55 Urine Clarity Cloudy (Clear) A 04/15/19 10:04 Urine Protein 100 mg/dL (Neg-Trace) H 04/18/19 11:10 Urine Blood Large (Negative) H 04/18/19 11:10 Ur Leukocyte Esterase Small (Negative) H 04/18/19 11:10 Urine Microscopic RBC 15-30 per hpf (0-3) H 04/18/19 11:10 Urine Microscopic WBC 15-30 per hpf (0-3) H 04/18/19 11:10 Ur Squamous Epith Cells Many per lpf (None-Few) H 04/18/19 11:10 Granular Casts Few per lpf (None Seen) H 04/15/19 10:04 Ur Culture Indicated? YES (NO) A 04/18/19 11:10 Crossmatch See Detail 04/08/19 16:04 - Clinical Findings Intake & Output: Intake & Output 04/22/19 04/22/19 04/23/19 15:59 23:59 07:59 Intake Total 500 / 1500 500 / 1500 100 / 100 Output Total 50 / 636 335 / 636 85 / 85 Balance 450 / 864 165 / 864 Weight 93.7 kg - VTE Documentation of Mechanical Device: Graduated compression elastic hosiery Consult Discharge Plan - Plan [facility]errals: [facility] [Primary Care Provider] -
[2019-04-23] MEDS: Budesonide/Formoterol 160/4.5 1 PUFF INH IH SCH ×2 (07:31→20:26)
--- NOTE | 2019-04-23 07:40 | Cardiothoracic Progress Note ---
Date of Encounter: 04/23/19 Time of Encounter: 07:39 - Assessment and plan (1) Coronary artery disease Current Visit: No Status: Acute The patient remains intubated and unresponsive. No significant change in his neurologic status. His condition continues to deteriorate. He is currently a DNR CCA and the family is proceeding with compassionate extubation on 04/23/2019 at 1300 hrs. The assessment and plan as outlined above was discussed with the patient and/or family members who expressed understanding and agreement. All questions were answered. Qualifiers: Coronary Disease-Associated Artery/Lesion type: [place] artery [place] vs. transplanted heart: [place] heart Associated angina: with stable angina Qualified Code(s): I25.118 - Atherosclerotic heart disease of [place] coronary artery with other forms of angina pectoris - Subjective Procedure(s) Performed: POD#9 S/P CABG2 Interval history: The patient remains intubated. He is unresponsive without purposeful movement. Vital Signs, Last 4 Hours Temp Pulse Resp BP Pulse Ox 04/23/19 07:34 15 97/65 97 04/23/19 06:00 89 16 114/53 98 04/23/19 05:56 16 107/49 98 04/23/19 05:00 79 16 101/57 98 04/23/19 04:02 97.4 F L 04/23/19 04:00 66 16 97/56 97 Oxgyen Flow Rate Oxygen Flow Rate (LPM) 15 Clinical Data, last 8 Hours Output, Chest Tube Drainage 0 Amount [Mediastinal #4] Output, Chest Tube Drainage 10 Amount [Mediastinal #3] Output, Chest Tube Drainage 30 Amount [Mediastinal #2] Output, Chest Tube Drainage 20 Amount [Mediastinal #1] Weight 04/21/19 04/22/19 04/23/19 23:59 23:59 23:59 Weight 93.7 kg - Physical Examination General: Other (Intubated, sedated, unresponsive) Neck: No JVD, Normal carotid pulses Cardiac: Reg Rate and Rhythm, Normal S1 and S2, No Murmur Incision: No signs of infection, Dry/intact dressing Sternum: Stable Chest tubes: Minimal drainage, Other (No air leak) Pacing Wires: In place Lungs: Normal Breath Sounds, No Wheeze, Rales, Rhonchi Neuro: Alert and responsive, No focal deficits noted Vascular: Normal capillary refill Extremities: No Clubbing, No Cyanosis, No Edema - Labs 04/22/19 04:50 04/22/19 04:50 - VTE Documentation of Mechanical Device: Graduated compression elastic hosiery Consult Discharge Plan - Plan Referrals: [facility] [Primary Care Provider] -
[2019-04-23] MEDS: FentaNYL (PF) 1,000 MCG in 0.9 % Sodium Chloride 80 ML IVC SCH (09:15)
[2019-04-23] MEDS: Nicotine 21 MG PATCH.TD24 TD SCH (09:49)
[2019-04-23] MEDS: Docusate Oral Soln 100 MG/10 ML UDC GTUBE SCH (09:54)
[2019-04-23] MEDS: Aspirin 81 MG TAB.CHEW PO SCH (09:55)
[2019-04-23] MEDS: amLODIPine 5 MG TABLET GTUBE SCH (09:55)
[2019-04-23] MEDS: Amiodarone Premix 360 MG/200 ML BAG IVC SCH (09:55)
[2019-04-23] MEDS: Furosemide 20 MG/2 ML VIAL IVP SCH (09:55)
[2019-04-23] MEDS: Pantoprazole 40 MG VIAL IVP SCH (09:55)
[2019-04-23] MEDS: Chlorhexidine Rinse 15 ML MOUTHWASH MM SCH (09:55)
[2019-04-23 14:32] VITALS: BP 109/55
[2019-04-23] MEDS ORDERED: *HR* LORazepam 2 MG/ML VIAL IVP PRN (14:38)
[2019-04-23] MEDS ORDERED: *HR* FentaNYL (PF) 100 MCG/2 ML VIAL IVP PRN (14:39)
--- NOTE | 2019-04-23 15:14 | Palliative Progress Note ---
Date of Encounter: 04/23/19 Time of Encounter: 14:30 - Assessment and plan (1) Generalized pain Current Visit: Yes Status: Acute Assessment and plan: Continue Fentanyl drip at 100mcg hr as currently infusing. Titrate as needed. Will have boluses available PRN. (2) Dyspnea Current Visit: Yes Status: Acute Assessment and plan: Oxygen for comfort post extubation. Has Fentanyl infusing - and will have bolus doses available PRN for shortness of breath/air hunger. Monitor and titrate as needed. (3) Encephalopathy Current Visit: Yes Status: Acute (4) Goals of care, counseling/discussion Current Visit: Yes Status: Acute Assessment and plan: D/W POA, brother Mendoza,, daughter, and girlfriend Yovana. Patient transitioned to DNR-Comfort care, and will be compassionately extubated this afternoon. Nurse Recruiterleah Wong has been at bedside x2 today lending prayer and support. It is doubtful that patient will survive long after removed from life support. (5) Heart failure with preserved ejection fraction Current Visit: Yes Status: Acute Qualifiers: Heart failure chronicity: chronic Qualified Code(s): I50.32 - Chronic diastolic (congestive) heart failure (6) S/P CABG (coronary artery bypass graft) Current Visit: Yes Status: Acute (7) Acute CVA (cerebrovascular accident) Current Visit: Yes Status: Acute - Time Spent With Patient Total time spent is greater than 50% in coordination of care (as documented) at patient's floor/unit and/or counseling patient: - Subjective Interval history: Patient remains unresponsive on ventilator. Family at bedside. Daughter did arrive from [facility]. States she has not seen or talked with patient since 2004. With POA permission, updated her on clinical course. - Constitutional Vitals: Abnormal lab results WBC 12.8 K/mcL (4.3-11.1) H 04/22/19 04:50 RBC 2.58 M/mcL (4.19-5.50) L 04/22/19 04:50 Hgb 8.5 g/dL (12.9-16.9) L 04/22/19 04:50 Hct 26.7 % (37.5-50.1) L 04/22/19 04:50 MCV 103.5 fL (83.0-100.0) H 04/22/19 04:50 MCHC 31.1 g/dL (31.6-35.5) L 04/21/19 05:00 RDW 15.9 % (11.5-14.5) H 04/22/19 04:50 Plt Count 101 K/mcL (140-400) L 04/22/19 04:50 Neutrophils # 10.7 K/mcL (1.6-8.9) H 04/22/19 04:50 Lymphocytes # 0.3 K/mcL (0.6-4.6) L 04/18/19 04:15 Monocytes # 2.0 K/mcL (0.0-1.3) H 04/20/19 08:51 Nucleated RBCs/100 WBC 0.2 /100 WBC (0) H 04/22/19 04:50 Platelet Estimate Decreased (Normal) L 04/20/19 08:51 ABG pH 7.25 pH Units (7.32-7.45) L 04/22/19 04:47 ABG pCO2 51 mmHg (35-45) H 04/22/19 04:47 ABG pO2 84 mmHg (85-104) L 04/22/19 04:47 ABG HCO3 19 mEq/L (21-27) L 04/16/19 04:57 ABG O2 Saturation 94 % (95-98) L 04/22/19 04:47 ABG Base Excess -5 mEq/L (-2 to 3) L 04/22/19 04:47 ABG Hematocrit 27.0 % (37.5-50.1) L 04/13/19 11:26 ABG Chloride 112 mEq/L (98-107) H 04/13/19 09:35 Glucose 112 mg/dL (60-95) H 04/13/19 11:26 Sodium 134 mEq/L (136-145) L 04/19/19 04:05 Potassium 5.5 mEq/L (3.5-5.1) H 04/19/19 13:53 Chloride 108 mEq/L (98-107) H 04/22/19 04:50 Carbon Dioxide 19 mEq/L (23-29) L 04/22/19 04:50 BUN 121 mg/dL (8-23) H 04/22/19 04:50 Creatinine 4.09 mg/dL (0.70-1.30) H 04/22/19 04:50 Est GFR ( Amer) 18 (> 60) L 04/22/19 04:50 Est GFR (Non-Af Amer) 15 (> 60) L 04/22/19 04:50 BUN/Creatinine Ratio 30 (6-26) H 04/22/19 04:50 Glucose 47 mg/dL (70-105) L 04/22/19 04:50 POC Glucose 123 mg/dL (70-99) H 04/22/19 23:35 Calculated Osmolality 324 (280-300) H 04/22/19 04:50 Calcium 8.1 mg/dL (8.6-10.3) L 04/22/19 04:50 Magnesium 3.1 mg/dL (1.6-2.6) H 04/19/19 04:05 Creatine Kinase 432 Units/L (30-223) H 04/16/19 03:47 Procalcitonin 0.90 ng/mL (0.00-0.15) H 04/15/19 16:30 Free T3 1.98 pg/mL (2.50-3.90) L 04/14/19 04:02 Arterial Blood Ionized Calcium 1.04 mmol/L (1.15-1.35) L 04/13/19 10:55 Urine Clarity Cloudy (Clear) A 04/15/19 10:04 Urine Protein 100 mg/dL (Neg-Trace) H 04/18/19 11:10 Urine Blood Large (Negative) H 04/18/19 11:10 Ur Leukocyte Esterase Small (Negative) H 04/18/19 11:10 Urine Microscopic RBC 15-30 per hpf (0-3) H 04/18/19 11:10 Urine Microscopic WBC 15-30 per hpf (0-3) H 04/18/19 11:10 Ur Squamous Epith Cells Many per lpf (None-Few) H 04/18/19 11:10 Granular Casts Few per lpf (None Seen) H 04/15/19 10:04 Ur Culture Indicated? YES (NO) A 04/18/19 11:10 Crossmatch See Detail 04/08/19 16:04 General appearance: Present: no acute distress - Respiratory Respiratory exam: Present: CTAB Additional comments: Breath sounds course throughout anterior chest - Cardiovascular Cardiovascular exam: Present: +S1, +S2 - GI/Abdominal GI/Abdominal exam: Present: diminished bowel sounds, distended, soft - Additional comments: Brenner patient with cloudy yellow urine - Extremities Exam Additional comments: Generalized edema. Weeping noted from upper extremities - Neurological Exam Additional comments: Unresponsive to verbal and tactile stimuli - Skin Skin exam: Present: pallor, warm Palliative Quality Palliative Quality: Screen for Code Status: Yes, Screen for Goals of Care: Yes, Screen for Pain: Yes, If Pain Regimen Started, Initiate Bowel Regimen: NA, Screen for Nausea/Vomitting: Yes Code Status: 04/13/19 07:47 Resuscitation Status: Active [RES] Stat Comment: Resuscitation Status: Full Code 04/19/19 13:35 DNR [Resuscitation Status: Active] [RES] Routine Comment: Resuscitation Status: DNR-Comfort Care 04/19/19 13:42 DNR [Resuscitation Status: Active] [RES] Routine Comment: Resuscitation Status: DNR-Comfort Care-Arrest 04/23/19 14:40 DNR [Resuscitation Status: Active] [RES] Routine Comment: Resuscitation Status: DNR-Comfort Care - Labs CBC & Chem 7: 04/22/19 04:50 04/22/19 04:50 Labs: Laboratory Results - last 24 hr 04/22/19 04/22/19 04/22/19 03:43 07:07 08:07 POC Glucose 96 54 L 84 04/22/19 04/22/19 04/22/19 10:49 15:38 19:11 POC Glucose 80 70 95 04/22/19 04/22/19 22:53 23:35 POC Glucose 66 L 123 H - Impressions Impressions Chest X-Ray 04/22/19 06:00 IMPRESSION: 1. Stable lines, tubes, and support devices. Of note, the nasogastric tube side port is above the GE junction. Recommend advancement by 5 cm for more optimal positioning. 2. Mild interstitial edema with basilar atelectasis and effusions. Findings are not significantly changed from the prior study. D/ / 04/22/2019 07:26:09 Socorro Phelan MD / Minerva Iraheta Interpreting Provider: Socorro Phelan MD - ABG Interpretation ABG results: ABG ABG pH 7.25 pH Units (7.32-7.45) L 04/22/19 04:47 ABG pCO2 51 mmHg (35-45) H 04/22/19 04:47 ABG pO2 84 mmHg (85-104) L 04/22/19 04:47 ABG O2 Saturation 94 % (95-98) L 04/22/19 04:47 PT/INR, D-dimer PT 11.9 Seconds (9.4-12.1) 04/13/19 12:32 Consult Discharge Plan - Plan Referrals: [facility] [Primary Care Provider] -
--- NOTE | 2019-04-23 16:46 | Death Note ---
Discharge Sum: Summary - Date and Time Date of admission: 04/13/19 12:07 Date of : 04/23/19 Time of : 15:45 - Summary Details: Causes of : * Acute CVA * Acute respiratory failure * Acute kidney failure The patient underwent coronary artery bypass grafting on 04/13/2019. 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 Neurology was consulted, and the patient was deemed to have a poor neurologic prognosis. The family did not wish to pursue aggressive measures such as tracheostomy and PEG tube placement, therefore they opted for withdrawal of care and initiation of comfort measures only. The patient shortly after withdrawal of care. - Additional Data Confirmation of as documented by pronouncing clinician: no pulse, no respirations, no heart sounds, pupils fixed and dilated Family: at bedside Attending physician: Erasto Bright Discharge Sum: Diag - PCOD Probable Cause of : Stroke or transient ischemic attack (TIA) diagnosed during current admission Discharge Sum: Prov - Provider [facility] care physician: [facility] Admitting clinician: Erasto Bright Consults: 04/13/19 07:47 Consult for Pharmacy Education [CONS] Stat Reason for Consult: CABG Call Completed: Yes 04/13/19 12:00 Consult to Cardiac Rehabilitation-Phase1 [CONS] Routine Comment: Reason for Consult: Post open heart Call Completed: Yes Consult to [employer] [CONS] Routine Reason for SW Consult: open heart 04/13/19 12:11 Consult to Nephrology [CONS] Routine Consulting Provider: [facility]/ELSIE/MANUEL/CONCHIS Reason for Consult: CRF Call Completed: Yes 04/13/19 13:01 Consult to Pulmonology [CONS] Routine Consulting Provider: [facility] Reason for Consult: extubation,COPD Call Completed: Yes 04/14/19 07:42 Consult to Neurology [CONS] Routine Consulting Provider: [facility] Reason for Consult: assess neuro status Call Completed: Yes 04/14/19 07:45 Consult to Pulmonology [CONS] Routine Consulting Provider: [facility] Reason for Consult: extubation Call Completed: Yes 04/14/19 13:12 Consult to Interpret Exam [CONS] Stat Consulting Provider: Lakshmi Aguilar I Consult to Interpret Exam: Interpret EEG 04/15/19 11:14 Consult to Nutrition [CONS] Routine Comment: thank you! Consulting Provider: NUTRITION Reason for Dietary Consult: Tube Feed Start & Manage 04/16/19 19:54 Consult to Interpret Exam [CONS] Routine Consulting Provider: Janiya Godinez Consult to Interpret Exam: Interpret EEG 04/20/19 12:51 Consult to Palliative Care [CONS] Routine Comment: Consulting Provider: [facility] Reason for Consult: large CVA following CABG. Tenative plans for withdrawal of care. Possible inpatient hospice candidate. Call Completed: No
== END 2019-04-23 15:45 | disposition expired | DRG 235 ==
LOC: SAMDAY 06:04 → ICNU 12:07
PROVIDERS: ADMIT Thoracic Surgery (Cardiothoracic Vascular Surgery); ATTEND Thoracic Surgery (Cardiothoracic Vascular Surgery)